=== PATIENT | female | born 1990 | race Caucasian/White ===

== ENCOUNTER 2021-10-22 13:54 | Outpatient (CLI) | payer BC, MEDICAID, SELFPAY ==
--- NOTE | 2021-10-22 14:00 | CRLHL7_ITS ---
For Patients: As a result of the Century Cures Act, medical imaging exams and procedure reports are released immediately into your electronic medical record. You may view this report before your referring provider. If you have questions, please contact your health care provider. INDICATION: Evaluate anatomy. COMPARISON: 08/02/2021 TECHNIQUE: Real time carrizales scale imaging of the fetus was performed as well as color Doppler analysis of the umbilical vessels. FINDINGS: Sonographic imaging demonstrates a single living intrauterine gestation. Fetus demonstrates a regular cardiac rate of 144 beats per minute. Fetus has a variable position. The placenta lies left sided extending to the anterior and posterior aspects without evidence of placenta previa. The edge of the placenta is located 5.5 cm from the internal cervical os. Amniotic fluid volume appears normal. Single deepest vertical pocket: 5.3 cm. The cervix is closed and measures 3.8 cm in length. The composite ultrasound gestational age is calculated at 20 weeks 5 days with an estimated sonographic due date of 03/06/2022. The estimated weight is 355 grams which lies at the 72nd %. The following biometric measurements were obtained: Biparietal diameter: 5.1 cm/21 weeks 3 days 95th% Head circumference: 18.6 cm/20 weeks 6 days 82nd% Abdominal circumference: 15.6 cm/20 weeks 5 days 69th% Femur length: 3.2 cm/19 weeks 6 days 40th% The HC/AC ratio measures: 1.20 range (1.06-1.25) On anatomic survey, there is a normal appearance of the cerebral ventricles, cavum septi pellucidi, cisterna magna and cerebellum. The nose, lips, and facial profile appear normal. The cervical, thoracic and lumbar spine are well visualized and appear normal. Incomplete visualization of the outflow tracts due to position. The diaphragm and stomach appear normal. The kidneys and bladder also appear normal. There is a normal three-vessel cord. The cord insert into the placenta 1.4 cm from the placental edge. Possible positional change regarding the left foot. Right foot appears normal. Normal hands. IMPRESSION: Incomplete visualization of the LVOT and RVOT due to position. Follow-up recommended. Possible left clubfoot versus positional change. Attention on short-term follow-up recommended. Marginal cord insertion 1.4 cm from the edge of the placenta. Sonographic gestational age 20 weeks 5 days and sonographic due date 03/06/2022. Sonographic age 5 days ahead of the clinical age. Estimated weight 72nd percentile. Abdominal circumference 69th percentile. Dictated by Rod Kamara MD @ 10/22/2021 3:32:36 PM (Electronically Signed)
== END 2021-10-22 13:55 | disposition home or self-care (01) ==
LOC: US 13:59
PROVIDERS: Visit Provider Advanced Practice Midwife
DX: Z34.92 Encounter for supervision of normal pregnancy, unspecified, second trimester (principal); Z3A.20 20 weeks gestation of pregnancy
CPT/HCPCS: 76805

== ENCOUNTER 2021-11-26 13:01 | Outpatient (CLI) | payer BC, MEDICAID, SELFPAY ==
[2021-11-26 08:47] LABS: Glucose Fasting Check 93 mg/dl (60-115)
[2021-11-26 14:52] LABS: Glucose 1 Hour Gest 199 mg/dl (70-180)
[2021-11-26 14:53] LABS: Glucose GTT-Gestational 3 Hr 106 mg/dl (70-140)
[2021-11-27 19:27] LABS: Rapid Plasma Reagin (RPR) Non Reactive (Non Reactive)
== END 2021-11-26 13:02 | disposition home or self-care (01) ==
PROVIDERS: Visit Provider Advanced Practice Midwife
DX: Z34.92 Encounter for supervision of normal pregnancy, unspecified, second trimester (principal)
CPT/HCPCS: 82951; 82952; 86592

== ENCOUNTER 2022-01-14 14:59 | Outpatient (CLI) | payer BC, MEDICAID, SELFPAY ==
--- NOTE | 2022-01-14 15:00 | CRLHL7_ITS ---
For Patients: As a result of the Century Cures Act, medical imaging exams and procedure reports are released immediately into your electronic medical record. You may view this report before your referring provider. If you have questions, please contact your health care provider. INDICATION: Third trimester scan, evaluate growth. Gestational diabetes. COMPARISON: 10/22/2021 TECHNIQUE: Real time carrizales scale imaging of the fetus was performed. FINDINGS: Sonographic imaging demonstrates a single living intrauterine gestation. Fetus demonstrates a regular cardiac rate of 154 beats per minute. Fetus has a breech position. The placenta lies left anterior/posterior. Amniotic fluid volume appears normal and there is a single deepest vertical pocket: 4.9 cm. The estimated weight is 2098gm which lies at the 72nd %. On the prior OB ultrasound exam dated 10/22/2021 the estimated weight was at the 72nd%. BPD 91st percentile. HC 80th percentile. AC 81st percentile. FL 33rd percentile. The HC/AC ratio measures 1.06 range (0.95-1.11). IMPRESSION: Sonographic gestational age 33 weeks 3 days and sonographic due date of 03/01/2022. Sonographic age 10 days ahead of the clinical age. Estimated 72nd percentile. Abdominal circumference 81st percentile. Dictated by Rod Kamara MD @ 01/14/2022 3:43:25 PM (Electronically Signed)
--- OUTSIDE RECORDS SUMMARY | 2022-01-14 15:01 | XMS_ITS | Encounter Summary ---
:1990 Author Organization [facility] Address [address] [place] [address] Care Team Providers Name Role Phone Unavailable Primary Care Provider Unavailable Encounter Details Date Type Department Care Team Description 07/21/2014 Hospital Encounter [facility] Kristy Junior M.D. [address] [place] [address] (Wo rk) Social History Tobacco Use Types Packs/Day Years Used Date Smoking Tobacco: Never Assessed Alcohol Habits Answer Date Recorded How often do you have a drink containing alcohol? 2-4 times a month 05/04/2021 How many drinks containing alcohol do you have on a 1 or 2 05/04/2021 typical day when you are drinking? How often do you have six or more drinks on one Less than mo nthly 05/04/2021 occasion? Comment: Not asked Social Isolation Answer Date Recorded In a typical week, how many times do you talk on Once a week 05/04/2021 the phone with family, friends, or neighbors? How often do you get together with friends or Never 05/04/2021 relatives? How often do you attend jehovah's witness or mormonism Never 05/04/2021 services? Do you belong to any clubs or organizations such as No 05/04/2021 jehovah's witness groups, unions, fraternal or athletic groups, or school groups? How often do you attend meetings of the clubs or Never 05/04/2021 organizations you belong to? Are you now , , , , Living wi th partner 05/04/2021 never or living with a partner? Physical Activity Answer Date Recorded On average, how many days per week do you engage in moderate to 0 days 05/04/2021 strenuous exercise (like walking fast, running, jogging, dancing, swimming, biking, or other activities that cause a light or heavy sweat)? On average, how many minutes do you engage in exercise at th is 0 min 05/04/2021 level? Stress Answer Date Recorded Do you feel stress - tense, restless, nervous, or To some ex tent 05/04/2021 anxious, or unable to sleep at night because your mind is troubled all the time - these days? Financial Resource Strain Answer Date Recorded How hard is it for you to pay for the very basics like Not v luis hard 05/04/2021 food, housing, medical care, and heating? Intimate Partner Violence Answer Date Recorded Within the last year, have you been afraid of your partner o r No 05/04/2021 ex-partner? Within the last year, have you been humiliated or emotionall y No 05/04/2021 abused in other ways by your partner or ex-partner? Within the last year, have you been kicked, hit, slapped, or No 05/04/2021 otherwise physically hurt by your partner or ex-partner? Within the last year, have you been raped or forced to have any No 05/04/2021 kind of sexual activity by your partner or ex-partner? Food Insecurity Answer Date Recorded Within the past 12 months, you worried that your food would Never true 05/04/2021 run out before you got money to buy more. Within the past 12 months, the food you bought just didn't N ever true 05/04/2021 last and you didn't have money to get more. Transportation Needs Answer Date Recorded In the past 12 months, has lack of transportation kept you f rom No 05/04/2021 medical appointments or from getting medications? In the past 12 months, has lack of transportation kept you f rom No 05/04/2021 meetings, work, or getting things needed for daily living? Housing Stability Answer Date Recorded In the last 12 months, was there a time when you were not ab le No 05/04/2021 to pay the mortgage or rent on time? In the last 12 months, how many places have you lived? 2 05/04/2021 In the last 12 months, was there a time when you did not hav e a No 05/04/[address] or slept in a long term (including now)? Sex Assigned at Date Recorded Not on file documented as of this encounter Last Filed Vital Signs Vital Sign Reading Time Taken Comments Blood Pressure 100/58 07/21/2014 1:27 PM CDT Pulse 76 07/21/2014 1:27 PM CDT Temperature - - Respiratory Rate 16 07/21/2014 1:27 PM CDT Oxygen Saturation - - Inhaled Oxygen Concentration - - Weight 53.3 kg (117 lb 8.1 oz) 07/21/2014 1:27 PM CDT Height 152 cm (4' 11.84) 07/21/2014 1:27 PM CDT Body Mass Index 23.07 07/21/2014 1:27 PM CDT documented in this encounter Progress Notes Elizabeth Junior M.D. - 07/21/2014 12:41 PM CDT [id number] CHIEF COMPLAINT/REASON FOR VISIT A 24-year-old female, 3-day history of itching and burning in the vaginal area. No other specific concerns or problems. She has not noticed any unusual discharges. She has had a history of bacterial vaginosis in the past. Says it feels pretty similar. VITAL SIGNS Per EMR physical. PHYSICAL EXAMINATION Conducted with nursing staff available to help with wet prep. Does show a little bit of whitish discharge, cheesy in nature in the vaginal area. This is sent down to the lab for wet prep. This did turnpositive for yeast, negative for clue cells or Trichomonas. IMPRESSION/REPORT/PLAN Yeast vaginitis. Diflucan prescription is sent. She could also consider using Monistat topically if she does not wish to do the pills. Follow up as needed if not improving or if other concerns or problems should arise. Elizabeth Junior M.D./wilda Electronically Signed By: ELIZABETH JUNIOR MD On: 07/24/2014 11:52 AM Source: [facility] MHSDOLBEYNONRADSYS Document Id: [id number] documented in this encounter Miscellaneous Notes Miscellaneous - Alex Schmidt L.P.NKendall - 07/21/2014 1:27 PM CDT Adult Lead Operator Intake/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 Lead Operator Intake/History Entered On: 07/21/2014 13:30 CDT Performed On: 07/21/2014 13:27 CDT by ALEX SCHMIDT Intake Chief Complaint : Pt has itching and burning in vaginal area Onset of Symptoms : x 3 days Temperature Oral : 36.9 DegC(Converted to: 98.4 DegF) Peripheral Pulse Rate : 76 /min Respiratory Rate : 16 /min Systolic Blood Pressure : 100 mmHg Diastolic Blood Pressure : 58 mmHg NIBP Mean : 72 mmHg BP Location : Right upper extremity Blood Pressure Cuff Size : Regular Height : 152 cm(Converted to: 5 ft 0 inch(es), 60 inch(es)) Actual Weight : 53.3 kg(Converted to: 117 lb 8 oz) Dosing Weight Clinic : 53.3 kg Clinic BSA : 1.5 Body Mass Index : 23.07 kg/m2 ALEX SCHMIDT - 07/21/2014 13:27 CDT General Info Information Given By : Patient Preferred Communication Mode : Verbal Languages : Amharic Is Patient Female and 13-50 no hysterectomy : Yes Status : Possible unconfirmed Are you ? : No ALEX SCHMIDT - 07/21/2014 13:27 CDT Subjective Pain Symptoms : Yes ALEX SCHMIDT - 07/21/2014 13:27 CDT Pain Scale Pain Scale Verbal 0-10 : Open ALEX SCHMIDT - 07/21/2014 13:27 CDT Pain Pain Assessment Grid Pain 1 Location : Vagina ALEX SCHMIDT - 07/21/2014 13:27 CDT Dependent Habits Tobacco Use/Currently Using : No Smoking Status : Former smoker ALEX SCHMIDT - 07/21/2014 13:27 CDT Tobacco Use Grid Type : Cigarettes ALEX SCHMIDT - 07/21/2014 13:27 CDT Caffeine Use Grid Caffeine Use : Current Type : Coffee Frequency : Occasionally ALEX SCHMIDT - 07/21/2014 13:27 CDT ID Screen Travel Within Last 21 Days : No Contact with someone with Ebola : No ALEX SCHMIDT - 07/21/2014 13:27 CDT Source: [facility] Document Id: [id number] CDT!46 documented in this encounter Plan of Treatment Not on filedocumented as of this encounter Procedures Procedure Name Priority Date/Time Associated Comments Diagnosis WET PREP EXAM, Routine 07/21/2014 2:07 PM Results for this UROGENITAL CDT procedure are i n the results section. documented in this encounter Results (ABNORMAL) Wet Prep Exam, Urogenital (07/21/2014 2:07 PM CDT) [facility] gist Method Time Signature HXWet Prep (POSITIVE) POWERCHART HXFinal Trichomonas: No POWERCHART Trichomonas seen HXFinal Clue Cells: No POWERCHART clue cells seen HXFinal Yeast: Many POWERCHART yeast (>25/hpf) HXFinal Sperm: Absent POWERCHART Specimen (Source) Anatomical Collection Method Collection Time Re ceived Time Location / / Volume Laterality Vagina 07/21/2014 2:07 PM CDT Elizabeth Junior M.D. LAB MICROBIOLOGY - GENERAL O RDERABLES Performing Organization Address City/State/ZIP Code Phon e Number POWERCHART documented in this encounter Visit Diagnoses Not on filedocumented in this encounter Additional Health Concerns Assessment Noted Time PHQ-9 Depression Total Score: 6 08/15/2013 3:15 PM CDT documented as of this encounter
--- OUTSIDE RECORDS SUMMARY | 2022-01-14 15:01 | XMS_ITS | Encounter Summary ---
:1990 Author Organization [facility] Address [address] [place] [address] Care Team Providers Name Role Phone Unavailable Primary Care Provider Unavailable Encounter Details Date Type Department Care Team Description 12/03/2008 Hospital Encounter [facility]X [facility] Provider, Álvaro perez Social History Tobacco Use Types Packs/Day Years [...] 05/04/2021 relatives? How often do you attend rastafarian or restoration Never 05/04/2021 services? Do you belong to any clubs or organizations such as No 05/04/2021 rastafarian groups, unions, fraternal or athletic groups, or [...] place to sleep or slept in a usp (including now)? Sex Assigned at Date Recorded Not on file documented as of this encounter Plan of Treatment Not on filedocumented as of this encounter Visit Diagnoses Not on filedocumented in this encounter
--- OUTSIDE RECORDS SUMMARY | 2022-01-14 15:01 | XMS_ITS | Encounter Summary ---
:1990 Author Organization [facility] Address [address] [place] [address] Care Team Providers Name Role Phone Unavailable Primary Care Provider Unavailable Encounter Details Date Type Department Care Team Description 09/20/2013 Hospital Encounter HX NO MAPPING Reece Smalls M.D. [address] [place] [address] (Wo rk) Social History Tobacco Use Types [...] 05/04/2021 relatives? How often do you attend sikh or nondenominational Never 05/04/2021 services? Do you belong to any clubs or organizations such as No 05/04/2021 sikh groups, unions, fraternal or athletic groups, or school groups? How often do you attend meetings of the clubs or Never 05/04/2021 organizations you belong to? Are you now , , , , Living wi partner 05/04/2021 never or living with a partner? Physical Activity Answer Date Recorded On average, how many days per week do you engage in moderate to 0 days 05/04/2021 strenuous exercise (like walking fast, running, jogging, dancing, swimming, biking, or other activities that cause a light or heavy sweat)? On average, how many minutes do you engage in exercise at is 0 min 05/04/2021 level? Stress Answer [...]
--- OUTSIDE RECORDS SUMMARY | 2022-01-14 15:01 | XMS_ITS | Encounter Summary ---
:1990 Author Organization [facility] Address [address] [place] [address] Care Team Providers Name Role Phone Unavailable Primary Care Provider Unavailable Encounter Details Date Type Department Care Team Description 04/08/2010 Hospital Encounter [facility] Nayely Pierre M.D. Social History Tobacco Use Types Packs/Day Years [...] 05/04/2021 relatives? How often do you attend sikhism or christian Never 05/04/2021 services? Do you belong to any clubs or organizations such as No 05/04/2021 sikhism groups, unions, fraternal or athletic groups, or [...] place to sleep or slept in a alf (including now)? Sex Assigned at Date Recorded Not on file documented as of this encounter Progress Notes Ramsey Banda M.D. - 04/08/2010 12:00 AM CST [id number] CHIEF COMPLAINT / REASON FOR VISIT Vaginal itching. HISTORY OF PRESENT ILLNESS This 20-year-old white female is in with about a 4-day history of vaginal itching. Really has not noted any increased vaginal discharge and really cannot think of anything new or different that she has come in contact with. PHYSICAL EXAM GENITALIA: External genitalia shows erythema and a little bit of swelling, white clumpy discharge. Her vaginal pH was 4.5. Wet prep is still pending. IMPRESSION / REPORT / PLAN 1) Yeast vaginitis clinically. PLAN: Diflucan 150 mg one time. Different intervention if her wet prep shows something different, but it really looks yeast clinically. Can repeat in 1 week if needed. Follow up if her wet prep is negative and her symptoms are persisting in spite of the current treatment plan. Ramsey Pierre M.D. gisel Electronically Signed By:RAMSEY PIERRE MD On 04/15/2010 02:16 PM Source: [facility] MHSDOLBEYNONRADSYS Document Id: [id number] TECHNICIAN documented in this encounter Miscellaneous Notes Miscellaneous - Ramsey Banda M.D. - 04/08/2010 5:47 PM RAIL TECHNICIAN Reminder Msg From: RAMSEY PIERRE MD To: LUCIANO MCLEOD Sent: 04/08/2010 17:47:55 RAIL TECHNICIAN ! Show up: 04/08/2010 17:47:00 RAIL TECHNICIAN Subject: Reminder Msg Actions: Notify patient of results Due Date/Time: 04/08/2010 17:47:00 RAIL TECHNICIAN Source: [facility] POWERCHART Document Id: [id number] Electronically signed by Violette [facility] Bicycle Inspector [id number] at 09/19/2016 4:54 AM CDT Miscellaneous - Ramsey Banda M.D. - 04/08/2010 8:23 AM RAIL TECHNICIAN Ambulatory Patient Summary [facility] [address] [place] [id number] Visit Information Name: DENISE ALEXANDER Current Date: 04/08/2010 08:23:02 Primary Care Provider: JOSR HUANG MD Your Medications Here is a list of your medications. It is important to take your medications as directed. Use a pillbox or chart to help remind you to take your medications. Please let your doctor or nurse know if you have problems taking your medications. 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 Here is a customized list of recommendations, based on information we have in your medical record. Your doctor may have additional recommendations for you, based on your personal medical history and risk factors. You can help us by calling us to make an appointment when you are due for your tests. Additional information regarding recommendations: Test/Treatment Last Done Next Due Additional Information Screening Chlamydia every 1 year Females Age 15-24 04/08/2010 Lipid Panel every 5 years Age 20-75 04/08/2010 Checks blood for good (HDL) and bad (LDL) cholesterol. Know your numbers, they are one indicator of your risk for heart attack and stroke. Vaccine: Tetanus every 10 years 08/06/2002 08/03/2012 Immunization to help prevent you from getting the serious disease Tetanus (Lockjaw). Your Upcoming Appointments Date Time Location Reason Provider No Appointments found Your Goals/Additional instructions: Source: [facility] POWERCHART Document Id: [id number] Electronically signed by Conversion, [facility] Bicycle Inspector [id number] at 09/19/2016 4:54 AM CDT Miscellaneous - Ramsey Banda M.D. - 04/08/2010 8:23 AM RAIL TECHNICIAN Ambulatory Depart Summary [address] [address] Visit Information Name: DENISE ALEXANDER Current Date: 04/08/2010 08:23:01 Primary Care Provider: JOSR HUANG MD DENISE ALEXANDER has been given the following list of medications: Your Medications It is important to take your medications as directed. Use a pill box or chart to help remind you to take your medications. Please let your doctor or nurse know if you have problems taking your medications. Medication/Strength Dose Route Frequency Indications/Special Instructions/Comments fluconazole (Diflucan 150 mg oral tablet) 150 mg Oral once yeast olopatadine ophthalmic (Patanol 0.1% ophthalmic solution) 1 to 2 drops Eyes(Both) two times a day asneeded for Itching loratadine (loratadine 10 mg oral tablet) 10 mg Oral once a day as needed for Allergy symptoms Additional Information: Yes - Current list of reconciled medications is provided and explained to the patient and/or family, guardian/caregiver. Source: [employer] Document Id: [id number] Electronically signed by Conversion, [facility] Bicycle Inspector [id number] at 09/19/2016 4:54 AM CDT Miscellaneous - Violette, Historical Provider Ser - 04/08/2010 7:57 AM RAIL TECHNICIAN Adult Blackjack Dealer Intake/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 Blackjack Dealer Intake/History Entered On: 04/08/2010 8:01 RAIL TECHNICIAN Performed On: 04/08/2010 7:57 RAIL TECHNICIAN by JULIA GONZALEZ Chief Complaint: vaginal itching no odor no discharge Onset of Symptoms: since last mon. LMP Date: 03-09-2010 Temperature Oral: 37.0C(Converted to: 98.6DegF) Peripheral Pulse Rate: 96/min Respiratory Rate: 20/min Systolic Blood Pressure: 92mmHg Diastolic Blood Pressure: 60mmHg NIBP Mean: 71mmHg BP Location: Right upper extremity Actual Weight: 48.900kg(Converted to: 107lb 13oz) Weight Source: Standing scale Dosing Weight Clinic: 48.90kg JULIA GONZALEZ 04/08/2010 7:57 RAIL TECHNICIAN Subjective Pain Symptoms: No JULIA GONZALEZ 04/08/2010 7:57 RAIL TECHNICIAN Dependent Habits Tobacco Use/Currently Using: Yes JULIA GONZALEZ 04/08/2010 7:57 RAIL TECHNICIAN Tobacco Use Grid Type: Cigarettes Comments (Comment: 1 cig day [JULIA GONZALEZ 04/08/2010 7:57 RAIL TECHNICIAN] ) JULIA GONZALEZ 04/08/2010 7:57 RAIL TECHNICIAN Alcohol Use: Yes JULIA GONZALEZ 04/08/2010 7:57 RAIL TECHNICIAN Caffeine Use Grid Caffeine Use: Current Type: Coffee Frequency: Occasionally JULIA GONZALEZ 04/08/2010 7:57 RAIL TECHNICIAN Allergies Allergies (Active) NKA Estimated Onset Date: Unspecified ; Created By: MEGHAN REMY; Reaction Status: Active ; Category: Drug ; Substance: NKA ; Type: Allergy ; Updated By: MEGHAN REMY; Reviewed Date: 02/20/2010 11:33CDT Source: [facility] POWERCHART Document Id: [id number] RAIL TECHNICIAN!28 documented in this encounter Plan of Treatment Not on filedocumented as of this encounter Visit Diagnoses Not on filedocumented in this encounter
--- OUTSIDE RECORDS SUMMARY | 2022-01-14 15:01 | XMS_ITS | Encounter Summary ---
:1990 Author Organization [facility] Address [address] [place] [address] Care Team Providers Name Role Phone None Reported, Pcp Primary Care Provider Unavailable Reason for Referral Outpatient (Routine) - Authorized Specialty Diagnoses / Procedures Referred By Contact Refer red To Contact Diagnoses Removal Of Intrauterine Contraceptive Device Laura Pierre M.D. [facility] Region Procedures IUD - removal [address] [place] [address] Referral ID Status Reason Start Date Expiration Date Visits V isits Requested Authorized [id number] Authorized 05/04/2021 05/04/2022 1 1 SERVICE SALES REPRESENTATIVES Reason for Visit Reason Comments Contraception IUD removal Appointment Request (Routine) - Closed Specialty Diagnoses / Procedures Referred By Contact Refer red To Contact Family Medicine Referral ID Status Reason Start Date Expiration Date Visits Requ ested Visits Authorized [id number] Closed 04/09/2021 04/09/2022 1 1 Encounter Details Date Type Department Care Team Description 05/04/2021 Office Visit Department of Laura Huynh Of Intrauterine MedicineJaya M.D. Contraceptive Device Clinic, [facility], [address] (Primary Dx) [place], [place] [address] [address] [place], [place] [phone] (Work) [phone] Social History Tobacco Use Types Packs/Day Years Used Date Smoking Tobacco: Former Smokeless Tobacco: Never Alcohol Habits Answer Date Recorded How often [...] 05/04/2021 relatives? How often do you attend yarsani or protestant Never 05/04/2021 services? Do you belong to any clubs or organizations such as No 05/04/2021 yarsani groups, unions, fraternal or athletic groups, or [...] place to sleep or slept in a penitentiary (including now)? Education Answer Date Recorded What is the highest level of school you have Some college, n o degree 05/04/2021 completed or the highest degree you have received? Sex Assigned at Date Recorded Not on file documented as of this encounter Last Filed Vital Signs Vital Sign Reading Time Taken Comments Blood Pressure 123/77 05/04/2021 2:45 PM FOOD SERVICE SALES REPRESENTATIVES Pulse 99 05/04/2021 2:45 PM FOOD SERVICE SALES REPRESENTATIVES Temperature 36.8 ??C (98.2 ??F) 05/04/2021 2:45 PM FOOD SERVICE SALES REPRESENTATIVES Respiratory Rate - - Oxygen Saturation - - Inhaled Oxygen Concentration - - Weight 55.7 kg (122 lb 12.7 oz) 05/04/2021 2:45 PM FOOD SERVICE SALES REPRESENTATIVES Height 152.5 cm (5' 0.04) 05/04/2021 2:45 PM FOOD SERVICE SALES REPRESENTATIVES Body Mass Index 23.95 05/04/2021 2:45 PM FOOD SERVICE SALES REPRESENTATIVES documented in this encounter Progress Notes Laura Pierre M.D. - 05/04/2021 2:45 PM CST SUBJECTIVE CHIEF COMPLAINT/REASON FOR VISIT IUD removed. HISTORY OF PRESENT ILLNESS Deniseselina Nagel is a 31 y.o. female who presents to the clinic today for IUD [facility]. [facility] They were unable to visualize strings and sore unable to remove it. She is here today to see if I could remove the IUD. REVIEW OF SYSTEMS Please see HPI for pertinent positives, otherwise rest of ROS negative. CURRENT MEDICATIONS No current outpatient medications on file. No current facility-administered medications for this visit. ALLERGIES/CONTRAINDICATIONS No Known Allergies Reviewed medical and surgical history OBJECTIVE VITAL SIGNS Vitals: 05/04/21 1445 BP: 123/77 Patient Position: Sitting Pulse: 99 Temp: 36.8 ??C Height: 152.5 cm Weight: 55.7 kg TempSrc: Temporal Body mass index is 23.95 kg/m??. PHYSICAL EXAMINATION General: Pleasant female in no distress. Pelvic: Normal female genitalia. Cervix was well-visualized. IUD strings were not seen. Straight forceps were inserted into the cervix. After 2 attempts IUD was removed. Please see procedure note for further detail Mental status: Normal mood and affect. Good eye contact. Answers questions appropriately. The following screenings were completed: PHQ-9 Total Score (max 27): 5 (05/04/21 1447) PHQ-2 Score: 2 ASSESSMENT / PLAN #1 Removal Of Intrauterine Contraceptive Device - IUD - removal Plan: She will follow-up as needed. Laura Pierre M.D. SERVICE SALES REPRESENTATIVES documented in this encounter Procedure Notes Laura Pierre M.D. - 05/04/2021 2:45 PM CSTAssociated Order(s): IUD - removal Post-Procedure Diagnose(s): Removal Of Intrauterine Contraceptive Device IUD - removal Date/Time: 05/04/2021 3:12 PM Performed by: Laura Pierre M.D. Authorized by: Laura Pierre M.D. PROCEDURE DETAILS Procedure: Removal Pelvic exam performed: no Strings visible: no IUD removed intact: yes IUD shown to patient prior to disposable: yes CONSENT Consent obtained: verbal The benefits, risks and alternatives to the procedure and the potential need for sedation or anesthesia as well as the names, roles, and responsibilities of healthcare team members performing significant interventional tasks were discussed with the patient and/or decision maker. UNIVERSAL PROTOCOL All relevant documentation and testing were reviewed and available. All required blood products, implants, devices and or special equipment were made available as applicable. Pre-procedure verificationwas conducted and the correct site was marked if required. A fire risk assessment was done as applicable. The procedural time-out was conducted prior to performing the procedure and confirmed in a procedural pause. PRE-PROCEDURE DETAILS Assessment - reasonably exclude based on: PREG criteria Indications: Desires Appropriate hand hygiene, gown, cap, mask, protective eyewear, sterile gloves, skin preparation, sterile drape, and strict aseptic technique were utilized as applicable for the procedure.: yes SEDATION / ANESTHESIA Anesthesia method: none POST-PROCEDURE DETAILS Procedure completed successfully: yes Complications: no apparent complications SERVICE SALES REPRESENTATIVES documented in this encounter Plan of Treatment Not on filedocumented as of this encounter Procedures Procedure Name Priority Date/Time Associated Diagnosis Comme nts MO REMOVAL OF Routine 05/04/2021 3:12 Removal Of Results for this INTRAUTERINE DEVICE PM FOOD SERVICE SALES REPRESENTATIVES Intrauterine procedur e are in Contraceptive Device the res ults section. documented in this encounter Results MO REMOVAL OF INTRAUTERINE DEVICE (05/04/2021 3:12 PM FOOD SERVICE SALES REPRESENTATIVES) Narrative MMODAL - 05/04/2021 3:12 PM FOOD SERVICE SALES REPRESENTATIVES Laura Pierre M.D. ? 05/04/2021 ??3:16 PM IUD - removal Date/Time: 05/04/2021 3:12 PM Performed by: Laura Pierre M.D. Authorized by: Laura Pierre M.D. PROCEDURE DETAILS ??Procedure: ??Removal ??Pelvic exam performed: no ?Strings visible: no ?IUD removed intact: yes ?IUD shown to patient prior to disposa ble: yes ?? CONSENT Consent obtained: verbal The benefits, risks and alternatives to the procedure and the potential need for sedation or anesthesia as well as the names, roles, and responsibilities of healthcare team memb ers performing significant interventional tasks were discussed with the patient and/or decision maker. UNIVERSAL PROTOCOL All relevant documentation and testing w ere reviewed and available. All required blood products, implants, devic es and or special equipment were made available as applicable. Pre-proced ure verification was conducted and the correct site was marked if required. A fire risk assessment was done as applicable. The procedural time-out w as conducted prior to performing the procedure and confirmed in a procedu ral pause. PRE-PROCEDURE DETAILS ?? Assessment - reas onably exclude based on: ??PREG criteria ??Indications: ??Desires ??Appropriate hand hygiene, gown, cap, mask, protective eyewear, sterile gloves, skin preparation, sterile drape, and strict aseptic technique were utilized as applicable for the procedure .: yes ?? SEDATION / ANESTHESIA Anesthesia method: none POST-PROCEDURE DETAILS ??Procedure completed successfully: yes ?Complications: no apparent complicati ons ?? Laura Pierre M.D. OB GYNE ORDERABLES Performing Organization Address City/State/ZIP Code Phon e Number MMODAL MMODAL NA documented in this encounter Visit Diagnoses Diagnosis Removal Of Intrauterine Contraceptive De vice - Primary documented in this encounter Additional Health Concerns Assessment Noted Time PHQ-9 Depression Total Score: 5 05/04/2021 2:47 PM FOOD SERVICE SALES REPRESENTATIVES documented as of this encounter Care Teams Database Tester Relationship Specialty Start Date End Date None Reported, Pcp PCP - General Family Medicine 05/04/21 documented as of this encounter
--- OUTSIDE RECORDS SUMMARY | 2022-01-14 15:01 | XMS_ITS | Encounter Summary ---
:1990 Author Organization [facility] Address [address] [place] [address] Care Team Providers Name Role Phone Unavailable Primary Care Provider Unavailable Encounter Details Date Type Department Care Team Description 04/12/2012 Hospital Encounter HX [facility] Nayely [...] 05/04/2021 relatives? How often do you attend congregation or orthodoxy Never 05/04/2021 services? Do you belong to any clubs or organizations such as No 05/04/2021 congregation groups, unions, fraternal or athletic groups, or [...] pay for the very basics like Not abdiaziz luis hard 05/04/2021 food, housing, medical care, [...] place to sleep or slept in a fci (including now)? Sex Assigned at Date Recorded Not on file documented as of this encounter Last Filed Vital Signs Vital Sign Reading Time Taken Comments Blood Pressure 102/54 04/12/2012 11:12 AM ACTING INSTRUCTOR Pulse 76 04/12/2012 11:12 AM ACTING INSTRUCTOR Temperature - - Respiratory Rate 16 04/12/2012 11:12 AM ACTING INSTRUCTOR Oxygen Saturation - - Inhaled Oxygen Concentration - - Weight 54 kg (119 lb 0.8 oz) 04/12/2012 11:12 AM ACTING INSTRUCTOR Height - - Body Mass Index 23.01 03/29/2012 2:28 PM ACTING INSTRUCTOR documented in this encounter Progress Notes Ramsey Banda M.D. - 04/12/2012 10:50 AM CST [id number] CHIEF COMPLAINT/REASON FOR VISIT Removal of genital molluscum HISTORY OF PRESENT ILLNESS Denise is a 22-year-old female presenting today for removal of genital molluscum. She states that she feels that some of the molluscum are resolving. She would like the remaining molluscum removed today as was discussed at her previous appointment. Second, Denise states that she has a rash on her inner legs and under her arms. She states that the rash was very itchy earlier this week, but less itchy now. She denies ever having a rash like this before. She denies any changes in soaps or fabric softener. She states that she is not aware of any allergies. CURRENT MEDICATIONS Reviewed and updated in the EMR dated 04/12/12 ALLERGIES Reviewed and updated in the EMR dated 04/12/12 VITAL SIGNS WEIGHT: 54.00 kg TEMP: 37 C PULSE: 76 /min RESP RATE: 16 /min SYSTOLIC: 102 mmHg DIASTOLIC: 54 mmHg PHYSICAL EXAM GENERAL: Well-developed female in no acute distress. EXTERNAL GENITALIA: Resolution of all the lesions of her inner thigh and buttocks area. She currently has a few lesions scattered lateral to the vaginal opening that appears to be more of a folliculitis in the area where she has shaved. Several are mildly tender. SKIN: She has scaly, thickened patches on her left anterior ankle, scattered patches on knees, and apatch on the inner right upper arm that appear to be eczema. ALISA scraping of her left leg was done. IMPRESSION/REPORT/PLAN 1. Folliculitis Plan: Discussed that the lesions now appear more consistent with folliculitis and are much improved.Discussed that at this point she should just watch to see if they continue to improve. She was givena prescription for doxycycline hyclate 100 mg b.i.d. for 10 days to be taken if the lesions do not continue to improve. Encouraged her to stop shaving the affected area to see if this helps improve, and when she begins shaving the area again she should use a clean razor and shaving cream each time. 2. Eczema Plan: ALISA scraping was done. She was given triamcinolone 0.1% topical cream to apply topically t.i.d. to the affected area. Encouraged her to keep her skin well moisturized. This document serves as a record of services personally performed by Dr. Ramsey Pierre. It was created on their behalf by Marleny Delgadillo, a trained medical or surgical instrument maker. The creation of this record is based on the scribe's personal observations and the provider's statements to them. This document has been checked and approved by the attending provider. Ramsey Pierre M.D./elisha Electronically Signed By: RAMSEY PIERRE MD On: 04/19/2012 09:41 PM Source: [facility] [id number] Document Id: [id number] NG INSTRUCTOR documented in this encounter Miscellaneous Notes Miscellaneous - Nikolas Menendez M.D. - 06/06/2012 9:41 AM CST Denise did not show up to todays appointment for colposcopy. Source: [facility] POWERCHART Document Id: [id number] NG INSTRUCTOR Miscellaneous - Conversion, Historical Provider Ser - 05/29/2012 5:01 PM ACTING INSTRUCTOR General Message From: MCKENNA PALMA (OLIVIER Mattson Nurse) Sent: 05/29/2012 17:01:00 ACTING INSTRUCTOR Subject: General Message Fay was notified of the importance of setting up an appointment with the DEHYDROGENATION SUPERVISOR dept. She was not able to schedule this today due to high call volume so she could not be transferrred. She was given the number of the clinic and said she will call 05-30-12. Source: [facility] POWERCHART Document Id: [id number] Miscellaneous - Ramsey Banad M.D. - 04/12/2012 12:10 PM ACTING INSTRUCTOR Ambulatory Patient Summary [facility] [address] [place] [address] Visit Information Name: DENISE ALEXANDER [facility] Number: [id number] Current Date: 04/12/2012 12:10:12 Physicians Attending Provider: RAMSEY PIERRE MD Primary Care Provider: RAMSEY PIERRE MD Your Medications Here is a list of your medications. It is important to take your medications as directed. Use a pillbox or chart to help remind you to take your medications. Please let your doctor or nurse know if you have problems taking your medications. Medication/Strength Dose Route Frequency Indications/Special Instructions/Comments doxycycline (doxycycline hyclate 100 mg oral tablet) 100 mg Oral two times a day for 10 Days for skin infection triamcinolone topical (triamcinolone 0.1% topical cream) 1 andre Topical three times a day (apply a thin film) to affected area fluoxetine (Prozac 20 mg oral capsule) 20 mg Oral once a day depression norgestimate-ethinyl estradiol (norgestimate-ethinyl estradiol triphasic (0.18 mg-0.215 mg-0.250 mg)-35 mcg oral tablet) 1 tab(s) Oral once a day Attention: If you have any medications at home that are not on this list, DO NOT take them until youcontact your provider for clarification. 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 - 04/12/2012 12:10 PM ACTING INSTRUCTOR Ambulatory Depart Summary [facility] [address] [place] [id number] Visit Information Name: DENISE ALEXANDER [facility] Number: [id number] Visit Date: 04/12/2012 12:10:11 Attending Provider: RAMSEY PIERRE MD Primary Care Provider: RAMSEY PIERRE MD DENISE ALEXANDER has been given the following list of medications: Your Medications It is important to take your medications as directed. Use a pill box or chart to help remind you to take your medications. Please let your doctor or nurse know if you have problems taking your medications. Medication/Strength Dose Route Frequency Indications/Special Instructions/Comments doxycycline (doxycycline hyclate 100 mg oral tablet) 100 mg Oral two times a day for 10 Days for skin infection triamcinolone topical (triamcinolone 0.1% topical cream) 1 andre Topical three times a day (apply a thin film) to affected area fluoxetine (Prozac 20 mg oral capsule) 20 mg Oral once a day depression norgestimate-ethinyl estradiol (norgestimate-ethinyl estradiol triphasic (0.18 mg-0.215 mg-0.250 mg)-35 mcg oral tablet) 1 tab(s) Oral once a day Attention: If you have any medications at home that are not on this list, DO NOT take them until youcontact your provider for clarification. Additional Information: Source: [facility] POWERCHART Document Id: [id number] NG INSTRUCTOR Miscellaneous - Conversion, Historical Provider Ser - 04/12/2012 11:12 AM ACTING INSTRUCTOR Adult Nurse Staff Intake/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 Nurse Staff Intake/History Entered On: 04/12/2012 11:15 ACTING INSTRUCTOR Performed On: 04/12/2012 11:12 ACTING INSTRUCTOR by ROYAL CLINTON Intake Chief Complaint : Molluscum treatment options/itchy skin Temperature Oral : 37C(Converted to: 98.6DegF) Peripheral Pulse Rate : 76/min Respiratory Rate : 16/min Heart Rhythm : Regular Systolic Blood Pressure : 102mmHg Diastolic Blood Pressure : 54mmHg NIBP Mean : 70mmHg BP Location : Right upper extremity Blood Pressure Cuff Size : Regular Oxygen Therapy : Room air Actual Weight : 54kg(Converted to: 119lb 1oz) Weight Source : Standing scale Dosing Weight Clinic : 54.00kg ROYAL CLINTON - 04/12/2012 11:12 ACTING INSTRUCTOR General Info Information Given By : Patient Preferred Communication Mode : Verbal Languages : Ghanaian ROYAL CLINTON - 04/12/2012 11:12 ACTING INSTRUCTOR Subjective Pain Symptoms : No ROYAL CLINTON 04/12/2012 11:12 ACTING INSTRUCTOR Dependent Habits Tobacco Use/Currently Using : Yes Exposure to Tobacco Smoke : Patient smokes Smoking Status : Current some day smoker ROYAL CLINTON - 04/12/2012 11:12 ACTING INSTRUCTOR Tobacco Use Grid Type : Cigarettes ROYAL CLINTON 04/12/2012 11:12 ACTING INSTRUCTOR Alcohol Use : Yes ROYAL CLINTON 04/12/2012 11:12 ACTING INSTRUCTOR Caffeine Use Grid Caffeine Use : Current Type : Coffee Frequency : Occasionally ROYAL CLINTON 04/12/2012 11:12 ACTING INSTRUCTOR Allergy Allergies (Active) NKA Estimated Onset Date: Unspecified ; Created By: MEGHAN REMY; Reaction Status: Active ; Category: Drug ; Substance: NKA ; Type: Allergy ; Updated By: MEGHAN REMY; Reviewed Date: 04/12/2012 11:11CST [facility] Document Id: [id number] documented in this encounter Plan of Treatment Not on filedocumented as of this encounter Visit Diagnoses Not on filedocumented in this encounter Additional Health Concerns Assessment Noted Time PHQ-9 Depression Total Score: 12 03/29/2012 5:44 PM CS T documented as of this encounter
--- OUTSIDE RECORDS SUMMARY | 2022-01-14 15:01 | XMS_ITS | Encounter Summary ---
:1990 Author Organization [facility] Address [address] [place] [address] Care Team Providers Name Role Phone Unavailable Primary Care Provider Unavailable Encounter Details Date Type Department Care Team Description 05/07/2013 Hospital Encounter HX NO MAPPING Reece Smalls M.D. [address] [place] [address] (Wo rk) Social History Tobacco Use Types [...] 05/04/2021 relatives? How often do you attend cheondoism or druze Never 05/04/2021 services? Do you belong to any clubs or organizations such as No 05/04/2021 cheondoism groups, unions, fraternal or athletic groups, or [...] place to sleep or slept in a long-term (including now)? Sex Assigned at Date Recorded Not on file documented as of this encounter Plan of Treatment Not on filedocumented as of this encounter Visit Diagnoses Not on filedocumented in this encounter Additional Health Concerns Assessment Noted Time PHQ-9 Depression Total Score: 12 03/29/2012 5:44 PM CS T documented as of this encounter
--- OUTSIDE RECORDS SUMMARY | 2022-01-14 15:01 | XMS_ITS | Clinical Summary ---
:1990 Author Organization [facility] Address [address] [place] [address] Care Team Providers Name Role Phone Elsewhere, Pcp Primary Care Provider Unavailable Source Comments Patient records contain information from all sites at [facility]. For routine questions regarding patient records, call [phone] during business hours, M-F 8:00 AM - 5:00 PM Central Time. Record requests for emergency care only can be directed to [phone] at any time.[facility] Allergies No known active allergies Medications No known medications Active Problems Problem Noted Date Depression Major Recurrent Moderate 03/29/2012 Overview: Moderate recurrent major depression Immunizations Name Administration Dates Next Due 4vHPV (discontinued) 10/03/2007, 06/04/2007, 03/05/2007 HepB, Unspecified 12/11/2002, 09/23/2002, 08/06/2002 Influenza (IM) Preservative Free 03/05/2007 MCV4 (Menactra) 03/05/2007 MCV4, Unspecified 03/05/2007 MMR 08/06/2002 Td Preservative Free (TENIVAC, DECAVAC) 08/06/2002 Tdap 11/01/2010 Social History Tobacco Use Types Packs/Day Years [...] 05/04/2021 relatives? How often do you attend congregational or yazidism Never 05/04/2021 services? Do you belong to any clubs or organizations such as No 05/04/2021 congregational groups, unions, fraternal or athletic groups, or [...] place to sleep or slept in a care home (including now)? Education Answer Date Recorded What is the highest level of school you have Some college, n o degree 05/04/2021 completed or the highest degree you have received? Sex Assigned at Date Recorded Not on file Last Filed Vital Signs Vital Sign Reading Time Taken Comments Blood Pressure 123/77 05/04/2021 2:45 PM SPECIAL FORCES MEDICAL SERGEANT Pulse 99 05/04/2021 2:45 PM SPECIAL FORCES MEDICAL SERGEANT Temperature 36.8 ??C (98.2 ??F) 05/04/2021 2:45 PM SPECIAL FORCES MEDICAL SERGEANT Respiratory Rate 16 07/21/2014 1:27 PM CDT Oxygen Saturation - - Inhaled Oxygen Concentration - - Weight 55.7 kg (122 lb 12.7 oz) 05/04/2021 2:45 PM SPECIAL FORCES MEDICAL SERGEANT Height 152.5 cm (5' 0.04) 05/04/2021 2:45 PM SPECIAL FORCES MEDICAL SERGEANT Body Mass Index 23.95 05/04/2021 2:45 PM SPECIAL FORCES MEDICAL SERGEANT Plan of Treatment Health Maintenance Due Date Last Done Comments HIV Screening 1990 Hepatitis C Screening 1990 COVID-19 Vaccine (#1) 1990 Cervical Cancer Screening 09/20/2016 09/20/2013, 03/29/2012 DTaP,Tdap,and Td Vaccines 11/01/2020 11/01/2010, 08/06/2002 , (3 - Td or Tdap) 08/06/2002 Depression Monitoring 09/01/2021 05/04/2021 (PHQ-9) Influenza Vaccine (#1) 2022 05/08/2018, 03/16/2016, 01/21/2015, Additional history exists Hepatitis B Vaccines Completed 12/11/2002, 12/11/2002, 09/23/2002, Additional history exists Pneumococcal vaccine (0-64 Aged Out No lo nger eligible years) based on patient 's age to complete this topic Care Teams Special Delivery Carrier Relationship Specialty Start Date End Date Elsewhere, Pcp PCP - General 08/08/21
--- OUTSIDE RECORDS SUMMARY | 2022-01-14 15:01 | XMS_ITS | Encounter Summary ---
:1990 Author Organization [facility] Address [address] [place] [address] Care Team Providers Name Role Phone Unavailable Primary Care Provider Unavailable Encounter Details Date Type Department Care Team Description 04/26/2010 Hospital Encounter [facility] Kristy Junior M.D. [address] [place] [address] (Wo rk) Social History Tobacco [...] 05/04/2021 relatives? How often do you attend jewish or yarsani Never 05/04/2021 services? Do you belong to any clubs or organizations such as No 05/04/2021 jewish groups, unions, fraternal or athletic groups, or [...] place to sleep or slept in a [place] [facility] (including now)? Sex Assigned at Date Recorded Not on file documented as of this encounter Progress Notes Elizabeth Junior M.D. - 04/26/2010 12:00 AM CST [id number] HISTORY OF PRESENT ILLNESS 20-year-old female who has had a 1-day history of frequency, a little bit of dysuria, not really burning just a little uncomfortable with urination. No other specific concerns or problems. Denies possibility of . She has not had any antibiotic failures in the past. VITAL SIGNS Fine per EMR. PHYSICAL EXAM GENERAL: The patient is awake, alert, no acute distress. SPINE: She does not have CVA tenderness on exam. IMPRESSION/REPORT/PLAN DIAGNOSTICS: Urinalysis shows gross evidence for UTI. 1) UTI (urinary tract infection). Plan: Cipro is provided. She did not wish to have anything for burning, really is not having that symptom. Follow up as needed if not improving or if other concerns or problems should arise. Elizabeth Junior M.D. bft Electronically Signed By:ELIZABETH JUNIOR MD On 04/29/2010 08:32 AM Source: [facility] [employer]OL[employer] Document Id: [id number] IDER documented in this encounter Miscellaneous Notes Miscellaneous - Chetna Rocha L.P.N. 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/History Entered On: 04/26/2010 18:09 CARBIDER Performed On: 04/26/2010 18:06 CARBIDER by CHETNA ROCHA Intake Chief Complaint: Frequency with urination Onset of Symptoms: 1 day Temperature Oral: 36.9C(Converted to: 98.4DegF) Peripheral Pulse Rate: 82/min Respiratory Rate: 18/min Systolic Blood Pressure: 100mmHg Diastolic Blood Pressure: 60mmHg NIBP Mean: 73mmHg Actual Weight: 47.700kg(Converted to: 105lb 3oz) Dosing Weight Clinic: 47.70kg CHETNA ROCHA - 04/26/2010 18:06 CARBIDER Subjective Pain Symptoms: No CHETNA ROCHA - 04/26/2010 18:06 CARBIDER Dependent Habits Tobacco Use/Currently Using: No CHETNA ROCHA - 04/26/2010 18:06 CARBIDER Tobacco Use Grid Type: Cigarettes CHETNA ROCHA - 04/26/2010 18:06 CARBIDER Caffeine Use Grid Caffeine Use: Current Type: Coffee Frequency: Occasionally CHETNA ROCHA - 04/26/2010 18:06 CARBIDER Allergies Allergies (Active) NKA Estimated Onset Date: Unspecified ; Created By: MEGHAN REMY; Reaction Status: Active ; Category: Drug ; Substance: NKA ; Type: Allergy ; Updated By: MEGHAN REMY; Reviewed Date: 04/26/2010 18:05CST [facility] Document Id: [id number] CARBIDER!24 IDER documented in this encounter Plan of Treatment Not on filedocumented as of this encounter Visit Diagnoses Not on filedocumented in this encounter
--- OUTSIDE RECORDS SUMMARY | 2022-01-14 15:01 | XMS_ITS | Encounter Summary ---
:1990 Author Organization [facility] Address [address] [place] [address] Care Team Providers Name Role Phone Unavailable Primary Care Provider Unavailable Encounter Details Date Type Department Care Team Description 02/20/2010 Hospital Encounter [facility]X [facility] Beni Liu P.A.-Janice., P.A. [address], [place] [address] (Wo rk) Social History Tobacco Use Types [...] 05/04/2021 relatives? How often do you attend methodist or faith Never 05/04/2021 services? Do you belong to any clubs or organizations such as No 05/04/2021 methodist groups, unions, fraternal or athletic groups, or [...] place to sleep or slept in a prison (including now)? Sex Assigned at Date Recorded Not on file documented as of this encounter Progress Notes Zeb Liu P.A.-C., P.A. - 02/20/2010 12:00 AM CDT [id number] CHIEF COMPLAINT / REASON FOR VISIT Congestion and itchy eyes. HISTORY OF PRESENT ILLNESS Patient is a 19-year-old who presents with a 2-day history of itchy, watery eyes. The right one has been a bit puffy. She has not really had much for drainage or discharge. She has had some nasal congestion and sneezing. No fever. No visual changes. She is not taking anything for symptoms. Primary care provider is Dr. Loretta Mclaughlin (Elaine). CURRENT MEDICATIONS None. ALLERGIES No known drug allergies. VITAL SIGNS TEMP: 36.8 degreesC PULSE: 76 RESP RATE: 14/min SYSTOLIC: 110 DIASTOLIC: 68 WEIGHT: 48 kg PHYSICAL EXAM GENERAL: Well-appearing in no acute distress. SKIN: Warm and dry without rashes. EYES: PERRLA. EOMs intact. Normal conjunctivae and lids. No obvious discharge, drainage or crusting. ENT: TMs are clear bilaterally. Nares with nonpurulent discharge. Oral mucosa is moist. Pharynx without erythema. Neck is supple without adenopathy. LUNGS: Clear throughout without wheezes, rubs or crackles. Normal respiratory rate and effort. HEART: Regular rate and rhythm with normal S1 and S2. No murmur. IMPRESSION/REPORT/PLAN 1) Allergic rhinitis/allergic conjunctivitis. PLAN: Loratadine 10 mg daily as needed. Patanol eyedrops 1-2 drops each eye twice daily as needed for allergy symptoms. Continue supportive measures and cares. Follow up with primary care provider if symptoms persist or further problems. 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 - 02/20/2010 11:43 AM CDT Ambulatory Patient Summary [facility] [address] [place] [address] Visit Information Name: DENISE ALEXANDER Current Date: 02/20/2010 11:43:34 Primary Care Provider: JOSR MCLAUGHLIN MD Your Medications Here is a list of your medications. It is important to take your medications as directed. Use a pillbox or chart to help remind you to take your medications. Please let your doctor or nurse know if you have problems taking your medications. Medication/Strength Dose Route Frequency Indications/Special Instructions/Comments olopatadine ophthalmic (Patanol 0.1% ophthalmic solution) 1 [...] Chlamydia every 1 year Females Age 15-24 02/20/2010 Vaccine: Tetanus every 10 years 08/06/2002 08/03/2012 Immunization to help prevent you from getting the serious disease Tetanus (Lockjaw). Your Upcoming Appointments Date Time Location Reason Provider No Appointments found Your Goals/Additional instructions: Source: [facility] [employer] Document Id: [id number] Electronically signed by Conversion, [facility] Instructional Aide [id number] at 09/19/2016 4:06 AM CDT Trisha - Zeb Liu P.A.-C., P.A. - 02/20/2010 11:43 AM CDT Ambulatory Depart Summary [address] [address] Visit Information Name: CATHERINEARYADENISE FLAVIA Current Date: 02/20/2010 11:43:34 Primary Care Provider: JOSR MCLAUGHLIN MD DENISE ALEXANDER has been given the following list of medications: Your Medications It is important to take your medications as directed. Use a pill box or chart to help remind you to take your medications. Please let your doctor or nurse know if you have problems taking your medications. Medication/Strength Dose Route Frequency Indications/Special Instructions/Comments olopatadine ophthalmic (Patanol 0.1% ophthalmic solution) 1 to 2 drops Eyes(Both) two times a day asneeded for Itching loratadine (loratadine 10 mg oral tablet) 10 mg Oral once a day as needed for Allergy symptoms Additional Information: Yes - Current list of reconciled medications is provided and explained to the patient and/or family, guardian/caregiver. 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 Temperature Oral: 36.8C(Converted to: 98.2DegF) Peripheral Pulse Rate: 76/min Respiratory Rate: 14/min Systolic Blood Pressure: 110mmHg Diastolic Blood Pressure: 68mmHg NIBP Mean: 82mmHg Heart Rhythm: Regular Actual Weight: 48.000kg(Converted to: 105lb 13oz) Dosing Weight Clinic: 48.00kg KAY REMY - 02/20/2010 11:31 CDT Subjective Pain Symptoms: No KAY REMY - 02/20/2010 11:31 CDT Dependent Habits Tobacco Use/Currently Using: No KAY REMY - 02/20/2010 11:31 CDT Allergies [facility] Document Id: [id number] CDT!16 documented in this encounter Plan of Treatment Not on filedocumented as of this encounter Visit Diagnoses Not on filedocumented in this encounter
--- OUTSIDE RECORDS SUMMARY | 2022-01-14 15:01 | XMS_ITS | Encounter Summary ---
:1990 Author Organization [facility] Address [address] [place] [address] Care Team Providers Name Role Phone Unavailable Primary Care Provider Unavailable Encounter Details Date Type Department Care Team Description 11/01/2010 Hospital Encounter [facility]X [facility] Nayely [...] 05/04/2021 relatives? How often do you attend adventism or hoahaoism Never 05/04/2021 services? Do you belong to any clubs or organizations such as No 05/04/2021 adventism groups, unions, fraternal or athletic groups, or [...] place to sleep or slept in a fpc (including now)? Sex Assigned at Date Recorded Not on file documented as of this encounter H&P Notes Ramsey Banda M.D. - 11/01/2010 12:00 AM CDT [id number] CHIEF COMPLAINT/REASON FOR VISIT Comprehensive evaluation and discuss contraception. HISTORY OF PRESENT ILLNESS This 20-year-old female is in for yearly evaluation and also to discuss contraception. She does need control. We reviewed the various forms. She has had difficulty in the past, remembering to take her control pills consistently, but she does feel she can do that now and after reviewing options, that is really what she feels is going to best meet her needs. Otherwise, she has an entirely negative review of systems. Please see her CVI. CURRENT MEDICATIONS None. ALLERGIES None. PAST MEDICAL/SURGICAL HISTORY 1) She is 1, para 1 with 1 vaginal delivery. 2) Contraception. SOCIAL HISTORY The patient is a high school graduate. She is currently employed at [employer]. She resides with her son and lives with her mother. HABITS: She quit smoking 3 months ago and prior to that really was just an occasional smoker. She denies any alcohol or drug use. She does wear her seatbelt consistently. FAMILY HISTORY Mother, maternal grandmother, and maternal aunt with diabetes. Maternal grandmother with hyperlipidemia. Mother and maternal grandmother with depression. No breast or colon cancer. No bleeding problems or adverse reactions to anesthesia. VITAL SIGNS HEIGHT: 154 cm WEIGHT: 74.3 kg BMI: 29.94 BLOOD PRESSURE: 108/60 PHYSICAL EXAM GENERAL: Exam shows a well-developed female in no acute distress. EYES: Conjunctivae were clear. Extraocular movements were full. ENT: Ears: Both TMs were clear. Her throat was clear. Teeth are in good repair. Neck was supple with no adenopathy. THYROID: Not palpable. HEART: Regular rate and rhythm with no murmur or extra heart sounds. LUNGS: Clear with easy respirations. ABDOMEN: Soft and nontender with no organomegaly or masses. SPINE: No CVA tenderness. JOINTS: Good range of motion. EXTREMITIES: Negative. NEURO: Exam was intact. MENTAL: Normal. IMPRESSION/REPORT/PLAN 1) Normal general exam. PLAN: I did recommend we check urine chlamydia. Recommended a multivitamin daily and discussed vitamin D3 at 1000 international units a day. We reviewed other age-appropriate healthy lifestyle choices and recommend followup in 1 year when she is due for Pap smear again. 2) Request for contraception. PLAN: As noted, we discussed varying forms available. Agreed upon Ortho TriCyclen 1 a day. Since she has been on it before, her blood pressure has been fine. She will just check her own blood pressure after she has been on it for a couple of months and follow up if it is elevated, otherwise, we will check again in 1 year. If she has difficulty remembering to take the pill, or problems, follow up for further evaluation. Ramsey Pierre M.D. klj Electronically Signed By: RAMSEY PIERRE MD On: 11/08/2010 09:27 PM Source: [facility] MHSDOLBEYNONRADSYS Document Id: [id number] documented in this encounter Miscellaneous Notes Miscellaneous - Ramsey Banda M.D. - 11/05/2010 5:11 PM CDT Results Notification Document Contains Addenda Addendum by LANNY MCLEAN on 08 November 2010 09:54:32 CDT pt informed of normal results Addendum by LANNY MCLEAN on 08 November 2010 08:18:54 CDT trc From: RAMSEY PIERRE MD To: LANNY MCLEAN Sent: 11/05/2010 17:11:46 CDT ! Show up: 11/05/2010 17:11:00 CDT Subject: Results Notification Actions: Notify patient of results Due Date/Time: 11/05/2010 17:11:00 CDT Source: [facility] [employer] Document Id: [id number] Miscellaneous - Lanny Rodriguez, R.N. 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 Intake/History Entered On: 11/01/2010 9:34 CDT Performed On: 11/01/2010 9:31 CDT by LANNY MCLEAN Intake Chief Complaint: physical, talk about control Temperature Oral: 36.7C(Converted to: 98.1DegF) Peripheral Pulse Rate: 80/min Respiratory Rate: 14/min Systolic Blood Pressure: 108mmHg Diastolic Blood Pressure: 60mmHg NIBP Mean: 76mmHg BP Location: Right upper extremity Height: 154.00cm(Converted to: 5ft 1in, 60.63in) Actual Weight: 47.300kg(Converted to: 104lb 4oz) Dosing Weight Clinic: 47.30kg Clinic BSA: 1.42 Body Mass Index: 19.94kg/m2 LANNY MCLEAN - 11/01/2010 9:31 CDT Subjective Pain Symptoms: No LANNY MCLEAN - 11/01/2010 9:31 CDT Dependent Habits Tobacco Use/Currently Using: No Exposure to Tobacco Smoke: Patient smokes LANNY MCLEAN - 11/01/2010 9:31 CDT Tobacco Use Grid Type: Cigarettes Comments (Comment: quit 3 months ago [LANNY MCLEAN - 11/01/2010 9:31 CDT] ) LANNY MCLEAN - 11/01/2010 9:31 CDT Caffeine Use Grid Caffeine Use: Current Type: Coffee Frequency: Occasionally LANNY MCLEAN - 11/01/2010 9:31 CDT Allergy Allergies (Active) NKA Estimated Onset Date: Unspecified ; Created By: MEGHAN REMY; Reaction Status: Active ; Category: Drug ; Substance: NKA ; Type: Allergy ; Updated By: MEGHAN REMY; Reviewed Date: 11/01/2010 9:31 CDT [facility] Document Id: [id number] CDT!28 Miscellaneous - Lanny Rodriguez RPj - 11/01/2010 9:31 AM CDT Health Assessment Health Assessment Entered On: 11/01/2010 9:34 CDT Performed On: 11/01/2010 9:31 CDT by LANNY MCLEAN Nutrition Nutrition Risk Factors by 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: None LANNY MCLEAN M - 11/01/2010 9:31 CDT Functional Current Daily Living Assistance: None MCLEANLNANY M - 11/01/2010 9:31 CDT Dependent Habits Tobacco Use/Currently Using: No Exposure to Tobacco Smoke: Patient smokes LANNY MCLEAN M - 11/01/2010 9:31 CDT Tobacco Use Grid Type: Cigarettes LANNY MCLEAN M - 11/01/2010 9:31 CDT Caffeine Use Grid Caffeine Use: Current Type: Coffee Frequency: Occasionally LANNY MCLEAN M - 11/01/2010 9:31 CDT Psychosocial Domestic Abuse Concerns: None LANNY MCLEAN M - 11/01/2010 9:31 CDT Advance Directive Advanced Directives: No LANNY MCLEAN M - 11/01/2010 9:31 CDT Educ Needs Learning Style Preference Adult Grid Patient: Verbal explanation Family: Verbal explanation LANNY MCLEAN M - 11/01/2010 9:31 CDT Source: [employer] Document Id: [id number] CDT!24 documented in this encounter Plan of Treatment Not on filedocumented as of this encounter Visit Diagnoses Not on filedocumented in this encounter
--- OUTSIDE RECORDS SUMMARY | 2022-01-14 15:01 | XMS_ITS | Encounter Summary ---
:1990 Author Organization [facility] Address [address] [place] [address] Care Team Providers Name Role Phone Unavailable Primary Care Provider Unavailable Encounter Details Date Type Department Care Team Description 08/15/2013 Hospital Encounter HX [facility] Nayely [...] How often do you attend adventism or confucianism Never 05/04/2021 services? Do you belong to [...] Sign Reading Time Taken Comments Blood Pressure 98/62 08/15/2013 3:12 PM CDT Pulse 80 08/15/2013 3:12 PM CDT Temperature - - Respiratory Rate 18 08/15/2013 3:12 PM CDT Oxygen Saturation - - Inhaled Oxygen Concentration - - Weight 57 kg (125 lb 10.6 oz) 08/15/2013 3:12 PM CDT Height 152 cm (4' 11.84) 08/15/2013 3:12 PM CDT Body Mass Index 24.67 08/15/2013 3:12 PM CDT documented in this encounter Progress Notes Irina Banda M.D. - 08/15/2013 2:57 PM CDT [id number] CHIEF COMPLAINT/REASON FOR VISIT Recheck depression and anxiety HISTORY OF PRESENT ILLNESS Denise is a 23-year-old female presenting today for a follow up on her depression and anxiety. Shewas started on Lexapro 6 weeks ago, starting with ?? tablet for 8 days then going to a full tablet. She was nauseous when she first started the medication, but that has improved and she is tolerating it well now. She denies any suicidal thoughts. She states she still feels sad at times, but she is definitely more patient and she doesnt get angry as much. MEDICATIONS Reviewed and updated in the EMR dated 08/15/13 ALLERGIES Reviewed and updated in the EMR dated 08/15/13 VITAL SIGNS HEIGHT: 152 cm WEIGHT: 57 kg BMI: 24.67 kg/m2 TEMP: 36.7 DegC PULSE: 80 /min RESP RATE: 18 /min SYSTOLIC: 98 mmHg DIASTOLIC: 62 mmHg PHYSICAL EXAMINATION GENERAL: Well-developed female in no acute distress. MENTAL STATUS: PHQ9 score of 6 stating things are somewhat difficult. Down from 18 on 07/04. IMPRESSION/REPORT/PLAN 1. Depression with anxiety Plan: Continue on Lexapro 10mg daily. She will follow up in 2 months, sooner if needed This document serves as a record of services personally performed by Dr. Irina Pierre. It was created on their behalf by Loren Briscoe, a trained medical office receptionist. The creation of this record is based on the scribe's personal observations and the provider's statements to them. This document has been checked and approved by the attending provider. Irina Pierre M.D./jose Electronically Signed By: IRINA PIERRE MD On: 08/30/2013 11:28 AM Source: [facility] Document Id: [id number] documented in this encounter Miscellaneous Notes Miscellaneous - Irina Banda M.D. - 08/15/2013 3:28 PM CDT Ambulatory Patient Summary [facility] [address] [facility] [place], [place] [id number] Visit Information Name: DENISE ALEXANDER [facility] Number: [id number] Current Date: 08/15/2013 15:28:26 Physicians Attending Provider: IRINA PIERRE MD Primary Care Provider: IRINA PIERRE MD KAROL ALEXANDERRhea ALEJANDRO has been given the following list of follow-up instructions, medicationlist, and patient education materials: Follow-up Instructions Your Medications Here is a list of your medications. It is important to take your medications as directed. Use a pillbox or chart to help remind you to take your medications. Please let your doctor or nurse know if you have problems taking your medications. Medication/Strength How to Take Indications/Special Instructions/Comments/Notes for Patient Medication Changes/Routing escitalopram (Lexapro 10 mg oral tablet) 1 Tablet(s), Oral, once a day depression/anxiety This is a CHANGE [facility] [address] [facility], [place] [id number] norgestimate-ethinyl estradiol (norgestimate-ethinyl estradiol triphasic (0.18 mg-0.215 mg-0.250 mg)-35 mcg oral tablet) 1 Tablet(s), Oral, once a day Stop Taking the Following Medications: Medication list as of 08-15-13 15:28 Attention: If you have any medications at home that are not on this list, DO NOT take them until youcontact your provider for clarification. Give a copy of your medication list to your primary care provider. Update your medication list any time medications or doses are changed and carry your medication list at all times in case of emergency. Electronically Signed By: IRINA PIERRE MD Signed On:15-AUG-2013 15:28:22 Your Allergies & Intolerances Substance Reaction Symptoms [...] 11/01/2010 Moderate recurrent major depression Active 03/29/2012 Disorder Anxiety Generalized Active Your Upcoming Appointments Date Time Location Reason Provider 09/20/2013 14:30 [facility] 3 mo pap after susy Smalls MD, Reece Johnston Attention: Contact your local Clinic if further appointment detail needed. Your Goals/Additional instructions: Source: [facility] Document Id: [id number] Miscellaneous - Irina Banda M.D. - 08/15/2013 3:28 PM CDT Ambulatory Discharge Medication List [place] [id number] [place] [phone] Visit Information Name: DENISE ALEXANDERELLE [facility] Number: [id number] Visit Date: 08/15/2013 15:28:25 Attending Provider: IRINA PIERRE MD Primary Care Provider: IRINA PIERRE MD DENISE ALEXANDERELLE has been given the following list of medications: Your Medications It is important to take your medications as directed. Use a pill box or chart to help remind you to take your medications. Please let your doctor or nurse know if you have problems taking your medications. Medication/Strength How to Take Indications/Special Instructions/Comments/Notes for Patient Medication Changes/Routing escitalopram (Lexapro 10 mg oral tablet) 1 Tablet(s), Oral, once a day depression/anxiety This is a CHANGE [facility]ed to [facility] [address] [place] [id number] norgestimate-ethinyl estradiol (norgestimate-ethinyl estradiol triphasic (0.18 mg-0.215 mg-0.250 mg)-35 mcg oral tablet) 1 Tablet(s), Oral, once a day Stop Taking the Following Medications: Medication list as of 08-15-13 15:28 Attention: If you have any medications at home that are not on this list, DO NOT take them until youcontact your provider for clarification. Give a copy of your medication list to your primary care provider. Update your medication list any time medications or doses are changed and carry your medication list at all times in case of emergency. Electronically Signed By: IRINA PIERRE MD Signed On:15-AUG-2013 15:28:22 Additional Information: Source: [employer] Document Id: [id number] Miscellaneous - Conversion, Historical Provider Ser - 08/15/2013 3:15 PM CDT PHQ-9 PHQ-9 Entered On: 08/15/2013 15:16 CDT Performed On: 08/15/2013 15:15 CDT by HUSEYIN DELGADILLO PHQ-9 Little interest or pleasure in doing things : Several days Feeling down, depressed, or hopeless : Several days Trouble falling or staying asleep, or sleeping too much : More than half the days Feeling tired or having little energy : Several days Poor appetite or overeating : Not at all Feeling bad about yourself or that you are a failure : Several days Trouble concentrating on things : Not at all Moving or speaking slowly; restless or fidgety : Not at all Thoughts that you would be better off /hurting self : Not at all PHQ-9 Calculated Score : 6 Problems make work, home, or dealing with others : Somewhat difficult HUSEYIN DELGADILLO - 08/15/2013 15:15 CDT Source: [employer] Document Id: [id number] CDT!13 Miscellaneous - Conversion, Historical Provider Ser - 08/15/2013 3:14 PM CDT Health Assessment Health Assessment Entered On: 08/15/2013 15:15 CDT Performed On: 08/15/2013 15:14 CDT by HUSEYIN DELGADILLO Health Assessment Complete Health Assessment Complete or Modified : Annual Health Assessment Annual Health Assessment Completed : Yes HUSEYIN DELGADILLO - 08/15/2013 15:14 CDT Nutrition Nutrition Risk Factors by 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 : None HUSEYIN DELGADILLO - 08/15/2013 15:14 CDT Functional Current Daily Living Assistance : None HUSEYIN DELGADILLO - 08/15/2013 15:14 CDT Dependent Habits Tobacco Use/Currently Using : No Smoking Status : Former smoker HUSEYIN DELGADILLO - 08/15/2013 15:14 CDT Caffeine Use Grid Caffeine Use : Current Type : Coffee Frequency : Occasionally HUSEYIN DELGADILLO - 08/15/2013 15:14 CDT Psychosocial Domestic Abuse Concerns : None HUSEYIN DELGADILLO - 08/15/2013 15:14 CDT Advance Directive Advanced Directives : No HUSEYIN DELGADILLO 08/15/2013 15:14 CDT Educ Needs Learning Style Preference Adult Grid Patient : Demonstration, Printed materials, Verbal explanation, Video/Educational TV Family : None HUSEYIN DELGADILLO 08/15/2013 15:14 CDT Source: 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 Entered On: 08/15/2013 15:14 CDT Performed On: 08/15/2013 15:12 CDT by HUSEYIN DELGADILLO Intake Chief Complaint : Recheck depression and anxiety Temperature Oral : 36.7 DegC(Converted to: 98.1 DegF) Peripheral Pulse Rate : 80 /min Respiratory Rate : 18 /min Heart Rhythm : Regular Systolic Blood Pressure : 98 mmHg Diastolic Blood Pressure : 62 mmHg NIBP Mean : 74 mmHg BP Location : Right upper extremity Blood Pressure Cuff Size : Regular Height : 152 cm(Converted to: 5 ft 0 inch(es), 60 inch(es)) Actual Weight : 57.0 kg(Converted to: 125 lb 11 oz) Weight Source : Standing scale Dosing Weight Clinic : 57 kg Clinic BSA : 1.55 Body Mass Index : 24.67 kg/m2 HUSEYIN DELGADILLO - 08/15/2013 15:12 CDT General Info Information Given By : Patient Languages : Bahraini HUSEYIN DELGADILLO 08/15/2013 15:12 CDT Subjective Pain Symptoms : No HUSEYIN DELGADILLO 08/15/2013 15:12 CDT Dependent Habits Tobacco Use/Currently Using : No Smoking Status : Former smoker HUSEYIN DELGADILLO 08/15/2013 15:12 CDT Caffeine Use Grid Caffeine Use : Current Type : Coffee Frequency : Occasionally HUSEYIN DELGADILLO 08/15/2013 15:12 CDT Source: [employer] Document Id: [id number] CDT!31 documented in this encounter Plan of Treatment Not on filedocumented as of this encounter Visit Diagnoses Not on filedocumented in this encounter Additional Health Concerns Assessment Noted Time PHQ-9 Depression Total Score: 6 08/15/2013 3:15 PM CDT documented as of this encounter
--- OUTSIDE RECORDS SUMMARY | 2022-01-14 15:01 | XMS_ITS | Encounter Summary ---
:1990 Author Organization [facility] Address [address] [place] [address] Care Team Providers Name Role Phone Unavailable Primary Care Provider Unavailable Encounter Details Date Type Department Care Team Description 05/07/2013 Hospital Encounter HX [facility] Segal M.D. [address] [place], [place] [address] (Wo rk) Social History Tobacco Use Types [...] 05/04/2021 relatives? How often do you attend hinduism or caodaism Never 05/04/2021 services? Do you belong to any clubs or organizations such as No 05/04/2021 hinduism groups, unions, fraternal or athletic groups, or [...] place to sleep or slept in a retirement (including now)? Sex Assigned at Date Recorded Not on file documented as of this encounter Progress Notes Anai Smalls M.D. - 05/07/2013 3:01 PM CST [id number] CHIEF COMPLAINT/REASON FOR VISIT Abnormal Pap smear 1 year ago in March which showed HGSIL. PHYSICAL EXAMINATION During this procedure the universal protocol was utilized. The patient's identity was confirmed by no less than two patient identifiers, correct procedure was verified, correct site was verified and marked as applicable and a final pause was completed. Speculum was inserted and she did have copious white discharge present. A wet prep and a GC was performed and sent to lab. After wiping out the discharge with cotton swabs, we prepped the cervix with 5% acetic acid and noted areas of mosaicism present with some atypical blood vessels, particularly in the 6 o'clock location with little islands of mosaic change, and also an acetowhite mosaic present atthe 1 o'clock location. The squamocolumnar junction did disappear within the endocervix. The patientwas not very tolerant of the exam. The biopsy sites were treated with silver nitrate and excellent hemostasis was noted. Speculum was then removed. The vulva and vagina appeared to be within normal limits as best we could see today. IMPRESSION/REPORT/PLAN 1. History of HGSIL (high-grade squamous epithelial lesion). Will inform her of biopsy results when available, but if moderate to severe dysplasia is identified would recommend a LEEP procedure probably under sedation given her tolerance to today's exam. 2. Discharge. Will inform her of the results of the GC as well as the wet prep, and treat accordingly. Patient verbalized understanding. At the completion of the procedure, she was in stable condition and was dismissed from the clinic stable. Anai Smalls M.D./tyrone Electronically Signed By: ANAI SMALLS MD On: 05/08/2013 11:11 AM Source: [facility] ESTEBANSDOLBEYNNEMESIO Document Id: [id number] UCT DEVELOPMENT CONSULTANT documented in this encounter Miscellaneous Notes Miscellaneous - Anai Smalls M.D. - 05/09/2013 10:09 AM CST Results Notification Document Contains Addenda Addendum by TRESSA HERNADEZ on 10 May 2013 14:42:17 PRODUCT DEVELOPMENT CONSULTANT Patient was given the information and transfered to schedule appointment. Addendum by GLORIA MALDONADO on 10 May 2013 13:05:05 PRODUCT DEVELOPMENT CONSULTANT Patient returned call to patient, please call her after 2:30, she is working right now. Addendum by SHERINE LOPEZ on 10 May 2013 12:56:24 PRODUCT DEVELOPMENT CONSULTANT left message to call back Addendum by SHERINE LOPEZ on 09 May 2013 16:06:55 PRODUCT DEVELOPMENT CONSULTANT left message to call back From: ANAI SMALLS MD To: OLIVIER Smalls Nurse; Sent: 05/09/2013 10:09:33 PRODUCT DEVELOPMENT CONSULTANT Show up: 05/09/2013 10:10:00 PRODUCT DEVELOPMENT CONSULTANT Subject: Results Notification Severe dysplasia confirmed, needs to set up a LEEP in 1-2 weeks. Results: Date Result Type Result Name 05/09/2013 8:54 Document - DOC Pathology-Surg Path Source: [facility] POWERCHART Document Id: [id number] Electronically signed by Violette, [facility] Patient Relations Director [id number] at 09/13/2016 6:58 AM CDT Miscellaneous - Anai Smalls M.D. - 05/08/2013 4:08 PM CST Results Notification Document Contains Addenda Addendum by TRESSA HERNADEZ on 10 May 2013 14:41:42 PRODUCT DEVELOPMENT CONSULTANT Patient was given the informtion Addendum by SHERINE LOPEZ on 10 May 2013 12:56:04 PRODUCT DEVELOPMENT CONSULTANT left messae to call back Addendum by SHERINE LOPEZ on 08 May 2013 16:25:39 PRODUCT DEVELOPMENT CONSULTANT left message to call back From: ANAI SMALLS MD To: OLIVIER Smalls Nurse; Sent: 05/08/2013 16:08:44 PRODUCT DEVELOPMENT CONSULTANT Show up: 05/08/2013 16:09:00 PRODUCT DEVELOPMENT CONSULTANT Subject: Results Notification Nees Rx for bacterial vaginosis Results: Date Result Type Ind Result Name MBO POS WET Prep WBC's Source: [facility] POWERCHART Document Id: [id number] Electronically signed by Conversion, [facility] Patient Relations Director [id number] at 09/13/2016 6:58 AM CDT Miscellaneous - Anai Smalls M.D. - 05/07/2013 3:55 PM CST Ambulatory Patient Summary [facility] [address] [place] [id number] Visit Information Name: DENISE ALEXANDER [facility] Number: [id number] Current Date: 05/07/2013 15:55:54 Physicians Attending Provider: ANAI SMALLS MD Primary Care Provider: RAMSEY BAÑUELOS MD DENISE ALEXANDER has been given the [...] Take Indications/Special Instructions/Comments/Notes for Patient Medication Changes/Routing norgestimate-ethinyl estradiol (norgestimate-ethinyl estradiol triphasic (0.18 mg-0.215 mg-0.250 mg)-35 mcg oral tablet) 1 Tablet(s), Oral, once a day Due for physical triamcinolone topical (triamcinolone 0.1% topical cream) 1 andre, Topical, three times a day (apply a thin film) to affected area Stop Taking the Following Medications: fluoxetine (Prozac 20 mg oral capsule) Medication list as of 05-07-13 15:55 Attention: If you have any medications at home that are not on this list, DO NOT take them until youcontact your provider for clarification. Give a copy of your medication list to your primary care provider. Update your medication list any time medications or doses are changed and carry your medication list at all times in case of emergency. Your Allergies & Intolerances Substance Reaction Symptoms [...] Time Location Reason Provider No Appointments found Attention: Contact your local Clinic if further appointment detail needed. Your Goals/Additional instructions: Source: [facility] POWERCHART Document Id: [id number] UCT DEVELOPMENT CONSULTANT Miscellaneous - Anai Smalls M.D. - 05/07/2013 3:55 PM CST Ambulatory Depart Summary [facility] [address] [place] [id number] Visit Information Name: DENISE ALEXANDER [facility] Number: [id number] Visit Date: 05/07/2013 15:55:52 Attending Provider: ANAI SMALLS MD Primary Care Provider: RAMSEY BAÑUELOS MD DENISE ALEXANDER has been given the following list of medications: Your Medications It is important to take your medications as directed. Use a pill box or chart to help remind you to take your medications. Please let your doctor or nurse know if you have problems taking your medications. Medication/Strength How to Take Indications/Special Instructions/Comments/Notes for Patient Medication Changes/Routing norgestimate-ethinyl estradiol (norgestimate-ethinyl estradiol triphasic (0.18 mg-0.215 mg-0.250 mg)-35 mcg oral tablet) 1 Tablet(s), Oral, once a day Due for physical triamcinolone topical (triamcinolone 0.1% topical cream) 1 andre, Topical, three times a day (apply a thin film) to affected area Stop Taking the Following Medications: fluoxetine (Prozac 20 mg oral capsule) Medication list as of 05-07-13 15:55 Attention: If you have any medications at home that are not on this list, DO NOT take them until youcontact your provider for clarification. Give a copy of your medication list to your primary care provider. Update your medication list any time medications or doses are changed and carry your medication list at all times in case of emergency. Additional Information: Source: [facility] [employer] Document Id: [id number] UCT DEVELOPMENT CONSULTANT Miscellaneous - Sherine Lopez, L.P.N. 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 Intake/History Entered On: 05/07/2013 15:17 PRODUCT DEVELOPMENT CONSULTANT Performed On: 05/07/2013 15:17 PRODUCT DEVELOPMENT CONSULTANT by SHERINE LOPEZ Intake Chief Complaint : coplo and vaginal pain SHERINE LOPEZ - 05/07/2013 15:17 PRODUCT DEVELOPMENT CONSULTANT General Info Languages : Comoran SHERINE LOPEZ - 05/07/2013 15:17 PRODUCT DEVELOPMENT CONSULTANT Subjective Pain Symptoms : Yes SHERINE LOPEZ - 05/07/2013 15:17 PRODUCT DEVELOPMENT CONSULTANT Pain Pain Assessment Grid Pain 1 Location : Vagina SHERINE LOPEZ - 05/07/2013 15:17 PRODUCT DEVELOPMENT CONSULTANT Dependent Habits Tobacco Use/Currently Using : No Exposure to Tobacco Smoke : Patient smokes Smoking Status : Former smoker SHERINE LOPEZ - 05/07/2013 15:17 PRODUCT DEVELOPMENT CONSULTANT Tobacco Use Grid Type : Cigarettes SHERINE LOPEZ - 05/07/2013 15:17 PRODUCT DEVELOPMENT CONSULTANT Caffeine Use Grid Caffeine Use : Current Type : Coffee Frequency : Occasionally SHERINE LOPEZ - 05/07/2013 15:17 PRODUCT DEVELOPMENT CONSULTANT Source: [facility] [employer] Document Id: [id number] PRODUCT DEVELOPMENT CONSULTANT!23 UCT DEVELOPMENT CONSULTANT documented in this encounter Plan of Treatment Not on filedocumented as of this encounter Procedures Procedure Name Priority Date/Time Associated Comments Diagnosis WET PREP EXAM, Routine 05/07/2013 4:37 PM Results for this UROGENITAL PRODUCT DEVELOPMENT CONSULTANT procedure are i n the results section. N GONOR AMP SRC Routine 05/07/2013 4:36 PM Result s for this PRODUCT DEVELOPMENT CONSULTANT procedure are i n the results section. N GONOR AMP DNA Routine 05/07/2013 4:36 PM Result s for this PRODUCT DEVELOPMENT CONSULTANT procedure are i n the results section. C TRACH AMP SRC Routine 05/07/2013 4:36 PM Result s for this PRODUCT DEVELOPMENT CONSULTANT procedure are i n the results section. C TRACH AMP RNA Routine 05/07/2013 4:36 PM Result s for this PRODUCT DEVELOPMENT CONSULTANT procedure are i n the results section. SURGICAL PATHOLOGY Routine 05/07/2013 11:20 AM Re sults for this PRODUCT DEVELOPMENT CONSULTANT procedure are i n the results section. documented in this encounter Results (ABNORMAL) Wet Prep Exam, Urogenital (05/07/2013 4:37 PM PRODUCT DEVELOPMENT CONSULTANT) [facility] Method Time Signature HXWet Prep (POSITIVE) POWERCHART HXFinal Trichomonas: No POWERCHART Trichomonas seen HXFinal Clue Cells: POWERCHART Moderate (10-25/hpf) HXFinal Yeast: Few POWERCHART yeast (5-10/hpf) HXFinal Sperm: Absent POWERCHART Specimen (Source) Anatomical Collection Method Collection Time Re ceived Time Location / / Volume Laterality Vagina 05/07/2013 4:37 PM PRODUCT DEVELOPMENT CONSULTANT Anai Smalls M.D. LAB MICROBIOLOGY - GENERAL O RDERABLES Performing Organization Address City/[facility]/ZIP Code Phon e Number POWERCHART HX-N gonor Amp DNA (05/07/2013 4:36 PM PRODUCT DEVELOPMENT CONSULTANT) athologist Signature HXN gonor Amp Negative POWERCHART DNA-[place] Specimen (Source) Anatomical Collection Method Collection Time Re ceived Time Location / / Volume Laterality 05/07/2013 4:36 PM PRODUCT DEVELOPMENT CONSULTANT Narrative POWERCHART - 05/08/2013 7:10 PM PRODUCT DEVELOPMENT CONSULTANT Test Performed by: [facility] [place] [address] Superintendent Of Schools: Xavier mon III, M.D. Anai Smalls M.D. LAB HISTORICAL ORDERS Performing Organization Address City/[facility] Code Phon e Number POWERCHART HX-N gonor Amp Src (05/07/2013 4:36 PM PRODUCT DEVELOPMENT CONSULTANT) athologist Signature HXN gonor Amp CERVIX POWERCHART Src-[place] Specimen (Source) Anatomical Collection Method Collection Time Re ceived Time Location / / Volume Laterality 05/07/2013 4:36 PM PRODUCT DEVELOPMENT CONSULTANT Anai Smalls M.D. LAB HISTORICAL ORDERS Performing Organization Address City/State/ZIP Code Phon e Number POWERCHART HX-C trach Amp RNA (05/07/2013 4:36 PM PRODUCT DEVELOPMENT CONSULTANT) Patholo gist Method Time Signature Chlamydia Negative POWERCHART trachomatis amplified RNA Specimen (Source) Anatomical Collection Method Collection Time Re ceived Time Location / / Volume Laterality 05/07/2013 4:36 PM PRODUCT DEVELOPMENT CONSULTANT Anai Smalls M.D. LAB HISTORICAL ORDERS Performing Organization Address City/State/ZIP Code Phon e Number POWERCHART HX-C trach Amp Src (05/07/2013 4:36 PM PRODUCT DEVELOPMENT CONSULTANT) P athologist Signature HXC trach Amp CERVIX POWERCHART Src-[place] Specimen (Source) Anatomical Collection Method Collection Time Re ceived Time Location / / Volume Laterality 05/07/2013 4:36 PM PRODUCT DEVELOPMENT CONSULTANT Anai Smalls M.D. LAB HISTORICAL ORDERS Performing Organization Address City/[facility]/ZIP Code Phon e Number POWERCHART Pathology Surgical Pathology (05/07/2013 11:20 AM PRODUCT DEVELOPMENT CONSULTANT) Specimen (Source) Anatomical Collection Method Collection Time Re ceived Time Location / / Volume Laterality 05/07/2013 11:20 AM PRODUCT DEVELOPMENT CONSULTANT Narrative [facility] - 05/09/2013 8:54 AM PRODUCT DEVELOPMENT CONSULTANT [facility] in [address] [place] [id number] Patient Name: DENISE ALEXANDER Patient ID #: [id number] Collected: 05/07/2013 Address: [facility]/Zip: [address] [place], [place] ??[id number] Received: Reported: 05/08/2013 05/09/2013 Soc. Sec. #: ?/Age/Sex 1990 (Age: 23) ??F Physician(s): FRANCA SMALLS MD Copy To: ? [facility] ??[id number] [address] [facility], ??[place] ??[address] SURGICAL PATHOLOGY REPORT FINAL DIAGNOSIS: A. CERVIX, 12 O'CLOCK BIOPSY: --- SEVERE SQUAMOUS DYSPLASIA (NIGEL III). B. ENDOCERVIX, CURETTAGE: --- SEVERE SQUAMOUS DYSPLASIA (NIGEL III) AND CHRONIC CERVICITIS. [facility]/05/09/2013 HANH ALCARAZ M.D. Report electronically released. Interpretation by HANH ALCARAZ M.D. SPECIMEN(S) RECEIVED: 1: A. 12 O'CLOCK CERVICAL BIOPSY 2: B. ECC CLINICAL HISTORY: ABNORMAL PAP SMEAR ??HIGH GRADE SQUAMOUS LESION / MODERATE AND SEVERE DYSPLASIA (NIGEL-II AND III) GROSS DESCRIPTION: A. Consists of mucosal fragments to a 3 mm diameter. ESB, A. B. Consists of scant debris filtering to a 0.1 cm diameter. ESB, B. ([id number], [id number]) DDG/EZEKIEL/05/08/2013 MICROSCOPIC DESCRIPTION: Reviewed by Hanh Alcaraz M.D.; Patholo [facility]/05/09/2013 Anai Smalls M.D. LAB SURG PATH ORDERABLES Performing Organization Address City/State/ZIP Code Phon e Number [facility] documented in this encounter Visit Diagnoses Not on filedocumented in this encounter Additional Health Concerns Assessment Noted Time PHQ-9 Depression Total Score: 12 03/29/2012 5:44 PM CS T documented as of this encounter
--- OUTSIDE RECORDS SUMMARY | 2022-01-14 15:01 | XMS_ITS | Encounter Summary ---
:1990 Author Organization [facility] Address [address] [place] [address] Care Team Providers Name Role Phone Unavailable Primary Care Provider Unavailable Encounter Details Date Type Department Care Team Description 07/04/2013 Hospital Encounter HX [facility] FAMILYPRA Nayely [...] 05/04/2021 relatives? How often do you attend hoahaoism or mosque Never 05/04/2021 services? Do you belong to any clubs or organizations such as No 05/04/2021 hoahaoism groups, unions, fraternal or athletic groups, or [...] or slept in a penitentiary (including now)? 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 - 07/04/2013 1:58 PM CDT [id number] CHIEF COMPLAINT/REASON FOR VISIT Depression and anxiety HISTORY OF PRESENT ILLNESS Denise is a 23-year-old female presenting today for depression and anxiety. She was on Prozac overa year ago, stating she was only on it for about a month but she thinks it made her symptoms worse and she never came back. Her symptoms are now starting to affect her work and family, with her mom thinking she may even have bipolar disorder, but Denise denies any manic episodes, stating she always has negative emotions, primarily sadness and anger. She has had some suicidal thoughts, but more in general that she wouldnt care if she , not necessarily that she would do it herself. She also mentions that she gets very anxious and shaky while on ladders at work. She would like to get in to talk to someone but doesnt know if she can afford it. She also twisted her left ankle last week, thinking it was getting better but it still continues to hurt. She could bear weight after she did it and the next day. She has been on it every day after because of work. She also needs a refill of her control pills. MEDICATIONS Reviewed and updated in the EMR dated 07/04/13 ALLERGIES Reviewed and updated in the EMR dated 07/04/13 VITAL SIGNS WEIGHT: 57.7 kg PULSE: 91 /min SYSTOLIC: 130 mmHg DIASTOLIC: 75 mmHg PHYSICAL EXAMINATION GENERAL: Well-developed female in no acute distress. EXTREMITIES: mild tenderness over the anterior talofibular ligament. No tenderness over the medial or lateral calcaneus. Full range of motion. MENTAL STATUS: PHQ9 score of 18 stating things are extremely difficult. Becks anxiety score of 26. IMPRESSION/REPORT/PLAN 1. Depression with anxiety Plan: After discussing the options, elected to start her on Lexapro 10mg daily, starting with ?? tablet for 8 days then going to a full tablet. We reviewed the risks and benefits of this, including theblack box warning. She will follow up in 6 weeks, sooner if needed and will contact someone if she feels she is at any risk of injuring herself. Discussed that I do think counseling is important, so she will also look around to see what is available for that. 2. Mild left ankle sprain Plan: Reassured her it may take up to 6-8 weeks for the discomfort to resolve. Recommended symptomatic treatment and continuing to monitor. She will follow up if her symptoms persist or worsen. 3. Contraception management Plan: Continue norgestimate-ethinyl estradiol triphasic oral tablet daily. She will follow up in 3 months. This document serves as a record of services personally performed by Dr. Irina Pierre. It was created on their behalf by Loren Briscoe, a trained bilingual medical receptionist. The creation of this record is based on the scribe's personal observations and the provider's statements to them. This document has been checked and approved by the attending provider. Irina Pierre M.D./jose Electronically Signed By: IRINA PIERRE MD On: 07/11/2013 09:42 PM Source: [facility] MHSDOLBEYNONRADSYS Document Id: [id number] documented in this encounter Miscellaneous Notes Miscellaneous - Irina Banda M.D. - 07/04/2013 3:01 PM CDT Ambulatory Patient Summary [facility] [address] [place], [place] [id number] Visit Information Name: DENISE ALEXANDER [facility] Number: [id number] Current Date: 07/04/2013 15:01:22 Physicians Attending Provider: IRINA PIERRE MD Primary Care Provider: IRINA PIERRE MD DENISE ALEXANDER has been given [...] Changes/Routing escitalopram (Lexapro 10 mg oral tablet) See Instructions 1/2 tab(s) PO qday x 8 days then 1 tab daily for anxiety/depression New Routed to [address] [address] norgestimate-ethinyl estradiol (norgestimate-ethinyl estradiol triphasic (0.18 mg-0.215 mg-0.250 mg)-35 mcg oral tablet) 1 Tablet(s), Oral, once a day Due for physical Stop Taking the Following Medications: Medication list as of 07-04-13 15:01 Attention: If you have any medications at [...] appointment detail needed. Your Goals/Additional instructions: Source: [facility] POWERCHART Document Id: [id number] Miscellaneous - Irina Banda M.D. - 07/04/2013 3:01 PM CDT Ambulatory Discharge Medication List [facility] [address] [place], [place] [id number] Visit Information Name: DENISE ALEXANDER [facility] Number: [id number] Visit Date: 07/04/2013 15:01:21 Attending Provider: IRINA PIERRE MD Primary Care Provider: IRINA PIERRE MD DENISE ALEXANDER has been given [...] Changes/Routing escitalopram (Lexapro 10 mg oral tablet) See Instructions 1/2 tab(s) PO qday x 8 days then 1 tab daily for anxiety/depression New Rout[facility] to [facility] [address] [place], [place] [id number] norgestimate-ethinyl estradiol (norgestimate-ethinyl estradiol triphasic (0.18 mg-0.215 mg-0.250 mg)-35 mcg oral tablet) 1 Tablet(s), Oral, once a day Due for physical Stop Taking the Following Medications: Medication list as of 07-04-13 15:01 Attention: If you have any medications at home that are not on this list, DO NOT take them until youcontact your provider for clarification. Give a copy of your medication list to your primary care provider. Update your medication list any time medications or doses are changed and carry your medication list at all times in case of emergency. Additional Information: Source: [facility] POWERCHART Document Id: [id number] Miscellaneous - Chel Cordero - 07/04/2013 2:11 PM CDT PHQ-9 PHQ-9 Entered On: 07/05/2013 8:12 CDT Performed On: 07/04/2013 14:11 CDT by CHEL CORDERO PHQ-9 Little interest or pleasure in doing things : Several days Feeling down, depressed, or hopeless : Nearly every day Trouble falling or staying asleep, or sleeping too much : Nearly every day Feeling tired or having little energy : More than half the days Poor appetite or overeating : Several days Feeling bad about yourself or that you are a failure : Nearly every day Trouble concentrating on things : Nearly every day Moving or speaking slowly; restless or fidgety : Several days Thoughts that you would be better off /hurting self : Several days PHQ-9 Calculated Score : 18 Problems make work, home, or dealing with others : Extremely difficult CHEL CORDERO - 07/05/2013 8:11 CDT Source: [employer] Document Id: [id number] CDT!13 Miscellaneous - Tanya Cristobal, LKendallPKendallNKendall - 07/04/2013 2:09 PM CDT 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 Intake/History Document Has Been Updated 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 Intake/History Entered On: 07/04/2013 14:11 CDT Performed On: 07/04/2013 14:09 CDT by TANYA CRISTOBAL Intake Chief Complaint : depression and anxiety, hurt left ankle last week after fall, still hurts TANYA CRISTOBAL - 07/04/2013 14:11 CDT Peripheral Pulse Rate : 91 /min Systolic Blood Pressure : 130 mmHg Diastolic Blood Pressure : 75 mmHg NIBP Mean : 93 mmHg BP Location : Right upper extremity Blood Pressure Cuff Size : Regular Actual Weight : 57.7 kg(Converted to: 127 lb 3 oz) Dosing Weight Clinic : 57.7 kg TANYA CRISTOBAL - 07/04/2013 14:09 CDT General Info Languages : Cape Verdean TANYA CRISTOBAL - 07/04/2013 14:09 CDT Subjective Pain Symptoms : No TANYA CRISTOBAL - 07/04/2013 14:09 CDT Dependent Habits Tobacco Use/Currently Using : No Smoking Status : Former smoker TANYA CRISTOBAL - 07/04/2013 14:09 CDT Tobacco Use Grid Type : Cigarettes TANYA CRISTOBAL - 07/04/2013 14:09 CDT Caffeine Use Grid Caffeine Use : Current Type : Coffee Frequency : Occasionally TANYA CRISTOBAL - 07/04/2013 14:09 CDT Source: [employer] Document Id: [id number] CDT!3 documented in this encounter Plan of Treatment Not on filedocumented as of this encounter Visit Diagnoses Not on filedocumented in this encounter Additional Health Concerns Assessment Noted Time PHQ-9 Depression Total Score: 18 07/04/2013 2:11 PM CD T documented as of this encounter
--- OUTSIDE RECORDS SUMMARY | 2022-01-14 15:01 | XMS_ITS | Encounter Summary ---
:1990 Author Organization [facility] Address [address] [place] [address] Care Team Providers Name Role Phone Unavailable Primary Care Provider Unavailable Encounter Details Date Type Department Care Team Description 03/29/2012 Hospital Encounter HX [facility] Nayely [...] 05/04/2021 relatives? How often do you attend christianity or adventist Never 05/04/2021 services? Do you belong to any clubs or organizations such as No 05/04/2021 christianity groups, unions, fraternal or athletic groups, or [...] Sign Reading Time Taken Comments Blood Pressure 110/62 03/29/2012 2:28 PM ASSEMBLER ARRANGER Pulse 78 03/29/2012 2:28 PM ASSEMBLER ARRANGER Temperature - - Respiratory Rate 18 03/29/2012 2:28 PM ASSEMBLER ARRANGER Oxygen Saturation - - Inhaled Oxygen Concentration - - Weight 53.9 kg (118 lb 13.3 oz) 03/29/2012 2:28 PM ASSEMBLER ARRANGER Height 153.2 cm (5' 0.32) 03/29/2012 2:28 PM ASSEMBLER ARRANGER Body Mass Index 22.97 03/29/2012 2:28 PM ASSEMBLER ARRANGER documented in this encounter H&P Notes Ramsey Banda M.D. - 03/29/2012 1:51 PM CST [id number] CHIEF COMPLAINT/REASON FOR VISIT Annual physical exam HISTORY OF PRESENT ILLNESS Denise is a 22-year-old female presenting today for her annual physical examination. Her first concern today is that a few weeks ago she noticed some bumps on her bottom that are starting to spread. She states that the bumps do not hurt or itch, but they do become slightly irritated when she walks alot. Denise states that she has had the same partner for approximately 5 months now, with no knownhistory of venereal warts. Second, Denise states that her period is late. She is not currently on control, and she states that she and her partner use condoms for protection. She states that she has taken 2 tests which were negative, with the most recent one being last . Her last menstrual period was the first week of February although she cannot give a specific date. She does note that she has been very stressed this past month, which she feels may be contributing to her late period. Third, Denise states that she has a history of depression and has been feeling somewhat down recently. She states that she has been on medications in the past, but was not good about taking them because she was 14 years old. She states that her mother has been recommending she go back on an anti-depressant. SYSTEMS REVIEW GENERAL: Negative for recent fever, weight loss, extreme fatigue. EYES: Negative for double vision, sudden loss of vision. ENT: Negative for sore throat, runny nose, ear pain, hearing loss. HEART: Negative for chest pain, pain in legs relieved with rest, irregular heartbeats. RESPIRATORY: Negative for cough, wheezing, shortness of breath, excessive snoring. GASTROINTESTINAL: Negative for nausea, vomiting, heartburn, abdominal pain, bloating, constipation, diarrhea, blood in stools. GENITOURINARY: Negative for frequent or painful urination, bloody urine. SKIN: Negative for rash, sore(s), excessive bruising, change of a mole. NEUROLOGICAL: Negative for headache, persistent weakness or numbness on one side of the body, falling. MUSCULOSKELETAL: Negative for joint pain, muscle weakness. MENTAL HEALTH: Negative for anxiety, suicidal thoughts. LYMPH: Negative for excessive thirst or urination, cold or heat intolerance, breast mass, swelling in legs, feet or hands. BLOOD: Negative for unusual bruising or bleeding, enlarged lymph nodes. CURRENT MEDICATIONS Multivitamin 1 tablet daily Ortho Tri-Cyclen 1 tablet daily ALLERGIES No known drug allergies PAST MEDICAL/SURGICAL HISTORY 1) She is 1, para 1 with 1 vaginal delivery. 2) Contraception. IMMUNIZATIONS: Tdap 11/01/10. She received her flu shot at work. SOCIAL HISTORY The patient is a high school graduate. She is currently employed at [employer]. She resides with her sonand lives with her mother. HABITS: She smokes 1 cigarette approximately every other day. She denies any alcohol or drug use. She does wear her seatbelt consistently. FAMILY HISTORY Mother, maternal grandmother, and maternal aunt with diabetes. Maternal grandmother with hyperlipidemia. Mother and maternal grandmother with depression. No breast or colon cancer. No bleeding problemsor adverse reactions to anesthesia. VITAL SIGNS HEIGHT: 153.2 cm WEIGHT: 53.90 kg BMI: 22.97 kg/m2 TEMP: 36.9 C PULSE: 78 /min RESP RATE: 18 /min SYSTOLIC: 110 mmHg DIASTOLIC: 62 mmHg PHYSICAL EXAM GENERAL: Well-developed female in no acute distress. EYES: Conjunctivae were clear. Extraocular movements are full. ENT: Both TMs were clear. Throat was clear. Teeth are in good repair. NECK: Supple with no adenopathy. THYROID: Not palpable. PERIPHERAL VESSELS: Palpable distal pulses. HEART: Regular rate and rhythm. No murmur or extra heart sounds. LUNGS: Clear with easy respirations. ABDOMEN: Soft and nontender. No organomegaly or masses. EXTERNAL GENITALIA: Many molluscum contagiosum present on external genitalia, perianal, and buttocksarea. A single lesion was scraped and was consistent with it being molluscum. Cervix clear. Moderateamount of white discharge present. Wet prep was done. Thin-based Pap was done. Uterus midposition, small, mobile, and nontender. No adnexal masses or tenderness. SPINE: No tenderness over the vertebral bodies. No CVA tenderness. EXTREMITIES: No edema. No calf tenderness. NEURO: Intact. MENTAL STATUS: PHQ9 score of 12 stating things are somewhat difficult. IMPRESSION/REPORT/PLAN 1. Healthcare maintenance Plan: Pap smear and Gen-Probe for gonorrhea and chlamydia were done today. She has already received her flu shot this fall. She is otherwise up to date on healthcare maintenance. Discussed other age appropriate healthy lifestyle choices. 2. Request for contraception Plan: Discussed various options and she states that she would like to go on control pills. Elected to prescribe Ortho Tri-Cyclen 1 tablet daily as this has worked well for her in the past. Discussed that she can start that this Monday if her test is negative. Reviewed that she should continue to use condoms. 3. Molluscum contagiosum Plan: Discussed various options for treatment and removal. She will return on another day to have them removed via scraping. Information on molluscum was given. 4. Moderate, recurrent depression Plan: Discussed various options and she agreed to Prozac 20 mg daily. Reviewed black box warning andcommon side effects. Return in 6-8 weeks for follow-up. 5. Vaginitis Plan: Wet prep pending and will treat if positive. 6. Amenorrhea Plan: Beta hCG was negative. Discussed that she can start her Ortho Tri-Cyclen as directed. This document serves as a record of services personally performed by Dr. Ramsey Pierre. It was created on their behalf by Marleny Delgadillo, a trained ophthalmic medical assistant. The creation of this record is based on the scribe's personal observations and the provider's statements to them. This document has been checked and approved by the attending provider. Ramsey Pierre M.D./elisha Electronically Signed By: RAMSEY PIERRE MD On: 03/29/2012 04:19 PM Source: [facility] MHSDOLBEYNONRADSYS Document Id: [id number] MBLER ARRANGER documented in this encounter Miscellaneous Notes Miscellaneous - Ramsey Banda M.D. - 04/02/2012 5:53 PM ASSEMBLER ARRANGER Results Notification Document Contains Addenda Addendum by RE BRO on 04 April 2012 11:49:07 ASSEMBLER ARRANGER Patient updated. Addendum by HUSEYIN DELGADILLO on 03 April 2012 13:07:37 ASSEMBLER ARRANGER LMTCB From: RAMSEY PIERRE MD To: HUSEYIN DEGLADILLO Sent: 04/02/2012 17:53:57 ASSEMBLER ARRANGER ! Show up: 04/02/2012 23:53:57 [facility] Subject: Results Notification Actions: Notify patient of results Source: [facility] POWERCHART Document Id: [id number] Electronically signed by Violette [employer] Mathematics Teacher [id number] at 09/18/2016 12:49 AM CDT Miscellaneous - Ramsey Banda M.D. - 04/02/2012 5:48 PM ASSEMBLER ARRANGER Results Notification Document Contains Addenda Addendum by RE BRO on 04 April 2012 11:49:31 ASSEMBLER ARRANGER Patient already knew. Addendum by HUSEYIN DELGADILLO on 03 April 2012 13:07:50 ASSEMBLER ARRANGER LMTCB From: RAMSEY PIERRE MD To: HUSEYIN DELGADILLO Sent: 04/02/2012 17:48:05 ASSEMBLER ARRANGER ! Show up: 04/02/2012 23:48:05 [facility] Subject: Results Notification Actions: Notify patient of results Source: [facility] POWERCHART Document Id: [id number] Electronically signed by Conversion, [employer] Mathematics Teacher [id number] at 09/18/2016 12:49 AM CDT Miscellaneous - Ramsey Banda M.D. - 03/29/2012 6:38 PM ASSEMBLER ARRANGER Results Notification Document Contains Addenda Addendum by RE BRO on 04 April 2012 11:49:39 ASSEMBLER ARRANGER Patient updated. Addendum by HUSEYIN DELGADILLO on 03 April 2012 13:08:18 ASSEMBLER ARRANGER LMTCB Addendum by HUSEYIN DELGADILLO on 30 March 2012 09:16:18 ASSEMBLER ARRANGER Will try back someone picked up phone then didnt talk From: RAMSEY PIERRE MD To: HUSEIYN DELGADILLO Sent: 03/29/2012 18:38:15 ASSEMBLER ARRANGER ! Show up: 03/30/2012 00:38:15 [facility] Subject: Results Notification Actions: Notify patient of results Source: [facility] POWERCHART Document Id: [id number] Electronically signed by Conversion, [employer] Mathematics Teacher [id number] at 09/18/2016 12:49 AM CDT Miscellaneous - Ramsey Banda M.D. - 03/29/2012 6:18 PM ASSEMBLER ARRANGER Results Notification Document Contains Addenda Addendum by RE BRO on 04 April 2012 11:49:18 ASSEMBLER ARRANGER Patient updated. Addendum by HUSEYIN DELGADILLO on 03 April 2012 13:07:58 ASSEMBLER ARRANGER LMTCB Addendum by HUSEYIN DELGADILLO on 30 March 2012 09:16:43 ASSEMBLER ARRANGER Will try back, someone picked up phone and then didnt talk From: RAMSEY PIERRE MD To: HUSEYIN DELGADILLO Sent: 03/29/2012 18:18:58 ASSEMBLER ARRANGER ! Show up: 03/30/2012 00:18:58 [facility] Subject: Results Notification Actions: Notify patient of results Source: [facility] 3D Data Document Id: [id number] Electronically signed by Conversion, [employer] Mathematics Teacher [id number] at 09/18/2016 12:49 AM CDT Miscellaneous - Conversion, Historical Provider Ser - 03/29/2012 5:44 PM ASSEMBLER ARRANGER PHQ-9 PHQ-9 Entered On: 03/29/2012 17:44 ASSEMBLER ARRANGER Performed On: 03/29/2012 17:44 ASSEMBLER ARRANGER by HUSEYIN DELGADILLO PHQ-9 Little interest or pleasure in doing things : Several days Feeling down, depressed, or hopeless : More than half the days Trouble falling or staying asleep, or sleeping too much : More than half the days Feeling tired or having little energy : More than half the days Poor appetite or overeating : More than half the days Feeling bad about yourself or that you are a failure : More than half the days Trouble concentrating on things : Several days Moving or speaking slowly; restless or fidgety : Not at all Thoughts that you would be better off /hurting self : Not at all PHQ-9 Calculated Score : 12 Problems make work, home, or dealing with others : Somewhat difficult HUSEYIN DELGADILLO - 03/29/2012 17:44 ASSEMBLER ARRANGER [facility] Document Id: [id number] Miscellaneous - Conversion, Historical Provider Ser - 03/29/2012 2:28 PM ASSEMBLER ARRANGER Adult Hot Tar Roofer Intake/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 Hot Tar Roofer Intake/History Entered On: 03/29/2012 14:29 ASSEMBLER ARRANGER Performed On: 03/29/2012 14:28 ASSEMBLER ARRANGER by HUSEYIN DELGADILLO Intake Chief Complaint : Annual Physical Temperature Oral : 36.9C(Converted to: 98.4DegF) Peripheral Pulse Rate : 78/min Respiratory Rate : 18/min Heart Rhythm : Regular Systolic Blood Pressure : 110mmHg Diastolic Blood Pressure : 62mmHg NIBP Mean : 78mmHg BP Location : Right upper extremity Blood Pressure Cuff Size : Regular Height : 153.2cm(Converted to: 5ft 0inch(es), 60.31inch(es)) Actual Weight : 53.9kg(Converted to: 118lb 13oz) Dosing Weight Clinic : 53.90kg Clinic BSA : 1.51 Body Mass Index : 22.97kg/m2 HUSEYIN DELGADILLO - 03/29/2012 14:28 ASSEMBLER ARRANGER General Info Information Given By : Patient HUSEYIN DELGADILLO 03/29/2012 14:28 ASSEMBLER ARRANGER Subjective Pain Symptoms : No HUSEYIN DELGADILLO 03/29/2012 14:28 ASSEMBLER ARRANGER Dependent Habits Tobacco Use/Currently Using : No Smoking Status : Former smoker HUSEYIN DELGADILLO 03/29/2012 14:28 ASSEMBLER ARRANGER Tobacco Use Grid Type : Cigarettes HUSEYIN DELGADILLO 03/29/2012 14:28 ASSEMBLER ARRANGER Caffeine Use Grid Caffeine Use : Current Type : Coffee Frequency : Occasionally HUSEYIN DELGADILLO 03/29/2012 14:28 ASSEMBLER ARRANGER Allergy Allergies (Active) NKA Estimated Onset Date: Unspecified ; Created By: MEGHAN REMY; Reaction Status: Active ; Category: Drug ; Substance: NKA ; Type: Allergy ; Updated By: MEGHAN REMY; Reviewed Date: 11/01/2010 9:31 CDT [facility] Document Id: [id number] Miscellaneous - Conversion, Historical Provider Ser - 03/29/2012 2:28 PM ASSEMBLER ARRANGER Health Assessment Health Assessment Entered On: 03/29/2012 14:29 ASSEMBLER ARRANGER Performed On: 03/29/2012 14:28 ASSEMBLER ARRANGER by HUSEYIN DELGADILLO Health Assessment Complete Health Assessment Complete or Modified : Annual Health Assessment Annual Health Assessment Completed : Yes HUSEYIN DELGADILLO 03/29/2012 14:28 ASSEMBLER ARRANGER Nutrition Nutrition Risk Factors by 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 : None HUSEYIN DELGADILLO - 03/29/2012 14:28 ASSEMBLER ARRANGER Functional Current Daily Living Assistance : None HUSEYIN DELGADILLO 03/29/2012 14:28 ASSEMBLER ARRANGER Dependent Habits Tobacco Use/Currently Using : No Smoking Status : Former smoker HUSEYIN DELGADILLO 03/29/2012 14:28 ASSEMBLER ARRANGER Tobacco Use Grid Type : Cigarettes HUSEYIN DELGADILLO 03/29/2012 14:28 ASSEMBLER ARRANGER Caffeine Use Grid Caffeine Use : Current Type : Coffee Frequency : Occasionally HUSEYIN DELGADILLO 03/29/2012 14:28 ASSEMBLER ARRANGER Psychosocial Domestic Abuse Concerns : None HUSEYIN DELGADILLO 03/29/2012 14:28 ASSEMBLER ARRANGER Advance Directive Advanced Directives : No HUSEYIN DELGADILLO 03/29/2012 14:28 ASSEMBLER ARRANGER Educ Needs Learning Style Preference Adult Grid Patient : Demonstration, Printed materials, Verbal explanation, Video/Educational TV Family : None HUSEYIN DELGADILLO 03/29/2012 14:28 ASSEMBLER ARRANGER Source: [facility] POWERCHART Document Id: [id number] documented in this encounter Plan of Treatment Not on filedocumented as of this encounter Procedures Procedure Name Priority Date/Time Associated Comments Diagnosis WET PREP EXAM, Routine 03/29/2012 5:32 PM Results for this UROGENITAL ASSEMBLER ARRANGER procedure are i n the results section. N GONOR AMP SRC Routine 03/29/2012 5:31 PM Result s for this ASSEMBLER ARRANGER procedure are i n the results section. N GONOR AMP DNA Routine 03/29/2012 5:31 PM Result s for this ASSEMBLER ARRANGER procedure are i n the results section. C TRACH AMP SRC Routine 03/29/2012 5:31 PM Result s for this ASSEMBLER ARRANGER procedure are i n the results section. C TRACH AMP RNA Routine 03/29/2012 5:31 PM Result s for this ASSEMBLER ARRANGER procedure are i n the results section. TEST, U Routine 03/29/2012 3:30 PM Resu lts for this ASSEMBLER ARRANGER procedure are i n the results section. PATHOLOGY DOCTOR OF OSTEOPATHY Routine 03/29/2012 12:00 AM Results for this CYTOLOGY ASSEMBLER ARRANGER procedure are i n the results section. documented in this encounter Results Wet Prep Exam, Urogenital (03/29/2012 5:32 PM ASSEMBLER ARRANGER) P athologist Signature HXWet Prep POWERCHART HXFinal No yeast, POWERCHART Trichomonas , clue cells, or sperm seen. Specimen (Source) Anatomical Collection Method Collection Time Re ceived Time Location / / Volume Laterality Vagina 03/29/2012 5:32 PM ASSEMBLER ARRANGER Ramsey Pierre M.D. LAB MICROBIOLOGY - GENERAL O RDERABLES Performing Organization Address City/State/ZIP Code Phon e Number POWERCHART HX-N gonor Amp DNA (03/29/2012 5:31 PM ASSEMBLER ARRANGER) athologist Signature HXN gonor Amp Negative POWERCHART DNA-[place] Specimen (Source) Anatomical Collection Method Collection Time Re ceived Time Location / / Volume Laterality 03/29/2012 5:31 PM ASSEMBLER ARRANGER Narrative POWERCHART - 03/30/2012 6:05 PM ASSEMBLER ARRANGER Test Performed by: [address] [address] Caterer Helper: Xavier mon III, M.D. Ramsey Pierre M.D. LAB HISTORICAL ORDERS Performing Organization Address City/State/ZIP Code Phon e Number POWERCHART HX-N gonor Amp Src (03/29/2012 5:31 PM ASSEMBLER ARRANGER) athologist Signature HXN gonor Amp CERVIX POWERCHART Src-[place] Specimen (Source) Anatomical Collection Method Collection Time Re ceived Time Location / / Volume Laterality 03/29/2012 5:31 PM ASSEMBLER ARRANGER Ramsey Pierre M.D. LAB HISTORICAL ORDERS Performing Organization Address City/State/ZIP Code Phon e Number POWERCHART HX-C trach Amp RNA (03/29/2012 5:31 PM ASSEMBLER ARRANGER) [facility] Method Time Signature Chlamydia Negative POWERCHART trachomatis amplified RNA Specimen (Source) Anatomical Collection Method Collection Time Re ceived Time Location / / Volume Laterality 03/29/2012 5:31 PM ASSEMBLER ARRANGER Ramsey Pierre M.D. LAB HISTORICAL ORDERS Performing Organization Address City/State/ZIP Code Phon e Number POWERCHART HX-C trach Amp Src (03/29/2012 5:31 PM ASSEMBLER ARRANGER) athologist Signature HXC trach Amp CERVIX POWERCHART Src-[place] Specimen (Source) Anatomical Collection Method Collection Time Re ceived Time Location / / Volume Laterality 03/29/2012 5:31 PM ASSEMBLER ARRANGER Ramsey Pierre M.D. LAB HISTORICAL ORDERS Performing Organization Address City/State/ZIP Code Phon e Number POWERCHART Test, Qualitative, Urine (03/29/2012 3:30 PM ASSEMBLER ARRANGER) [facility] gist Method Time Signature HXBeta-hCG Negative POWERCHART Qualitative Urine Specimen (Source) Anatomical Collection Method Collection Time Re ceived Time Location / / Volume Laterality Urine 03/29/2012 3:30 PM ASSEMBLER ARRANGER Ramsey Pierre M.D. LAB URINE ORDERABLES Performing Organization Address City/State/ZIP Code Phon e Number POWERCHART Pathology DOCTOR OF OSTEOPATHY Cytology (03/29/2012 12:00 AM ASSEMBLER ARRANGER) Specimen (Source) Anatomical Location Collection Method / Collectio n Time Received Time / Laterality Volume 03/29/2012 Narrative [facility] - 04/02/2012 3:04 PM ASSEMBLER ARRANGER [facility], [address] [id number] ? Patient Name: DENISE ALEXANDER Patient ID #: [id number] Collected: 03/29/2012 Address: [facility]/Zip: [facility] [place], [place] ??[id number] Received: Reported: 03/30/2012 04/02/2012 Soc. Sec. #: ?/Age/Sex 1990 (Age: 22) ??F Physician(s): REENA PIERRE MD Copy To: ? [facility] ?? [id number] [facility], ??[place] ??[address] CYTOPATHOLOGY DOCTOR OF OSTEOPATHY REPORT FINAL CYTOLOGIC DIAGNOSIS Pap Smear - ThinPrep: EPITHELIAL CELL ABNORMALITY HIGH GRADE SQUAMOUS INTRAEPITHELIAL LESI ON (INCLUDES NIGEL 2 AND NIGEL 3/MODERATE AND SEVERE DYSPLASIA/CIS). HISTORY OF ABNORMAL CYTOLOGY NOTED. ENDOCERVICAL CELLS/COMPONENT PRESENT. RECOMMEND COLPOSCOPY AND BIOPSY WITH END OCERVICAL SAMPLING IF CLINICALLY INDICATED. SATISFACTORY SPECIMEN FOR EVALUATION. ??This specimen required a physician interpretation under CLIA 1987 ?? Electronically Signed Out By ddg/04/02/2012 SAIRA VILA M.D. [facility]) The Pap test is a screening procedure an d, as such, is subject to both false positive and false negative results as evidenced by published data. ??It is not a diagnostic test and results should be inter preted in the context of the patient's h istory and other clinical findings. ??Obtaining per iodic Pap tests may help to minimize the consequences of any false negatives that may occur. SPECIMEN(S) RECEIVED: Pap Smear - ThinPrep CLINICAL HISTORY: Date of Last PAP: 2008 Date of Last Menstrual Period: UNKNOWN Other Clinical Conditions: HPV TYPING REQUESTED: IF ASCUS Ramsey Pierre M.D. LAB PAP COPATH ORDERABLES Performing Organization Address City/State/ZIP Code Phon e Number [facility] documented in this encounter Visit Diagnoses Not on filedocumented in this encounter Additional Health Concerns Assessment Noted Time PHQ-9 Depression Total Score: 03/29/2012 5:44 PM CS T documented as of this encounter
--- OUTSIDE RECORDS SUMMARY | 2022-01-14 15:01 | XMS_ITS | Encounter Summary ---
:1990 Author Organization [facility] Address [address] [place] [address] Care Team Providers Name Role Phone Unavailable Primary Care Provider Unavailable Encounter Details Date Type Department Care Team Description 12/03/2008 Hospital Encounter HX [facility] Vicente Mehta M.D. Social History Tobacco Use Types Packs/Day [...] 05/04/2021 relatives? How often do you attend pentecostal or orthodox Never 05/04/2021 services? Do you belong to any clubs or organizations such as No 05/04/2021 pentecostal groups, unions, fraternal or athletic groups, or [...] place to sleep or slept in a group home (including now)? Sex Assigned at Date Recorded Not on file documented as of this encounter Plan of Treatment Not on filedocumented as of this encounter Visit Diagnoses Not on filedocumented in this encounter
--- OUTSIDE RECORDS SUMMARY | 2022-01-14 15:01 | XMS_ITS | Encounter Summary ---
:1990 Author Organization [facility] Address [address] [place] [address] Care Team Providers Name Role Phone Unavailable Primary Care Provider Unavailable Encounter Details Date Type Department Care Team Description 06/20/2013 Hospital Encounter HX NO MAPPING Reece Smalls M.D. [address] [place] [address] (Wo rk) Social History Tobacco Use Types [...] How often do you attend adventism or gnosticist Never 05/04/2021 services? Do you belong to [...] place to sleep or slept in a chcf (including now)? Sex Assigned at Date Recorded Not on file documented as of this encounter Plan of Treatment Not on filedocumented as of this encounter Visit Diagnoses Not on filedocumented in this encounter Additional Health Concerns Assessment Noted Time PHQ-9 Depression Total Score: 12 03/29/2012 5:44 PM CS T documented as of this encounter
--- OUTSIDE RECORDS SUMMARY | 2022-01-14 15:01 | XMS_ITS | Encounter Summary ---
:1990 Author Organization [facility] Address [address] [place] [address] Care Team Providers Name Role Phone Unavailable Primary Care Provider Unavailable Encounter Details Date Type Department Care Team Description 09/20/2013 Hospital Encounter [facility] Segal M.D. [address] [place], [place] [phone] (Wo rk) Social History Tobacco Use Types [...] 05/04/2021 relatives? How often do you attend pentecostalism or oriental orthodox Never 05/04/2021 services? Do you belong to any clubs or organizations such as No 05/04/2021 pentecostalism groups, unions, fraternal or athletic groups, or [...] place to sleep or slept in a longterm (including now)? Sex Assigned at Date Recorded Not on file documented as of this encounter Last Filed Vital Signs Vital Sign Reading Time Taken Comments Blood Pressure 112/66 09/20/2013 2:39 PM CDT Pulse - - Temperature - - Respiratory Rate - - Oxygen Saturation - - Inhaled Oxygen Concentration - - Weight - - Height - - Body Mass Index - - documented in this encounter Progress Notes Anai Smalls M.D. - 09/20/2013 2:31 PM CDT [id number] CHIEF COMPLAINT/REASON FOR VISIT Followup Pap after a LEEP procedure. Patient had a LEEP procedure four months ago, and presents for followup Pap smear today PHYSICAL EXAMINATION Speculum was inserted. Cervix is visualized and appears well healed. Pap smear is obtained. Bimanualexam deferred. IMPRESSION/REPORT/PLAN Followup Pap following LEEP (loop electrosurgical excision procedure.) I will inform her of results when they are available. If they are within normal limits, recommend a follow up again in 6 months, and then subsequent to that if normal again then back to routine screening. Anai Smalls M.D./wilda Electronically Signed By: ANAI SMALLS MD On: 09/28/2013 01:39 PM Source: [facility] MHSDOLBEYNONRADSYS Document Id: [id number] documented in this encounter Miscellaneous Notes Miscellaneous - Anai Smalls M.D. - 10/01/2013 11:15 AM CDT Normal Results Letter 01 October 2013 DENISE ALEXANDER [address] [place] [id number] Dear DENISE ALEXANDER, I am pleased to report that your results from the following diagnostic test(s) are normal. Please follow up with us as we discussed during your visit or sooner if you have any concerns. If you have questions or concerns, please do not hesitate to call our office. CYTOPATHOLOGY MOBILE SALES ASSISTANT REPORT FINAL CYTOLOGIC DIAGNOSIS Pap Smear - ThinPrep: NEGATIVE FOR INTRAEPITHELIAL LESION OR MALIGNANCY ENDOCERVICAL CELLS/COMPONENT PRESENT. HISTORY OF ABNORMAL CYTOLOGY NOTED. SATISFACTORY SPECIMEN FOR EVALUATION. Result Name Current Result MOBILE SALES ASSISTANT Cytology 09/20/2013 Sincerely, ANAI SMALLS [address] [place] [id number] Electronic Signature Electronically Signed By: ANAI SMALLS MD On: 01 October 2013 This document has images extracted. Source: [facility] POWERCHART Document Id: [id number] Electronically signed by [facility] Care Coordination Manager [id number] at 09/13/2016 8:08 PM CDT Miscellaneous - Anai Smalls M.D. - 09/20/2013 5:49 PM CDT Ambulatory Patient Summary [facility] [address] [place] [id number] Visit Information Name: DENISE ALEXANDER [facility] Number: [id number] Current Date: 09/20/2013 17:49:29 Physicians Attending Provider: ANAI SMALLS MD Primary [...] 1 Tablet(s), Oral, once a day depression/anxiety norgestimate-ethinyl estradiol (norgestimate-ethinyl estradiol triphasic (0.18 mg-0.215 mg-0.250 mg)-35 mcg oral tablet) 1 Tablet(s), Oral, once a day Stop Taking the Following Medications: Medication list as of 09-20-13 17:49 Attention: If you have any medications at home that are not on this list, DO NOT take them until youcontact your provider for clarification. Give a copy of your medication list to your primary care provider. Update your medication list any time medications or doses are changed and carry your medication list at all times in case of emergency. Electronically Signed By: ANAI SMALLS MD Signed On:20-SEP-2013 17:49:25 Your Allergies & Intolerances Substance Reaction Symptoms [...] Upcoming Appointments Date Time Location Reason Provider 10/14/2013 15:45 [facility] f/u depression/anxiety Gabby VELARDE, Ramsey Ackerman Attention: Contact your local Clinic if further appointment detail needed. Your Goals/Additional instructions: Source: [facility] POWERCHART Document Id: [id number] Miscellaneous - Anai Smalls M.D. - 09/20/2013 5:49 PM CDT Ambulatory Discharge Medication List [address] [id number] Visit Information Name: DENISE ALEXANDERELLE [facility] Number: [id number] Visit Date: 09/20/2013 17:49:27 Attending Provider: ANAI SMALLS MD Primary Care [...] 1 Tablet(s), Oral, once a day depression/anxiety norgestimate-ethinyl estradiol (norgestimate-ethinyl estradiol triphasic (0.18 mg-0.215 mg-0.250 mg)-35 mcg oral tablet) 1 Tablet(s), Oral, once a day Stop Taking the Following Medications: Medication list as of 09-20-13 17:49 Attention: If you have any medications at home that are not on this list, DO NOT take them until youcontact your provider for clarification. Give a copy of your medication list to your primary care provider. Update your medication list any time medications or doses are changed and carry your medication list at all times in case of emergency. Electronically Signed By: ANAI SMALLS MD Signed On:20-SEP-2013 17:49:25 Additional Information: Source: [facility] Document Id: [id number] Miscellaneous - Sherine Lopez, L.P.N. - 09/20/2013 2:39 PM CDT Adult Cord Splicer Intake/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 Cord Splicer Intake/History Entered On: 09/20/2013 14:40 CDT Performed On: 09/20/2013 14:39 CDT by SHERINE LOPEZ Intake Chief Complaint : recheck pap smear LMP Date : 09-07-13 Systolic Blood Pressure : 112 mmHg Diastolic Blood Pressure : 66 mmHg NIBP Mean : 81 mmHg BP Location : Left upper extremity Blood Pressure Cuff Size : Large SHERINE LOPEZ - 09/20/2013 14:39 CDT General Info Languages : Cape Verdean SHERINE LOPEZ - 09/20/2013 14:39 CDT Subjective Pain Symptoms : No SHERINE LOPEZ - 09/20/2013 14:39 CDT Dependent Habits Tobacco Use/Currently Using : No Exposure to Tobacco Smoke : Patient smokes Smoking Status : Never smoker SHERINE LOPEZ - 09/20/2013 14:39 CDT Tobacco Use Grid Type : Cigarettes SHERINE LOPEZ - 09/20/2013 14:39 CDT Caffeine Use Grid Caffeine Use : Current Type : Coffee Frequency : Occasionally SHERINE LOPEZ - 09/20/2013 14:39 CDT Source: [facility] Document Id: [id number] CDT!25 documented in this encounter Plan of Treatment Not on filedocumented as of this encounter Procedures Procedure Name Priority Date/Time Associated Diagnosis Comme nts PATHOLOGY MOBILE SALES ASSISTANT Routine 09/20/2013 12:00 AM Results for this CYTOLOGY CDT procedure are i n the results section. documented in this encounter Results Pathology MOBILE SALES ASSISTANT Cytology (09/20/2013 12:00 AM CDT) Specimen (Source) Anatomical Location Collection Method / Collectio n Time Received Time / Laterality Volume 09/20/2013 Narrative [facility] - 10/01/2013 7:06 AM CDT [facility] in [address] ??[phone] Patient Name: DENISE ALEXANDER Patient ID #: [id number] Collected: 09/20/2013 Address: [facility]/State/Zip: [facility] ??[place], [place] ??[phone] Received: Reported: 09/23/2013 10/01/2013 Soc. Sec. #: ?/Age/Sex 1990 (Age: 23) ??F Physician(s): FRANCA SMALLS MD Copy To: ? [facility] ?? [id number] [address] [facility], ??[place] ??[address] CYTOPATHOLOGY MOBILE SALES ASSISTANT REPORT FINAL CYTOLOGIC DIAGNOSIS Pap Smear - ThinPrep: NEGATIVE FOR INTRAEPITHELIAL LESION OR MALIGNANCY ENDOCERVICAL CELLS/COMPONENT PRESENT. HISTORY OF ABNORMAL CYTOLOGY NOTED. SATISFACTORY SPECIMEN FOR EVALUATION. Electronically Signed Out By amb/10/01/[address](ASCP) The Pap test is a screening procedure [...] RECEIVED: Pap Smear - ThinPrep CLINICAL HISTORY: Previous Abnormal PAP: LCTyron Pathologists, EMELI (03/29/12) Date of Last PAP: 03/29/12 [facility] Date of Last Menstrual Period: 09-07-13 Treatment History: LEEP: 06-20-13 NIGEL III Other Clinical Conditions: HPV TYPING REQUESTED: IF ASCUS Anai Smalls M.D. LAB PAP COPATH ORDERABLES Performing Organization Address City/State/ZIP Code Phon e Number [facility] documented in this encounter Visit Diagnoses Not on filedocumented in this encounter Additional Health Concerns Assessment Noted Time PHQ-9 Depression Total Score: 6 08/15/2013 3:15 PM CDT documented as of this encounter
--- OUTSIDE RECORDS SUMMARY | 2022-01-14 15:01 | XMS_ITS | Encounter Summary ---
:1990 Author Organization [facility] Address [address] [place] [address] Care Team Providers Name Role Phone Unavailable Primary Care Provider Unavailable Encounter Details Date Type Department Care Team Description 07/22/2010 Hospital Encounter [facility]X [facility] Kristy Junior M.D. [address] [place] [address] (Wo rk) Social History Tobacco [...] How often do you attend christianity or protestant Never 05/04/2021 services? Do you [...] encounter Progress Notes Elizabeth Junior M.D. - 07/22/2010 12:00 AM CDT [id number] HISTORY OF PRESENT ILLNESS This is a 20-year-old female who has had a 2 to 3 day history of sore throat, left-sided earache and some redness, mattering, and itchiness in the left eye just starting over the last day. VITAL SIGNS TEMP: 37.1 degreesC Vitals are okay; per EMR. PHYSICAL EXAM GENERAL: The patient is awake and alert, in no acute distress. HEENT: Significant for left eye with some mild injection, both palpebral and scleral. The right eye looks fine. The left TM was somewhat erythematous with bulging and loss of landmarks. The right side is fine. Oropharynx was clear except for some minimal erythema posteriorly. NECK: Negative for masses or nodes of significance. LUNGS: Clear on exam. IMPRESSION/REPORT/PLAN DIAGNOSTIC: Quick strep test done today was negative. 1) Left eye with mild conjunctivitis. 2) Left-sided otitis media. PLAN: Amoxicillin and erythromycin ointment are prescribed. Follow up as needed. Conservative measures are reviewed. Eleazar Sykes Electronically Signed By: ELIZABETH JUNIOR MD On: 07/28/2010 08:21 Source: [facility] MHSDOLBEYNONRADSYS Document Id: [id number] documented in this encounter Procedure Notes Conversion, Historical Provider Ser - 07/22/2010 10:07 AM CDT Rapid Strep A Screen POC Rapid Strep A Screen POC Entered On: 07/22/2010 10:07 CDT Performed On: 07/22/2010 10:07 CDT by ALEJANDRO GONZALEZ Rapid Strep A Screen POC Rapid Strep A Screen POC: Negative Internal QC: Pass ALEJANDRO GONZALEZ - 07/22/2010 10:07 CDT Source: [facility] POWERCHART Document Id: [id number] CDT!4 documented in this encounter Miscellaneous Notes Miscellaneous - Conversion, Historical Provider Ser - 07/22/2010 9:57 AM CDT Adult Plastic Shaper Intake/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 Plastic Shaper Intake/History Entered On: 07/22/2010 9:59 CDT Performed On: 07/22/2010 9:57 CDT by ALEJANDRO GONZALEZ Intake Chief Complaint: S/T, left ear pain, fever, left eye is red and mattery Onset of Symptoms: Monday Temperature Oral: 37.1C(Converted to: 98.8DegF) Peripheral Pulse Rate: 94/min Respiratory Rate: 16/min Systolic Blood Pressure: 98mmHg Diastolic Blood Pressure: 72mmHg NIBP Mean: 81mmHg BP Location: Right upper extremity Actual Weight: 47.000kg(Converted to: 103lb 10oz) Weight Source: Standing scale Dosing Weight Clinic: 47.00kg ALEJANDRO GONZALEZ - 07/22/2010 9:57 CDT Subjective Pain Symptoms: No ALEJANDRO GONZALEZ - 07/22/2010 9:57 CDT Dependent Habits Tobacco Use/Currently Using: Yes Exposure to Tobacco Smoke: Patient smokes ALEJANDRO GONZALEZ - 07/22/2010 9:57 CDT Tobacco Use Grid Type: Cigarettes ALEJANDRO GONZALEZ - 07/22/2010 9:57 CDT Caffeine Use Grid Caffeine Use: Current Type: Coffee Frequency: Occasionally ALEJANDRO GONZALEZ 07/22/2010 9:57 CDT Allergies Allergies (Active) NKA Estimated Onset Date: Unspecified ; Created By: MEGHAN REMY; Reaction Status: Active ; Category: Drug ; Substance: NKA ; Type: Allergy ; Updated By: MEGHAN REMY; Reviewed Date: 07/22/2010 9:53 CDT Source: [employer] [facility] [employer] Document Id: [id number] CDT!27 documented in this encounter Plan of Treatment Not on filedocumented as of this encounter Visit Diagnoses Not on filedocumented in this encounter
--- OUTSIDE RECORDS SUMMARY | 2022-01-14 15:01 | XMS_ITS | Encounter Summary ---
:1990 Author Organization [facility] Address [address] [place] [address] Care Team Providers Name Role Phone Unavailable Primary Care Provider Unavailable Encounter Details Date Type Department Care Team Description 06/20/2013 Hospital Encounter [facility]X [facility] Segal M.D. [address] [place], [place] [phone] (Wo rk) Social History Tobacco Use Types [...] How often do you attend yarsani or adventism Never 05/04/2021 services? Do you belong to [...] place to sleep or slept in a assisted (including now)? Sex Assigned at Date Recorded Not on file documented as of this encounter Progress Notes Anai Smalls M.D. 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 During this procedure, the universal protocol was utilized. The patient's identity was confirmed by no less than two patient identifiers, correct procedure was verified, correct site was verified and marked as applicable and a final pause was completed. After consent had been obtained, the patient was positioned in the dorsal lithotomy and a plastic-coated speculum was inserted. She was anesthetized with 1% Xylocaine with epinephrine and after anesthesia was infiltrated, the cervix was prepped with Betadine to help identify the squamocolumnar junction. The entire transformation zone was then excised with two passes with a 10 x 12 mm Wolfgang loop. A ball electrode was then switched out for hemostasis at the biopsy bed and Monsel solution was applied for added assurance of hemostasis. The patient tolerated this well. The speculum was then removed and she was returned to the seated position in stable condition. IMPRESSION / REPORT / PLAN Loop electrosurgical excision procedure (LEEP). We will have her follow up for a repeat Pap in 3 months. We will inform her of the biopsy results when they are available and have her call with concerns. We discussed risks, especially associated with vaginal bleeding, especially in the next 72 hours. Anai Smalls M.D./enedelia Electronically Signed By: ANAI SMALLS MD On: 06/25/2013 08:46 AM Source: [facility] MHSDOLBEYNONRADSYS Document Id: [id number] documented in this encounter Miscellaneous Notes Miscellaneous - Anai Smalls M.D. - 06/20/2013 4:27 PM CST Ambulatory Patient Summary [facility] [address] [place] [id number] Visit Information Name: CATHERINE DENISEBETHANY ALEJANDRO [facility] Number: [id number] Current Date: 06/20/2013 16:27:00 Physicians Attending Provider: ANAI SMALLS MD Primary Care Provider: IRINA BAÑUELOS MD CATHERINE DENISE ALEJANDRO has been given the following list [...] affected area Stop Taking the Following Medications: Medication list as of 06-20-13 16:27 Attention: If you have any medications at [...] Upcoming Appointments Date Time Location Reason Provider 07/04/2013 14:00 [facility] anxiety/depression Gabby VELARDE, Irina Ackerman Attention: Contact your local Clinic if further appointment detail needed. Your Goals/Additional instructions: Source: [facility] POWERCHART Document Id: [id number] N BLEACHER Miscellaneous - Anai Smalls M.D. - 06/20/2013 4:26 PM CST Ambulatory Discharge Medication List [facility] [address] [place] [id number] Visit Information Name: DENISE ALEXANDER [facility] Number: [id number] Visit Date: 06/20/2013 16:26:59 Attending Provider: ANAI SMALLS MD Primary Care Provider: IRINA BAÑUELOS MD CATHERINE DENISE SCHWARTZELLE has been given the following list of [...] affected area Stop Taking the Following Medications: Medication list as of 06-20-13 16:26 Attention: If you have any medications at home that are not on this list, DO NOT take them until youcontact your provider for clarification. Give a copy of your medication list to your primary care provider. Update your medication list any time medications or doses are changed and carry your medication list at all times in case of emergency. Additional Information: Source: [facility] POWERCHART Document Id: [id number] N BLEACHER documented in this encounter Plan of Treatment Not on filedocumented as of this encounter Procedures Procedure Name Priority Date/Time Associated Diagnosis Comme nts SURGICAL PATHOLOGY Routine 06/20/2013 10:55 AM Re sults for this SKEIN BLEACHER procedure are i n the results section. documented in this encounter Results Pathology Surgical Pathology (06/20/2013 10:55 AM SKEIN BLEACHER) Specimen (Source) Anatomical Collection Method Collection Time Re ceived Time Location / / Volume Laterality 06/20/2013 10:55 AM SKEIN BLEACHER Narrative [facility] - 06/24/2013 9:21 AM CDT [facility] in [address] [place] [phone] Patient Name: DENISE ALEXANDER Patient ID #: [id number] Collected: 06/20/2013 Address: City/State/Zip: [facility] ??[place], [place] ??[phone] Received: Reported: 06/21/2013 06/24/2013 Soc. Sec. #: ?/Age/Sex 1990 (Age: 23) ??F Physician(s): FRANCA SMALLS MD Copy To: ? [facility] ??[phone] [facility], ??[place] ??[address] SURGICAL PATHOLOGY REPORT FINAL DIAGNOSIS: A. CERVIX, ANTERIOR CONE BIOPSY: --- SEVERE SQUAMOUS DYSPLASIA (NIGEL III), INVOLVING THE CAUTERIZED ENDOCERVICAL MARGIN. --- UNREMARKABLE ECTOCERVICAL MARGIN. B. CERVIX, POSTERIOR CONE BIOPSY: --- SEVERE SQUAMOUS DYSPLASIA (NIGEL III), INVOLVING THE CAUTERIZED ENDOCERVICAL MARGIN. --- UNREMARKABLE ECTOCERVICAL MARGIN. dms/06/24/2013 HANH ALCARAZ M.D. Report electronically released. Interpretation by HANH ALCARAZ M.D. SPECIMEN(S) RECEIVED: 1: A. ANTERIOR CERVIX 2: B. POSTERIOR CERVIX CLINICAL HISTORY: LEEP ??SEVERE DYSPLASIA ABNORMAL COLPOSCOPY GROSS DESCRIPTION: A. Consists of a portion of cone biopsy approximately 2 x 1.5 x 0.8 cm. Sectioned. ESB, A1-A2. B. Consists of irregular fragments of ti ssue to a loose 2 cm flat aggregate dimension. ESB, B1-B2. ([id number]) DDG/EZEKIEL/06/21/2013 MICROSCOPIC DESCRIPTION: Reviewed by Hanh Alcaraz M.D.; Patholo gist EZEKIEL/06/24/2013 Anai Smalls M.D. LAB SURG PATH ORDERABLES Performing Organization Address City/State/ZIP Code Phon e Number [facility] documented in this encounter Visit Diagnoses Not on filedocumented in this encounter Additional Health Concerns Assessment Noted Time PHQ-9 Depression Total Score: 12 03/29/2012 5:44 PM CS T documented as of this encounter
--- OUTSIDE RECORDS SUMMARY | 2022-01-14 15:02 | XMS_ITS | Encounter Summary ---
:1990 Author Organization [facility] Address [address] [place] [address] Care Team Providers Name Role Phone Unavailable Primary Care Provider Unavailable Encounter Details Date Type Department Care Team Description 07/08/2008 Hospital Encounter HX [facility] Vicente Mehta [...] 05/04/2021 relatives? How often do you attend moravian or buddhism Never 05/04/2021 services? Do you belong to any clubs or organizations such as No 05/04/2021 moravian groups, unions, fraternal or athletic groups, or [...] place to sleep or slept in a residential (including now)? Sex Assigned at Date Recorded Not on file documented as of this encounter Plan of Treatment Not on filedocumented as of this encounter Visit Diagnoses Not on filedocumented in this encounter
--- OUTSIDE RECORDS SUMMARY | 2022-01-14 15:02 | XMS_ITS | Encounter Summary ---
:1990 Author Organization [facility] Address [address] [place] [address] Care Team Providers Name Role Phone Unavailable Primary Care Provider Unavailable Encounter Details Date Type Department Care Team Description 05/01/2008 Hospital Encounter [facility] ED AmmondebbieJacqueline P.A.-C. [address] [place] [address] (Wo rk) Social History Tobacco [...] 05/04/2021 relatives? How often do you attend episcopal or druze Never 05/04/2021 services? Do you belong to any clubs or organizations such as No 05/04/2021 episcopal groups, unions, fraternal or athletic groups, or [...] place to sleep or slept in a correction (including now)? Sex Assigned at Date Recorded Not on file documented as of this encounter Plan of Treatment Not on filedocumented as of this encounter Visit Diagnoses Not on filedocumented in this encounter
--- OUTSIDE RECORDS SUMMARY | 2022-01-14 15:02 | XMS_ITS | Encounter Summary ---
:1990 Author Organization [facility] Address [address] [place] [address] Care Team Providers Name Role Phone Unavailable Primary Care Provider Unavailable Encounter Details Date Type Department Care Team Description 06/02/2008 Hospital Encounter HX [facility] ED Jacqueline Rdz P.A.-C. [address] [place] [address] (Wo rk) Social History Tobacco [...] 05/04/2021 relatives? How often do you attend yarsanism or protestant Never 05/04/2021 services? Do you belong to any clubs or organizations such as No 05/04/2021 yarsanism groups, unions, fraternal or athletic groups, or [...]
--- OUTSIDE RECORDS SUMMARY | 2022-01-14 15:02 | XMS_ITS | Encounter Summary ---
:1990 Author Organization [facility] Address [address] [place] [address] Care Team Providers Name Role Phone Unavailable Primary Care Provider Unavailable Encounter Details Date Type Department Care Team Description 06/04/2007 Hospital Encounter [facility] Torsten Mclaughlin M.D. [address] [place] [address] (Wo rk) Social History Tobacco Use Types [...] How often do you attend yarsani or taoist Never 05/04/2021 services? Do you belong to [...]
--- OUTSIDE RECORDS SUMMARY | 2022-01-14 15:02 | XMS_ITS | Encounter Summary ---
:1990 Author Organization [facility] Address [address] [place] [address] Care Team Providers Name Role Phone Unavailable Primary Care Provider Unavailable Encounter Details Date Type Department Care Team Description 03/20/2008 Hospital Encounter [facility]X [facility] Vicente Mehta [...] 05/04/2021 relatives? How often do you attend jain or baptism Never 05/04/2021 services? Do you belong to any clubs or organizations such as No 05/04/2021 jain groups, unions, fraternal or athletic groups, or [...] place to sleep or slept in a snf (including now)? Sex Assigned at Date Recorded Not on file documented as of this encounter Plan of Treatment Not on filedocumented as of this encounter Visit Diagnoses Not on filedocumented in this encounter
--- OUTSIDE RECORDS SUMMARY | 2022-01-14 15:02 | XMS_ITS | Encounter Summary ---
:1990 Author Organization [facility] Address [address] [place] [address] Care Team Providers Name Role Phone Unavailable Primary Care Provider Unavailable Encounter Details Date Type Department Care Team Description 10/03/2007 Hospital Encounter [facility]X [facility] Torsten Stevens M.D. [address] [place] [address] (Wo rk) Social History Tobacco Use Types [...] How often do you attend pentecostal or sabianist Never 05/04/2021 services? Do you belong to [...]
--- OUTSIDE RECORDS SUMMARY | 2022-01-14 15:02 | XMS_ITS | Encounter Summary ---
:1990 Author Organization [facility] Address [address] [place] [address] Care Team Providers Name Role Phone Unavailable Primary Care Provider Unavailable Encounter Details Date Type Department Care Team Description 05/05/2008 Hospital Encounter [facility]X [facility] FAMILY[facility] Em Coon, YASMIN, RKendallN. [address] [place] [address] (Wo rk) Social History Tobacco Use Types [...] 05/04/2021 relatives? How often do you attend protestant or nondenominational Never 05/04/2021 services? Do you belong to any clubs or organizations such as No 05/04/2021 protestant groups, unions, fraternal or athletic groups, or [...]
--- OUTSIDE RECORDS SUMMARY | 2022-01-14 15:02 | XMS_ITS | Encounter Summary ---
:1990 Author Organization [facility] Address [address] [place] [address] Care Team Providers Name Role Phone Unavailable Primary Care Provider Unavailable Encounter Details Date Type Department Care Team Description 02/21/2008 Hospital Encounter HX [facility] Vicente Mehta [...] 05/04/2021 relatives? How often do you attend hindu or baptism Never 05/04/2021 services? Do you belong to any clubs or organizations such as No 05/04/2021 hindu groups, unions, fraternal or athletic groups, or [...] place to sleep or slept in a skilled nursing (including now)? Sex Assigned at Date Recorded Not on file documented as of this encounter Plan of Treatment Not on filedocumented as of this encounter Visit Diagnoses Not on filedocumented in this encounter
--- OUTSIDE RECORDS SUMMARY | 2022-01-14 15:02 | XMS_ITS | Encounter Summary ---
:1990 Author Organization [facility] Address [address] [place] [address] Care Team Providers Name Role Phone Unavailable Primary Care Provider Unavailable Encounter Details Date Type Department Care Team Description 05/07/2008 Hospital Encounter HX [facility] Vicente Mehta [...] 05/04/2021 relatives? How often do you attend scientologist or congregation Never 05/04/2021 services? Do you belong to any clubs or organizations such as No 05/04/2021 scientologist groups, unions, fraternal or athletic groups, or [...] place to sleep or slept in a nursing home (including now)? Sex Assigned at Date Recorded Not on file documented as of this encounter Plan of Treatment Not on filedocumented as of this encounter Visit Diagnoses Not on filedocumented in this encounter
--- OUTSIDE RECORDS SUMMARY | 2022-01-14 15:02 | XMS_ITS | Encounter Summary ---
:1990 Author Organization [facility] Address [address] [place] [address] Care Team Providers Name Role Phone Unavailable Primary Care Provider Unavailable Encounter Details Date Type Department Care Team Description 11/29/2007 Hospital Encounter HX [facility] Vicente Mehta [...] often do you attend jehovah's witness or bahai Never 05/04/2021 services? Do you belong to [...] place to sleep or slept in a half-way (including now)? Sex Assigned at Date Recorded Not on file documented as of this encounter Plan of Treatment Not on filedocumented as of this encounter Visit Diagnoses Not on filedocumented in this encounter
--- OUTSIDE RECORDS SUMMARY | 2022-01-14 15:02 | XMS_ITS | Encounter Summary ---
:1990 Author Organization [facility] Address [address] [place] [address] Care Team Providers Name Role Phone Unavailable Primary Care Provider Unavailable Encounter Details Date Type Department Care Team Description 10/23/2008 Hospital Encounter HX [facility] Vicente Mehta [...] 05/04/2021 relatives? How often do you attend restoration or lutheran Never 05/04/2021 services? Do you belong to any clubs or organizations such as No 05/04/2021 restoration groups, unions, fraternal or athletic groups, or [...] place to sleep or slept in a senior care (including now)? Sex Assigned at Date Recorded Not on file documented as of this encounter Plan of Treatment Not on filedocumented as of this encounter Visit Diagnoses Not on filedocumented in this encounter
--- OUTSIDE RECORDS SUMMARY | 2022-01-14 15:02 | XMS_ITS | Encounter Summary ---
:1990 Author Organization [facility] Address [address] [place] [address] Care Team Providers Name Role Phone Unavailable Primary Care Provider Unavailable Encounter Details Date Type Department Care Team Description 06/24/2008 Hospital Encounter HX [facility] Vicente Mehta [...] 05/04/2021 relatives? How often do you attend worship or mormon Never 05/04/2021 services? Do you belong to any clubs or organizations such as No 05/04/2021 worship groups, unions, fraternal or athletic groups, or [...]
--- OUTSIDE RECORDS SUMMARY | 2022-01-14 15:02 | XMS_ITS | Encounter Summary ---
:1990 Author Organization [facility] Address [address] [place] [address] Care Team Providers Name Role Phone Unavailable Primary Care Provider Unavailable Encounter Details Date Type Department Care Team Description 11/23/2007 Hospital Encounter HX [facility] Vicente Mehta [...] How often do you attend methodist or anabaptist Never 05/04/2021 services? Do you belong to [...] place to sleep or slept in a jail (including now)? Sex Assigned at Date Recorded Not on file documented as of this encounter Plan of Treatment Not on filedocumented as of this encounter Visit Diagnoses Not on filedocumented in this encounter
--- OUTSIDE RECORDS SUMMARY | 2022-01-14 15:02 | XMS_ITS | Encounter Summary ---
:1990 Author Organization [facility] Address [address] [place] [address] Care Team Providers Name Role Phone Unavailable Primary Care Provider Unavailable Encounter Details Date Type Department Care Team Description 07/01/2008 Hospital Encounter HX [facility] Vicente Mehta [...] 05/04/2021 relatives? How often do you attend spiritism or congregation Never 05/04/2021 services? Do you belong to any clubs or organizations such as No 05/04/2021 spiritism groups, unions, fraternal or athletic groups, or [...]
--- OUTSIDE RECORDS SUMMARY | 2022-01-14 15:02 | XMS_ITS | Encounter Summary ---
:1990 Author Organization [facility] Address [address] [place] [address] Care Team Providers Name Role Phone Unavailable Primary Care Provider Unavailable Encounter Details Date Type Department Care Team Description 05/27/2008 Hospital Encounter HX [facility] Vicente Mehta [...] 05/04/2021 relatives? How often do you attend mosque or rastafari Never 05/04/2021 services? Do you belong to any clubs or organizations such as No 05/04/2021 mosque groups, unions, fraternal or athletic groups, or [...]
--- OUTSIDE RECORDS SUMMARY | 2022-01-14 15:02 | XMS_ITS | Encounter Summary ---
:1990 Author Organization [facility] Address [address] [place] [address] Care Team Providers Name Role Phone Unavailable Primary Care Provider Unavailable Encounter Details Date Type Department Care Team Description 04/01/2008 Hospital Encounter HX [facility] FAMILYPRA Nayely [...] How often do you attend hoahaoism or gnosticist Never 05/04/2021 services? Do you [...] place to sleep or slept in a custodial (including now)? Sex Assigned at Date Recorded Not on file documented as of this encounter Plan of Treatment Not on filedocumented as of this encounter Visit Diagnoses Not on filedocumented in this encounter
--- OUTSIDE RECORDS SUMMARY | 2022-01-14 15:02 | XMS_ITS | Encounter Summary ---
:1990 Author Organization [facility] Address [address] [place] [address] Care Team Providers Name Role Phone Unavailable Primary Care Provider Unavailable Encounter Details Date Type Department Care Team Description 11/29/2007 Hospital Encounter HX [facility] Sera Fuller, R.NKendall [address] [place] [address] (Wo rk) Social History Tobacco [...] 05/04/2021 relatives? How often do you attend uatsdin or caodaism Never 05/04/2021 services? Do you belong to any clubs or organizations such as No 05/04/2021 uatsdin groups, unions, fraternal or athletic groups, or [...] slept in a care home (including now)? Sex Assigned at Date Recorded Not on file documented as of this encounter Plan of Treatment Not on filedocumented as of this encounter Visit Diagnoses Not on filedocumented in this encounter
--- OUTSIDE RECORDS SUMMARY | 2022-01-14 15:02 | XMS_ITS | Encounter Summary ---
:1990 Author Organization [facility] Address [address] [place] [address] Care Team Providers Name Role Phone Unavailable Primary Care Provider Unavailable Encounter Details Date Type Department Care Team Description 01/24/2008 Hospital Encounter HX [facility] Vicente Mehta [...] How often do you attend episcopal or mormon Never 05/04/2021 services? Do you [...]
--- OUTSIDE RECORDS SUMMARY | 2022-01-14 15:02 | XMS_ITS | Encounter Summary ---
:1990 Author Organization [facility] Address [address] [place] [address] Care Team Providers Name Role Phone Unavailable Primary Care Provider Unavailable Encounter Details Date Type Department Care Team Description 08/07/2008 Hospital Encounter HX [facility] Vicente Mehta [...] 05/04/2021 relatives? How often do you attend yazdanism or yarsani Never 05/04/2021 services? Do you belong to any clubs or organizations such as No 05/04/2021 yazdanism groups, unions, fraternal or athletic groups, or [...] place to sleep or slept in a fdc (including now)? Sex Assigned at Date Recorded Not on file documented as of this encounter Plan of Treatment Not on filedocumented as of this encounter Visit Diagnoses Not on filedocumented in this encounter
--- OUTSIDE RECORDS SUMMARY | 2022-01-14 15:02 | XMS_ITS | Encounter Summary ---
:1990 Author Organization [facility] Address [address] [place] [address] Care Team Providers Name Role Phone Unavailable Primary Care Provider Unavailable Encounter Details Date Type Department Care Team Description 09/09/2008 Hospital Encounter HX [facility] Vicente Mehta [...] 05/04/2021 relatives? How often do you attend orthodox or mandaeism Never 05/04/2021 services? Do you belong to any clubs or organizations such as No 05/04/2021 orthodox groups, unions, fraternal or athletic groups, or [...]
--- OUTSIDE RECORDS SUMMARY | 2022-01-14 15:02 | XMS_ITS | Encounter Summary ---
:1990 Author Organization [facility] Address [address] [place] [address] Care Team Providers Name Role Phone Unavailable Primary Care Provider Unavailable Encounter Details Date Type Department Care Team Description 07/23/2008 Hospital Encounter HX [facility] Vicente Mehta [...] 05/04/2021 relatives? How often do you attend episcopalian or congregational Never 05/04/2021 services? Do you belong to any clubs or organizations such as No 05/04/2021 episcopalian groups, unions, fraternal or athletic groups, or [...]
--- OUTSIDE RECORDS SUMMARY | 2022-01-14 15:02 | XMS_ITS | Encounter Summary ---
:1990 Author Organization [facility] Address [address] [place] [address] Care Team Providers Name Role Phone Unavailable Primary Care Provider Unavailable Encounter Details Date Type Department Care Team Description 07/25/2008 Hospital Encounter HX [facility] Vicente Mehta [...] 05/04/2021 relatives? How often do you attend amish or druze Never 05/04/2021 services? Do you belong to any clubs or organizations such as No 05/04/2021 amish groups, unions, fraternal or athletic groups, or [...]
--- OUTSIDE RECORDS SUMMARY | 2022-01-14 15:02 | XMS_ITS | Encounter Summary ---
:1990 Author Organization [facility] Address [address] [place] [address] Care Team Providers Name Role Phone Unavailable Primary Care Provider Unavailable Encounter Details Date Type Department Care Team Description 03/23/2006 Hospital Encounter HX [facility] FAMILYPRA Nayely [...] 05/04/2021 relatives? How often do you attend lutheran or yarsanism Never 05/04/2021 services? Do you belong to any clubs or organizations such as No 05/04/2021 lutheran groups, unions, fraternal or athletic groups, or [...]
--- OUTSIDE RECORDS SUMMARY | 2022-01-14 15:02 | XMS_ITS | Encounter Summary ---
:1990 Author Organization [facility] Address [address] [place] [address] Care Team Providers Name Role Phone Unavailable Primary Care Provider Unavailable Encounter Details Date Type Department Care Team Description 04/25/2008 Hospital Encounter HX [facility] Vicente Mehta [...] 05/04/2021 relatives? How often do you attend nondenominational or restoration Never 05/04/2021 services? Do you belong to any clubs or organizations such as No 05/04/2021 nondenominational groups, unions, fraternal or athletic groups, or [...]
--- OUTSIDE RECORDS SUMMARY | 2022-01-14 15:02 | XMS_ITS | Encounter Summary ---
:1990 Author Organization [facility] Address [address] [place] [address] Care Team Providers Name Role Phone Unavailable Primary Care Provider Unavailable Encounter Details Date Type Department Care Team Description 04/11/2007 Hospital Encounter HX [facility] Vicente Mehta [...] How often do you attend congregational or shinto Never 05/04/2021 services? Do you belong to [...]
--- OUTSIDE RECORDS SUMMARY | 2022-01-14 15:02 | XMS_ITS | Encounter Summary ---
:1990 Author Organization [facility] Address [address] [place] [address] Care Team Providers Name Role Phone Unavailable Primary Care Provider Unavailable Encounter Details Date Type Department Care Team Description 10/13/2006 Hospital Encounter HX [facility] FAMILYPRA Torsten Mclaughlin M.D. [address] [place] [address] (Wo rk) Social History Tobacco Use Types [...] How often do you attend christianity or alevism Never 05/04/2021 services? Do you belong to [...]
--- OUTSIDE RECORDS SUMMARY | 2022-01-14 15:02 | XMS_ITS | Encounter Summary ---
:1990 Author Organization [facility] Address [address] [place] [address] Care Team Providers Name Role Phone Unavailable Primary Care Provider Unavailable Encounter Details Date Type Department Care Team Description 12/28/2007 Hospital Encounter HX [facility] Vicente Mehta [...] How often do you attend spiritism or adventist Never 05/04/2021 services? Do you [...]
--- OUTSIDE RECORDS SUMMARY | 2022-01-14 15:02 | XMS_ITS | Encounter Summary ---
:1990 Author Organization [facility] Address [address] [place] [address] Care Team Providers Name Role Phone Unavailable Primary Care Provider Unavailable Encounter Details Date Type Department Care Team Description 06/13/2006 Hospital Encounter HX [facility] FAMILYPRA Nayely [...] How often do you attend adventism or tenriism Never 05/04/2021 services? Do you belong to [...]
--- OUTSIDE RECORDS SUMMARY | 2022-01-14 15:02 | XMS_ITS | Encounter Summary ---
:1990 Author Organization [facility] Address [address] [place] [address] Care Team Providers Name Role Phone Unavailable Primary Care Provider Unavailable Encounter Details Date Type Department Care Team Description 04/21/2008 Hospital Encounter HX [facility] Vicente Mehta [...] 05/04/2021 relatives? How often do you attend religious or mormonism Never 05/04/2021 services? Do you belong to any clubs or organizations such as No 05/04/2021 religious groups, unions, fraternal or athletic groups, or [...]
--- OUTSIDE RECORDS SUMMARY | 2022-01-14 15:02 | XMS_ITS | Encounter Summary ---
:1990 Author Organization [facility] Address [address] [place] [address] Care Team Providers Name Role Phone Unavailable Primary Care Provider Unavailable Encounter Details Date Type Department Care Team Description 10/11/2007 Hospital Encounter HX [facility] Vicente Mehta [...] 05/04/2021 relatives? How often do you attend yazidi or caodaism Never 05/04/2021 services? Do you belong to any clubs or organizations such as No 05/04/2021 yazidi groups, unions, fraternal or athletic groups, or [...] place to sleep or slept in a [facility] (including now)? Sex Assigned at Date Recorded Not on file documented as of this encounter Plan of Treatment Not on filedocumented as of this encounter Visit Diagnoses Not on filedocumented in this encounter
--- OUTSIDE RECORDS SUMMARY | 2022-01-14 15:02 | XMS_ITS | Encounter Summary ---
:1990 Author Organization [facility] Address [address] [place] [address] Care Team Providers Name Role Phone Unavailable Primary Care Provider Unavailable Encounter Details Date Type Department Care Team Description 03/05/2007 Hospital Encounter HX [facility] FAMILYPRA Torsten Mclaughlin M.D. [address] [place] [address] (Wo rk) Social History Tobacco Use Types [...] 05/04/2021 relatives? How often do you attend taoism or congregation Never 05/04/2021 services? Do you belong to any clubs or organizations such as No 05/04/2021 taoism groups, unions, fraternal or athletic groups, or [...]
--- OUTSIDE RECORDS SUMMARY | 2022-01-14 15:02 | XMS_ITS | Encounter Summary ---
:1990 Author Organization [facility] Address [address] [place] [address] Care Team Providers Name Role Phone Unavailable Primary Care Provider Unavailable Encounter Details Date Type Department Care Team Description 07/15/2008 Hospital Encounter HX [facility] Vicente Mehta [...] 05/04/2021 relatives? How often do you attend latter day or jehovah's witness Never 05/04/2021 services? Do you belong to any clubs or organizations such as No 05/04/2021 latter day groups, unions, fraternal or athletic groups, or [...]
--- OUTSIDE RECORDS SUMMARY | 2022-01-14 15:02 | XMS_ITS | Encounter Summary ---
:1990 Author Organization [facility] Address [address] [place] [address] Care Team Providers Name Role Phone Unavailable Primary Care Provider Unavailable Encounter Details Date Type Department Care Team Description 06/17/2008 Hospital Encounter HX [facility] Vicente Mehta [...] 05/04/2021 relatives? How often do you attend jew or religion Never 05/04/2021 services? Do you belong to any clubs or organizations such as No 05/04/2021 jew groups, unions, fraternal or athletic groups, or [...]
--- OUTSIDE RECORDS SUMMARY | 2022-01-14 15:02 | XMS_ITS | Encounter Summary ---
:1990 Author Organization [facility] Address [address] [place] [address] Care Team Providers Name Role Phone Unavailable Primary Care Provider Unavailable Encounter Details Date Type Department Care Team Description 06/11/2008 Hospital Encounter HX [facility] Vicente Mehta [...] 05/04/2021 relatives? How often do you attend alevism or anabaptist Never 05/04/2021 services? Do you belong to any clubs or organizations such as No 05/04/2021 alevism groups, unions, fraternal or athletic groups, or [...]
--- OUTSIDE RECORDS SUMMARY | 2022-01-14 15:03 | XMS_ITS | Encounter Summary ---
:1990 Author Organization [facility] Address [address] [place] [address] Care Team Providers Name Role Phone Unavailable Primary Care Provider Unavailable Encounter Details Date Type Department Care Team Description 03/18/2006 Hospital Encounter HX [facility] Ebony Lopez, Lisa [address] [place] [address] (Wo rk) Social History Tobacco Use Types [...] 05/04/2021 relatives? How often do you attend buddhism or sabianist Never 05/04/2021 services? Do you belong to any clubs or organizations such as No 05/04/2021 buddhism groups, unions, fraternal or athletic groups, or [...] place to sleep or slept in a intermediate (including now)? Sex Assigned at Date Recorded Not on file documented as of this encounter Plan of Treatment Not on filedocumented as of this encounter Visit Diagnoses Not on filedocumented in this encounter
--- OUTSIDE RECORDS SUMMARY | 2022-01-14 15:03 | XMS_ITS | Encounter Summary ---
:1990 Author Organization [facility] Address [address] [place] [address] Care Team Providers Name Role Phone Unavailable Primary Care Provider Unavailable Encounter Details Date Type Department Care Team Description 12/11/2002 Hospital Encounter HX NO MAPPING Provider, Historical Social History Tobacco Use Types Packs/Day Years [...] 05/04/2021 relatives? How often do you attend judaism or buddhist Never 05/04/2021 services? Do you belong to any clubs or organizations such as No 05/04/2021 judaism groups, unions, fraternal or athletic groups, or [...]
--- OUTSIDE RECORDS SUMMARY | 2022-01-14 15:03 | XMS_ITS | Clinical Summary ---
:1990 Author Organization [facility] Address [facility] [place] [address] Care Team Providers Name Role Phone No Ref-Primary, Physician Primary Care Provider [phone] Allergies No known active allergies Medications Medication Sig Dispensed Refills Start Date End Date Status valACYclovir Take 1 tablet 20 tablet 0 10/03/2019 Ac tive (VALTREX) 1000 mg (1,000 mg) by mouth tabletIndications: 2 times daily for Genital herpes 10 days simplex, unspecified site levonorgestrel 1 each (20 mcg) by 0 Active (MIRENA) 20 MCG/24HR Intrauterine route IUDIndications: once Encounter for removal and reinsertion of intrauterine contraceptive device Active Problems Problem Noted Date HSV infection 05/08/2018 Adjustment disorder with depressed mood 11/10/2016 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 Social History Tobacco Use Types Packs/Day Years Used Date Never Smoker Smokeless Tobacco: Never Used Tobacco Cessation: Counseling Given: No Sex Assigned at Date Recorded Not on file Last Filed Vital Signs Vital Sign Reading Time Taken Comments Blood Pressure 124/84 03/20/2020 2:02 PM [facility] [employer] Pulse 78 10/02/2019 9:28 AM CDT Temperature 36.7 ??C (98 ??F) 10/02/2019 9:28 AM CDT Respiratory Rate 20 10/02/2019 9:28 AM CDT Oxygen Saturation 98% 10/02/2019 9:28 AM CDT Inhaled Oxygen Concentration - - Weight 57.6 kg (127 lb) 03/20/2020 2:02 PM [facility] [employer] Height - - Body Mass Index - - Plan of Treatment Health Maintenance Due Date Last Done Comments ADVANCE CARE PLANNING 1990 ANNUAL REVIEW OF HM ORDERS 1990 PREVENTIVE CARE VISIT 1990 COVID-19 Vaccine (#1) 1990 HIV SCREENING 2005 HEPATITIS C SCREENING 2008 PAP 2011 DTAP/TDAP/TD IMMUNIZATION 11/01/2020 11/01/2010, 08/06/2002 (3 - Td or Tdap) PHQ-2 (once per calendar 04/17/2021 year) INFLUENZA VACCINE (#1) 2021 05/08/2018, 03/16/2016, 01/21/2015, Additional history exists HEPATITIS B IMMUNIZATION Completed 12/11/2002, 09/23/2002, 08/06/2002, Additional history exists IPV IMMUNIZATION Aged Out No longer eligi ble based on patient 's age to complete this topic MENINGITIS IMMUNIZATION Aged Out No longe r eligible based on patient 's age to complete this topic Pneumococcal Vaccine: Aged Out No longer eligible Pediatrics (0 to 5 Years) based on patient's age and At-Risk Patients (6 to to co mplete this topic 64 Years) Care Teams Transition Mgr Relationship Specialty Start Date End Date No Ref-Primary, Physician PCP - General 06/11/19
--- OUTSIDE RECORDS SUMMARY | 2022-01-14 15:03 | XMS_ITS | Encounter Summary ---
:1990 Author Organization [facility] Address [address] [place] [address] Care Team Providers Name Role Phone Unavailable Primary Care Provider Unavailable Encounter Details Date Type Department Care Team Description 12/06/2005 Hospital Encounter HX [facility] OW[facility] FAMILYPRA Nayely [...] 05/04/2021 relatives? How often do you attend taoist or yazdanism Never 05/04/2021 services? Do you belong to any clubs or organizations such as No 05/04/2021 taoist groups, unions, fraternal or athletic groups, or [...]
--- OUTSIDE RECORDS SUMMARY | 2022-01-14 15:03 | XMS_ITS | Encounter Summary ---
:1990 Author Organization [facility] Address [address] [facility] [place] [address] Care Team Providers Name Role Phone No Ref-Primary, Physician Primary Care Provider [phone] Reason for Visit Reason Comments Urgent Care URI coughing with yellow phlegm, chest congestion, x 3 days. Pt says sometimes it hurts to take d eep breaths. Encounter Details Date Type Department Care Team Description 06/11/2019 Office Visit [facility] Kee Perea UR I with cough Urgent Care Michelle Gonsales MD (Primary Dx) [address] [place] [address] [address] [address] [place] [address] Social History Tobacco Use Types Packs/Day Years Used Date Never Smoker Smokeless Tobacco: Never Used Sex Assigned at Date Recorded Not on file documented as of this encounter Last Filed Vital Signs Vital Sign Reading Time Taken Comments Blood Pressure 98/70 06/11/2019 10:28 AM INSURANCE EXAMINING CLERK Pulse 102 06/11/2019 10:28 AM INSURANCE EXAMINING CLERK Temperature 36.5 ??C (97.7 ??F) 06/11/2019 10:28 AM INSURANCE EXAMINING CLERK Respiratory Rate 18 06/11/2019 10:28 AM INSURANCE EXAMINING CLERK Oxygen Saturation 99% 06/11/2019 10:28 AM INSURANCE EXAMINING CLERK Inhaled Oxygen Concentration - - Weight 57.2 kg (126 lb) 06/11/2019 10:28 AM INSURANCE EXAMINING CLERK Height - - Body Mass Index - - documented in this encounter Patient Instructions Patient InstructionsKee Perea MD - 06/11/2019 9:35 AM CST For cough (can take all of them together): - Dextromethorphan 'DM' (can be found in Robitussin/Delsym/generic cough meds) - Honey: lozenges/cough drops or mix honey in warm water - Tessalon/Benzonatate every 8 hours as needed Drink 60 ounces of water a day to stay hydrated If you develop new fevers days from now, or develop shortness of breath/pain with breathing or dizziness -- then return right away to be seen Expect improvement over next 5-7 days RANCE EXAMINING CLERK documented in this encounter Progress Notes Kee Perea MD - 06/11/2019 9:35 AM CST Subjective: Denise Nagel is a 29 year old female who presents for Chief Complaint Patient presents with ??? Urgent Care ??? URI coughing with yellow phlegm, chest congestion, x 3 days. Pt says sometimes it hurts to take deep breaths. Son also sick with a cold - she has been sick for a week, things worsened several days ago.Started with dry sore throat -- cough Monday was most distinct feature, that evening she developed fevers/chills. Without vomiting/diarrhea. Denies hx of asthma. Sore throat has gone away. Appetite is normal Temp of 100 on Monday night (2 days ago) Meds attempted: mucinex/ibuprofen No individuals at home immunocompromised. Her youngest is 10 years old. No hx of sinus infections - no pressure of her face. She did receive flu shot this season. She is a non-smoker. There are no active problems to display for this patient. Current Outpatient Medications Medication ??? benzonatate (TESSALON) 100 MG capsule ??? levonorgestrel (MIRENA) 20 MCG/24HR IUD No current facility-administered medications for this visit. ROS: As above per HPI Objective: BP 98/70 Pulse 102 Temp 97.7 ??F (36.5 ??C) (Tympanic) Resp 18 Wt 57.2 kg (126 lb) SpO2 99% , There is no height or weight on file to calculate BMI. Gen: NAD, well-nourished, sitting in chair comfortably HEENT: EOMI, sclera anicteric, Head normocephalic, ; nares patent; moist mucous membranes, tonsils 1+ no trismus Neck: trachea midline, no thyromegaly CV: Hemodynamically stable, RRR Pulm: no increased work of breathing , CTAB, no wheezes/rales/rhonchi Extrem: no cyanosis, edema or clubbing Skin: no obvious rashes or abnormalities Psych: Euthymic, linear thoughts, normal rate of speech No results found for any visits on 06/11/19. Assessment & Plan: Denise Nagel, 29 year old female who presents with: Viral URI with cough Vitals reassuring, lung exam was clear without wheezing/rales. Treat as viral URI with expectation that this improves over next week. Tessalon/DM/Honey recommended to treat cough. Continue good oral hydration. F/u as needed. - benzonatate (TESSALON) 100 MG capsule Dispense: 21 capsule; Refill: 1 Kee Perea MD [facility] The use of [employer] dictation services may have been used to construct the content in this note; any grammatical or spelling errors are non- intentional. Please contact the author of this note directly if you are in need of any clarification. RANCE EXAMINING CLERK documented in this encounter Plan of Treatment Not on filedocumented as of this encounter Visit Diagnoses Diagnosis Viral URI with cough - Primary Acute upper respiratory infections of un specified site documented in this encounter Care Teams Forge Press Operator Relationship Specialty Start Date End Date No Ref-Primary, Physician PCP - General 06/11/19 documented as of this encounter
--- OUTSIDE RECORDS SUMMARY | 2022-01-14 15:03 | XMS_ITS | Encounter Summary ---
:1990 Author Organization [facility] Address [address] [place] [address] Care Team Providers Name Role Phone Unavailable Primary Care Provider Unavailable Encounter Details Date Type Department Care Team Description 08/06/2002 Hospital Encounter [facility] Geraldo Hodges M.D. [address] [place], [place] [address] (Wo rk) Social History Tobacco Use Types [...] 05/04/2021 relatives? How often do you attend zoroastrian or faith Never 05/04/2021 services? Do you belong to any clubs or organizations such as No 05/04/2021 zoroastrian groups, unions, fraternal or athletic groups, or [...]
--- OUTSIDE RECORDS SUMMARY | 2022-01-14 15:03 | XMS_ITS | Encounter Summary ---
:1990 Author Organization [facility] Address [address] [place] [address] Care Team Providers Name Role Phone Unavailable Primary Care Provider Unavailable Encounter Details Date Type Department Care Team Description 09/23/2002 Hospital Encounter [facility] Gearldo Hodges M.D. [address] [place], [place] [address] (Wo rk) Social History [...] How often do you attend pentecostalism or restorationist Never 05/04/2021 services? Do you belong to [...]
--- OUTSIDE RECORDS SUMMARY | 2022-01-14 15:03 | XMS_ITS | Encounter Summary ---
:1990 Author Organization [facility] Address [address] [place] [address] Care Team Providers Name Role Phone No Ref-Primary, Physician Primary Care Provider [phone] Encounter Details Date Type Department Care Team Description 10/03/2019 Orders Only [facility], Genital he rpes simplex, Urgent Care Michelle Hines, MESHA unspecified site [address] (Primary Dx) [place], [place] [address] [address] [place] [address] Social History Tobacco Use Types Packs/Day Years Used Date Never Smoker Smokeless Tobacco: Never Used Sex Assigned at Date Recorded Not on file COVID-19 Exposure Response Date Recorded In the last month, have you been in contact with No / Unsure 10/02/2019 9:23 AM CDT someone who was confirmed or suspected to have Coronavirus / COVID-19? documented as of this encounter Plan of Treatment Not on filedocumented as of this encounter Visit Diagnoses Diagnosis Genital herpes simplex, unspecified site - Primary documented in this encounter Care Teams Bench Molder Apprentice Relationship Specialty Start Date End Date No Ref-Primary, Physician PCP - General 06/11/19 documented as of this encounter
--- OUTSIDE RECORDS SUMMARY | 2022-01-14 15:03 | XMS_ITS | Encounter Summary ---
:1990 Author Organization [facility] Address [address] [place] [address] Care Team Providers Name Role Phone Unavailable Primary Care Provider Unavailable Encounter Details Date Type Department Care Team Description 10/09/2001 Hospital Encounter [facility] Geraldo Hodges M.D. [address] [place], [place] [address] (Wo rk) Social History [...] How often do you attend nondenominational or islam Never 05/04/2021 services? Do you belong to [...]
--- OUTSIDE RECORDS SUMMARY | 2022-01-14 15:03 | XMS_ITS | Encounter Summary ---
:1990 Author Organization [facility] Address [address] [facility] [place] [address] Care Team Providers Name Role Phone No Ref-Primary, Physician Primary Care Provider [phone] Reason for Visit Reason Comments Urgent Care pt wants to talk to provider Encounter Details Date Type Department Care Team Description 10/02/2019 Office Visit [facility] Marilou Shipley BV (huy terial vaginosis) (Primary Dx); Urgent Care Michelle Ackerman NP Yeast infection of the vagina; [address] Vaginal discharge [place], [place] [address] [address] [place] [phone] Social History Tobacco Use Types Packs/Day Years Used Date Never Smoker Smokeless Tobacco: Never Used Sex Assigned at Date Recorded Not on file COVID-19 Exposure Response Date Recorded In the last month, have you been in contact with No / Unsure 10/02/2019 9:23 AM CDT someone who was confirmed or suspected to have Coronavirus / COVID-19? documented as of this encounter Last Filed Vital Signs Vital Sign Reading Time Taken Comments Blood Pressure 110/78 10/02/2019 9:28 AM CDT Pulse 78 10/02/2019 9:28 AM CDT Temperature 36.7 ??C (98 ??F) 10/02/2019 9:28 AM CDT Respiratory Rate 20 10/02/2019 9:28 AM CDT Oxygen Saturation 98% 10/02/2019 9:28 AM CDT Inhaled Oxygen Concentration - - Weight - - Height - - Body Mass Index - - documented in this encounter Patient Instructions Patient InstructionsMarilou Shipley NP - 10/02/2019 9:30 AM CDT Wet prep, chlamydia, gonorrhea, and herpes simplex 1 & 2 checked in clinic today Clue cells seen positive bacterial vaginosis - flagyl twice daily for 7 days, no alcohol while on this Results will be available in about 2 days, we always call for positives Negative results will be [facility] Recommend condoms and safe sex practices Dr. Vora's blue unscented soap [employer] urogenital probiotic Push fluids, cotton underwear, open to air at night documented in this encounter Progress Notes Marilou Shipley NP - 10/02/2019 9:30 AM CDT Chief Complaint Patient presents with ??? Urgent Care pt wants to talk to provider SUBJECTIVE: Denise Nagel is a 29 year old female who presents today for a possible vaginal infection. She has symptoms of white discharge, burning, itching, possible vaginal sores for 10 days. She was treated with 2 doses of diflucan which did not help. Symptoms started after sex with a new partner. She is declining a vaginal exam. Denies concern for urinary tract infection or HIV. History reviewed. No pertinent past medical history. Current Outpatient Medications Medication Sig Dispense Refill ??? metroNIDAZOLE (FLAGYL) 500 MG tablet Take 1 tablet (500 mg) by mouth 2 times daily for 7 days 14tablet 0 ??? benzonatate (TESSALON) 100 MG capsule Take 1 capsule (100 mg) by mouth 3 times daily as needed for cough (Patient not taking: Reported on 10/02/2019) 21 capsule 1 ??? levonorgestrel (MIRENA) 20 MCG/24HR IUD 1 Device by Intrauterine route Social History Tobacco Use ??? Smoking status: Never Smoker ??? Smokeless tobacco: Never Used Substance Use Topics ??? Alcohol use: Not on file No Known Allergies Review of Systems Constitutional: Negative for activity change, appetite change, chills, diaphoresis, fatigue and fever. Gastrointestinal: Negative for abdominal pain, nausea and vomiting. Genitourinary: Positive for genital sores (possibly, hard to tell after sex if it is just inflammation or sores), vaginal discharge (white thin) and vaginal pain (itch, burn). Negative for decreased urine volume, difficulty urinating, dysuria, flank pain, frequency, hematuria, menstrual problem, pelvic pain, urgency and vaginal bleeding. Musculoskeletal: Negative for myalgias. Skin: Negative for color change and rash. Neurological: Negative for syncope, weakness and light-headedness. Hematological: Negative for adenopathy. OBJECTIVE: BP 110/78 Pulse 78 Temp 98 ??F (36.7 ??C) (Tympanic) Resp 20 SpO2 98% Physical Exam Constitutional: General: She is not in acute distress. Appearance: She is well-developed. She is not ill-appearing, toxic-appearing or diaphoretic. Abdominal: General: Bowel sounds are normal. Palpations: Abdomen is soft. Tenderness: There is no abdominal tenderness. Genitourinary: Comments: Patient declined vaginal exam. Musculoskeletal: Normal range of motion. Skin: General: Skin is warm and dry. Capillary Refill: Capillary refill takes less than 2 seconds. Coloration: Skin is not pale. Neurological: Mental Status: She is alert and oriented to person, place, and time. Psychiatric: Behavior: Behavior normal. Results for orders placed or performed in visit on 10/02/19 Wet prep Status: Abnormal Specimen: Vagina Result Value Ref Range Specimen Description Vagina Wet Prep No Trichomonas seen Wet Prep Few Clue cells seen (A) Wet Prep No yeast seen Wet Prep Few WBC'S seen ASSESSMENT: ICD-10-CM 1. BV (bacterial vaginosis) N76.0 metroNIDAZOLE (FLAGYL) 500 MG tablet B96.89 2. Yeast infection of the vagina B37.3 Chlamydia trachomatis PCR Neisseria gonorrhoeae PCR Wet prep Herpes Simplex Virus 1 and 2 IgG 3. Vaginal discharge N89.8 PLAN: Patient Instructions Wet prep, chlamydia, gonorrhea, and herpes simplex 1 & 2 checked in clinic today Clue cells seen positive bacterial vaginosis - flagyl twice daily for 7 days, no alcohol while on this Results will be available in about 2 days, we always call for positives Negative results will be [facility] Recommend condoms and safe sex practices Dr. Vora's blue unscented soap [employer] [facility] urogenital probiotic Push fluids, cotton underwear, open to air at night Follow up with primary care provider with any problems, questions or concerns or if symptoms worsen or fail to improve. Patient agreed to plan and verbalized understanding. Marilou Shipley, [facility] documented in this encounter Plan of Treatment Not on filedocumented as of this encounter Procedures Procedure Name Priority Date/Time Associated Comments Diagnosis HERPES SIMPLEX VIRUS Routine 10/02/2019 9:51 AM Yeast infectio n of Results for this TYPE 1 AND 2 IGG CDT the vagina procedure a re in the results section. WET PREPARATION Routine 10/02/2019 9:51 AM Yeast infection of Results for this CDT the vagina procedure are i n the results section. NEISSERIA GONORRHOEAE Routine 10/02/2019 9:50 AM Yeast infecti on of Results for this PCR CDT the vagina procedure are i n the results section. CHLAMYDIA TRACHOMATIS Routine 10/02/2019 9:50 AM Yeast infecti on of Results for this PCR CDT the vagina procedure are i n the results section. documented in this encounter Results (ABNORMAL) Herpes Simplex Virus 1 and 2 IgG (10/02/2019 9:51 AM CDT) P athologist Signature Herpes Simplex 6.1 (H) 0.0 - 0.8 10/03/2019 INFECTIOUS Virus Type 1 AI 12:37 PM CDT DISEASES IgG DIAGNOSTIC LABOR[facility]ORY Comment: Positive. ??IgG antibody to HSV-1 detect ed. Antibody index (AI) values reflect quali tative changes in antibody concentration that cannot be directly as sociated with clinical condition or disease state. Herpes Simplex <0.2 0.0 - 0.8 AI 10/03/2019 12:37 PM IN FECTIOUS DISEASES Virus Type 2 IgG CDT DI[facility]NOSTIC [place] [facility] Comment: No HSV-2 IgG antibodies detected. Antibody index (AI) values reflect quali tative changes in antibody concentration that cannot be directly as sociated with clinical condition or disease state. Specimen Anatomical Collection Method Collection Time Receive d Time (Source) Location / / Volume Laterality Blood specimen 10/02/2019 9:51 AM 020 9:53 (specimen) CDT AM CDT Marilou Shipley NP LAB - BLOOD ORDERABLES Performing Organization Address City/State/ZIP Code Phon e Number INFECTIOUS DISEASES [address] [place] [address] DIAGNOSTIC LABORATORY, [facility] INFECTIOUS DISEASES [address] [place] [address], [place] DI[facility]NO[facility]IC LAB[facility]ATORY (ABNORMAL) Wet prep (10/02/2019 9:51 AM CDT) Patholo gist Method Time Signature Specimen Vagina [place] Description CLINICS [facility]HELLE Wet Prep No Trichomonas 10/02/2019 [facility] seen 10:04 AM CLINICS CDT MICHELLE Wet Prep Few 10/02/2019 [place] Clue cells seen 10:04 AM CLINICS (A) CDT MICHELLE Wet Prep No yeast seen 10/02/2019 [place] 10:04 AM CLINICS CDT MICHELLE Wet Prep Few 10/02/2019 [place] WBC'S seen 10:04 AM CLINICS CDT MICHELLE Specimen Anatomical Collection Method Collection Time Receive d Time (Source) Location / / Volume Laterality Specimen from 10/02/2019 9:51 AM 10/02/19 20 9:52 vagina CDT AM CDT (specimen) Marilou Shipley NP LAB - MICRO GENERAL ORDERABL ES Performing Organization Address City/[facility]/ZIP Code Phon e Number [address] [address] Neisseria gonorrhoeae PCR (10/02/2019 9:50 AM CDT) Analysis Performed At [facility] logist Time Signature Specimen Urine 10/02/2019 [place] Descrip 9:52 AM CDT [facility] MIC[facility]LE N Gonorrhea Negative NEG^Negati 10/03/2019 INFECTIOUS PCR ve 1:55 PM CDT DISEASES DIAGNOSTIC LABORATORY Comment: Negative for N. gonorrhoeae rRNA by herman scription mediated amplification. A negative result by cooler operator media dane amplification does not preclude the presence of N. gonorrhoeae infection because results are dependent on proper and adequate collection, absence of inhibitors, and sufficient rRNA to be detected. Specimen Anatomical Collection Method Collection Time Receive d Time (Source) Location / / Volume Laterality Urine specimen 10/02/2019 9:50 AM 020 9:51 (specimen) CDT AM CDT Marilou Shipley NP LAB - MICRO GENERAL ORDERABL ES Performing Organization Address City/[facility]/ZIP [facility] Phon e Number INFECTIOUS DISEASES [address] [place] [address] DIAGNOSTIC LABORATORY, [address] [place] [address] [phone] INFECTIOUS DISEASES [address] [place] [address], A DIAGNOSTIC LABORATORY Chlamydia trachomatis PCR (10/02/2019 9:50 AM CDT) [facility] Method Time Signature Specimen Urine 10/02/2019 [place] Description 9:52 AM CDT [facility] [address] Chlamydia Negative NEG^Negat 10/03/2019 INFECTIOUS Trachomatis PCR yanick 1:55 PM CDT DISEASES DIAGNOSTIC LABOR[facility]ORY Comment: Negative for C. trachomatis rRNA by herman scription mediated amplification. A negative result by cooler operator media dane amplification does not preclude the presence of C. trachomatis infection because results are dependent on proper and adequate collection, absence of inhibitors, and sufficient rRNA to be detected. Specimen Anatomical Collection Method Collection Time Receive d Time (Source) Location / / Volume Laterality Urine specimen 10/02/2019 9:50 AM 020 9:51 (specimen) CDT AM CDT Marilou Shipley NP LAB - MICRO GENERAL ORDERABL ES Performing Organization Address City/State/ZIP Code Phon e Number INFECTIOUS DISEASES [address] [place] [address] DIAGNOSTIC LABORATORY, [address] [address] [phone] INFECTIOUS DISEASES [address] [place] [address], A DIAGNOSTIC LABORATORY documented in this encounter Visit Diagnoses Diagnosis BV (bacterial vaginosis) - Primary Vaginitis and vulvovaginitis, unspecifie d Yeast infection of the vagina Candidiasis of vulva and vagina Vaginal discharge Leukorrhea, not specified as infective documented in this encounter Care Teams Machine I Coremaker Relationship Specialty Start Date End Date No Ref-Primary, Physician PCP - General 06/11/19 documented as of this encounter
--- OUTSIDE RECORDS SUMMARY | 2022-01-14 15:03 | XMS_ITS | Encounter Summary ---
:[address] [facility] Address [address] [place] [address] Care Team Providers Name Role Phone Unavailable Primary Care Provider Unavailable Encounter Details Date Type Department Care Team Description 08/30/2000 Hospital Encounter [facility] Geraldo Hodges M.D. [address] [place], [place] [address] (Wo rk) Social History [...] How often do you attend congregational or baptism Never 05/04/2021 services? Do you [...]
--- OUTSIDE RECORDS SUMMARY | 2022-01-14 15:03 | XMS_ITS | Encounter Summary ---
:1990 Author Organization [facility] Address [address] [place] [address] Care Team Providers Name Role Phone Unavailable Primary Care Provider Unavailable Encounter Details Date Type Department Care Team Description 02/20/2004 Hospital Encounter [facility] Nayely [...] How often do you attend episcopal or restorationist Never 05/04/2021 services? Do you [...] to sleep or slept in a senior living (including now)? Sex Assigned at Date Recorded Not on file documented as of this encounter Plan of Treatment Not on filedocumented as of this encounter Visit Diagnoses Not on filedocumented in this encounter
--- OUTSIDE RECORDS SUMMARY | 2022-01-14 15:03 | XMS_ITS | Encounter Summary ---
:1990 Author Organization [facility] Address [address] [place] [address] Care Team Providers Name Role Phone Unavailable Primary Care Provider Unavailable Encounter Details Date Type Department Care Team Description 10/14/2005 Hospital Encounter [facility] Nayely [...] 05/04/2021 relatives? How often do you attend druze or caodaism Never 05/04/2021 services? Do you belong to any clubs or organizations such as No 05/04/2021 druze groups, unions, fraternal or athletic groups, or [...]
--- OUTSIDE RECORDS SUMMARY | 2022-01-14 15:03 | XMS_ITS | Encounter Summary ---
:1990 Author Organization [place] Address [address] [facility] [place] [address] Care Team Providers Name Role Phone No Ref-Primary, Physician Primary Care Provider [phone] Reason for Visit Reason Comments Contraception Mirena IUD inserted on 02/19. Here for removal and insertion of new Mirena IUD. Patient repo rts that she uses the Mirena for both contraception and to control periods Encounter Details Date Type Department Care Team Description 03/20/2020 Office Visit [facility] Kiley Sorensen Encount er for removal and reinsertion of intrauterine contraceptive device (Primary Dx); Clinic Michelle ARREAGA Genital herpes simplex type 1 infection [address] [facility] [address] [place], [place] MARLEN Martinez [address] [phone] Social History Tobacco Use Types Packs/Day Years Used Date Never Smoker Smokeless Tobacco: Never Used Tobacco Cessation: Counseling Given: No Sex Assigned at Date Recorded Not on file COVID-19 Exposure Response Date Recorded In the last month, have you been in contact with No / Unsure 03/20/2020 1:57 PM GLOVE PRINTER someone who was confirmed or suspected to have Coronavirus / COVID-19? documented as of this encounter Last Filed Vital Signs Vital Sign Reading Time Taken Comments Blood Pressure 124/84 03/20/2020 2:02 PM GLOVE PRINTER Pulse - - Temperature - - Respiratory Rate - - Oxygen Saturation - - Inhaled Oxygen Concentration - - Weight 57.6 kg (127 lb) 03/20/2020 2:02 PM GLOVE PRINTER Height - - Body Mass Index - - documented in this encounter Patient Instructions Patient InstructionsKiley Sorensen CNM - 03/20/2020 2:00 PM CST Images from the original note were not included. IUD information: Benefits: The IUD can be 97-99% effective when carefully following directions regarding use. It can be more effective if used with additional contraception. IUD containing progestin may decrease menstrual flow and menstrual cramping. Risks/Side Effects: include but are not limited to spotting, bleeding, hemorrhage, or anemia: cramping or pain: partial or complete expulsion of device; lost IUD strings; uterine or cervical perforation; embedding of IUD in the uterine wall; increased risk of pelvic inflammatory disease. Women who beco me with an IUD in place are at a higher risk for ectopic should a occurwith an IUD in situ. There is a higher rate of miscarriage when occurs with IUD in place. Warning signs: Please call clinic if you have abnormal spotting or heavy bleeding, abdominal pain, dyspareunia, fever, chills, flu like symptoms, or unable to locate strings of IUD, or strings are longer or shorter than expected. You are encouraged to use condoms for prevention of STD. You may also need back up contraception for7 days with your IUD. You may use pain medications (ibuprofen) as needed for mild to moderate pain. Please follow-up in clinic in 4-6 weeks for IUD string check if unable to find strings or as directedby provider. Patient Education Genital Herpes Genital herpes is a common sexually transmitted infection (STI). It is caused by the herpes simplex virus (HSV). One out of 5 teens and adults carry the herpes virus. During an outbreak, it causes small blisters that break open, leaving small, painful sores in the genital area. Eventually, scabs form and the sores heal. In women, these show up most often on the skin just outside the vaginal opening. They can occur on the buttocks, anus, or cervix. In men, the sores are usually on the tip, sides, or base of the penis. They also occur on the scrotum, buttocks, or thighs. The first outbreak begins within 2 to 3 weeks after exposure to an infected sexual partner. It may last 1 to 3 weeks. It may cause headache, muscle ache, and fevers. The first outbreak is usually the worst. Because the virus remains in the body even after the sores heal, most people will have more outbreaks. The frequency of outbreaks is different for each person. Some people will never have another outbreak. Others will have several episodes a year. Later outbreaks are usually shorter, milder, and less painful. For many, the number of outbreaks tends to decrease over time. Various factors may trigger an outbreak. These include: ?? Emotional stress ?? Menstruation ?? Presence of another illness (cold, flu, or fever from any cause) ?? Overexertion and fatigue ?? Weak immune system Home care ?? It is very important that you do not have sexual relations until all the herpes sores have healedcompletely. ?? Wash the affected area gently with mild soap and water. Wash your hands after touching the affected area. ?? You may use [id number]-[id number] pain medicine unless another pain medicine was prescribed. If you have chronic liver or kidney disease or have ever had a stomach ulcer or gastrointestinal bleeding, talk with your healthcare provider before using these medicines. Also talk to your provider if you are taking medicine to prevent blood clots. Aspirin should never be given to anyone younger than 18 years of age who is ill with a viral infection or fever. It may cause severe liver or brain damage. ?? Your healthcare provider may prescribe antiviral medicine during the first outbreak. This will help the sores heal faster. Antiviral medicine may also be prescribed so that you have it ready to takeat the first sign of another outbreak. This will help the symptoms go away sooner. For people with frequent outbreaks, daily preventive therapy may be prescribed. This will help reduce the frequency ofattacks. Daily preventive therapy may also reduce risk of spread of herpes to your sexual partner. Discuss the risks and benefits of daily therapy with your healthcare provider. ?? If you are a woman who is now or may become in the future, let your healthcare provider know that you have had herpes. This may affect the way your baby is delivered. Preventing spread to others The virus is spread by sexual contact with someone who has the herpes virus. The risk of spread is highest when the sores are present. However, there is a chance of spreading the virus even when sores are not visible. Inform future sexual partners that you have herpes and that they may become infected. To reduce the risk of passing the virus to a partner who has never had herpes, avoid sexual relations at the first sign of an outbreak and until the sores are fully healed. Latex barriers, such as condoms, reduce the risk of spread between outbreaks if the infected site is covered, but they do not guarantee protection. Follow-up care Follow up with your healthcare provider, or as advised. People who have just learned that they have herpes may feel upset. Getting the facts about herpes can help you feel more in control. Follow up with your healthcare provider or the public health department for complete STI screening, including HIV testing. When to seek medical advice Call your healthcare provider right away if any of these occur: ?? Inability to urinate due to pain ?? Swelling or increasing redness in the genital area ?? Discharge from the vagina or penis ?? Increasing back or abdominal pain ?? Rash or joint pain Call 911 Call 911 or get immediate medical care if any of these occur: ?? Unusual drowsiness, weakness, or confusion ?? Worsening headache or stiff neck [employer] last reviewed this educational content on 09/15/2017 ?? [phone] [employer] [address] [place] [address]. All rights reserved. This information is not intended as a substitute for professional medical care. Always follow your healthcare professional's instructions. E PRINTER documented in this encounter Progress Notes Kiley Sorensen CNM - 03/20/2020 2:00 PM CST SUBJECTIVE: Is a test required: No. Was a consent obtained? Yes Pt states she had a genital outbreak that was confirmed to be HSV1 4 yrs ago. She states she has nothad an outbreak since. She did have a blood test confirming HSV1 IgG. She had questions about this. Subjective: Denise Nagel is a 30 year old No obstetric history on file. presents for IUD and desires Mirena type IUD. She requests removal of the IUD because the IUD effectiveness has Patient has been given the opportunity to ask questions about all forms of control, including all options appropriate for Denise Nagel. Discussed that no method of control, except abstinence is 100% effective against or sexually transmitted infection. Denise Nagel understands she may have the IUD removed at any time. IUD should be removed by [facility] [employer] [employer] care provider and the current IUD will be removed today. The entire removal and insertion procedure was reviewed with the patient, including care after placement. Today's PHQ-2 Score: No flowsheet data found. PROCEDURE: A speculum exam was performed and the cervix was visualized. The IUD string was visualized. Using ring forceps, the string was grasped and the IUD removed intact. Under sterile technique, cervix was visualized with speculum and prepped with Betadine solution swabx 3. Tenaculum was placed for stability. The uterus was gently straightened and sounded to 5.5 cm. IUD prepared for placement, and IUD inserted according to landcare facilitator's instructions without difficulty or significant ressitance, and deployed at the fundus. The strings were visualized and trimmed to 3 cm from the external os. Tenaculum was removed and hemostasis noted. Speculum removed. Patient tolerated procedure well. Lot # [id number] Exp: Apr 2022 EBL: minimal Complications: none POST PROCEDURE: Given landcare facilitator's handouts, including when to have IUD removed, list of danger s/sx, side effectsand follow up recommended. Encouraged condom use for prevention of STD. Advised to call for any fever, for prolonged or severe pain or bleeding, abnormal vaginal dischage, or unable to palpate strings.She was advised to use pain medications (ibuprofen) as needed for mild to moderate pain. Advised to follow-up in clinic in 4-6 weeks for IUD string check if unable to find strings or as directed by provider. Discussed HSV1, reviewed this virus strain tends to thrive in oral tissues, so recurrent genital outbreaks are not as common, but technically it could still be sexually transmitted. Encouraged condom use, avoiding intercourse with any outbreak or prodromal symptoms. If she desires suppressive therapy,she will call Kiley Sorensen CNM E PRINTER documented in this encounter Nursing Notes Stalin Hernandez MA - 03/20/2020 2:00 PM CST Chief Complaint Patient presents with ??? Contraception Mirena IUD inserted on 02/19/2015. Here for removal and insertion of new Mirena IUD. Patient reports that she uses the Mirena for both contraception and to control periods Initial BP 124/84 (BP Location: Right arm, Cuff Size: Adult Regular) Wt 57.6 kg (127 lb) LMP 03/13/2020 (Exact Date) No There is no height or weight on file to calculate BMI. BP completed using cuff size: regular Questioned patient about current smoking habits. Pt. has never smoked. No obstetric history on file. The following HM Due: NONE Stalin Hernandez MA E PRINTER documented in this encounter Plan of Treatment Not on filedocumented as of this encounter Procedures Procedure Name Priority Date/Time Associated Diagnosis Comme nts IN REMOVE INTRAUTERINE Routine 03/20/2020 2:10 PM Encounter fo r removal DEVICE GLOVE PRINTER and reinsertion of intrauterine contraceptive device IN INSERT INTRAUTERINE Routine 03/20/2020 2:10 PM Encounter fo r removal DEVICE GLOVE PRINTER and reinsertion of intrauterine contraceptive device documented in this encounter Visit Diagnoses Diagnosis Encounter for removal and reinsertion of intrauterine contraceptive device - Primary Genital herpes simplex type 1 infection documented in this encounter Administered Medications Inactive Administered Medications - up to 3 most recent administrations Medication Order MAR Action Action Date Dose Rate Site levonorgestrel (MIRENA) 20 Given 03/20/2020 1:59 PM GLOVE PRINTER 20 mcg MCG/24HR IUD 20 mcg Intrauterine, ONCE, On Mon03/20/20 at 1430, For 1 dose documented in this encounter Care Teams Box Toe Cutter Relationship Specialty Start Date End Date No Ref-Primary, Physician PCP - General 06/11/19 documented as of this encounter
--- OUTSIDE RECORDS SUMMARY | 2022-01-14 15:03 | XMS_ITS | Encounter Summary ---
:1990 Author Organization [place] Address [facility] [place] [address] Care Team Providers Name Role Phone No Ref-Primary, Physician Primary Care Provider [phone] Encounter Details Date Type Department Care Team Description 03/20/2020 Travel Social History Tobacco Use Types Packs/Day Years Used Date Never Smoker Smokeless Tobacco: Never Used Sex Assigned at Date Recorded Not on file COVID-19 Exposure Response Date Recorded In the last month, have you been in contact with No / Unsure 03/20/2020 1:57 PM BUS SYSTEM OPERATOR someone who was confirmed or suspected to have Coronavirus / COVID-19? documented as of this encounter Plan of Treatment Not on filedocumented as of this encounter Visit Diagnoses Not on filedocumented in this encounter Care Teams Java Golden Gate Developer Relationship Specialty Start Date End Date No Ref-Primary, Physician PCP - General 06/11/19 documented as of this encounter
--- OUTSIDE RECORDS SUMMARY | 2022-01-14 15:03 | XMS_ITS | Encounter Summary ---
:[address] [facility] Address [address] [place] [address] Care Team Providers Name Role Phone Unavailable Primary Care Provider Unavailable Encounter Details Date Type Department Care Team Description 09/23/2005 Hospital Encounter [facility]X [facility] Nayely [...] 05/04/2021 relatives? How often do you attend advent or adventist Never 05/04/2021 services? Do you belong to any clubs or organizations such as No 05/04/2021 advent groups, unions, fraternal or athletic groups, or [...]
--- OUTSIDE RECORDS SUMMARY | 2022-01-14 15:03 | XMS_ITS | Encounter Summary ---
:1990 Author Organization [facility] Address [address] [place] [address] Care Team Providers Name Role Phone Unavailable Primary Care Provider Unavailable Encounter Details Date Type Department Care Team Description 06/24/2003 Hospital Encounter HX [facility] Pascual Smith M.D. [address] [place], [place] [phone] (Wo rk) Social History Tobacco Use Types [...] How often do you attend advent or restoration Never 05/04/2021 services? Do you [...]
--- OUTSIDE RECORDS SUMMARY | 2022-01-14 15:03 | XMS_ITS | Encounter Summary ---
:1990 Author Organization [facility] Address [address] [place] [address] Care Team Providers Name Role Phone Unavailable Primary Care Provider Unavailable Encounter Details Date Type Department Care Team Description 11/28/2005 Hospital Encounter [facility]X [facility] Torsten Mclaughlin M.D. [address] [place] [address] (Wo rk) Social History Tobacco Use Types [...] 05/04/2021 relatives? How often do you attend baptist or religion Never 05/04/2021 services? Do you belong to any clubs or organizations such as No 05/04/2021 baptist groups, unions, fraternal or athletic groups, or [...]
--- OUTSIDE RECORDS SUMMARY | 2022-01-14 15:03 | XMS_ITS | Encounter Summary ---
:1990 Author Organization [place] Address [address] [facility] [place] [address] Care Team Providers Name Role Phone No Ref-Primary, Physician Primary Care Provider [phone] Encounter Details Date Type Department Care Team Description 10/02/2019 Travel Social History Tobacco Use Types Packs/Day [...] on filedocumented in this encounter Care Teams Absorber Operator Relationship Specialty Start Date End Date No Ref-Primary, Physician PCP - General 06/11/19 documented as of this encounter
--- OUTSIDE RECORDS SUMMARY | 2022-01-14 15:03 | XMS_ITS | Encounter Summary ---
:1990 Author Organization [place] Address [facility] [place] [address] Care Team Providers Name Role Phone No Ref-Primary, Physician Primary Care Provider [phone] Encounter Details Date Type Department Care Team Description 06/11/2019 Travel Social History Tobacco Use Types Packs/Day Years Used Date Never Smoker Smokeless Tobacco: Never Used Sex Assigned at Date Recorded Not on file documented as of this encounter Plan of Treatment Not on filedocumented as of this encounter Visit Diagnoses Not on filedocumented in this encounter Care Teams Scrub Nurse Relationship Specialty Start Date End Date No Ref-Primary, Physician PCP - General 06/11/19 documented as of this encounter
--- OUTSIDE RECORDS SUMMARY | 2022-01-14 15:03 | XMS_ITS | Encounter Summary ---
:1990 Author Organization [facility] Address [address] [place] [address] Care Team Providers Name Role Phone Unavailable Primary Care Provider Unavailable Encounter Details Date Type Department Care Team Description 12/29/2005 Hospital Encounter HX [facility] Torsten Mclaughlin M.D. [address] [place] [address] (Wo rk) Social History Tobacco Use Types [...] How often do you attend yarsani or presybeterian Never 05/04/2021 services? Do you belong to [...]
== END 2022-01-14 15:00 | disposition home or self-care (01) ==
LOC: US 15:00
PROVIDERS: Visit Provider Obstetrics & Gynecology
DX: O24.419 Gestational diabetes mellitus in pregnancy, unspecified control (principal); Z3A.33 33 weeks gestation of pregnancy
CPT/HCPCS: 76816

== ENCOUNTER 2022-02-11 14:56 | Outpatient (CLI) | payer BC, MEDICAID, SELFPAY ==
--- OUTSIDE RECORDS SUMMARY | 2022-02-11 14:58 | XMS_ITS | Encounter Summary ---
:1990 Author Organization [facility] Address [address] [place] [address] Care Team Providers Name Role Phone Unavailable [...] one Less than mo nthly 05/04/2021 occasion? Social Isolation Answer Date Recorded In a typical week, how many times do you talk on Once a week 05/04/2021 the phone with family, friends, or neighbors? How often do you get together with friends or Never 05/04/2021 relatives? How often do you attend synagogue or synagogue Never 05/04/2021 services? Do you belong to any clubs or organizations such as No 05/04/2021 synagogue groups, unions, fraternal or athletic groups, or [...] for the very basics like Not abdiaziz smith hard 05/04/2021 food, housing, medical care, and [...]
--- OUTSIDE RECORDS SUMMARY | 2022-02-11 14:58 | XMS_ITS | Encounter Summary ---
:1990 Author Organization [facility] Address [address] [place] [address] Care Team Providers Name Role Phone None Reported, Pcp Primary Care Provider Unavailable Reason for Referral Outpatient (Routine) - Authorized Specialty Diagnoses / Procedures Referred By Contact Refer red To Contact Diagnoses Removal Of Intrauterine Contraceptive Device Laura Pierre M.D. [facility] Region Procedures IUD - removal [address] [place] [address] Referral ID Status Reason Start Date Expiration Date Visits V isits Requested Authorized [id number] Authorized 05/04/2021 05/04/2022 1 1 ACE CHECKER Reason for Visit Reason Comments Contraception IUD removal Appointment Request (Routine) - Closed Specialty Diagnoses / Procedures Referred By Contact Refer red To Contact Family Medicine Referral ID Status Reason Start Date Expiration Date Visits Requ ested Visits Authorized [id number] Closed 04/09/2021 04/09/2022 1 1 Encounter Details Date Type Department Care Team Description 05/04/2021 Office Visit Department of [facility] Of Intrauterine Medicine, Jaya Cheatham M.D. Contraceptive Device Clinic, [facility], [address] (Primary Dx) [place], [place] [address] [address] [place], [place] [phone] [address] (Work) [phone] Social History Tobacco Use Types Packs/Day Years [...] 05/04/2021 relatives? How often do you attend temple or presybeterian Never 05/04/2021 services? Do you belong to any clubs or organizations such as No 05/04/2021 temple groups, unions, fraSocitive or athletic groups, or school groups? How [...] or slept in a longterm (including now)? Education Answer Date Recorded What is the highest level of school you have Some college, n o degree 05/04/2021 completed or the highest degree you have received? Sex Assigned at Date Recorded Not on file documented as of this encounter Last Filed Vital Signs Vital Sign Reading Time Taken Comments Blood Pressure 123/77 05/04/2021 2:45 PM FURNACE CHECKER Pulse 99 05/04/2021 2:45 PM FURNACE CHECKER Temperature 36.8 ??C (98.2 ??F) 05/04/2021 2:45 PM FURNACE CHECKER Respiratory Rate - - Oxygen Saturation - - Inhaled Oxygen Concentration - - Weight 55.7 kg (122 lb 12.7 oz) 05/04/2021 2:45 PM FURNACE CHECKER Height 152.5 cm (5' 0.04) 05/04/2021 2:45 PM FURNACE CHECKER Body Mass Index 23.95 05/04/2021 2:45 PM FURNACE CHECKER documented in this encounter Progress Notes Laura Pierre M.D. - 05/04/2021 2:45 PM CST SUBJECTIVE CHIEF COMPLAINT/REASON FOR VISIT IUD removed. HISTORY OF PRESENT ILLNESS Denise Nagel is a 31 y.o. female who [...] will follow-up as needed. Laura Pierre M.D. ACE CHECKER documented in this encounter Procedure Notes Laura [...] completed successfully: yes Complications: no apparent complications ACE CHECKER documented in this encounter Plan of Treatment Not on filedocumented as of this encounter Procedures Procedure Name Priority Date/Time Associated Diagnosis Comme nts NM REMOVAL OF Routine 05/04/2021 3:12 Removal Of Results for this INTRAUTERINE DEVICE PM FURNACE CHECKER Intrauterine procedur e are in Contraceptive Device the res ults section. documented in this encounter Results NM REMOVAL OF INTRAUTERINE DEVICE (05/04/2021 3:12 PM FURNACE CHECKER) Narrative [facility]ODAL - 05/04/2021 3:12 PM FURNACE CHECKER Laura Pierre M.D. ? 05/04/2021 ??3:16 PM [...] Depression Total Score: 5 05/04/2021 2:47 PM FURNACE CHECKER documented as of this encounter Care Teams Spot Cleaner Relationship Specialty Start Date End Date None Reported, Pcp PCP - General Family Medicine 05/04/21 documented as of this encounter
--- OUTSIDE RECORDS SUMMARY | 2022-02-11 14:58 | XMS_ITS | Encounter Summary ---
:[address] [facility] Address [address] [place] [address] Care Team Providers Name Role Phone Unavailable [...] How often do you attend hoahaoism or protestant Never 05/04/2021 services? Do you [...]
--- OUTSIDE RECORDS SUMMARY | 2022-02-11 14:58 | XMS_ITS | Encounter Summary ---
:1990 Author Organization [facility] Address [address] [place] [address] Care Team Providers Name Role Phone Unavailable [...] often do you attend jehovah's witness or voodoo Never 05/04/2021 services? Do you belong to [...]
--- OUTSIDE RECORDS SUMMARY | 2022-02-11 14:58 | XMS_ITS | Encounter Summary ---
:1990 Author Organization [facility] Address [address] [place] [address] Care Team Providers Name Role Phone Unavailable Primary Care Provider Unavailable Encounter Details Date Type Department Care Team Description 02/20/2010 Hospital Encounter HX [facility] Beni Liu, P.AKendall-CKendall [address] [place] [address] (Wo rk) Social History Tobacco Use Types [...] How often do you attend christianity or yarsanism Never 05/04/2021 services? Do you [...] this encounter Progress Notes Zeb Liu P.A.-C., Lisa - 02/20/2010 12:00 AM CDT [id number] CHIEF COMPLAINT / REASON FOR VISIT Congestion [...] By:ZEB LIU On 02/26/2010 12:51 PM Source: [facility] MHSDOLBEYNONRADSYS Document Id: [id number] IRON DIPPER documented in this encounter Miscellaneous Notes Miscellaneous - Zeb Liu P.A.-C., P.A. - 02/20/2010 11:43 AM CDT Ambulatory Patient Summary [facility] [address] [facility] [place] [address] Visit Information Name: DENISE ALEXANDER Current Date: [...] No Appointments found Your Goals/Additional instructions: Source: [facility] POWERCHART Document Id: [id number] Electronically signed by Conversion, [facility] Taxicab Coordinator [id number] at 09/19/2016 4:06 AM CDT Trisha - Zeb Liu P.A.-C., P.A. - 02/20/2010 11:43 AM CDT Ambulatory Depart Summary [address] [address] Visit Information Name: DENISE ALEXANDER Current Date: 02/20/2010 11:43:34 Primary Care Provider: JOSR MCLAUGHLIN MD DENISE ALEXANDER FLAVIA has been given the following list of [...] to the patient and/or family, guardian/caregiver. Source: [facility] ShopTextCHART Document Id: [id number] Electronically signed by Conversion, [facility] Taxicab Coordinator [id number] at 09/19/2016 4:06 AM CDT Trisha - Kay Remy - 02/20/2010 11:31 AM CDT Adult Classification Officer Intake/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 Classification Officer Intake/History Entered On: 02/20/2010 11:33 CDT Performed [...] REMY - 02/20/2010 11:31 CDT Allergies Source: [employer] Document Id: [id number] CDT!16 documented in this encounter Plan of Treatment Not on filedocumented as of this encounter Visit Diagnoses Not on filedocumented in this encounter
--- OUTSIDE RECORDS SUMMARY | 2022-02-11 14:58 | XMS_ITS | Encounter Summary ---
:1990 Author Organization [facility] Address [address] [place] [address] Care Team Providers Name Role Phone Unavailable Primary Care Provider Unavailable Encounter Details Date Type Department Care Team Description 06/20/2013 Hospital Encounter HX [facility] Segal M.D. [address] [place], [place] [address] (Wo rk) Social History Tobacco Use Types [...] 05/04/2021 relatives? How often do you attend gnosticist or judaism Never 05/04/2021 services? Do you belong to any clubs or organizations such as No 05/04/2021 gnosticist groups, unions, fraternal or athletic groups, or [...] Smalls M.D. - 06/20/2013 1:53 PM CST [id number] CHIEF COMPLAINT / REASON FOR VISIT High-grade [...] SMALLS MD On: 06/25/2013 08:46 AM Source: [facility] MHSDOLBEYNONRADSYS Document Id: [id number] documented in this encounter Miscellaneous Notes Miscellaneous - Anai Smalls M.D. - 06/20/2013 4:27 PM CST Ambulatory Patient Summary [address] [id number] Visit Information Name: ARYA ALEXANDERBETHANY ALEJANDRO [facility] Number: [id number] Current Date: 06/20/2013 16:27:00 Physicians Attending Provider: ANAI SMALLS MD Primary Care Provider: IRINA BAÑUELOS MD DENISE ALEXANDER has been given [...] Time Location Reason Provider 07/04/2013 14:[address] [facility]ression Gabby VELARDE, Irina Ackerman Attention: Contact your local Clinic if further appointment detail needed. Your Goals/Additional instructions: Source: [facility] POWERCHART Document Id: [id number] GER ESTATE Miscellaneous - Anai Smalls M.D. - 06/20/2013 4:26 PM CST Ambulatory Discharge Medication List [facility] [address] [place] [id number] Visit Information Name: DENISE ALEXANDER [facility] Number: [id number] Visit Date: 06/20/2013 16:26:59 Attending Provider: ANAI SMALLS MD Primary Care Provider: IRINA BAÑUELOS MD CATHERINEDENISEELLE has been given the following list of [...] in case of emergency. Additional Information: Source: [facility] POWERCHART Document Id: [id number] GER ESTATE documented in this encounter Plan of Treatment Not on filedocumented as of this encounter Procedures Procedure Name Priority Date/Time Associated Diagnosis Comme nts SURGICAL PATHOLOGY Routine 06/20/2013 10:55 AM Re sults for this MANAGER ESTATE procedure are i n the results section. documented in this encounter Results Pathology Surgical Pathology (06/20/2013 10:55 AM MANAGER ESTATE) Specimen (Source) Anatomical Collection Method Collection Time Re ceived Time Location / / Volume Laterality 06/20/2013 10:55 AM MANAGER ESTATE Narrative [facility] LAB - 06/24/2013 9:21 AM CDT [facility] in [address] [place] [id number] Patient Name: DENISE ALEXANDER Patient ID #: [id number] Collected: 06/20/2013 Address: City/State/Zip: [facility] [place], [place] ??[id number] Received: Reported: 06/21/2013 06/24/2013 Soc. Sec. #: ?/Age/Sex 1990 (Age: 23) ??F Physician(s): FRANCA SMALLS MD Copy To: ? [facility] ??[phone] [facility], ??[place] ??[address] SURGICAL PATHOLOGY REPORT FINAL DIAGNOSIS: A. CERVIX, ANTERIOR CONE BIOPSY: --- SEVERE SQUAMOUS DYSPLASIA (NIGEL III), INVOLVING THE CAUTERIZED ENDOCERVICAL MARGIN. --- UNREMARKABLE ECTOCERVICAL MARGIN. B. CERVIX, POSTERIOR CONE BIOPSY: --- SEVERE SQUAMOUS DYSPLASIA (NIGEL III), INVOLVING THE CAUTERIZED ENDOCERVICAL MARGIN. --- UNREMARKABLE ECTOCERVICAL MARGIN. dms/06/24/2013 HANH ALCARAZ M.D. Report electronically released. Interpretation by HAHN ALCARAZ M.D. SPECIMEN(S) RECEIVED: 1: A. ANTERIOR CERVIX 2: B. POSTERIOR CERVIX CLINICAL HISTORY: LEEP ??SEVERE DYSPLASIA ABNORMAL COLPOSCOPY GROSS DESCRIPTION: A. Consists of a portion of cone biopsy approximately 2 x 1.5 x 0.8 cm. Sectioned. ESB, A1-A2. B. Consists of irregular fragments of ti ssue to a loose 2 cm flat aggregate dimension. ESB, B1-B2. (40020) DDG/EZEKIEL/06/21/2013 MICROSCOPIC DESCRIPTION: Reviewed by Hanh Alcaraz [...]
--- OUTSIDE RECORDS SUMMARY | 2022-02-11 14:58 | XMS_ITS | Encounter Summary ---
:1990 Author Organization [facility] Address [address] [place] [address] Care Team Providers Name Role Phone Unavailable [...] 05/04/2021 relatives? How often do you attend voodoo or yazidism Never 05/04/2021 services? Do you belong to any clubs or organizations such as No 05/04/2021 voodoo groups, unions, fraternal or athletic groups, or [...]
--- OUTSIDE RECORDS SUMMARY | 2022-02-11 14:58 | XMS_ITS | Encounter Summary ---
:1990 Author Organization [facility] Address [address] [place] [address] Care Team Providers Name Role Phone Unavailable [...] 05/04/2021 relatives? How often do you attend mormonism or moravian Never 05/04/2021 services? Do you belong to any clubs or organizations such as No 05/04/2021 mormonism groups, unions, fraternal or athletic groups, or [...] CDT documented in this encounter Progress Notes Ramsey Banda M.D. - 08/15/2013 2:57 PM CDT [id number] CHIEF COMPLAINT/REASON FOR VISIT Recheck depression and [...] behalf by Loren Briscoe, a trained medical policy specialist. The creation of this record is based on the scribe's personal observations and the provider's statements to them. This document has been checked and approved by the attending provider. Ramsey Pierre M.D./jose Electronically Signed By: RAMSEY PIERRE MD On: 08/30/2013 11:28 AM Source: [facility] MHSDOLBEYNSYEDASYS Document Id: [id number] documented in this encounter Miscellaneous Notes Miscellaneous - Ramsey Banda M.D. - 08/15/2013 3:28 PM CDT Ambulatory Patient Summary [facility] [address] [facility] [place] [phone] Visit Information Name: DENISE ALEXANDER [facility] Number: [id number] Current Date: 08/15/2013 15:28:26 Physicians Attending Provider: RAMSEY PIERRE MD Primary Care Provider: RAMSEY PIERRE MD DENISE ALEXANDER FLAVIA has been given [...] This is a CHANGE Routed to [facility] [address] [facility], [place] [id number] norgestimate-ethinyl estradiol (norgestimate-ethinyl estradiol triphasic (0.18 mg-0.215 [...] in case of emergency. Electronically Signed By: RAMSEY PIERRE MD Signed On:15-AUG-2013 15:28:22 Your Allergies [...] Time Location Reason Provider 09/20/2013 14:30 [facility] GAS PUMPING STATION HELPER 3 mo pap after leep Slim VELARDE, Reece Johnston Attention: Contact your local Clinic if further appointment detail needed. Your Goals/Additional instructions: Source: [facility] POWERCHART Document Id: [id number] Miscellaneous - Ramsey Banda M.D. - 08/15/2013 3:28 PM CDT Ambulatory Discharge Medication List [address] [id number] Visit Information Name: DENISE ALEXANDERELLE [facility] Number: [id number] Visit Date: 08/15/2013 15:28:25 Attending Provider: RAMSEY PIERRE MD Primary Care Provider: RAMSEY PIERRE MD DENISE ALEXANDERELLE has been given [...] This is a CHANGE Routed to [facility] [address] [place] [address] norgestimate-ethinyl estradiol (norgestimate-ethinyl estradiol triphasic (0.18 [...] in case of emergency. Electronically Signed By: RAMSEY PIERRE MD Signed On:15-AUG-2013 15:28:22 Additional Information: Source: [employer] Document Id: [id number] Miscellaneous - Conversion, Historical Provider Ser - [...] HUSEYIN DELGADILLO - 08/15/2013 15:15 CDT Source: [employer] Document Id: [id number] CDT!13 Miscellaneous - Conversion, Historical Provider Ser [...] Status : Former smoker HUSEYIN DELGADILLO 08/15/2013 15:14 CDT Caffeine Use Grid Caffeine [...] None HUSEYIN DELGADILLO 08/15/2013 15:14 CDT Source: [facility] POWERCHART Document Id: [id number] CDT!24 Miscellaneous - Conversion, Historical Provider Ser - 08/15/2013 3:12 PM CDT 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/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/History Entered On: 08/15/2013 15:14 CDT Performed [...] Information Given By : Patient Languages : Divehi HUSEYIN DELGADILLO 08/15/2013 15:12 CDT Subjective Pain Symptoms : No HUSEYIN DELGADILLO 08/15/2013 15:12 CDT Dependent Habits Tobacco Use/Currently Using : No Smoking Status : Former smoker HUSEYIN DELGADILLO 08/15/2013 15:12 CDT Caffeine Use Grid Caffeine Use : Current Type : Coffee Frequency : Occasionally HUSEYIN DELGADILLO 08/15/2013 15:12 CDT Source: [employer] Document Id: [id number] CDT!31 documented in this encounter Plan of Treatment Not on filedocumented as of this encounter Visit Diagnoses Not on filedocumented in this encounter Additional Health Concerns Assessment Noted Time PHQ-9 Depression Total Score: 6 08/15/2013 3:15 PM CDT documented as of this encounter
--- OUTSIDE RECORDS SUMMARY | 2022-02-11 14:58 | XMS_ITS | Encounter Summary ---
:1990 Author Organization [facility] Address [address] [place] [address] Care Team Providers Name Role Phone Unavailable Primary Care Provider Unavailable Encounter Details Date Type Department Care Team Description 09/20/2013 Hospital Encounter HX [facility] Segal M.D. [address] [place], [place] [address] (Wo rk) Social History Tobacco Use Types [...] How often do you attend amish or mosque Never 05/04/2021 services? Do you [...] Smalls M.D. - 09/20/2013 2:31 PM CDT [id number] CHIEF COMPLAINT/REASON FOR VISIT Followup Pap after [...] SMALLS MD On: 09/28/2013 01:39 PM Source: [facility] MHSDOLBEYNONRADSYS Document Id: [id number] documented in this encounter Miscellaneous Notes Miscellaneous - Anai Smalls M.D. - 10/01/2013 11:15 AM CDT Normal Results Letter 01 October 2013 DENISE ALEXANDER [address] [place] [phone] Dear DENISE ALEXANDER, I am pleased to report that your results from the following diagnostic test(s) are normal. Please follow up with us as we discussed during your visit or sooner if you have any concerns. If you have questions or concerns, please do not hesitate to call our office. CYTOPATHOLOGY SERVER MANAGER REPORT FINAL CYTOLOGIC DIAGNOSIS Pap Smear - ThinPrep: NEGATIVE FOR INTRAEPITHELIAL LESION OR MALIGNANCY ENDOCERVICAL CELLS/COMPONENT PRESENT. HISTORY OF ABNORMAL CYTOLOGY NOTED. SATISFACTORY SPECIMEN FOR EVALUATION. Result Name Current Result SERVER MANAGER Cytology 09/20/2013 Sincerely, ANAI SMALLS [address] [place] [address] Electronic Signature Electronically Signed By: ANAI SMALLS MD On: 01 October 2013 This document has images extracted. Source: [facility] POWERCHART Document Id: [id number] Electronically signed by Violette [facility] Pipe Line Walker [id number] at 09/13/2016 8:08 PM CDT Miscellaneous - Anai Smalls M.D. - 09/20/2013 5:49 PM CDT Ambulatory Patient Summary [facility] [address] [place] [id number] Visit Information Name: DENISE ALEXANDER [facility] Number: [id number] Current Date: 09/20/2013 17:49:29 Physicians [...] appointment detail needed. Your Goals/Additional instructions: Source: [facility] POWERCHART Document Id: [id number] Miscellaneous - Anai Smalls M.D. - 09/20/2013 5:49 PM CDT Ambulatory Discharge Medication List [address] [id number] Visit Information Name: CATHERINE DENISE FLAVIA [facility] Number: [id number] Visit Date: 09/20/2013 17:49:27 Attending [...] MD Signed On:20-SEP-2013 17:49:25 Additional Information: Source: [employer] Document Id: [id number] Miscellaneous - Sherine Lopez, L.P.N. 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 Intake/History Entered On: 09/20/2013 14:40 CDT Performed [...] 09/20/2013 14:39 CDT General Info Languages : [place] Islander SHERINE LOPEZ - 09/20/2013 14:39 CDT Subjective Pain Symptoms : No SHERINE OLPEZ - 09/20/2013 14:39 CDT Dependent Habits Tobacco Use/Currently Using : No Exposure to Tobacco Smoke : Patient smokes Smoking Status : Never smoker SHERINE LOPEZ - 09/20/2013 14:39 CDT Tobacco Use Grid Type : Cigarettes SHERINE LOPEZ - 09/20/2013 14:39 CDT Caffeine Use Grid Caffeine Use : Current Type : Coffee Frequency : Occasionally SHERINE LOPEZ - 09/20/2013 14:39 CDT Source: [employer] Document Id: [id number] CDT!25 documented in this encounter Plan of Treatment Not on filedocumented as of this encounter Procedures Procedure Name Priority Date/Time Associated Diagnosis Comme nts PATHOLOGY SERVER MANAGER Routine 09/20/2013 12:00 AM Results for this CYTOLOGY CDT procedure are i n the results section. documented in this encounter Results Pathology SERVER MANAGER Cytology (09/20/2013 12:00 AM CDT) Specimen (Source) Anatomical Location Collection Method / Collectio n Time Received Time / Laterality Volume 09/20/2013 Narrative [facility] LAB - 10/01/2013 7:06 AM CDT [facility] in [address] ??[phone] Patient Name: DENISE ALEXANDER Patient ID #: [id number] Collected: 09/20/2013 Address: [facility]/State/Zip: [facility] [place], [place] ??[id number] Received: Reported: 09/23/2013 10/01/2013 Soc. Sec. #: ?/Age/Sex 1990 (Age: 23) ??F Physician(s): FRANCA SMALLS MD Copy To: ? [facility] ?? [phone] [facility], ??[place] ??[address] CYTOPATHOLOGY SERVER MANAGER REPORT FINAL CYTOLOGIC DIAGNOSIS Pap Smear - ThinPrep: NEGATIVE FOR INTRAEPITHELIAL LESION OR MALIGNANCY ENDOCERVICAL CELLS/COMPONENT PRESENT. HISTORY OF ABNORMAL CYTOLOGY NOTED. SATISFACTORY SPECIMEN FOR EVALUATION. Electronically Signed Out By amb/10/01/[address](ASCP) The Pap test is a screening [...] - ThinPrep CLINICAL HISTORY: Previous Abnormal PAP: MICHELLE Pathologists, EMELI (03/29/12) Date of Last PAP: 03/29/12 LC Date of Last Menstrual Period: 09-07-13 Treatment History: LEEP: 06-20-13 NIGEL III Other Clinical Conditions: HPV TYPING REQUESTED: IF ASCUS Anai Smalls M.D. LAB PAP COPATH ORDERABLES Performing Organization Address City/State/ZIP Code Phon e Number [facility] documented in this encounter Visit Diagnoses Not on filedocumented in this encounter Additional Health Concerns Assessment Noted Time PHQ-9 Depression Total Score: 6 08/15/2013 3:15 PM CDT documented as of this encounter
--- OUTSIDE RECORDS SUMMARY | 2022-02-11 14:58 | XMS_ITS | Encounter Summary ---
:1990 Author Organization [facility] Address [address] [place] [address] Care Team Providers Name Role Phone Unavailable [...] How often do you attend pentecostalism or zoroastrianism Never 05/04/2021 services? Do you belong to [...] Banda M.D. - 11/01/2010 12:00 AM CDT [id number] CHIEF COMPLAINT/REASON FOR VISIT Comprehensive evaluation and [...] PIERRE MD On: 11/08/2010 09:27 PM Source: [facility] MHSDOLBEYNONRADSYS Document Id: [id number] documented in this encounter Miscellaneous Notes Miscellaneous [...] results Due Date/Time: 11/05/2010 17:11:00 CDT Source: [facility] POWERCHART Document Id: [id number] Miscellaneous - Lanny Rodriguez, R.N. 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 Cabinetmaker Intake/History Entered On: 11/01/2010 9:34 CDT Performed [...] REMY; Reviewed Date: 11/01/2010 9:31 CDT Source: [facility] [employer] Document Id: [id number] CDT!28 Miscellaneous - Lanny Rodriguez RPj - 11/01/2010 9:31 AM CDT Health Assessment Health Assessment Entered On: 11/01/2010 9:34 CDT Performed On: 11/01/2010 9:31 CDT by LANNY MCLEAN Nutrition Nutrition Risk Factors by 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: None LANNY MCLEAN M - 11/01/2010 9:31 CDT Functional Current Daily Living Assistance: None LANNY MCLEAN M - 11/01/2010 9:31 CDT Dependent Habits Tobacco Use/Currently Using: No Exposure to Tobacco Smoke: Patient smokes LANNY MCLEAN M - 11/01/2010 9:31 CDT Tobacco Use Grid Type: Cigarettes LANNY MCLEAN M - 11/01/2010 9:31 CDT Caffeine Use Grid Caffeine Use: Current Type: Coffee Frequency: Occasionally LANNY MCLEAN - 11/01/2010 9:31 CDT Psychosocial Domestic Abuse Concerns: None LANNY MCLEAN M - 11/01/2010 9:31 CDT Advance Directive Advanced Directives: No LANNY MCLEAN M - 11/01/2010 9:31 CDT Educ Needs Learning Style Preference Adult Grid Patient: Verbal explanation Family: Verbal explanation LANNY MCLEAN M - 11/01/2010 9:31 CDT Source: [employer] Document Id: [id number] CDT!24 documented in this encounter Plan of Treatment Not on filedocumented as of this encounter Visit Diagnoses Not on filedocumented in this encounter
--- OUTSIDE RECORDS SUMMARY | 2022-02-11 14:58 | XMS_ITS | Encounter Summary ---
:1990 Author Organization [facility] Address [address] [place] [address] Care Team Providers Name Role Phone Unavailable [...] 05/04/2021 relatives? How often do you attend islam or jewish Never 05/04/2021 services? Do you belong to any clubs or organizations such as No 05/04/2021 islam groups, unions, fraternal or athletic groups, or [...] Comments Blood Pressure 102/54 04/12/2012 11:12 AM VIDEO PRODUCTION ASSISTANT Pulse 76 04/12/2012 11:12 AM VIDEO PRODUCTION ASSISTANT Temperature - - Respiratory Rate 16 04/12/2012 11:12 AM VIDEO PRODUCTION ASSISTANT Oxygen Saturation - - Inhaled Oxygen Concentration - - Weight 54 kg (119 lb 0.8 oz) 04/12/2012 11:12 AM VIDEO PRODUCTION ASSISTANT Height - - Body Mass Index 23.01 03/29/2012 2:28 PM VIDEO PRODUCTION ASSISTANT documented in this encounter Progress Notes Ramsey Banda M.D. - 04/12/2012 10:50 AM CST [id number] CHIEF COMPLAINT/REASON FOR VISIT Removal of genital [...] behalf by Marleny Delgadillo, a trained medical assistant prn. The creation of this record is based on the scribe's personal observations and the provider's statements to them. This document has been checked and approved by the attending provider. Ramsey Pierre M.D./elisha Electronically Signed By: RAMSEY PIERRE MD On: 04/19/2012 09:41 PM Source: [facility] MHSDOLBEYNONRADSYS Document Id: [id number] O PRODUCTION ASSISTANT documented in this encounter Miscellaneous Notes Miscellaneous - Nikolas Menendez M.D. - 06/06/2012 9:41 AM CST Denise did not show up to todays appointment for colposcopy. Source: [facility] POWERCHART Document Id: [id number] O PRODUCTION ASSISTANT Miscellaneous - Conversion, Historical Provider Ser - 05/29/2012 5:01 PM VIDEO PRODUCTION ASSISTANT General Message From: MCKENNA PALMA (OLIVIER Mattson Nurse) Sent: 05/29/2012 17:01:00 VIDEO PRODUCTION ASSISTANT Subject: General Message Fay was notified of the importance of setting up an appointment with the [facility] dept. She was not able to schedule this today due to high call volume so she could not be transferrred. She was given the number of the clinic and said she will call 05-30-12. Source: [facility] POWERCHART Document Id: [id number] Miscellaneous - Ramsey Banda M.D. - 04/12/2012 12:10 PM VIDEO PRODUCTION ASSISTANT Ambulatory Patient Summary [facility] [address] [place] [address] Visit Information Name: DENISE ALEXANDER [facility] Number: [id number] Current Date: 04/12/2012 12:10:12 Physicians [...] No Appointments found Your Goals/Additional instructions: Source: [facility] POWERCHART Document Id: [id number] O PRODUCTION ASSISTANT Miscellaneous - Ramsey Banda M.D. - 04/12/2012 12:10 PM VIDEO PRODUCTION ASSISTANT Ambulatory Depart Summary [facility] [address] [place] [address] Visit Information Name: DENISE ALEXANDER [facility] Number: [id number] Visit Date: 04/12/2012 12:10:11 Attending [...] your provider for clarification. Additional Information: Source: [facility] POWERCHART Document Id: [id number] O PRODUCTION ASSISTANT Miscellaneous - Conversion, Historical Provider Ser - 04/12/2012 11:12 AM VIDEO PRODUCTION ASSISTANT Adult Sales Associate Intake/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 Sales Associate Intake/History Entered On: 04/12/2012 11:15 VIDEO PRODUCTION ASSISTANT Performed On: 04/12/2012 11:12 VIDEO PRODUCTION ASSISTANT by ROYAL CLINTON Intake Chief Complaint : [...] : 54.00kg ROYAL CLINTON - 04/12/2012 11:12 VIDEO PRODUCTION ASSISTANT General Info Information Given By : Patient Preferred Communication Mode : Verbal Languages : Nauruan ROYAL CLINTON - 04/12/2012 11:12 VIDEO PRODUCTION ASSISTANT Subjective Pain Symptoms : No ROYAL CLINTON 04/12/2012 11:12 VIDEO PRODUCTION ASSISTANT Dependent Habits Tobacco Use/Currently Using : Yes Exposure to Tobacco Smoke : Patient smokes Smoking Status : Current some day smoker ROYAL CLINTON - 04/12/2012 11:12 VIDEO PRODUCTION ASSISTANT Tobacco Use Grid Type : Cigarettes ROYAL CLINTON 04/12/2012 11:12 VIDEO PRODUCTION ASSISTANT Alcohol Use : Yes ROYAL CLINTON 04/12/2012 11:12 VIDEO PRODUCTION ASSISTANT Caffeine Use Grid Caffeine Use : Current Type : Coffee Frequency : Occasionally ROYAL CLINTON 04/12/2012 11:12 VIDEO PRODUCTION ASSISTANT Allergy Allergies (Active) NKA Estimated Onset Date: Unspecified ; Created By: MEGHAN REMY; Reaction Status: Active ; Category: Drug ; Substance: NKA ; Type: Allergy ; Updated By: MEGHAN REMY; Reviewed Date: 04/12/2012 11:11CST Source: [facility] POWERCHART Document Id: [id number] documented in this encounter Plan of Treatment Not on filedocumented as of this encounter Visit Diagnoses Not on filedocumented in this encounter Additional Health Concerns Assessment Noted Time PHQ-9 Depression Total Score: 12 03/29/2012 5:44 PM CS T documented as of this encounter
--- OUTSIDE RECORDS SUMMARY | 2022-02-11 14:58 | XMS_ITS | Clinical Summary ---
:1990 Author Organization [facility] Address [address] [place] [address] Care Team Providers Name Role Phone Elsewhere, Pcp Primary Care Provider Unavailable Source Comments Patient records contain information from all sites at [facility]. For routine questions regarding patient records, call [phone] during business hours, M-F 8:00 AM - 5:00 PM Central Time. Record requests for emergency care only can be directed to [phone] at any time.[facility] Allergies No known active allergies Medications No [...] How often do you attend religious or anabaptism Never 05/04/2021 services? Do you belong to [...] or slept in a retirement (including now)? Education Answer Date Recorded What is the highest level of school you have Some college, n o degree 05/04/2021 completed or the highest degree you have received? Sex Assigned at Date Recorded Not on file Last Filed Vital Signs Vital Sign Reading Time Taken Comments Blood Pressure 123/77 05/04/2021 2:45 PM RACE ENGINE BUILDER Pulse 99 05/04/2021 2:45 PM RACE ENGINE BUILDER Temperature 36.8 ??C (98.2 ??F) 05/04/2021 2:45 PM RACE ENGINE BUILDER Respiratory Rate 16 07/21/2014 1:27 PM CDT Oxygen Saturation - - Inhaled Oxygen Concentration - - Weight 55.7 kg (122 lb 12.7 oz) 05/04/2021 2:45 PM RACE ENGINE BUILDER Height 152.5 cm (5' 0.04) 05/04/2021 2:45 PM RACE ENGINE BUILDER Body Mass Index 23.95 05/04/2021 2:45 PM RACE ENGINE BUILDER Plan of Treatment Health Maintenance Due Date Last Done Comments HIV Screening 1990 Hepatitis C Screening 1990 COVID-19 Vaccine (#1) 1990 Cervical Cancer Screening 09/20/2016 09/20/2013, 03/29/2012 Depression Monitoring 09/01/2021 05/04/2021 (PHQ-9) Influenza Vaccine (#1) 2022 05/08/2018, 03/16/2016, 01/21/2015, Additional history exists DTaP,Tdap,and Td Vaccines 01/15/2032 01/14/2022, 11/01/2010 , (4 - Td or Tdap) 08/06/2002, Additional history exists Hepatitis B Vaccines Completed 12/11/2002, 12/11/2002, 09/23/2002, Additional history exists Pneumococcal vaccine (0-64 Aged Out No lo nger eligible years) based on patient 's age to complete this topic Care Teams Diesel Mechanic Apprentice Relationship Specialty Start Date End Date Elsewhere, Pcp PCP - General 08/08/21
--- OUTSIDE RECORDS SUMMARY | 2022-02-11 14:58 | XMS_ITS | Encounter Summary ---
:1990 Author Organization [facility] Address [address] [place] [address] Care Team Providers Name Role Phone Unavailable Primary Care Provider Unavailable Encounter Details Date Type Department Care Team Description 09/20/2013 Hospital Encounter HX NO MAPPING Reece Smalls M.D. [address] [place], [place] [id number] (Wo rk) Social History Tobacco Use Types [...] How often do you attend orthodox or pentecostalism Never 05/04/2021 services? Do you belong to [...] Depression Total Score: 6 08/15/2013 3:15 PM CD T documented as of this encounter
--- OUTSIDE RECORDS SUMMARY | 2022-02-11 14:58 | XMS_ITS | Encounter Summary ---
:1990 Author Organization [facility] Address [address] [place] [address] Care Team Providers Name Role Phone Unavailable Primary Care Provider Unavailable Encounter Details Date Type Department Care Team Description 04/26/2010 Hospital Encounter HX [facility] Kristy Junior M.D. [address] [place] [address] (Wo rk) Social History Tobacco [...] 05/04/2021 relatives? How often do you attend christian or confucianism Never 05/04/2021 services? Do you belong to any clubs or organizations such as No 05/04/2021 christian groups, unions, fraternal or athletic groups, or [...] Junior M.D. - 04/26/2010 12:00 AM CST [id number] HISTORY OF PRESENT ILLNESS 20-year-old female who [...] JUNIOR MD On 04/29/2010 08:32 AM Source: [facility] MHSDOLBEYNONRADSYS Document Id: [id number] VAULT SUPERVISOR documented in this encounter Miscellaneous Notes Miscellaneous - Chetna Rocha L.P.N. 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 Adjunct Latin Professor Intake/History Entered On: 04/26/2010 18:09 FILM VAULT SUPERVISOR Performed On: 04/26/2010 18:06 FILM VAULT SUPERVISOR by CHETNA ROCHA Intake Chief Complaint: Frequency with urination Onset of Symptoms: 1 day Temperature Oral: 36.9C(Converted to: 98.4DegF) Peripheral Pulse Rate: 82/min Respiratory Rate: 18/min Systolic Blood Pressure: 100mmHg Diastolic Blood Pressure: 60mmHg NIBP Mean: 73mmHg Actual Weight: 47.700kg(Converted to: 105lb 3oz) Dosing Weight Clinic: 47.70kg CHETNA ROCHA - 04/26/2010 18:06 FILM VAULT SUPERVISOR Subjective Pain Symptoms: No CHETNA ROCHA - 04/26/2010 18:06 FILM VAULT SUPERVISOR Dependent Habits Tobacco Use/Currently Using: No CHETNA ROCHA - 04/26/2010 18:06 FILM VAULT SUPERVISOR Tobacco Use Grid Type: Cigarettes CHETNA ROCHA - 04/26/2010 18:06 FILM VAULT SUPERVISOR Caffeine Use Grid Caffeine Use: Current Type: Coffee Frequency: Occasionally CHETNA ROCHA - 04/26/2010 18:06 FILM VAULT SUPERVISOR Allergies Allergies (Active) NKA Estimated Onset Date: Unspecified ; Created By: MEGHAN REMY; Reaction Status: Active ; Category: Drug ; Substance: NKA ; Type: Allergy ; Updated By: MEGHAN REMY; Reviewed Date: 04/26/2010 18:05CST Source: [facility] Document Id: [id number] FILM VAULT SUPERVISOR!24 VAULT SUPERVISOR documented in this encounter Plan of Treatment Not on filedocumented as of this encounter Visit Diagnoses Not on filedocumented in this encounter
--- OUTSIDE RECORDS SUMMARY | 2022-02-11 14:58 | XMS_ITS | Encounter Summary ---
:1990 Author Organization [facility] Address [address] [place] [address] Care Team Providers Name Role Phone Unavailable [...] 05/04/2021 relatives? How often do you attend latter-day or pentecostal Never 05/04/2021 services? Do you belong to any clubs or organizations such as No 05/04/2021 latter-day groups, unions, fraternal or athletic groups, or [...]
--- OUTSIDE RECORDS SUMMARY | 2022-02-11 14:58 | XMS_ITS | Encounter Summary ---
:1990 Author Organization [facility] Address [address] [place] [address] Care Team Providers Name Role Phone Unavailable Primary Care Provider Unavailable Encounter Details Date Type Department Care Team Description 06/20/2013 Hospital Encounter HX NO MAPPING Reece Smalls M.D. [address] [place], [place] [address] (Wo rk) Social History Tobacco Use Types [...] 05/04/2021 relatives? How often do you attend confucianism or zoroastrianism Never 05/04/2021 services? Do you belong to any clubs or organizations such as No 05/04/2021 confucianism groups, unions, fraternal or athletic groups, or [...] place to sleep or slept in a detention (including now)? Sex Assigned at Date Recorded Not on file documented as of this encounter Plan of Treatment Not on filedocumented as of this encounter Visit Diagnoses Not on filedocumented in this encounter Additional Health Concerns Assessment Noted Time PHQ-9 Depression Total Score: 12 03/29/2012 5:44 PM CS T documented as of this encounter
--- OUTSIDE RECORDS SUMMARY | 2022-02-11 14:58 | XMS_ITS | Encounter Summary ---
:1990 Author Organization [facility] Address [address] [place] [address] Care Team Providers Name Role Phone Unavailable Primary Care Provider Unavailable Encounter Details Date Type Department Care Team Description 05/07/2013 Hospital Encounter HX NO MAPPING Reece Smalls M.D. [address] [place], [place] [address] (Wo rk) Social History Tobacco Use Types [...] How often do you attend congregational or synagogue Never 05/04/2021 services? Do you [...]
--- OUTSIDE RECORDS SUMMARY | 2022-02-11 14:58 | XMS_ITS | Encounter Summary ---
:1990 Author Organization [facility] Address [address] [place] [address] Care Team Providers Name Role Phone Unavailable [...] How often do you attend congregational or restoration Never 05/04/2021 services? Do you [...]
--- OUTSIDE RECORDS SUMMARY | 2022-02-11 14:58 | XMS_ITS | Encounter Summary ---
:1990 Author Organization [facility] Address [address] [place] [address] Care Team Providers Name Role Phone Unavailable [...] often do you attend jehovah's witness or yarsanism Never 05/04/2021 services? Do you [...] place to sleep or slept in a halfway (including now)? Sex Assigned at Date Recorded Not on file documented as of this encounter Plan of Treatment Not on filedocumented as of this encounter Visit Diagnoses Not on filedocumented in this encounter
--- OUTSIDE RECORDS SUMMARY | 2022-02-11 14:58 | XMS_ITS | Encounter Summary ---
:1990 Author Organization [facility] Address [address] [place] [address] Care Team Providers Name Role Phone Unavailable [...] How often do you attend gnosticist or adventism Never 05/04/2021 services? Do you [...] Body Mass Index 24.58 03/29/2012 2:28 PM MANAGER UNIVERSITY documented in this encounter Progress Notes Irina Banda M.D. - 07/04/2013 1:58 PM CDT [id number] CHIEF COMPLAINT/REASON FOR VISIT Depression and anxiety [...] PIERRE MD On: 07/11/2013 09:42 PM Source: [facility] MHSDOLBEYNONRADSYS Document Id: [id number] documented in this encounter Miscellaneous Notes Miscellaneous - Irina Banda M.D. - 07/04/2013 3:01 PM CDT Ambulatory Patient Summary [facility] [address] [place], [place] [id number] Visit Information Name: DENISE ALEXANDER [facility] Number: [id number] Current Date: 07/04/2013 15:01:22 [...] tab daily for anxiety/depression New Routed to [address] [address] norgestimate-ethinyl estradiol (norgestimate-ethinyl estradiol triphasic [...] appointment detail needed. Your Goals/Additional instructions: Source: [facility] POWERCHART Document Id: [id number] Miscellaneous - Irina Banda M.D. - 07/04/2013 3:01 PM CDT Ambulatory Discharge Medication List [facility] [address] [place], [place] [id number] Visit Information Name: DENISE ALEXANDER [facility] Number: [id number] Visit Date: 07/04/2013 15:01:21 [...] tab daily for anxiety/depression New Routed to [facility] [address] [facility], [place] [id number] norgestimate-ethinyl estradiol (norgestimate-ethinyl estradiol triphasic (0.18 mg-0.215 [...] in case of emergency. Additional Information: Source[facility] POWER[facility] Document Id: [id number] Miscellaneous - Chel Cordero - 07/04/2013 2:11 [...] CHEL CORDERO - 07/05/2013 8:11 CDT Source: [facility] Document Id: [id number] CDT!13 Miscellaneous - Tanya Cristobal L.PKendallNKendall - 07/04/2013 2:09 PM CDT Adult Coil Maker Intake/History Document Has Been Updated Adult Coil Maker Intake/History Entered On: 07/04/2013 14:11 CDT Performed [...] 07/04/2013 14:09 CDT General Info Languages : Malay TANYA CRISTOBAL - 07/04/2013 14:09 CDT Subjective [...] TANYA CRISTOBAL - 07/04/2013 14:09 CDT Source: [facility] Document Id: [id number] CDT!3 documented in this encounter Plan of Treatment Not on filedocumented as of this encounter Visit Diagnoses Not on filedocumented in this encounter Additional Health Concerns Assessment Noted Time PHQ-9 Depression Total Score: 18 07/04/2013 2:11 PM CD T documented as of this encounter
--- OUTSIDE RECORDS SUMMARY | 2022-02-11 14:58 | XMS_ITS | Encounter Summary ---
:1990 Author Organization [facility] Address [address] [place] [address] Care Team Providers Name Role Phone Unavailable [...] How often do you attend mormonism or latter-day Never 05/04/2021 services? Do you belong to [...]
--- OUTSIDE RECORDS SUMMARY | 2022-02-11 14:58 | XMS_ITS | Encounter Summary ---
:1990 Author Organization [facility] Address [address] [place] [address] Care Team Providers Name Role Phone Unavailable Primary Care Provider Unavailable Encounter Details Date Type Department Care Team Description 07/21/2014 Hospital Encounter HX [facility] Kristy Junior M.D. [address] [place] [address] (Wo rk) Social History Tobacco [...] How often do you attend episcopal or anabaptism Never 05/04/2021 services? Do you [...] Junior M.D. - 07/21/2014 12:41 PM CDT [id number] CHIEF COMPLAINT/REASON FOR VISIT A 24-year-old female, [...] JUNIOR MD On: 07/24/2014 11:52 AM Source: [facility] MHSDOLBEYNONRADSYS Document Id: [id number] documented in this encounter Miscellaneous Notes Miscellaneous - Alex Schmidt L.P.N. - 07/21/2014 1:27 PM CDT Adult Assistant Cook Intake/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 Assistant Cook Intake/History Entered On: 07/21/2014 13:30 CDT Performed [...] Preferred Communication Mode : Verbal Languages : Tristanian Is Patient Female and 13-50 no hysterectomy [...] Use Grid Type : Cigarettes ALEX SCHMIDT 07/21/2014 13:27 CDT Caffeine Use Grid Caffeine Use : Current Type : Coffee Frequency : Occasionally ALEX SCHMIDT - 07/21/2014 13:27 CDT ID Screen Travel Within Last 21 Days : No Contact with someone with Ebola : No ALEX SCHMIDT - 07/21/2014 13:27 CDT Source: [facility] Document Id: [id number] CDT!46 documented in this encounter Plan of Treatment Not on filedocumented as of this encounter Procedures Procedure Name Priority Date/Time Associated Comments Diagnosis WET PREP EXAM, Routine 07/21/2014 2:07 PM Results for this UROGENITAL CDT procedure are i n the results section. documented in this encounter Results (ABNORMAL) Wet Prep Exam, Urogenital (07/21/2014 2:07 PM CDT) [facility] gist Method Time Signature HXWet Prep (POSITIVE) [...]
--- OUTSIDE RECORDS SUMMARY | 2022-02-11 14:58 | XMS_ITS | Encounter Summary ---
:1990 Author Organization [facility] Address [address] [place] [address] Care Team Providers Name Role Phone Unavailable [...] How often do you attend buddhism or bahai Never 05/04/2021 services? Do you [...] place to sleep or slept in a [facility] (including now)? Sex Assigned at Date Recorded Not on file documented as of this encounter Plan of Treatment Not on filedocumented as of this encounter Visit Diagnoses Not on filedocumented in this encounter
--- OUTSIDE RECORDS SUMMARY | 2022-02-11 14:58 | XMS_ITS | Encounter Summary ---
:1990 Author Organization [facility] Address [address] [place] [address] Care Team Providers Name Role Phone Unavailable [...] How often do you attend cheondoism or hoahaoism Never 05/04/2021 services? Do you [...] Comments Blood Pressure 110/62 03/29/2012 2:28 PM IGNITER ASSEMBLER Pulse 78 03/29/2012 2:28 PM IGNITER ASSEMBLER Temperature - - Respiratory Rate 18 03/29/2012 2:28 PM IGNITER ASSEMBLER Oxygen Saturation - - Inhaled Oxygen Concentration - - Weight 53.9 kg (118 lb 13.3 oz) 03/29/2012 2:28 PM IGNITER ASSEMBLER Height 153.2 cm (5' 0.32) 03/29/2012 2:28 PM IGNITER ASSEMBLER Body Mass Index 22.97 03/29/2012 2:28 PM IGNITER ASSEMBLER documented in this encounter H&P Notes Ramsey Banda M.D. - 03/29/2012 1:51 PM CST [id number] CHIEF COMPLAINT/REASON FOR VISIT Annual physical exam [...] school graduate. She is currently employed at [email or web address]. She resides with her sonand lives with [...] by Marleny Delgadillo, a trained medical assistant per diem. The creation of this record is based on the scribe's personal observations and the provider's statements to them. This document has been checked and approved by the attending provider. Ramesy Pierre M.D./elisha Electronically Signed By: RAMSEY PIERRE MD On: 03/29/2012 04:19 PM Source: [facility] MHSDOLBEYNONRADSYS Document Id: [id number] TER ASSEMBLER documented in this encounter Miscellaneous Notes Miscellaneous - Ramsey Banda M.D. - 04/02/2012 5:53 PM IGNITER ASSEMBLER Results Notification Document Contains Addenda Addendum by RE BRO on 04 April 2012 11:49:07 IGNITER ASSEMBLER Patient updated. Addendum by HUSEIYN DELGADILLO on 03 April 2012 13:07:37 IGNITER ASSEMBLER LMTCB From: RAMSEY PIERRE MD To: HUSEYIN DELGADILLO Sent: 04/02/2012 17:53:57 IGNITER ASSEMBLER ! Show up: 04/02/2012 23:53:57 [facility] Subject: Results Notification Actions: Notify patient of results Source: [facility] POWERCHART Document Id: [id number] Electronically signed by Violette [facility] Heel Seat Pounder [id number] at 09/18/2016 12:49 AM CDT Miscellaneous - Ramsey Banda M.D. - 04/02/2012 5:48 PM IGNITER ASSEMBLER Results Notification Document Contains Addenda Addendum by RE BRO on 04 April 2012 11:49:31 IGNITER ASSEMBLER Patient already knew. Addendum by HUSEYIN DELGADILLO on 03 April 2012 13:07:50 IGNITER ASSEMBLER LMTCB From: RAMSEY PIERRE MD To: HUSEYIN DELGADILLO Sent: 04/02/2012 17:48:05 IGNITER ASSEMBLER ! Show up: 04/02/2012 23:48:05 [facility] Subject: Results Notification Actions: Notify patient of results Source: [facility] POWERCHART Document Id: [id number] Electronically signed by Conversion, [facility] Heel Seat Pounder [id number] at 09/18/2016 12:49 AM CDT Miscellaneous - Ramsey Banda M.D. - 03/29/2012 6:38 PM IGNITER ASSEMBLER Results Notification Document Contains Addenda Addendum by RE BRO on 04 April 2012 11:49:39 IGNITER ASSEMBLER Patient updated. Addendum by HUSEYIN DELGADILLO on 03 April 2012 13:08:18 IGNITER ASSEMBLER LMTCB Addendum by HUSEYIN DELGADILLO on 30 March 2012 09:16:18 IGNITER ASSEMBLER Will try back someone picked up phone then didnt talk From: RAMSEY PIERRE MD To: HUSEYIN DELGADILLO Sent: 03/29/2012 18:38:15 IGNITER ASSEMBLER ! Show up: 03/30/2012 00:38:15 [facility] Subject: Results Notification Actions: Notify patient of results Source: [facility] POWERCHART Document Id: [id number] Electronically signed by Conversion, [facility] Heel Seat Pounder [id number] at 09/18/2016 12:49 AM CDT Miscellaneous - Ramsey Banda M.D. - 03/29/2012 6:18 PM IGNITER ASSEMBLER Results Notification Document Contains Addenda Addendum by RE BRO on 04 April 2012 11:49:18 IGNITER ASSEMBLER Patient updated. Addendum by HUSEYIN DELGADILLO on 03 April 2012 13:07:58 IGNITER ASSEMBLER LMTCB Addendum by HUSEYIN DELGADILLO on 30 March 2012 09:16:43 IGNITER ASSEMBLER Will try back, someone picked up phone and then didnt talk From: RAMSEY PIERRE MD To: HUSEYIN DELGADILLO Sent: 03/29/2012 18:18:58 IGNITER ASSEMBLER ! Show up: 03/30/2012 00:18:58 [facility] Subject: Results Notification Actions: Notify patient of results Source: [facility] ONE Change Document Id: [id number] Electronically signed by Conversion, [facility] Heel Seat Pounder [id number] at 09/18/2016 12:49 AM CDT Miscellaneous - Conversion, Historical Provider Ser - 03/29/2012 5:44 PM IGNITER ASSEMBLER PHQ-9 PHQ-9 Entered On: 03/29/2012 17:44 IGNITER ASSEMBLER Performed On: 03/29/2012 17:44 IGNITER ASSEMBLER by HUSEYIN DELGADILLO PHQ-9 Little interest or [...] Somewhat difficult HUSEYIN DELGADILLO - 03/29/2012 17:44 IGNITER ASSEMBLER [facility] Document Id: [id number] Miscellaneous - Conversion, Historical Provider Ser - 03/29/2012 2:28 PM IGNITER ASSEMBLER Adult Environmental Health Technician Intake/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 Environmental Health Technician Intake/History Entered On: 03/29/2012 14:29 IGNITER ASSEMBLER Performed On: 03/29/2012 14:28 IGNITER ASSEMBLER by HUSEYIN DELGADILLO Intake Chief Complaint : [...] : 22.97kg/m2 HUSEYIN DELGADILLO - 03/29/2012 14:28 IGNITER ASSEMBLER General Info Information Given By : Patient HUSEYIN DELGADILLO 03/29/2012 14:28 IGNITER ASSEMBLER Subjective Pain Symptoms : No HUSEYIN DELGADILLO 03/29/2012 14:28 IGNITER ASSEMBLER Dependent Habits Tobacco Use/Currently Using : No Smoking Status : Former smoker HUSEYIN DELGADILLO 03/29/2012 14:28 IGNITER ASSEMBLER Tobacco Use Grid Type : Cigarettes HUSEYIN DELGADILLO - 03/29/2012 14:28 IGNITER ASSEMBLER Caffeine Use Grid Caffeine Use : Current Type : Coffee Frequency : Occasionally HUSEYIN DELGADILLO 03/29/2012 14:28 IGNITER ASSEMBLER Allergy Allergies (Active) NKA Estimated Onset Date: Unspecified ; Created By: MEGHAN REMY; Reaction Status: Active ; Category: Drug ; Substance: NKA ; Type: Allergy ; Updated By: MEGHAN REMY; Reviewed Date: 11/01/2010 9:31 CDT Source: [facility] Document Id: [id number] Miscellaneous - Conversion, Historical Provider Ser - 03/29/2012 2:28 PM IGNITER ASSEMBLER Health Assessment Health Assessment Entered On: 03/29/2012 14:29 IGNITER ASSEMBLER Performed On: 03/29/2012 14:28 IGNITER ASSEMBLER by HUSEYIN DELGADILLO Health Assessment Complete Health Assessment Complete or Modified : Annual Health Assessment Annual Health Assessment Completed : Yes HUSEYIN DELGADILLO - 03/29/2012 14:28 IGNITER ASSEMBLER Nutrition Nutrition Risk Factors by 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 : None HUSEYIN DELGADILLO - 03/29/2012 14:28 IGNITER ASSEMBLER Functional Current Daily Living Assistance : None HUSEYIN DELGADILLO - 03/29/2012 14:28 IGNITER ASSEMBLER Dependent Habits Tobacco Use/Currently Using : No Smoking Status : Former smoker HUSEYIN DELGADILLO - 03/29/2012 14:28 IGNITER ASSEMBLER Tobacco Use Grid Type : Cigarettes HUSEYIN DELGADILLO 03/29/2012 14:28 IGNITER ASSEMBLER Caffeine Use Grid Caffeine Use : Current Type : Coffee Frequency : Occasionally HUSEYIN DELGADILLO 03/29/2012 14:28 IGNITER ASSEMBLER Psychosocial Domestic Abuse Concerns : None HUSEYIN DELGADILLO 03/29/2012 14:28 IGNITER ASSEMBLER Advance Directive Advanced Directives : No HUSEYIN DELGADILLO 03/29/2012 14:28 IGNITER ASSEMBLER Educ Needs Learning Style Preference Adult Grid Patient : Demonstration, Printed materials, Verbal explanation, Video/Educational TV Family : None HUSEYIN DELGADILLO 03/29/2012 14:28 IGNITER ASSEMBLER Source: [facility] POWERCHART Document Id: [id number] documented in this encounter Plan of Treatment Not on filedocumented as of this encounter Procedures Procedure Name Priority Date/Time Associated Comments Diagnosis WET PREP EXAM, Routine 03/29/2012 5:32 PM Results for this UROGENITAL IGNITER ASSEMBLER procedure are i n the results section. N GONOR AMP SRC Routine 03/29/2012 5:31 PM Result s for this IGNITER ASSEMBLER procedure are i n the results section. N GONOR AMP DNA Routine 03/29/2012 5:31 PM Result s for this IGNITER ASSEMBLER procedure are i n the results section. C TRACH AMP SRC Routine 03/29/2012 5:31 PM Result s for this IGNITER ASSEMBLER procedure are i n the results section. C TRACH AMP RNA Routine 03/29/2012 5:31 PM Result s for this IGNITER ASSEMBLER procedure are i n the results section. TEST, U Routine 03/29/2012 3:30 PM Resu lts for this IGNITER ASSEMBLER procedure are i n the results section. PATHOLOGY TECHNOLOGY APPLICATIONS ENGINEER Routine 03/29/2012 12:00 AM Results for this CYTOLOGY IGNITER ASSEMBLER procedure are i n the results section. documented in this encounter Results Wet Prep Exam, Urogenital (03/29/2012 5:32 PM IGNITER ASSEMBLER) P athologist Signature HXWet Prep POWERCHART HXFinal No yeast, POWERCHART Trichomonas , clue cells, or sperm seen. Specimen (Source) Anatomical Collection Method Collection Time Re ceived Time Location / / Volume Laterality Vagina 03/29/2012 5:32 PM IGNITER ASSEMBLER Ramsey Pierre M.D. LAB MICROBIOLOGY - GENERAL O RDERABLES Performing Organization Address City/State/ZIP Code Phon e Number POWERCHART HX-N gonor Amp DNA (03/29/2012 5:31 PM IGNITER ASSEMBLER) athologist Signature HXN gonor Amp Negative POWERCHART DNA-[place] Specimen (Source) Anatomical Collection Method Collection Time Re ceived Time Location / / Volume Laterality 03/29/2012 5:31 PM IGNITER ASSEMBLER Narrative POWERCHART - 03/30/2012 6:05 PM IGNITER ASSEMBLER Test Performed by: [address] [address] Waste Minimization Technician: Xavier mon III, M.D. Ramsey Pierre M.D. LAB HISTORICAL ORDERS Performing Organization Address City/[facility]/ZIP Code Phon e Number POWERCHART HX-N gonor Amp Src (03/29/2012 5:31 PM IGNITER ASSEMBLER) athologist Signature HXN gonor Amp CERVIX POWERCHART Src-[place] Specimen (Source) Anatomical Collection Method Collection Time Re ceived Time Location / / Volume Laterality 03/29/2012 5:31 PM IGNITER ASSEMBLER Ramsey Pierre M.D. LAB HISTORICAL ORDERS Performing Organization Address City/State/ZIP Code Phon e Number POWERCHART HX-C trach Amp RNA (03/29/2012 5:31 PM IGNITER ASSEMBLER) [facility] Method Time Signature Chlamydia Negative POWERCHART trachomatis amplified RNA Specimen (Source) Anatomical Collection Method Collection Time Re ceived Time Location / / Volume Laterality 03/29/2012 5:31 PM IGNITER ASSEMBLER Ramsey Pierre M.D. LAB HISTORICAL ORDERS Performing Organization Address City/State/ZIP Code Phon e Number POWERCHART HX-C trach Amp Src (03/29/2012 5:31 PM IGNITER ASSEMBLER) athologist Signature HXC trach Amp CERVIX POWERCHART Src-[place] Specimen (Source) Anatomical Collection Method Collection Time Re ceived Time Location / / Volume Laterality 03/29/2012 5:31 PM IGNITER ASSEMBLER Ramsey Pierre M.D. LAB HISTORICAL ORDERS Performing Organization Address City/State/ZIP Code Phon e Number POWERCHART Test, Qualitative, Urine (03/29/2012 3:30 PM IGNITER ASSEMBLER) [facility]je[facility]erson health gist Method Time Signature HXBeta-hCG Negative POWERCHART Qualitative Urine Specimen (Source) Anatomical Collection Method Collection Time Re ceived Time Location / / Volume Laterality Urine 03/29/2012 3:30 PM IGNITER ASSEMBLER Ramsey Pierre M.D. LAB URINE ORDERABLES Performing Organization Address City/State/ZIP Code Phon e Number POWERCHART Pathology TECHNOLOGY APPLICATIONS ENGINEER Cytology (03/29/2012 12:00 AM IGNITER ASSEMBLER) Specimen (Source) Anatomical Location Collection Method / Collectio n Time Received Time / Laterality Volume 03/29/2012 Narrative [facility] LAB - 04/02/2012 3:04 PM IGNITER ASSEMBLER [facility], [address] [id number] ? Patient Name: DENISE ALEXANDER Patient ID #: [id number] Collected: 03/29/2012 Address: [facility]/Zip: [facility] ??[place], [place] ??[id number] Received: Reported: 03/30/2012 04/02/2012 Soc. Sec. #: ?/Age/Sex 1990 (Age: 22) ??F Physician(s): REENA PIERRE MD Copy To: ? [facility] ?? [id number], ??[place] ??[address] CYTOPATHOLOGY TECHNOLOGY APPLICATIONS ENGINEER REPORT FINAL CYTOLOGIC DIAGNOSIS Pap Smear - [...] Out By ddg/04/02/2012 SAIRA VILA M.D. [facility]) The Pap test is a screening procedure [...]
--- OUTSIDE RECORDS SUMMARY | 2022-02-11 14:58 | XMS_ITS | Encounter Summary ---
:1990 Author Organization [facility] Address [address] [place] [address] Care Team Providers Name Role Phone Unavailable [...] 05/04/2021 relatives? How often do you attend jainism or yarsanism Never 05/04/2021 services? Do you belong to any clubs or organizations such as No 05/04/2021 jainism groups, unions, fraternal or athletic groups, or [...] Banda M.D. - 04/08/2010 12:00 AM CST [id number] CHIEF COMPLAINT / REASON FOR VISIT Vaginal [...] PIERRE MD On 04/15/2010 02:16 PM Source: [facility] MHSDOLBEYNONRADSYS Document Id: [id number] OPERATOR documented in this encounter Miscellaneous Notes Miscellaneous - Ramsey Banda M.D. - 04/08/2010 5:47 PM TUBE OPERATOR Reminder Msg From: RAMSEY PIERRE MD To: LUCIANO MCLEOD Sent: 04/08/2010 17:47:55 TUBE OPERATOR ! Show up: 04/08/2010 17:47:00 TUBE OPERATOR Subject: Reminder Msg Actions: Notify patient of results Due Date/Time: 04/08/2010 17:47:00 TUBE OPERATOR Source: [facility] POWERCHART Document Id: [id number] Electronically signed by Violette [facility] Tuckpointer Cleaner Caulker [id number] at 09/19/2016 4:54 AM CDT Miscellaneous - Ramsey Banda M.D. - 04/08/2010 8:23 AM TUBE OPERATOR Ambulatory Patient Summary [facility] [address] [place] [id number] Visit Information Name: DENISE ALEXANDER Current Date: [...] No Appointments found Your Goals/Additional instructions: Source: [facility] [employer]CHART Document Id: [id number] Electronically signed by Conversion, [facility] Tuckpointer Cleaner Caulker [id number] at 09/19/2016 4:54 AM CDT Miscellaneous - Ramsey Banda M.D. - 04/08/2010 8:23 AM TUBE OPERATOR Ambulatory Depart Summary [address] [address] Visit Information Name: DENISE ALEXANDER Current Date: [...] to the patient and/or family, guardian/caregiver. Source: [employer] Document Id: [id number] Electronically signed by Conversion, [facility] Tuckpointer Cleaner Caulker [id number] at 09/19/2016 4:54 AM CDT Miscellaneous - Violette, Historical Provider Ser - 04/08/2010 7:57 AM TUBE OPERATOR Adult Drapery Sewer Hand Intake/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 Drapery Sewer Hand Intake/History Entered On: 04/08/2010 8:01 TUBE OPERATOR Performed On: 04/08/2010 7:57 TUBE OPERATOR by JULIA GONZALEZ Intake Chief Complaint: vaginal itching no odor no discharge Onset of Symptoms: since last mon. LMP Date: 03-09-2010 Temperature Oral: 37.0C(Converted to: 98.6DegF) Peripheral Pulse Rate: 96/min Respiratory Rate: 20/min Systolic Blood Pressure: 92mmHg Diastolic Blood Pressure: 60mmHg NIBP Mean: 71mmHg BP Location: Right upper extremity Actual Weight: 48.900kg(Converted to: 107lb 13oz) Weight Source: Standing scale Dosing Weight Clinic: 48.90kg JULIA GONZALEZ 04/08/2010 7:57 TUBE OPERATOR Subjective Pain Symptoms: No JULIA GONZALEZ 04/08/2010 7:57 TUBE OPERATOR Dependent Habits Tobacco Use/Currently Using: Yes JULIA GONZALEZ 04/08/2010 7:57 TUBE OPERATOR Tobacco Use Grid Type: Cigarettes Comments (Comment: 1 cig day [CARLOS JULIA 04/08/2010 7:57 TUBE OPERATOR] ) JULIA GONZALEZ 04/08/2010 7:57 TUBE OPERATOR Alcohol Use: Yes JULIA GONZALEZ 04/08/2010 7:57 TUBE OPERATOR Caffeine Use Grid Caffeine Use: Current Type: Coffee Frequency: Occasionally JULIA GONZALEZ 04/08/2010 7:57 TUBE OPERATOR Allergies Allergies (Active) NKA Estimated Onset Date: Unspecified ; Created By: MEGHAN REMY; Reaction Status: Active ; Category: Drug ; Substance: NKA ; Type: Allergy ; Updated By: MEGHAN REMY; Reviewed Date: 02/20/2010 11:33CDT Source: [facility] POWERCHART Document Id: [id number] documented in this encounter Plan of Treatment Not on filedocumented as of this encounter Visit Diagnoses Not on filedocumented in this encounter
--- OUTSIDE RECORDS SUMMARY | 2022-02-11 14:58 | XMS_ITS | Encounter Summary ---
:1990 Author Organization [facility] Address [address] [place] [address] Care Team Providers Name Role Phone Unavailable Primary Care Provider Unavailable Encounter Details Date Type Department Care Team Description 05/07/2013 Hospital Encounter HX [facility] Segal M.D. [address] [place], [place] [address] (Wo rk) Social History Tobacco Use Types [...] 05/04/2021 relatives? How often do you attend caodaism or sikhism Never 05/04/2021 services? Do you belong to any clubs or organizations such as No 05/04/2021 caodaism groups, unions, fraternal or athletic groups, or [...] Smalls M.D. - 05/07/2013 3:01 PM CST [id number] CHIEF COMPLAINT/REASON FOR VISIT Abnormal Pap smear [...] SMALLS MD On: 05/08/2013 11:11 AM Source: [facility] MHSDOLBEYNNEMESIO Document Id: [id number] ER MANAGEMENT PROFESSOR documented in this encounter Miscellaneous Notes Miscellaneous - Anai Smalls M.D. - 05/09/2013 10:09 AM CST Results Notification Document Contains Addenda Addendum by TRESSA HERNADEZ on 10 May 2013 14:42:17 TIMBER MANAGEMENT PROFESSOR Patient was given the information and transfered to schedule appointment. Addendum by GLORIA MALDONADO on 10 May 2013 13:05:05 TIMBER MANAGEMENT PROFESSOR Patient returned call to patient, please call her after 2:30, she is working right now. Addendum by SHERINE LOPEZ on 10 May 2013 12:56:24 TIMBER MANAGEMENT PROFESSOR left message to call back Addendum by SHERINE LOPEZ on 09 May 2013 16:06:55 TIMBER MANAGEMENT PROFESSOR left message to call back From: ANAI SMALLS MD To: OLIVIER Smalls Nurse; Sent: 05/09/2013 10:09:33 TIMBER MANAGEMENT PROFESSOR Show up: 05/09/2013 10:10:00 TIMBER MANAGEMENT PROFESSOR Subject: Results Notification Severe dysplasia confirmed, needs to set up a LEEP in 1-2 weeks. Results: Date Result Type Result Name 05/09/2013 8:54 Document - DOC Pathology-Surg Path Source: [facility] POWERCHART Document Id: [id number] Electronically signed by Violette [facility] Knurling Machine Operator [id number] at 09/13/2016 6:58 AM CDT Miscellaneous - Anai Smalls M.D. - 05/08/2013 4:08 PM CST Results Notification Document Contains Addenda Addendum by TRESSA HERNADEZ on 10 May 2013 14:41:42 TIMBER MANAGEMENT PROFESSOR Patient was given the informtion Addendum by SHERINE LOPEZ on 10 May 2013 12:56:04 TIMBER MANAGEMENT PROFESSOR left messae to call back Addendum by SHERINE LOPEZ on 08 May 2013 16:25:39 TIMBER MANAGEMENT PROFESSOR left message to call back From: ANAI SMALLS MD To: OLIVIER Smalls Nurse; Sent: 05/08/2013 16:08:44 TIMBER MANAGEMENT PROFESSOR Show up: 05/08/2013 16:09:00 TIMBER MANAGEMENT PROFESSOR Subject: Results Notification Nees Rx for bacterial vaginosis Results: Date Result Type Ind Result Name MBO POS WET Prep WBC's Source: [facility] POWERCHART Document Id: [id number] Electronically signed by Conversion, [facility] Knurling Machine Operator [id number] at 09/13/2016 6:58 AM CDT Miscellaneous - Anai Smalls M.D. - 05/07/2013 3:55 PM CST Ambulatory Patient Summary [facility] [address] [place] [phone] Visit Information Name: DENISE ALEXANDER [facility] Number: [id number] Current Date: 05/07/2013 15:55:54 [...] appointment detail needed. Your Goals/Additional instructions: Source: [facility] POWERCHART Document Id: [id number] ER MANAGEMENT PROFESSOR Miscellaneous - Anai Smalls M.D. - 05/07/2013 3:55 PM CST Ambulatory Depart Summary [facility] [address] [place] [id number] Visit Information Name: DENISE ALEXANDER [facility] Number: [id number] Visit Date: 05/07/2013 15:55:52 [...] in case of emergency. Additional Information: Source: [facility] teextee Document Id: [id number] ER MANAGEMENT PROFESSOR Miscellaneous - Sherine Lopez, L.P.N. - 05/07/2013 3:17 PM CST Adult Expansion Joint Builder Intake/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 Expansion Joint Builder Intake/History Entered On: 05/07/2013 15:17 TIMBER MANAGEMENT PROFESSOR Performed On: 05/07/2013 15:17 TIMBER MANAGEMENT PROFESSOR by SHERINE LOPEZ Intake Chief Complaint : coplo and vaginal pain SHERINE LOPEZ - 05/07/2013 15:17 TIMBER MANAGEMENT PROFESSOR General Info Languages : Latvian SHERINE LOPEZ - 05/07/2013 15:17 TIMBER MANAGEMENT PROFESSOR Subjective Pain Symptoms : Yes SHERINE LOPEZ - 05/07/2013 15:17 TIMBER MANAGEMENT PROFESSOR Pain Pain Assessment Grid Pain 1 Location : Vagina SHERINE LOPEZ - 05/07/2013 15:17 TIMBER MANAGEMENT PROFESSOR Dependent Habits Tobacco Use/Currently Using : No Exposure to Tobacco Smoke : Patient smokes Smoking Status : Former smoker SHERINE LOPEZ - 05/07/2013 15:17 TIMBER MANAGEMENT PROFESSOR Tobacco Use Grid Type : Cigarettes SHERINE LOPEZ - 05/07/2013 15:17 TIMBER MANAGEMENT PROFESSOR Caffeine Use Grid Caffeine Use : Current Type : Coffee Frequency : Occasionally SHERINE LOPEZ - 05/07/2013 15:17 TIMBER MANAGEMENT PROFESSOR Source: [facility] teextee Document Id: [id number] TIMBER MANAGEMENT PROFESSOR!23 ER MANAGEMENT PROFESSOR documented in this encounter Plan of Treatment Not on filedocumented as of this encounter Procedures Procedure Name Priority Date/Time Associated Comments Diagnosis WET PREP EXAM, Routine 05/07/2013 4:37 PM Results for this UROGENITAL TIMBER MANAGEMENT PROFESSOR procedure are i n the results section. N GONOR AMP SRC Routine 05/07/2013 4:36 PM Result s for this TIMBER MANAGEMENT PROFESSOR procedure are i n the results section. N GONOR AMP DNA Routine 05/07/2013 4:36 PM Result s for this TIMBER MANAGEMENT PROFESSOR procedure are i n the results section. C TRACH AMP SRC Routine 05/07/2013 4:36 PM Result s for this TIMBER MANAGEMENT PROFESSOR procedure are i n the results section. C TRACH AMP RNA Routine 05/07/2013 4:36 PM Result s for this TIMBER MANAGEMENT PROFESSOR procedure are i n the results section. SURGICAL PATHOLOGY Routine 05/07/2013 11:20 AM Re sults for this TIMBER MANAGEMENT PROFESSOR procedure are i n the results section. documented in this encounter Results (ABNORMAL) Wet Prep Exam, Urogenital (05/07/2013 4:37 PM TIMBER MANAGEMENT PROFESSOR) [facility] Method Time Signature HXWet Prep (POSITIVE) POWERCHART HXFinal Trichomonas: No POWERCHART Trichomonas seen HXFinal Clue Cells: POWERCHART Moderate (10-25/hpf) HXFinal Yeast: Few POWERCHART yeast (5-10/hpf) HXFinal Sperm: Absent POWERCHART Specimen (Source) Anatomical Collection Method Collection Time Re ceived Time Location / / Volume Laterality Vagina 05/07/2013 4:37 PM TIMBER MANAGEMENT PROFESSOR Anai Smalls M.D. LAB MICROBIOLOGY - GENERAL O RDERABLES Performing Organization Address City/[facility]/ZIP Code Phon e Number POWERCHART HX-N gonor Amp DNA (05/07/2013 4:36 PM TIMBER MANAGEMENT PROFESSOR) athologist Signature HXN gonor Amp Negative POWERCHART DNA-[place] Specimen (Source) Anatomical Collection Method Collection Time Re ceived Time Location / / Volume Laterality 05/07/2013 4:36 PM TIMBER MANAGEMENT PROFESSOR Narrative POWERCHART - 05/08/2013 7:10 PM TIMBER MANAGEMENT PROFESSOR Test Performed by: [place] [address] Tig Welder: Xavier mon III, M.D. Anai Smalls M.D. LAB HISTORICAL ORDERS Performing Organization Address City/[facility] Code Phon e Number POWERCHART HX-N gonor Amp Src (05/07/2013 4:36 PM TIMBER MANAGEMENT PROFESSOR) athologist Signature HXN gonor Amp CERVIX POWERCHART Src-[place] Specimen (Source) Anatomical Collection Method Collection Time Re ceived Time Location / / Volume Laterality 05/07/2013 4:36 PM TIMBER MANAGEMENT PROFESSOR Anai Smalls M.D. LAB HISTORICAL ORDERS Performing Organization Address City/State/ZIP Code Phon e Number POWERCHART HX-C trach Amp RNA (05/07/2013 4:36 PM TIMBER MANAGEMENT PROFESSOR) Patholo gist Method Time Signature Chlamydia Negative POWERCHART trachomatis amplified RNA Specimen (Source) Anatomical Collection Method Collection Time Re ceived Time Location / / Volume Laterality 05/07/2013 4:36 PM TIMBER MANAGEMENT PROFESSOR Anai Smalls M.D. LAB HISTORICAL ORDERS Performing Organization Address City/State/ZIP Code Phon e Number POWERCHART HX-C trach Amp Src (05/07/2013 4:36 PM TIMBER MANAGEMENT PROFESSOR) P athologist Signature HXC trach Amp CERVIX POWERCHART Src-[place] Specimen (Source) Anatomical Collection Method Collection Time Re ceived Time Location / / Volume Laterality 05/07/2013 4:36 PM TIMBER MANAGEMENT PROFESSOR Anai Smalls M.D. LAB HISTORICAL ORDERS Performing Organization Address City/[facility]/ZIP Code Phon e Number POWERCHART Pathology Surgical Pathology (05/07/2013 11:20 AM TIMBER MANAGEMENT PROFESSOR) Specimen (Source) Anatomical Collection Method Collection Time Re ceived Time Location / / Volume Laterality 05/07/2013 11:20 AM TIMBER MANAGEMENT PROFESSOR Narrative [facility] - 05/09/2013 8:54 AM TIMBER MANAGEMENT PROFESSOR [facility] in [address] [place] [phone] Patient Name: DENISE ALEXANDER Patient ID #: [id number] Collected: 05/07/2013 Address: [facility]/Zip: [address] [place], [place] ??[id number] Received: Reported: 05/08/2013 05/09/2013 Soc. Sec. #: ?/Age/Sex 1990 (Age: 23) ??F Physician(s): FRANCA SMALLS MD Copy To: ? [facility] ??[id number] [facility] [place], ??[place] ??[address] SURGICAL PATHOLOGY REPORT FINAL DIAGNOSIS: A. CERVIX, 12 O'CLOCK BIOPSY: --- SEVERE SQUAMOUS DYSPLASIA (NIGEL III). B. ENDOCERVIX, CURETTAGE: --- SEVERE SQUAMOUS DYSPLASIA (NIGEL III) AND CHRONIC CERVICITIS. [facility]/05/09/2013 HANH ALCARAZ M.D. Report electronically released. Interpretation [...] to a 0.1 cm diameter. ESB, B. ([id number], [id number]) DDG/EZEKIEL/05/08/2013 MICROSCOPIC DESCRIPTION: Reviewed by Hanh Alcaraz M.D.; Patholo [facility]/05/09/2013 Anai Smalls M.D. LAB SURG PATH ORDERABLES Performing Organization Address City/State/ZIP Code Phon e Number [facility] LAB documented in this encounter Visit Diagnoses Not on filedocumented in this encounter Additional Health Concerns Assessment Noted Time PHQ-9 Depression Total Score: 12 03/29/2012 5:44 PM CS T documented as of this encounter
--- OUTSIDE RECORDS SUMMARY | 2022-02-11 14:58 | XMS_ITS | Encounter Summary ---
:1990 Author Organization [facility] Address [address] [place] [address] Care Team Providers Name Role Phone Unavailable [...] How often do you attend confucianism or baptism Never 05/04/2021 services? Do you [...]
--- OUTSIDE RECORDS SUMMARY | 2022-02-11 14:58 | XMS_ITS | Encounter Summary ---
:1990 Author Organization [facility] Address [address] [place] [address] Care Team Providers Name Role Phone Unavailable Primary Care Provider Unavailable Encounter Details Date Type Department Care Team Description 07/22/2010 Hospital Encounter [facility]X [facility] Kristy Junior M.D. [address] [place] [address] (Wo rk) Social History Tobacco [...] 05/04/2021 relatives? How often do you attend zoroastrianism or buddhist Never 05/04/2021 services? Do you belong to any clubs or organizations such as No 05/04/2021 zoroastrianism groups, unions, fraternal or athletic groups, or [...] Junior M.D. - 07/22/2010 12:00 AM CDT [id number] HISTORY OF PRESENT ILLNESS This is a [...] ELIZABETH JUNIOR MD On: 07/28/2010 08:21 [facility] MHSDOLBEYNONRADSYS Document Id: [id number] documented in this encounter Procedure Notes Conversion, Historical Provider Ser - 07/22/2010 10:07 AM CDT Rapid Strep A Screen POC Rapid Strep A Screen POC Entered On: 07/22/2010 10:07 CDT Performed On: 07/22/2010 10:07 CDT by ALEJANDRO GONZALEZ Rapid Strep A Screen POC Rapid Strep A Screen POC: Negative Internal QC: Pass ALEJANDRO GONZALEZ - 07/22/2010 10:07 CDT Source: [facility] POWERCHART Document Id: [id number] CDT!4 documented in this encounter Miscellaneous Notes Miscellaneous - Conversion, Historical Provider Ser - 07/22/2010 9:57 AM CDT Adult Diesel Instructor Intake/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 Diesel Instructor Intake/History Entered On: 07/22/2010 9:59 CDT Performed [...] REMY; Reviewed Date: 07/22/2010 9:53 CDT [facility] Document Id: [id number] CDT!27 documented in this encounter Plan of Treatment Not on filedocumented as of this encounter Visit Diagnoses Not on filedocumented in this encounter
--- OUTSIDE RECORDS SUMMARY | 2022-02-11 14:59 | XMS_ITS | Encounter Summary ---
:1990 Author Organization [facility] Address [address] [place] [address] Care Team Providers Name Role Phone Unavailable [...] How often do you attend worship or congregation Never 05/04/2021 services? Do you [...]
--- OUTSIDE RECORDS SUMMARY | 2022-02-11 14:59 | XMS_ITS | Encounter Summary ---
:1990 Author Organization [facility] Address [address] [place] [address] Care Team Providers Name Role Phone Unavailable [...] 05/04/2021 relatives? How often do you attend muslim or christian Never 05/04/2021 services? Do you belong to any clubs or organizations such as No 05/04/2021 muslim groups, unions, fraternal or athletic groups, or [...]
--- OUTSIDE RECORDS SUMMARY | 2022-02-11 14:59 | XMS_ITS | Encounter Summary ---
:[address] [facility] Address [address] [place] [address] Care Team Providers Name Role Phone Unavailable [...] How often do you attend pentecostalism or yarsani Never 05/04/2021 services? Do you [...]
--- OUTSIDE RECORDS SUMMARY | 2022-02-11 14:59 | XMS_ITS | Encounter Summary ---
:1990 Author Organization [facility] Address [address] [place] [address] Care Team Providers Name Role Phone Unavailable Primary Care Provider Unavailable Encounter Details Date Type Department Care Team Description 05/01/2008 Hospital Encounter HX [facility] ED AmmondebbieJacqueline P.A.-C. [address] [place] [address] (Wo rk) Social History Tobacco [...] 05/04/2021 relatives? How often do you attend gnosticism or jehovah's witness Never 05/04/2021 services? Do you belong to any clubs or organizations such as No 05/04/2021 gnosticism groups, unions, fraternal or athletic groups, or [...]
--- OUTSIDE RECORDS SUMMARY | 2022-02-11 14:59 | XMS_ITS | Encounter Summary ---
:1990 Author Organization [facility] Address [address] [place] [address] Care Team Providers Name Role Phone Unavailable [...] How often do you attend taoist or uatsdin Never 05/04/2021 services? Do you belong to [...]
--- OUTSIDE RECORDS SUMMARY | 2022-02-11 14:59 | XMS_ITS | Encounter Summary ---
:[address] [facility] Address [address] [place] [address] Care Team Providers Name Role Phone Unavailable [...] How often do you attend nondenominational or latter-day Never 05/04/2021 services? Do you [...]
--- OUTSIDE RECORDS SUMMARY | 2022-02-11 14:59 | XMS_ITS | Encounter Summary ---
:1990 Author Organization [facility] Address [address] [place] [address] Care Team Providers Name Role Phone Unavailable [...] How often do you attend jainism or jainism Never 05/04/2021 services? Do you belong to [...]
--- OUTSIDE RECORDS SUMMARY | 2022-02-11 14:59 | XMS_ITS | Encounter Summary ---
:1990 Author Organization [facility] Address [address] [place] [address] Care Team Providers Name Role Phone Unavailable Primary Care Provider Unavailable Encounter Details Date Type Department Care Team Description 11/29/2007 Hospital Encounter HX [facility] ED Sera Fuller, R.NKendall [address] [place] [address] (Wo rk) Social History Tobacco [...] How often do you attend taoist or tenriism Never 05/04/2021 services? Do you [...]
--- OUTSIDE RECORDS SUMMARY | 2022-02-11 14:59 | XMS_ITS | Encounter Summary ---
:1990 Author Organization [facility] Address [address] [place] [address] Care Team Providers Name Role Phone Unavailable [...] How often do you attend congregational or anabaptism Never 05/04/2021 services? Do you [...]
--- OUTSIDE RECORDS SUMMARY | 2022-02-11 14:59 | XMS_ITS | Encounter Summary ---
:1990 Author Organization [facility] Address [address] [place] [address] Care Team Providers Name Role Phone Unavailable [...] How often do you attend methodist or jainism Never 05/04/2021 services? Do you [...]
--- OUTSIDE RECORDS SUMMARY | 2022-02-11 14:59 | XMS_ITS | Encounter Summary ---
:1990 Author Organization [facility] Address [address] [place] [address] Care Team Providers Name Role Phone Unavailable [...] How often do you attend taoism or jainism Never 05/04/2021 services? Do you [...]
--- OUTSIDE RECORDS SUMMARY | 2022-02-11 14:59 | XMS_ITS | Encounter Summary ---
:1990 Author Organization [facility] Address [address] [place] [address] Care Team Providers Name Role Phone Unavailable [...] How often do you attend yarsanism or scientologist Never 05/04/2021 services? Do you belong to [...]
--- OUTSIDE RECORDS SUMMARY | 2022-02-11 14:59 | XMS_ITS | Encounter Summary ---
:1990 Author Organization [facility] Address [address] [place] [address] Care Team Providers Name Role Phone Unavailable [...] How often do you attend baptist or mandaeism Never 05/04/2021 services? Do you [...]
--- OUTSIDE RECORDS SUMMARY | 2022-02-11 14:59 | XMS_ITS | Encounter Summary ---
:1990 Author Organization [facility] Address [address] [place] [address] Care Team Providers Name Role Phone Unavailable [...] How often do you attend christian or spiritism Never 05/04/2021 services? Do you belong to [...]
--- OUTSIDE RECORDS SUMMARY | 2022-02-11 14:59 | XMS_ITS | Encounter Summary ---
:1990 Author Organization [facility] Address [address] [place] [address] Care Team Providers Name Role Phone Unavailable Primary Care Provider Unavailable Encounter Details Date Type Department Care Team Description 06/02/2008 Hospital Encounter HX [facility] ED Jacqueline Rdz P.A.-C. [address] [place] [address] (Wo rk) Social History Tobacco [...] 05/04/2021 relatives? How often do you attend oriental orthodox or muslim Never 05/04/2021 services? Do you belong to any clubs or organizations such as No 05/04/2021 oriental orthodox groups, unions, fraternal or athletic groups, [...]
--- OUTSIDE RECORDS SUMMARY | 2022-02-11 14:59 | XMS_ITS | Encounter Summary ---
:[address] [facility] Address [address] [place] [address] Care Team Providers Name Role Phone Unavailable [...] How often do you attend rastafarian or confucianism Never 05/04/2021 services? Do you [...]
--- OUTSIDE RECORDS SUMMARY | 2022-02-11 14:59 | XMS_ITS | Encounter Summary ---
:1990 Author Organization [facility] [place] [facility] Address [address] [place] [address] Care Team Providers Name Role Phone Unavailable [...] How often do you attend taoist or druze Never 05/04/2021 services? Do you [...]
--- NOTE | 2022-02-11 15:00 | CRLHL7_ITS ---
For Patients: As a result of the Century Cures Act, medical imaging exams and procedure reports are released immediately into your electronic medical record. You may view this report before your referring provider. If you have questions, please contact your health care provider. INDICATION: Third trimester scan, evaluate growth. Gestational diabetes. COMPARISON: 01/14/2022 TECHNIQUE: Real time carrizales scale imaging of the fetus was performed. FINDINGS: Sonographic imaging demonstrates a single living intrauterine gestation. Fetus demonstrates a regular cardiac rate of 167 beats per minute. Fetus has a jimbo breech position. The placenta lies along the left wall anterior/posterior. Amniotic fluid volume appears normal and there is a single deepest vertical pocket: 6.1 cm. The estimated weight is 3100gm which lies at the 79th %. On the prior OB ultrasound exam dated 01/14/2010 the estimated weight was at the 72nd%. BPD 90th percentile. HC 93rd percentile. AC 88th percentile. FL 28th percentile. The HC/AC ratio measures 1.03 range (0.91-1.05). IMPRESSION: Sonographic gestational age 37 weeks 3 days and sonographic due date of 03/01/2022. Sonographic age 10 days ahead of the clinical age. Estimated weight 79th percentile. Abdominal circumference 88th percentile. Dictated by Rod Kamara MD @ 02/14/2022 9:10:23 AM (Electronically Signed)
--- OUTSIDE RECORDS SUMMARY | 2022-02-11 15:00 | XMS_ITS | Encounter Summary ---
:1990 Author Organization [facility] Address [address] [facility] [place] [address] Care Team Providers Name Role Phone No Ref-Primary, Physician Primary Care Provider Encounter Details Date Type Department Care Team Description 10/03/2019 Orders Only [facility], Genital he rpes simplex, Urgent Care Michelle Hines, TRACTION POWER ENGINEER unspecified site [address] (Primary Dx) [place], [place] [address] [address] [place] [address] Social History Tobacco Use Types Packs/Day Years Used Date Smoking Tobacco: Never Smokeless Tobacco: Never Sex Assigned at Date Recorded Not on [...] Primary documented in this encounter Care Teams Ironworker Foreman Relationship Specialty Start Date End Date No Ref-Primary, Physician PCP - General 06/11/19 documented as of this encounter
--- OUTSIDE RECORDS SUMMARY | 2022-02-11 15:00 | XMS_ITS | Encounter Summary ---
:1990 Author Organization [facility] Address [address] [place] [address] Care Team Providers Name Role Phone Unavailable [...] often do you attend jehovah's witness or christian Never 05/04/2021 services? Do you [...]
--- OUTSIDE RECORDS SUMMARY | 2022-02-11 15:00 | XMS_ITS | Encounter Summary ---
:1990 Author Organization [facility] Address [address] [facility] [place] [address] Care Team Providers Name Role Phone No Ref-Primary, Physician Primary Care Provider Reason for Visit Reason Comments Contraception Mirena IUD inserted on 02/19. Here for removal and insertion of new Mirena IUD. Patient repo rts that she uses the Mirena for both contraception and to control periods Encounter Details Date Type Department Care Team Description 03/20/2020 Office Visit [facility] Kiley Sorensen Encount er for removal and reinsertion of intrauterine contraceptive device (Primary Dx); Clinic Michelle ARREAGA Genital herpes simplex type 1 infection [address] [address] [address] [facility] [address] [place], [place] MARLEN Martinez [address] [phone] Social History Tobacco Use Types Packs/Day Years Used Date Smoking Tobacco: Never Smokeless Tobacco: Never Tobacco Cessation: Counseling Given: No Sex Assigned at Date Recorded Not on file COVID-19 Exposure Response Date Recorded In the last month, have you been in contact with No / Unsure 03/20/2020 1:57 PM CAREER TECHNICAL COUNSELOR someone who was confirmed or suspected to have Coronavirus / COVID-19? documented as of this encounter Last Filed Vital Signs Vital Sign Reading Time Taken Comments Blood Pressure 124/84 03/20/2020 2:02 PM CAREER TECHNICAL COUNSELOR Pulse - - Temperature - - Respiratory Rate - - Oxygen Saturation - - Inhaled Oxygen Concentration - - Weight 57.6 kg (127 lb) 03/20/2020 2:02 PM CAREER TECHNICAL COUNSELOR Height - - Body Mass Index - [...] the affected area. ?? You may use sfra-[id number] pain medicine unless another pain medicine was [...] confusion ?? Worsening headache or stiff neck [employer] last reviewed this educational content on 09/15/2017 ?? [id number] The [employer]. [address] [place] [address]. All rights reserved. This information is not intended as a substitute for professional medical care. Always follow your healthcare professional's instructions. ER TECHNICAL COUNSELOR documented in this encounter Progress Notes Kiley [...] control, including all options appropriate for Denise Esparza Robe. Discussed that no method of control, except abstinence is 100% effective against or sexually transmitted infection. Denise Nagel understands she may have the IUD removed at any time. IUD should be removed by [facility] care provider and the current IUD will [...] for placement, and IUD inserted according to logging equipment mechanic's instructions without difficulty or significant ressitance, and deployed at the fundus. The strings were visualized and trimmed to 3 cm from the external os. Tenaculum was removed and hemostasis noted. Speculum removed. Patient tolerated procedure well. Lot # [id number] Exp: Apr 2022 EBL: minimal Complications: none POST PROCEDURE: Given logging equipment mechanic's handouts, including when to have IUD removed, [...] suppressive therapy,she will call Kiley Sorensen CNM ER TECHNICAL COUNSELOR documented in this encounter Nursing Notes Stalin [...] following HM Due: NONE Stalin Hernandez MA ER TECHNICAL COUNSELOR documented in this encounter Plan of Treatment Not on filedocumented as of this encounter Procedures Procedure Name Priority Date/Time Associated Diagnosis Comme nts NH REMOVE INTRAUTERINE Routine 03/20/2020 2:10 PM Encounter fo r removal DEVICE CAREER TECHNICAL COUNSELOR and reinsertion of intrauterine contraceptive device NH INSERT INTRAUTERINE Routine 03/20/2020 2:10 PM Encounter fo r removal DEVICE CAREER TECHNICAL COUNSELOR and reinsertion of intrauterine contraceptive device documented in this encounter Visit Diagnoses Diagnosis Encounter for removal and reinsertion of intrauterine contraceptive device - Primary Genital herpes simplex type 1 infection documented in this encounter Administered Medications Inactive Administered Medications - up to 3 most recent administrations Medication Order MAR Action Action Date Dose Rate Site levonorgestrel (MIRENA) 20 Given 03/20/2020 1:59 PM CAREER TECHNICAL COUNSELOR 20 mcg MCG/24HR IUD 20 mcg Intrauterine, ONCE, On Mon03/20/20 at 1430, For 1 dose documented in this encounter Care Teams Grain Mixer Relationship Specialty Start Date End Date No Ref-Primary, Physician PCP - General 06/11/19 documented as of this encounter
--- OUTSIDE RECORDS SUMMARY | 2022-02-11 15:00 | XMS_ITS | Encounter Summary ---
:1990 Author Organization [facility] Address [address] [place] [address] Care Team Providers Name Role Phone Unavailable Primary Care Provider Unavailable Encounter Details Date Type Department Care Team Description 11/28/2005 Hospital Encounter [facility] Torsten Mclaughlin M.D. [address] [place] [address] (Wo rk) Social History Tobacco Use Types [...] How often do you attend druze or episcopal Never 05/04/2021 services? Do you belong to [...]
--- OUTSIDE RECORDS SUMMARY | 2022-02-11 15:00 | XMS_ITS | Encounter Summary ---
:1990 Author Organization [facility] Address [address] [place] [address] Care Team Providers Name Role Phone Unavailable Primary Care Provider Unavailable Encounter Details Date Type Department Care Team Description 12/29/2005 Hospital Encounter [facility] Torsten Mclaughlin M.D. [address] [place] [address] (Wo rk) Social History Tobacco Use Types [...] How often do you attend muslim or yazidism Never 05/04/2021 services? Do you [...]
--- OUTSIDE RECORDS SUMMARY | 2022-02-11 15:00 | XMS_ITS | Encounter Summary ---
:1990 Author Organization [facility] Address [address] [place] [address] Care Team Providers Name Role Phone Unavailable Primary Care Provider Unavailable Encounter Details Date Type Department Care Team Description 08/30/2000 Hospital Encounter [facility] Geraldo Hodges M.D. [address] [place], [place] [address] (Wo rk) Social History [...] How often do you attend temple or anabaptist Never 05/04/2021 services? Do you belong to any clubs or organizations such as No 05/04/2021 temple groups, unions, fraternal or athletic groups, or [...]
--- OUTSIDE RECORDS SUMMARY | 2022-02-11 15:00 | XMS_ITS | Encounter Summary ---
:1990 Author Organization [facility] Address [address] [place] [address] Care Team Providers Name Role Phone Unavailable Primary Care Provider Unavailable Encounter Details Date Type Department Care Team Description 10/13/2006 Hospital Encounter [facility] Torsten Mclaughlin M.D. [address] [place] [address] (Wo rk) Social History Tobacco Use Types [...] How often do you attend zoroastrianism or rastafarian Never 05/04/2021 services? Do you belong to [...]
--- OUTSIDE RECORDS SUMMARY | 2022-02-11 15:00 | XMS_ITS | Encounter Summary ---
:1990 Author Organization [facility] Address [address] [place] [address] Care Team Providers Name Role Phone Unavailable [...] 05/04/2021 relatives? How often do you attend baptism or taoism Never 05/04/2021 services? Do you belong to any clubs or organizations such as No 05/04/2021 baptism groups, unions, fraternal or athletic groups, or [...] for the very basics like Not abdiaziz simth hard 05/04/2021 food, housing, medical care, and [...]
--- OUTSIDE RECORDS SUMMARY | 2022-02-11 15:00 | XMS_ITS | Clinical Summary ---
:1990 Author Organization [facility] Address [address] [facility] [place] [address] Care Team Providers Name Role Phone No Ref-Primary, Physician Primary Care Provider [phone] Allergies No known active allergies Medications Medication [...] Comments Blood Pressure 124/84 03/20/2020 2:02 PM HEALTH SERVICE COORDINATOR Pulse 78 10/02/2019 9:28 AM CDT Temperature 36.7 ??C (98 ??F) 10/02/2019 9:28 AM CDT Respiratory Rate 20 10/02/2019 9:28 AM CDT Oxygen Saturation 98% 10/02/2019 9:28 AM CDT Inhaled Oxygen Concentration - - Weight 57.6 kg (127 lb) 03/20/2020 2:02 PM HEALTH SERVICE COORDINATOR Height - - Body Mass Index - - Plan of Treatment Health Maintenance Due Date Last Done Comments ADVANCE CARE PLANNING 1990 ANNUAL REVIEW OF HM ORDERS 1990 YEARLY PREVENTIVE VISIT 1990 COVID-19 Vaccine (#1) 1990 HIV SCREENING 2005 HEPATITIS C SCREENING 2008 PAP 2011 DTAP/TDAP/TD IMMUNIZATION 11/01/2020 11/01/2010, 08/06/2002 (3 - Td or Tdap) PHQ-2 (once per calendar 04/17/2021 year) INFLUENZA VACCINE (#1) 2021 05/08/2018, 03/16/2016, 01/21/2015, Additional history exists HEPATITIS B IMMUNIZATION Completed 12/11/2002, 09/23/2002, 08/06/2002, Additional history exists MENINGITIS IMMUNIZATION Completed 03/05/2007 IPV IMMUNIZATION Aged Out No longer eligi ble based on patient 's age to complete this topic Pneumococcal Vaccine: Aged Out No longer eligible Pediatrics (0 to 5 Years) based on patient's age and At-Risk Patients (6 to to co mplete this topic 64 Years) Care Teams Waterworks Operator Relationship Specialty Start Date End Date No Ref-Primary, Physician PCP - General 06/11/19
--- OUTSIDE RECORDS SUMMARY | 2022-02-11 15:00 | XMS_ITS | Encounter Summary ---
:1990 Author Organization [facility] Address [address] [place] [address] Care Team Providers Name Role Phone Unavailable Primary Care Provider Unavailable Encounter Details Date Type Department Care Team Description 03/18/2006 Hospital Encounter [facility] Ebony Lopez P.A. [address] [place] [address] (Wo rk) Social History Tobacco Use Types [...] 05/04/2021 relatives? How often do you attend anabaptist or restoration Never 05/04/2021 services? Do you belong to any clubs or organizations such as No 05/04/2021 anabaptist groups, unions, fraternal or athletic groups, or [...]
--- OUTSIDE RECORDS SUMMARY | 2022-02-11 15:00 | XMS_ITS | Encounter Summary ---
:1990 Author Organization [facility] Address [address] [place] [address] Care Team Providers Name Role Phone Unavailable Primary Care Provider Unavailable Encounter Details Date Type Department Care Team Description 08/06/2002 Hospital Encounter [facility] Geraldo Hodges M.D. [address] [place], [place] [address] (Wo rk) Social History [...] How often do you attend christianity or taoism Never 05/04/2021 services? Do you [...]
--- OUTSIDE RECORDS SUMMARY | 2022-02-11 15:00 | XMS_ITS | Encounter Summary ---
:1990 Author Organization [facility] Address [address] [place] [address] Care Team Providers Name Role Phone Unavailable [...] often do you attend oriental orthodox or pentecostal Never 05/04/2021 services? Do you [...]
--- OUTSIDE RECORDS SUMMARY | 2022-02-11 15:00 | XMS_ITS | Encounter Summary ---
:1990 Author Organization [facility] Address [address] [place] [address] Care Team Providers Name Role Phone Unavailable [...] How often do you attend hindu or worship Never 05/04/2021 services? Do you belong to [...]
--- OUTSIDE RECORDS SUMMARY | 2022-02-11 15:00 | XMS_ITS | Encounter Summary ---
:1990 Author Organization [facility] Address [address] [place] [address] Care Team Providers Name Role Phone Unavailable Primary Care Provider Unavailable Encounter Details Date Type Department Care Team Description 10/09/2001 Hospital Encounter [facility] Geraldo Hodges M.D. [address] [place], [place] [address] (Wo rk) Social History [...] How often do you attend moravian or yazidism Never 05/04/2021 services? Do you [...]
--- OUTSIDE RECORDS SUMMARY | 2022-02-11 15:00 | XMS_ITS | Encounter Summary ---
:1990 Author Organization [place] [facility] Address [facility] [place] [address] Care Team Providers Name Role Phone No Ref-Primary, Physician Primary Care Provider [phone] Encounter Details Date Type Department Care Team Description 03/20/2020 Travel Social History Tobacco Use Types Packs/Day Years Used Date Smoking Tobacco: Never Smokeless Tobacco: Never Sex Assigned at Date Recorded Not on file COVID-19 Exposure Response Date Recorded In the last month, have you been in contact with No / Unsure 03/20/2020 1:57 PM SECURITY CONTROL ROOM OFFICER someone who was confirmed or suspected to have Coronavirus / COVID-19? documented as of this encounter Plan of Treatment Not on filedocumented as of this encounter Visit Diagnoses Not on filedocumented in this encounter Care Teams Manager Compliance Relationship Specialty Start Date End Date No Ref-Primary, Physician PCP - General 06/11/19 documented as of this encounter
--- OUTSIDE RECORDS SUMMARY | 2022-02-11 15:00 | XMS_ITS | Encounter Summary ---
:1990 Author Organization [facility] Address [address] [place] [address] Care Team Providers Name Role Phone Unavailable [...] 05/04/2021 relatives? How often do you attend buddhist or mosque Never 05/04/2021 services? Do you belong to any clubs or organizations such as No 05/04/2021 buddhist groups, unions, fraternal or athletic groups, or [...]
--- OUTSIDE RECORDS SUMMARY | 2022-02-11 15:00 | XMS_ITS | Encounter Summary ---
:1990 Author Organization [facility] Address [address] [place] [address] Care Team Providers Name Role Phone Unavailable [...] 05/04/2021 relatives? How often do you attend orthodoxy or pentecostal Never 05/04/2021 services? Do you belong to any clubs or organizations such as No 05/04/2021 orthodoxy groups, unions, fraternal or athletic groups, or [...]
--- OUTSIDE RECORDS SUMMARY | 2022-02-11 15:00 | XMS_ITS | Encounter Summary ---
:1990 Author Organization [facility] Address [address] [place] [address] Care Team Providers Name Role Phone Unavailable [...] 05/04/2021 relatives? How often do you attend mandaeism or adventism Never 05/04/2021 services? Do you belong to any clubs or organizations such as No 05/04/2021 mandaeism groups, unions, fraternal or athletic groups, or [...]
--- OUTSIDE RECORDS SUMMARY | 2022-02-11 15:00 | XMS_ITS | Encounter Summary ---
:1990 Author Organization [facility] Address [address] [place] [address] Care Team Providers Name Role Phone Unavailable [...] How often do you attend religious or moravian Never 05/04/2021 services? Do you [...]
--- OUTSIDE RECORDS SUMMARY | 2022-02-11 15:00 | XMS_ITS | Encounter Summary ---
:1990 Author Organization [facility] Address [address] [place] [address] Care Team Providers Name Role Phone Unavailable Primary Care Provider Unavailable Encounter Details Date Type Department Care Team Description 10/03/2007 Hospital Encounter [facility] Torsten Stevens M.D. [address] [place] [address] (Wo rk) Social History Tobacco Use Types [...] 05/04/2021 relatives? How often do you attend restorationism or caodaism Never 05/04/2021 services? Do you belong to any clubs or organizations such as No 05/04/2021 restorationism groups, unions, fraternal or athletic groups, or [...]
--- OUTSIDE RECORDS SUMMARY | 2022-02-11 15:00 | XMS_ITS | Encounter Summary ---
:1990 Author Organization [facility] Address [address] [place] [address] Care Team Providers Name Role Phone Unavailable Primary Care Provider Unavailable Encounter Details Date Type Department Care Team Description 09/23/2002 Hospital Encounter [facility]X [facility] Geraldo Hodges M.D. [address] [place], [place] [address] (Wo rk) Social History [...] 05/04/2021 relatives? How often do you attend adventist or hindu Never 05/04/2021 services? Do you belong to any clubs or organizations such as No 05/04/2021 adventist groups, unions, fraternal or athletic groups, or [...]
--- OUTSIDE RECORDS SUMMARY | 2022-02-11 15:00 | XMS_ITS | Encounter Summary ---
:1990 Author Organization [facility] Address [address] [place] [address] Care Team Providers Name Role Phone Unavailable Primary Care Provider Unavailable Encounter Details Date Type Department Care Team Description 06/04/2007 Hospital Encounter [facility] Torsten Mclaughlin M.D. [address] [place] [address] (Wo rk) Social History Tobacco Use Types [...] How often do you attend caodaism or cheondoism Never 05/04/2021 services? Do you belong to [...]
--- OUTSIDE RECORDS SUMMARY | 2022-02-11 15:00 | XMS_ITS | Encounter Summary ---
:1990 Author Organization [facility] Address [address] [place] [address] Care Team Providers Name Role Phone Unavailable Primary Care Provider Unavailable Encounter Details Date Type Department Care Team Description 03/05/2007 Hospital Encounter [facility] Torsten Mclaughlin M.D. [address] [place] [address] (Wo rk) Social History Tobacco Use Types [...] 05/04/2021 relatives? How often do you attend tenriism or restorationism Never 05/04/2021 services? Do you belong to any clubs or organizations such as No 05/04/2021 tenriism groups, unions, fraternal or athletic groups, or [...]
--- OUTSIDE RECORDS SUMMARY | 2022-02-11 15:00 | XMS_ITS | Encounter Summary ---
:1990 Author Organization [facility] Address [address] [place] [address] Care Team Providers Name Role Phone Unavailable Primary Care Provider Unavailable Encounter Details Date Type Department Care Team Description 06/24/2003 Hospital Encounter [facility]X [facility]ual Kenney M.D. [address] [place], [place] [address] (Wo rk) Social History [...] How often do you attend moravian or scientology Never 05/04/2021 services? Do you belong to [...]
--- OUTSIDE RECORDS SUMMARY | 2022-02-11 15:01 | XMS_ITS | Encounter Summary ---
:1990 Author Organization [place] Address [address] [facility] [place] [address] Care Team Providers Name Role Phone No Ref-Primary, Physician Primary Care Provider [phone] Reason for Visit Reason Comments Urgent Care URI coughing with yellow phlegm, chest congestion, x 3 days. Pt says sometimes it hurts to take d eep breaths. Encounter Details Date Type Department Care Team Description 06/11/2019 Office Visit [facility] Kee Perea UR I with cough Urgent Care Michelle Gonsales MD (Primary Dx) [address] [address] [place] [address] Social History Tobacco Use Types Packs/Day Years Used Date Smoking Tobacco: Never Smokeless Tobacco: Never Sex Assigned at Date Recorded Not on file documented as of this encounter Last Filed Vital Signs Vital Sign Reading Time Taken Comments Blood Pressure 98/70 06/11/2019 10:28 AM DIPLOMATIC COURIER Pulse 102 06/11/2019 10:28 AM DIPLOMATIC COURIER Temperature 36.5 ??C (97.7 ??F) 06/11/2019 10:28 AM DIPLOMATIC COURIER Respiratory Rate 18 06/11/2019 10:28 AM DIPLOMATIC COURIER Oxygen Saturation 99% 06/11/2019 10:28 AM DIPLOMATIC COURIER Inhaled Oxygen Concentration - - Weight 57.2 kg (126 lb) 06/11/2019 10:28 AM DIPLOMATIC COURIER Height - - Body Mass Index - [...] seen Expect improvement over next 5-7 days OMATIC COURIER documented in this encounter Progress Notes Kee [...] 21 capsule; Refill: 1 Kee Perea MD [facility] The use of [employer] dictation services may have been used to construct the content in this note; any grammatical or spelling errors are non- intentional. Please contact the author of this note directly if you are in need of any clarification. OMATIC COURIER documented in this encounter Plan of Treatment Not on filedocumented as of this encounter Visit Diagnoses Diagnosis Viral URI with cough - Primary Acute upper respiratory infections of un specified site documented in this encounter Care Teams Fitting Room Associate Relationship Specialty Start Date End Date No Ref-Primary, Physician PCP - General 06/11/19 documented as of this encounter
--- OUTSIDE RECORDS SUMMARY | 2022-02-11 15:01 | XMS_ITS | Encounter Summary ---
:1990 Author Organization [place] Address [address] [facility] [place] [address] Care Team Providers Name Role Phone No Ref-Primary, Physician Primary Care Provider [phone] Reason for Visit Reason Comments Urgent Care pt wants to talk to provider Encounter Details Date Type Department Care Team Description 10/02/2019 Office Visit [facility] Marilou Shipley BV (huy terial vaginosis) (Primary Dx); Urgent Care Michelle Ackerman NP Yeast infection of the vagina; [address] Vaginal discharge [place], [place] [address] [address] [place] [phone] Social History Tobacco Use Types Packs/Day Years [...] positives Negative results will be released to [facility] Recommend condoms and safe sex practices Dr. [...] positives Negative results will be released to [facility] Recommend condoms and safe sex practices Dr. Vora's blue unscented soap [facility] urogenital probiotic Push fluids, cotton underwear, open to air at night Follow up with primary care provider with any problems, questions or concerns or if symptoms worsen or fail to improve. Patient agreed to plan and verbalized understanding. Marilou Shipley, [facility] documented in this encounter [...] Code Phon e Number INFECTIOUS DISEASES [address] [place] [address] DIAGNOSTIC LABORATORY, [facility] INFECTIOUS DISEASES [address] [place] [address], [place] DIAGNOSTIC LABORATORY (ABNORMAL) Wet prep (10/02/2019 9:51 AM CDT) [facility] Method Time Signature Specimen Vagina [place] Description CLINICS MICHELLE Wet Prep No Trichomonas 10/02/2019 [place] seen 10:04 AM CLINICS CDT MICHELLE Wet Prep Few 10/02/2019 [place] Clue cells seen 10:04 AM CLINICS (A) CDT MICHELLE Wet Prep No yeast seen 10/02/2019 [place] 10:04 AM CLINICS CDT MICHELLE Wet Prep Few 10/02/2019 [place] WBC'S seen 10:04 AM CLINICS CDT MICHELLE Specimen Anatomical Collection Method Collection Time Receive d Time (Source) Location / / Volume Laterality Specimen from 10/02/2019 9:51 AM 10/02/19 20 9:52 vagina CDT AM CDT (specimen) Marilou Shipley NP LAB - MICRO GENERAL ORDERABL ES Performing Organization Address City/State/ZIP Code Phon e Number [facility] [address] [place] [address] Neisseria gonorrhoeae PCR (10/02/2019 9:50 AM CDT) Analysis Performed At [facility] logist Time Signature Specimen Urine 10/02/2019 [place] Descrip 9:52 AM CDT [facility] N Gonorrhea Negative NEG^Negati 10/03/2019 INFECTIOUS PCR ve 1:55 PM CDT DISEASES DIAGNOSTIC LABORATORY Comment: Negative for N. gonorrhoeae rRNA by herman scription mediated amplification. A negative result by professional engineer media dane amplification does not preclude the [...] MICRO GENERAL ORDERABL ES Performing Organization Address City/[facility]/ZIP Code Phon e Number INFECTIOUS DISEASES [address] [place] [address] DIAGNOSTIC LABORATORY, [address] [address] [phone] INFECTIOUS DISEASES [address] [place] [address], A DIAGNOSTIC LABORATORY Chlamydia trachomatis PCR (10/02/2019 9:50 AM CDT) [facility] Method Time Signature Specimen Urine 10/02/2019 [place] Description 9:52 AM CDT [facility] Chlamydia Negative NEG^Negat 10/03/2019 INFECTIOUS Trachomatis PCR [place] 1:55 PM CDT DISEAS[facility] DIAGNOSTIC LABORATORY Comment: Negative for C. trachomatis rRNA by herman scription mediated amplification. A negative result by professional engineer media dane amplification does not preclude the [...] City/State/ZIP Code Phon e Number INFECTIOUS DISEASES [address] [place] [phone] DIAGNOSTIC LABORATORY, [address] [address] [phone] INFECTIOUS DISEASES [address] [place] [phone], A DIAGNOSTIC LABORATORY documented in this encounter Visit Diagnoses Diagnosis BV (bacterial vaginosis) - Primary Vaginitis and vulvovaginitis, unspecifie d Yeast infection of the vagina Candidiasis of vulva and vagina Vaginal discharge Leukorrhea, not specified as infective documented in this encounter Care Teams Brick Machine Operator Relationship Specialty Start Date End Date No Ref-Primary, Physician PCP - General 06/11/19 documented as of this encounter
--- OUTSIDE RECORDS SUMMARY | 2022-02-11 15:01 | XMS_ITS | Encounter Summary ---
:1990 Author Organization [place] Address [facility] [place] [address] Care Team Providers Name Role Phone No [...] on filedocumented in this encounter Care Teams Fretted Instrument Inspector Relationship Specialty Start Date End Date No Ref-Primary, Physician PCP - General 06/11/19 documented as of this encounter
--- OUTSIDE RECORDS SUMMARY | 2022-02-11 15:01 | XMS_ITS | Encounter Summary ---
:1990 Author Organization [place] Address [facility] [place] [address] Care Team Providers Name Role Phone No Ref-Primary, Physician Primary Care Provider [phone] Encounter Details Date Type Department Care Team Description 06/11/2019 Travel Social History Tobacco Use Types Packs/Day Years Used Date Smoking Tobacco: Never Smokeless Tobacco: Never Sex Assigned at Date Recorded Not on file documented as of this encounter Plan of Treatment Not on filedocumented as of this encounter Visit Diagnoses Not on filedocumented in this encounter Care Teams Risk Consultant Relationship Specialty Start Date End Date No Ref-Primary, Physician PCP - General 06/11/19 documented as of this encounter
== END 2022-02-11 14:57 | disposition home or self-care (01) ==
LOC: US 14:56
PROVIDERS: Visit Provider Registered Nurse
DX: O24.410 Gestational diabetes mellitus in pregnancy, diet controlled (principal); Z3A.37 37 weeks gestation of pregnancy
CPT/HCPCS: 76816; 87081; 87653

== ENCOUNTER 2022-03-04 07:33 | Inpatient (IN) | payer BC, MEDICAID, SELFPAY ==
[2022-03-04] VITALS (26 sets, daily range): BP systolic 106–148; BP diastolic 65–95; PULSE 58–97; RESP 16; TEMP 36.3–36.8; O2SAT 94–98
[2022-03-04] MEDS: LACTATED RINGERS 1000 ML 1,000 ML 999 ML IV (08:00)
[2022-03-04 08:35] LABS: SARS PCR* Negative SARS-CoV-2 (Negative)
[2022-03-04 08:37] LABS: Basophils Absolute Auto 0.02 K/uL (0.00-0.30); Basophils Percent Auto 0.3 % (0.0-3.0); Eosinophils Absolute Auto 0.04 K/uL (0.00-0.50); Eosinophils Percent Auto 0.6 % (0.0-7.0); Hematocrit 33.5 % (33.0-51.0); Hemoglobin* 10.7 gm/dL (12.0-16.0); Immature Granulocytes Abs Auto 0.02 K/uL (0.00-0.30); Immature Granulocytes Pct Auto 0.3 %; Lymphocytes Percent Auto 18.8 % (20-44); Mean Corpuscular HGB Conc 32 gm/dL (32-36); Mean Corpuscular Hemoglobin 26 pg (26-34); Mean Corpuscular Volume 82 fL (80-100); Monocytes Percent Auto 9.2 % (0.0-11.0); Neutrophils Absolute Auto 4.93 K/uL (1.7-7.0); Neutrophils Percent Auto 70.8 % (42.0-72.0); Platelet Count* 187 K/uL (140-440); RDW Coefficient of Variation % 15.1 % (11.5-15.5); Red Blood Count 4.11 m/uL (4.00-5.20); White Blood Count* 6.96 K/uL (4.50-11.00)
[2022-03-04 08:38] LABS: Slide Review Reflex No
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
[2022-03-04] MEDS: CEFAZOLIN 2 GM INJ IVP (09:55)
[2022-03-04] MEDS: KETOROLAC 15 MG/ML inj IVP (10:26)
--- NOTE | 2022-03-04 10:35 | SUR.OPER ---
Surgeon denied sending Placenta to Pathology.
--- NOTE | 2022-03-04 10:59 | W.ANESCHARGE ---
Anesthesia Charges Start Date/Time Anesthesia Start Date: 03/04/22 Anesthesia Start Time: 09:45 Stop Date/Time Anesthesia Stop Date: 03/04/22 Anesthesia Stop Time: 10:55 Summary Emergency: No
--- NOTE | 2022-03-04 11:32 | W.PM.NB ---
Nerve Block Nerve Block Time Seen by Provider: 10:45 Type of block requested by surgeon for post-operative analgesia: TAP Side: bilateral Time out performed: Yes Verification of patient name: Yes Verification of date of : Yes Site marking: site marked Name of person performing procedure: Brody Continuous monitoring Was continuous monitoring of O2 sat, B/P, launch steward, recorded every 15 minutes?: Yes Procedure Checklist: sterile prep, needles and gloves Ultrasound guided. Images saved: Yes Medications given in 5ml increments after negative aspiration: Marcaine %: 0.25 mL: 30 Needle gauge: 20 and Exparel mL: 10 Patient tolerated procedure well: Yes Additional comments: Needle noted adjacent to nerve Block Charges Block Charge (with Pro Fee): TAP Bilateral Use of Ultrasound Machine for Block: Yes- US Guidance/pain block
--- NOTE | 2022-03-04 11:32 | W.ANESCHARGE ---
Anesthesia Charges Start Date/Time Anesthesia Start Date: 03/04/22 Anesthesia Start Time: 09:45 Stop Date/Time Anesthesia Stop Date: 03/04/22 Anesthesia Stop Time: 10:55 Summary Emergency: No
--- NOTE | 2022-03-04 12:32 | PM.OBPRCCS ---
Procedure Pre-op/Post-op diagnoses: Pre-Op/Post-Op Diagnoses Operation Date: 03/04/22 09:15 <No data on this case meets the specified criteria> Procedure Done: Global Procedure Details: Procedures Operation Date: 03/04/22 09:15 Actual Procedure Side Surgeon p Primary Section Stephy Davis MD University Services Program Associate: Laurie Gaffney Narrative: DELIVERY BY SECTION Date of Service: 03/04/2022 at 1011 Summary: Admitted for scheduled primary section, Primary Lower uterine tranverse section, Pfannenstiel, Closed with sutures, QBL: 313 cc, No complications, Findings: Normal uterus, bilateral ovaries and tubes, 8, 9, weight 3600 g. Primary Indication: malpresentation at term - jimbo breech Declined ECV Procedures: Primary Lower uterine tranverse section Specimens Removed: Placenta Surgeon: Stephy Davis MD [employer] Services Program Associate: Laurie Gaffney RN Report: Prophylactic antibiotic, 2 g of Ancef was given before patient was taken to OR. After arrival to the operating room patient was placed in the supine position with left lateral tilt after administration of spinal anesthesia. Laparotomy A pfannenstiel incision was made through the anterior abdominal wall with #10 scalpel approximately 2 cm above the pubic symphysis. The incision was extended sharply with the #10 scalpel through the subcutaneous tissue to the level of fascia. The fascia was entered sharply with a #10 scalpel (Pfannenstiel) in the midline and extended in semi-elliptical fashion with bluntly using the Misgav- Ladach technique. The rectus muscles were in the midline bluntly with digits. The peritoneum was then entered bluntly. The peritoneal incision was then extended superiorly and inferiorly under direct visualization with care being taken to avoid bladder and bowel. No adhesions were noted. The peritoneal incision was enlarged bluntly by lateral traction from the surgeon's and public services assistant's hand. Eugene retractor was inserted into the abdomen. Delivery A bladder flap was not developed. Then sharp and blunt dissection with Metzenbaum scissor and fingers were performed. A low transverse hysterotomy was made then with #10 scalpel and extended laterally and cephalad with fingers in a low transverse fashion with Manu Wei technique with care being taken to avoid injury to the fetus. The amniotic cavity (membrane) was then entered with spontaneous rupture of membrane, and the amniotic fluid was noted to be clear, fetus was in breech presentation by grasping hips and bringing it to the hysterotomy. legs were delivered and a dry towel was placed over them to provide traction. Rotation of the body was implemented to sweep the left and right arm out of the hysterotomy. Finally, the Arley Jahkeron Contreras manuever was used to delivery head in safe fashion. With delivery of the baby, no extension was noted. Placenta was delivered spontaneously with steady traction on cord and manual separation of placenta from uterine wall. Closure Uterine cavity was cleaned after placental delivery with lap sponge x 2. The hysterotomy was closed in one layer with stitches using 0 vicryl with continuous locking stitches. Hemostasis was achieved as needed with electrocautery. The ovaries/tubes/urine surface were evaluated. They were found to be normal. Fascia was closed with running stitches using 2-0 vicryl. Hemostasis was checked for and found to be adequate. The subcutaneous layer was closed with running interrupted 2-0 vicryl sutures. The skin was closed with monocryl subcuticular sutures. The incision was cleaned and covered with a compression bandage and the procedure considered terminate at this time. Intraoperative Complications: None EBL: 313 cc Uterotonics: 20 u of pitocin Disposition: The patient tolerated the procedure well. She was recovered in Obstetric PACU for close monitoring in stable condition, with a contracted uterus and normal transvaginal bleeding. The infant was sent to mother?s bedside. The placenta was not sent to pathology.
[2022-03-04] MEDS: ONDANSETRON 2 MG/ML inj 4 MG IV (12:58)
[2022-03-04] MEDS: LACTATED RINGERS 1000 ML 1,000 ML 125 ML IV (16:22)
[2022-03-04] MEDS: KETOROLAC 30 MG/ML inj IVP ×2 (17:03→22:36)
[2022-03-04] MEDS: SODIUM CHLORIDE 0.9 % (FLUSH) 10 ML SYRINGE IVF (22:37)
[2022-03-05] VITALS (8 sets, daily range): BP systolic 96–115; BP diastolic 58–70; PULSE 69–92; RESP 16; TEMP 36.6–36.9; O2SAT 96–97
[2022-03-05] MEDS: KETOROLAC 30 MG/ML inj IVP ×3 (04:28→18:08)
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
[2022-03-05] MEDS: SODIUM CHLORIDE 0.9 % (FLUSH) 10 ML SYRINGE IVF ×2 (10:45→18:08)
[2022-03-05] MEDS: DOCUSATE SODIUM 100 MG CAPSULE PO (10:46)
[2022-03-06 01:00] VITALS: BP 121/80; PULSE 97; RESP 16; TEMP 36.8; O2SAT 97
[2022-03-06] MEDS: KETOROLAC 30 MG/ML inj IVP (01:15)
[2022-03-06] MEDS: ACETAMINOPHEN 500 MG TABLET 1000 MG PO (06:03)
[2022-03-06 08:15] VITALS: BP 117/72; PULSE 78; RESP 16; TEMP 37; O2SAT 96
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
[2022-03-06] MEDS: IBUPROFEN 600 MG TABLET PO (09:27)
[2022-03-06] MEDS: DOCUSATE SODIUM 100 MG CAPSULE PO (09:27)
== END 2022-03-06 12:00 | disposition home or self-care (01) | DRG 540 ==
PROVIDERS: Admitting Provider Obstetrics & Gynecology; Visit Provider Obstetrics & Gynecology
PROC: 10D00Z1 Extraction of Products of Conception, Low, Open Approach (ICD-10-PCS; CPT 59514; principal; 2022-03-04 09:00)
DX: O32.1XX0 Maternal care for breech presentation, not applicable or unspecified (principal); O24.420 Gestational diabetes mellitus in childbirth, diet controlled; O90.81 Anemia of the puerperium; D62 Acute posthemorrhagic anemia; Z62.810 Personal history of physical and sexual abuse in childhood; Z37.0 Single live birth; Z3A.39 39 weeks gestation of pregnancy
CPT/HCPCS: 1961; 36415; 64488; 76942; 82962; 85018; 85025; 86850; 86900; 86901; 87635; A9270; C9290; J0690; J1100; J1885; J2274; J2370; J2405; J2590; J3490; J7120

== ENCOUNTER 2022-03-14 13:03 | Outpatient (CLI) | payer BC, MEDICAID, SELFPAY ==
--- OUTSIDE RECORDS SUMMARY | 2022-03-14 13:18 | XMS_ITS | Encounter Summary ---
:1990 Author Organization [facility] Address [address] [place] [address] Care Team Providers Name Role Phone Unavailable Primary Care Provider Unavailable Encounter Details Date Type Department Care Team Description 04/26/2010 Hospital Encounter [facility]X [facility] Kristy Junior M.D. [address] [place] [address] (Wo rk) Social History Tobacco [...] How often do you attend methodist or religion Never 05/04/2021 services? Do you [...] Junior M.D. - 04/26/2010 12:00 AM CST [id number] HISTORY OF PRESENT ILLNESS 20-year-old female who [...] JUNIOR MD On 04/29/2010 08:32 AM Source: [facility] MHSDOLBEYNONRADSYS Document Id: [id number] Y PLAN DEMONSTRATOR documented in this encounter Miscellaneous Notes Miscellaneous - Chetna Rocha L.P.N. - 04/26/2010 6:06 PM CST Adult Zoning Technician Intake/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 Zoning Technician Intake/History Entered On: 04/26/2010 18:09 PARTY PLAN DEMONSTRATOR Performed On: 04/26/2010 18:06 PARTY PLAN DEMONSTRATOR by CHETNA ROCHA Intake Chief Complaint: Frequency with urination Onset of Symptoms: 1 day Temperature Oral: 36.9C(Converted to: 98.4DegF) Peripheral Pulse Rate: 82/min Respiratory Rate: 18/min Systolic Blood Pressure: 100mmHg Diastolic Blood Pressure: 60mmHg NIBP Mean: 73mmHg Actual Weight: 47.700kg(Converted to: 105lb 3oz) Dosing Weight Clinic: 47.70kg CHETNA ROCHA - 04/26/2010 18:06 PARTY PLAN DEMONSTRATOR Subjective Pain Symptoms: No CHETNA ROCHA - 04/26/2010 18:06 PARTY PLAN DEMONSTRATOR Dependent Habits Tobacco Use/Currently Using: No CHETNA ROCHA - 04/26/2010 18:06 PARTY PLAN DEMONSTRATOR Tobacco Use Grid Type: Cigarettes CHETNA ROCHA - 04/26/2010 18:06 PARTY PLAN DEMONSTRATOR Caffeine Use Grid Caffeine Use: Current Type: Coffee Frequency: Occasionally CHETNA ROCHA - 04/26/2010 18:06 PARTY PLAN DEMONSTRATOR Allergies Allergies (Active) NKA Estimated Onset Date: Unspecified ; Created By: MEGHAN REMY; Reaction Status: Active ; Category: Drug ; Substance: NKA ; Type: Allergy ; Updated By: MEGHAN REMY; Reviewed Date: 04/26/2010 18:05CST [facility] Document Id: [id number] PARTY PLAN DEMONSTRATOR!24 Y PLAN DEMONSTRATOR documented in this encounter Plan of Treatment Not on filedocumented as of this encounter Visit Diagnoses Not on filedocumented in this encounter
--- OUTSIDE RECORDS SUMMARY | 2022-03-14 13:18 | XMS_ITS | Encounter Summary ---
:1990 Author Organization [facility] Address [address] [place] [address] Care Team Providers Name Role Phone Unavailable Primary Care Provider Unavailable Encounter Details Date Type Department Care Team Description 09/20/2013 Hospital Encounter HX [facility] Segal M.D. [address] [place] [address] (Wo rk) Social History Tobacco Use Types [...] 05/04/2021 relatives? How often do you attend restorationist or baptist Never 05/04/2021 services? Do you belong to any clubs or organizations such as No 05/04/2021 restorationist groups, unions, fraternal or athletic groups, or [...] Smalls M.D. - 09/20/2013 2:31 PM CDT [id number] CHIEF COMPLAINT/REASON FOR VISIT Followup Pap after [...] SMALLS MD On: 09/28/2013 01:39 PM Source: [facility] MHSDOLBEYNONRADSYS Document Id: [id number] documented in this encounter Miscellaneous Notes Miscellaneous - Anai Smalls M.D. - 10/01/2013 11:15 AM CDT Normal Results Letter 01 October 2013 DENISE ALEXANDER [address] [place] [id number] Dear DENISE ALEXANDER, I am pleased to report that your results from the following diagnostic test(s) are normal. Please follow up with us as we discussed during your visit or sooner if you have any concerns. If you have questions or concerns, please do not hesitate to call our office. CYTOPATHOLOGY YARD HAND REPORT FINAL CYTOLOGIC DIAGNOSIS Pap Smear - ThinPrep: NEGATIVE FOR INTRAEPITHELIAL LESION OR MALIGNANCY ENDOCERVICAL CELLS/COMPONENT PRESENT. HISTORY OF ABNORMAL CYTOLOGY NOTED. SATISFACTORY SPECIMEN FOR EVALUATION. Result Name Current Result YARD HAND Cytology 09/20/2013 Sincerely, ANAI SMALLS [address] [place] [id number] Electronic Signature Electronically Signed By: ANAI SMALLS MD On: 01 October 2013 This document has images extracted. Source: [facility] POWERCHART Document Id: [id number] Electronically signed by Violette [facility] Garnishment Specialist [id number] at 09/13/2016 8:08 PM CDT Miscellaneous - Anai Smalls M.D. - 09/20/2013 5:49 PM CDT Ambulatory Patient Summary [facility] [address] [place] [id number] Visit Information Name: DENISE ALEXANDER [facility] Number: [id number] Current Date: 09/20/2013 17:49:29 Physicians [...] appointment detail needed. Your Goals/Additional instructions: Source: [facility] POWERCHART Document Id: [id number] Miscellaneous - Anai Smalls M.D. - 09/20/2013 5:49 PM CDT Ambulatory Discharge Medication List [address] [id number] Visit Information Name: DENISE ALEXANDERELLE [facility] Number: [id number] Visit Date: 09/20/2013 17:49:27 Attending Provider: ANAI SMALLS MD Primary Care Provider: RAMSEY BAÑUELOS MD DEINSE ALEXANDERELLE has been given the following list [...] MD Signed On:20-SEP-2013 17:49:25 Additional Information: Source: [employer] Document Id: [id number] Miscellaneous - Sherine Lopez, L.P.N. - 09/20/2013 2:39 PM CDT Adult Director Life 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/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 Director Life 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/History Entered On: 09/20/2013 14:40 CDT Performed [...] 09/20/2013 14:39 CDT General Info Languages : [place] Citizen SHERINE LOPEZ - 09/20/2013 14:39 CDT Subjective [...] SHERINE LOPEZ - 09/20/2013 14:39 CDT Source: [employer] Document Id: [id number] CDT!25 documented in this encounter Plan of Treatment Not on filedocumented as of this encounter Procedures Procedure Name Priority Date/Time Associated Diagnosis Comme nts PATHOLOGY YARD HAND Routine 09/20/2013 12:00 AM Results for this CYTOLOGY CDT procedure are i n the results section. documented in this encounter Results Pathology YARD HAND Cytology (09/20/2013 12:00 AM CDT) Specimen (Source) Anatomical Location Collection Method / Collectio n Time Received Time / Laterality Volume 09/20/2013 Narrative [facility] LAB - 10/01/2013 7:06 AM CDT [facility] in [address] ??[address] Patient Name: DENISE ALEXANDER Patient ID #: [id number] Collected: 09/20/2013 Address: [facility]/State/Zip: [facility] [place], [place] ??[id number] Received: Reported: 09/23/2013 10/01/2013 Soc. Sec. #: ?/Age/Sex 1990 (Age: 23) ??F Physician(s): FRANCA SMALLS MD Copy To: ? [facility] ?? [id number] [address] [facility], ??[place] ??[address] CYTOPATHOLOGY YARD HAND REPORT FINAL CYTOLOGIC DIAGNOSIS Pap Smear - ThinPrep: NEGATIVE FOR INTRAEPITHELIAL LESION OR MALIGNANCY ENDOCERVICAL CELLS/COMPONENT PRESENT. HISTORY OF ABNORMAL CYTOLOGY NOTED. SATISFACTORY SPECIMEN FOR EVALUATION. Electronically Signed Out By amb/10/01/2013 AM [facility](ASCP) The Pap test is a screening procedure [...] Organization Address City/State/ZIP Code Phon e Number LC LAB documented in this encounter Visit Diagnoses Not on filedocumented in this encounter Additional Health Concerns Assessment Noted Time PHQ-9 Depression Total Score: 6 08/15/2013 3:15 PM CDT documented as of this encounter
--- OUTSIDE RECORDS SUMMARY | 2022-03-14 13:18 | XMS_ITS | Encounter Summary ---
:1990 Author Organization [facility] Address [address] [place] [address] Care Team Providers Name Role Phone Unavailable [...] 05/04/2021 relatives? How often do you attend sabianism or church Never 05/04/2021 services? Do you belong to any clubs or organizations such as No 05/04/2021 sabianism groups, unions, fraternal or athletic groups, or [...] Comments Blood Pressure 102/54 04/12/2012 11:12 AM WORKERS' COMPENSATION COMMISSIONER Pulse 76 04/12/2012 11:12 AM WORKERS' COMPENSATION COMMISSIONER Temperature - - Respiratory Rate 16 04/12/2012 11:12 AM WORKERS' COMPENSATION COMMISSIONER Oxygen Saturation - - Inhaled Oxygen Concentration - - Weight 54 kg (119 lb 0.8 oz) 04/12/2012 11:12 AM WORKERS' COMPENSATION COMMISSIONER Height - - Body Mass Index 23.01 03/29/2012 2:28 PM WORKERS' COMPENSATION COMMISSIONER documented in this encounter Progress Notes Ramsey Banda M.D. - 04/12/2012 10:50 AM CST [id number] CHIEF COMPLAINT/REASON FOR VISIT Removal of genital [...] behalf by Marleny Delgadillo, a trained medical editor. The creation of this record is based on the scribe's personal observations and the provider's statements to them. This document has been checked and approved by the attending provider. Ramsey Pierre M.D./elisha Electronically Signed By: RAMSEY PIERRE MD On: 04/19/2012 09:41 PM Source: [facility] MHSDOLBEYNONRADSYS Document Id: [id number] ERS' COMPENSATION COMMISSIONER documented in this encounter Miscellaneous Notes Miscellaneous - Nikolas Menendez M.D. - 06/06/2012 9:41 AM CST Denise did not show up to todays appointment for colposcopy. Source: [facility] POWERCHART Document Id: [id number] ERS' COMPENSATION COMMISSIONER Miscellaneous - Conversion, Historical Provider Ser - 05/29/2012 5:01 PM WORKERS' COMPENSATION COMMISSIONER General Message From: MCKENNA PALMA (OLIVIER Mattson Nurse) Sent: 05/29/2012 17:01:00 WORKERS' COMPENSATION COMMISSIONER Subject: General Message Fay was notified of the importance of setting up an appointment with the [facility]ELOPER dept. She was not able to schedule this today due to high call volume so she could not be transferrred. She was given the number of the clinic and said she will call 05-30-12. Source: [facility] POWERCHART Document Id: [id number] Miscellaneous - Ramsey Banda M.D. - 04/12/2012 12:10 PM WORKERS' COMPENSATION COMMISSIONER Ambulatory Patient Summary [facility] [address] [place] [address] Visit Information Name: DENISE ALEXANDER [facility] Number: [id number] Current Date: 04/12/2012 [...] found Your Goals/Additional instructions: Source: [facility] POWERCHART Document Id: [id number] ERS' COMPENSATION COMMISSIONER Miscellaneous - Ramsey Banda M.D. - 04/12/2012 12:10 PM WORKERS' COMPENSATION COMMISSIONER Ambulatory Depart Summary [facility] [address] [place] [id number] Visit Information Name: DENISE ALEXANDER [facility] Number: [id number] Visit Date: 04/12/2012 [...] your provider for clarification. Additional Information: Source: [facility] POWERCHART Document Id: [id number] ERS' COMPENSATION COMMISSIONER Miscellaneous - Conversion, Historical Provider Ser - 04/12/2012 11:12 AM WORKERS' COMPENSATION COMMISSIONER Adult School Psychology Specialist Intake/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 School Psychology Specialist Intake/History Entered On: 04/12/2012 11:15 WORKERS' COMPENSATION COMMISSIONER Performed On: 04/12/2012 11:12 WORKERS' COMPENSATION COMMISSIONER by ROYAL CLINTON Intake Chief Complaint : [...] : 54.00kg ROYAL CLINTON - 04/12/2012 11:12 WORKERS' COMPENSATION COMMISSIONER General Info Information Given By : Patient Preferred Communication Mode : Verbal Languages : Kazakh ROYAL CLINTON - 04/12/2012 11:12 WORKERS' COMPENSATION COMMISSIONER Subjective Pain Symptoms : No ROYAL CLINTON 04/12/2012 11:12 WORKERS' COMPENSATION COMMISSIONER Dependent Habits Tobacco Use/Currently Using : Yes Exposure to Tobacco Smoke : Patient smokes Smoking Status : Current some day smoker ROYAL CLINTON - 04/12/2012 11:12 WORKERS' COMPENSATION COMMISSIONER Tobacco Use Grid Type : Cigarettes ROYAL CLINTON 04/12/2012 11:12 WORKERS' COMPENSATION COMMISSIONER Alcohol Use : Yes ROYAL CLINTON 04/12/2012 11:12 WORKERS' COMPENSATION COMMISSIONER Caffeine Use Grid Caffeine Use : Current Type : Coffee Frequency : Occasionally ROYAL CLINTON 04/12/2012 11:12 WORKERS' COMPENSATION COMMISSIONER Allergy Allergies (Active) NKA Estimated Onset Date: Unspecified ; Created By: MEHGAN REMY; Reaction Status: Active ; Category: Drug ; Substance: NKA ; Type: Allergy ; Updated By: MEGHAN REMY; Reviewed Date: 04/12/2012 11:11CST Source: [facility] POWERCHART Document Id: [id number] documented in this encounter Plan of Treatment Not on filedocumented as of this encounter Visit Diagnoses Not on filedocumented in this encounter Additional Health Concerns Assessment Noted Time PHQ-9 Depression Total Score: 12 03/29/2012 5:44 PM CS T documented as of this encounter
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
--- OUTSIDE RECORDS SUMMARY | 2022-03-14 13:18 | XMS_ITS | Encounter Summary ---
:1990 Author Organization [facility] Address [address] [place] [address] Care Team Providers Name Role Phone Unavailable [...] 05/04/2021 relatives? How often do you attend sabianist or latter day Never 05/04/2021 services? Do you belong to any clubs or organizations such as No 05/04/2021 sabianist groups, unions, fraternal or athletic groups, or [...]
--- OUTSIDE RECORDS SUMMARY | 2022-03-14 13:18 | XMS_ITS | Encounter Summary ---
:1990 Author Organization [facility] Address [address] [place] [address] Care Team Providers Name Role Phone Unavailable Primary Care Provider Unavailable Encounter Details Date Type Department Care Team Description 05/07/2013 Hospital Encounter HX NO MAPPING Reece Smalls M.D. [address] [place], [place] [address] (Wo rk) Social History Tobacco Use Types [...] How often do you attend sikh or mormonism Never 05/04/2021 services? Do you [...]
--- OUTSIDE RECORDS SUMMARY | 2022-03-14 13:18 | XMS_ITS | Clinical Summary ---
:1990 Author Organization [facility] Address [address] [place] [address] Care Team Providers Name Role Phone Elsewhere, Pcp Primary Care Provider Unavailable Source Comments Patient records contain information from all sites at [facility]. For routine questions regarding patient records, call [phone] during business hours, M-F 8:00 AM - 5:00 PM Central Time. Record requests for emergency care only can be directed to [phone] at any time.[facility] Allergies No known active allergies Medications No [...] 05/04/2021 relatives? How often do you attend shinto or gnosticism Never 05/04/2021 services? Do you belong to any clubs or organizations such as No 05/04/2021 shinto groups, unions, fraternal or athletic groups, or [...] Comments Blood Pressure 123/77 05/04/2021 2:45 PM COMMUNITY AFFAIRS MANAGER Pulse 99 05/04/2021 2:45 PM COMMUNITY AFFAIRS MANAGER Temperature 36.8 ??C (98.2 ??F) 05/04/2021 2:45 PM COMMUNITY AFFAIRS MANAGER Respiratory Rate 16 07/21/2014 1:27 PM CDT Oxygen Saturation - - Inhaled Oxygen Concentration - - Weight 55.7 kg (122 lb 12.7 oz) 05/04/2021 2:45 PM COMMUNITY AFFAIRS MANAGER Height 152.5 cm (5' 0.04) 05/04/2021 2:45 PM COMMUNITY AFFAIRS MANAGER Body Mass Index 23.95 05/04/2021 2:45 PM COMMUNITY AFFAIRS MANAGER Plan of Treatment Health Maintenance Due Date Last Done Comments HIV Screening 1990 Hepatitis C Screening 1990 COVID-19 Vaccine (#1) 1990 Cervical Cancer Screening 09/20/2016 09/20/2013, 03/29/2012 Depression Monitoring 09/01/2021 05/04/2021 (PHQ-9) DTaP,Tdap,and Td Vaccines 01/15/2032 01/14/2022, 11/01/2010 , (4 - Td or Tdap) 08/06/2002, Additional history exists Hepatitis B Vaccines Completed 12/11/2002, 12/11/2002, 09/23/2002, Additional history exists Influenza Vaccine Completed 02/25/2022, 05/08/2018, 03/16/2016, Additional history exists Pneumococcal vaccine (0-64 Aged Out No lo nger eligible years) based on patient 's age to complete this topic Care Teams High School Science Teacher Relationship Specialty Start Date End Date Elsewhere, Pcp PCP - General 08/08/21
--- OUTSIDE RECORDS SUMMARY | 2022-03-14 13:18 | XMS_ITS | Encounter Summary ---
:1990 Author Organization [facility] Address [address] [place] [address] Care Team Providers Name Role Phone Unavailable Primary Care Provider Unavailable Encounter Details Date Type Department Care Team Description 02/20/2010 Hospital Encounter HX [facility] Beni Liu, P.A.-CKendall [address] [place] [address] (Wo rk) Social History Tobacco Use Types [...] How often do you attend amish or holiness Never 05/04/2021 services? Do you belong to [...] P.A.-C., Lisa - 02/20/2010 12:00 AM CDT [id number] CHIEF COMPLAINT / REASON FOR VISIT Congestion [...] By:ZEB LIU On 02/26/2010 12:51 PM Source: [facility] MHSDOLBEYNONRADSYS Document Id: [id number] H CATCHER documented in this encounter Miscellaneous Notes Miscellaneous - Zeb Liu P.A.-C., P.A. - 02/20/2010 11:43 AM CDT Ambulatory Patient Summary [facility] [address] [place] [address] Visit Information Name: DENISE ALEXANDER Current Date: [...] No Appointments found Your Goals/Additional instructions: Source: [facility] POWERCHART Document Id: [id number] Electronically signed by Conversion, [facility] Java Lead Developer [id number] at 09/19/2016 4:06 AM CDT Trisha - Zeb Liu P.A.-C., P.A. - 02/20/2010 11:43 AM CDT Ambulatory Depart Summary [address] [address] Visit Information Name: DENISE ALEXANDER Current Date: [...] to the patient and/or family, guardian/caregiver. Source: [facility] DraftstreetCHART Document Id: [id number] Electronically signed by Conversion, [facility] Java Lead Developer [id number] at 09/19/2016 4:06 AM CDT Trisha - Kay Remy - 02/20/2010 11:31 AM CDT Adult Php Wordpress Developer Intake/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 Php Wordpress Developer Intake/History Entered On: 02/20/2010 11:33 CDT Performed [...] REMY - 02/20/2010 11:31 CDT Allergies [facility]: [facility] Document Id: [id number] CDT!16 documented in this encounter Plan of Treatment Not on filedocumented as of this encounter Visit Diagnoses Not on filedocumented in this encounter
--- OUTSIDE RECORDS SUMMARY | 2022-03-14 13:18 | XMS_ITS | Encounter Summary ---
:1990 Author Organization [facility] Address [address] [place] [address] Care Team Providers Name Role Phone None Reported, Pcp Primary Care Provider Unavailable Reason for Referral Outpatient (Routine) - Authorized Specialty Diagnoses / Procedures Referred By Contact Refer red To Contact Diagnoses Removal Of Intrauterine Contraceptive Device Laura Pierre M.D. [facility] Region Procedures IUD - removal [address] [place] [address] Referral ID Status Reason Start Date Expiration Date Visits V isits Requested Authorized [id number] Authorized 05/04/2021 05/04/2022 1 1 N RESOURCES MANAGER Reason for Visit Reason Comments Contraception IUD removal Appointment Request (Routine) - Closed Specialty Diagnoses / Procedures Referred By Contact Refer red To Contact Family Medicine Referral ID Status Reason Start Date Expiration Date Visits Requ ested Visits Authorized [id number] Closed 04/09/2021 04/09/2022 1 1 Encounter Details Date Type Department Care Team Description 05/04/2021 Office Visit Department of Laura Huynh Of Intrauterine Medicine, Jaya Cheatham M.D. Contraceptive Device Clinic, [facility], [address] (Primary Dx) [place], [place] [address] [address] [place], [place] [phone] [address] (Work) [phone] Social History Tobacco Use Types Packs/Day Years [...] How often do you attend sikhism or shinto Never 05/04/2021 services? Do you [...] Comments Blood Pressure 123/77 05/04/2021 2:45 PM HUMAN RESOURCES MANAGER Pulse 99 05/04/2021 2:45 PM HUMAN RESOURCES MANAGER Temperature 36.8 ??C (98.2 ??F) 05/04/2021 2:45 PM HUMAN RESOURCES MANAGER Respiratory Rate - - Oxygen Saturation - - Inhaled Oxygen Concentration - - Weight 55.7 kg (122 lb 12.7 oz) 05/04/2021 2:45 PM HUMAN RESOURCES MANAGER Height 152.5 cm (5' 0.04) 05/04/2021 2:45 PM HUMAN RESOURCES MANAGER Body Mass Index 23.95 05/04/2021 2:45 PM HUMAN RESOURCES MANAGER documented in this encounter Progress Notes Laura [...] will follow-up as needed. Laura Pierre M.D. N RESOURCES MANAGER documented in this encounter Procedure Notes Laura [...] completed successfully: yes Complications: no apparent complications N RESOURCES MANAGER documented in this encounter Plan of Treatment Not on filedocumented as of this encounter Procedures Procedure Name Priority Date/Time Associated Diagnosis Comme nts NE REMOVAL OF Routine 05/04/2021 3:12 Removal Of Results for this INTRAUTERINE DEVICE PM HUMAN RESOURCES MANAGER Intrauterine procedur e are in Contraceptive Device the res ults section. documented in this encounter Results NE REMOVAL OF INTRAUTERINE DEVICE (05/04/2021 3:12 PM HUMAN RESOURCES MANAGER) Narrative MMODAL - 05/04/2021 3:12 PM HUMAN RESOURCES MANAGER Laura Pierre M.D. ? 05/04/2021 ??3:16 PM [...] Depression Total Score: 5 05/04/2021 2:47 PM HUMAN RESOURCES MANAGER documented as of this encounter Care Teams Flight Coordinator Relationship Specialty Start Date End Date None Reported, Pcp PCP - General Family Medicine 05/04/21 documented as of this encounter
--- OUTSIDE RECORDS SUMMARY | 2022-03-14 13:18 | XMS_ITS | Encounter Summary ---
:1990 Author Organization [facility] Address [address] [place] [address] Care Team Providers Name Role Phone Unavailable Primary Care Provider Unavailable Encounter Details Date Type Department Care Team Description 05/07/2013 Hospital Encounter HX [facility] Segal M.D. [address] [place] [address] (Wo rk) Social History Tobacco [...] 05/04/2021 relatives? How often do you attend evangelical or sabianist Never 05/04/2021 services? Do you belong to any clubs or organizations such as No 05/04/2021 evangelical groups, unions, fraternal or athletic groups, or [...] Smalls M.D. - 05/07/2013 3:01 PM CST [id number] CHIEF COMPLAINT/REASON FOR VISIT Abnormal Pap smear [...] MD On: 05/08/2013 11:11 AM Source: [facility] ESTEBANSDOLBEYNNEMESIO Document Id: [id number] INE WELT BUTTER documented in this encounter Miscellaneous Notes Miscellaneous - Anai Smalls M.D. - 05/09/2013 10:09 AM CST Results Notification Document Contains Addenda Addendum by TRESSA HERNADEZ on 10 May 2013 14:42:17 MACHINE WELT BUTTER Patient was given the information and transfered to schedule appointment. Addendum by GLORIA MALDONADO on 10 May 2013 13:05:05 MACHINE WELT BUTTER Patient returned call to patient, please call her after 2:30, she is working right now. Addendum by SHERINE LOPEZ on 10 May 2013 12:56:24 MACHINE WELT BUTTER left message to call back Addendum by SHERINE LOPEZ on 09 May 2013 16:06:55 MACHINE WELT BUTTER left message to call back From: ANAI SMALLS MD To: OLIVIER Smalls Nurse; Sent: 05/09/2013 10:09:33 MACHINE WELT BUTTER Show up: 05/09/2013 10:10:00 MACHINE WELT BUTTER Subject: Results Notification Severe dysplasia confirmed, needs to set up a LEEP in 1-2 weeks. Results: Date Result Type Result Name 05/09/2013 8:54 Document - DOC Pathology-Surg Path Source: [facility] POWERCHART Document Id: [id number] Electronically signed by Violette, [facility] Slip Cover Sewer [id number] at 09/13/2016 6:58 AM CDT Miscellaneous - Anai Smalls M.D. - 05/08/2013 4:08 PM CST Results Notification Document Contains Addenda Addendum by TRESSA HERNADEZ on 10 May 2013 14:41:42 MACHINE WELT BUTTER Patient was given the informtion Addendum by SHERINE LOPEZ on 10 May 2013 12:56:04 MACHINE WELT BUTTER left messae to call back Addendum by SHERINE LOPEZ on 08 May 2013 16:25:39 MACHINE WELT BUTTER left message to call back From: ANAI SMALLS MD To: OLIVIER Smalls Nurse; Sent: 05/08/2013 16:08:44 MACHINE WELT BUTTER Show up: 05/08/2013 16:09:00 MACHINE WELT BUTTER Subject: Results Notification Nees Rx for bacterial vaginosis Results: Date Result Type Ind Result Name MBO POS WET Prep WBC's Source: [facility] POWERCHART Document Id: [id number] Electronically signed by Conversion, [facility] Slip Cover Sewer [id number] at 09/13/2016 6:58 AM CDT Miscellaneous - Anai Smalls M.D. - 05/07/2013 3:55 PM CST Ambulatory Patient Summary [facility] [address] [place] [address] Visit Information Name: DENISE ALEXANDER [facility] Number: [id number] Current Date: 05/07/2013 15:55:54 [...] detail needed. Your Goals/Additional instructions: Source: [facility] POWERCHART Document Id: [id number] INE WELT BUTTER Miscellaneous - Anai Smalls M.D. - 05/07/2013 3:55 PM CST Ambulatory Depart Summary [facility] [address] [place] [address] Visit Information Name: DENISE ALEXANDER [facility] Number: [id number] Visit Date: 05/07/2013 15:55:52 [...] case of emergency. Additional Information: Source: [facility] [employer] Document Id: [id number] INE WELT BUTTER Miscellaneous - Sherine Lopez, L.P.N. - 05/07/2013 3:17 PM CST Adult Senior Procurement Specialist Intake/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 Senior Procurement Specialist Intake/History Entered On: 05/07/2013 15:17 MACHINE WELT BUTTER Performed On: 05/07/2013 15:17 MACHINE WELT BUTTER by SHERINE LOPEZ Intake Chief Complaint : coplo and vaginal pain SHERINE LOPEZ - 05/07/2013 15:17 MACHINE WELT BUTTER General Info Languages : Khmer SHERINE LOPEZ - 05/07/2013 15:17 MACHINE WELT BUTTER Subjective Pain Symptoms : Yes SHERINE LOPEZ - 05/07/2013 15:17 MACHINE WELT BUTTER Pain Pain Assessment Grid Pain 1 Location : Vagina SHERINE LOPEZ - 05/07/2013 15:17 MACHINE WELT BUTTER Dependent Habits Tobacco Use/Currently Using : No Exposure to Tobacco Smoke : Patient smokes Smoking Status : Former smoker SHERINE LOPEZ - 05/07/2013 15:17 MACHINE WELT BUTTER Tobacco Use Grid Type : Cigarettes SHERINE LOPEZ - 05/07/2013 15:17 MACHINE WELT BUTTER Caffeine Use Grid Caffeine Use : Current Type : Coffee Frequency : Occasionally SHERINE LOPEZ - 05/07/2013 15:17 MACHINE WELT BUTTER [facility] Document Id: [id number] MACHINE WELT BUTTER!23 INE WELT BUTTER documented in this encounter Plan of Treatment Not on filedocumented as of this encounter Procedures Procedure Name Priority Date/Time Associated Comments Diagnosis WET PREP EXAM, Routine 05/07/2013 4:37 PM Results for this UROGENITAL MACHINE WELT BUTTER procedure are i n the results section. N GONOR AMP SRC Routine 05/07/2013 4:36 PM Result s for this MACHINE WELT BUTTER procedure are i n the results section. N GONOR AMP DNA Routine 05/07/2013 4:36 PM Result s for this MACHINE WELT BUTTER procedure are i n the results section. C TRACH AMP SRC Routine 05/07/2013 4:36 PM Result s for this MACHINE WELT BUTTER procedure are i n the results section. C TRACH AMP RNA Routine 05/07/2013 4:36 PM Result s for this MACHINE WELT BUTTER procedure are i n the results section. SURGICAL PATHOLOGY Routine 05/07/2013 11:20 AM Re sults for this MACHINE WELT BUTTER procedure are i n the results section. documented in this encounter Results (ABNORMAL) Wet Prep Exam, Urogenital (05/07/2013 4:37 PM MACHINE WELT BUTTER) [facility] gist Method Time Signature HXWet Prep (POSITIVE) POWERCHART HXFinal Trichomonas: No POWERCHART Trichomonas seen HXFinal Clue Cells: POWERCHART Moderate (10-25/hpf) HXFinal Yeast: Few POWERCHART yeast (5-10/hpf) HXFinal Sperm: Absent POWERCHART Specimen (Source) Anatomical Collection Method Collection Time Re ceived Time Location / / Volume Laterality Vagina 05/07/2013 4:37 PM MACHINE WELT BUTTER Anai Smalls M.D. LAB MICROBIOLOGY - GENERAL O RDERABLES Performing Organization Address City/[facility]/ZIP Code Phon e Number POWERCHART HX-N gonor Amp DNA (05/07/2013 4:36 PM MACHINE WELT BUTTER) athologist Signature HXN gonor Amp Negative POWERCHART DNA-[place] Specimen (Source) Anatomical Collection Method Collection Time Re ceived Time Location / / Volume Laterality 05/07/2013 4:36 PM MACHINE WELT BUTTER Narrative POWERCHART - 05/08/2013 7:10 PM MACHINE WELT BUTTER Test Performed by: [facility] [place] [address] Stereotype Finisher: Xavier mon III, M.D. Anai Smalls M.D. LAB HISTORICAL ORDERS Performing Organization Address [facility] Code Phon e Number POWERCHART HX-N gonor Amp Src (05/07/2013 4:36 PM MACHINE WELT BUTTER) athologist Signature HXN gonor Amp CERVIX POWERCHART Src-[place] Specimen (Source) Anatomical Collection Method Collection Time Re ceived Time Location / / Volume Laterality 05/07/2013 4:36 PM MACHINE WELT BUTTER Anai Smalls M.D. LAB HISTORICAL ORDERS Performing Organization Address City/State/ZIP Code Phon e Number POWERCHART HX-C trach Amp RNA (05/07/2013 4:36 PM MACHINE WELT BUTTER) Patholo gist Method Time Signature Chlamydia Negative POWERCHART trachomatis amplified RNA Specimen (Source) Anatomical Collection Method Collection Time Re ceived Time Location / / Volume Laterality 05/07/2013 4:36 PM MACHINE WELT BUTTER Anai Smalls M.D. LAB HISTORICAL ORDERS Performing Organization Address City/State/ZIP Code Phon e Number POWERCHART HX-C trach Amp Src (05/07/2013 4:36 PM MACHINE WELT BUTTER) P athologist Signature HXC trach Amp CERVIX POWERCHART Src-[place] Specimen (Source) Anatomical Collection Method Collection Time Re ceived Time Location / / Volume Laterality 05/07/2013 4:36 PM MACHINE WELT BUTTER Anai Smalls M.D. LAB HISTORICAL ORDERS Performing Organization Address [facility]/ZIP Code Phon e Number POWERCHART Pathology Surgical Pathology (05/07/2013 11:20 AM MACHINE WELT BUTTER) Specimen (Source) Anatomical Collection Method Collection Time Re ceived Time Location / / Volume Laterality 05/07/2013 11:20 AM MACHINE WELT BUTTER Narrative [facility] - 05/09/2013 8:54 AM MACHINE WELT BUTTER [facility] in [address] [place] [address] Patient Name: DENISE ALEXANDER Patient ID #: [id number] Collected: 05/07/2013 Address: [facility]/Zip: [address] [place], [place] ??[id number] Received: Reported: 05/08/2013 05/09/2013 Soc. Sec. #: ?/Age/Sex 1990 (Age: 23) ??F Physician(s): FRANCA SMALLS MD Copy To: ? [facility] ??[id number] [address] [facility], ??[place] ??[address] SURGICAL PATHOLOGY REPORT FINAL DIAGNOSIS: A. CERVIX, 12 O'CLOCK BIOPSY: --- SEVERE SQUAMOUS DYSPLASIA (NIGEL III). B. ENDOCERVIX, CURETTAGE: --- SEVERE SQUAMOUS DYSPLASIA (NIGEL III) AND CHRONIC CERVICITIS. [facility]/05/09/2013 HANH ALCARAZ M.D. Report electronically released. [...] to a 0.1 cm diameter. ESB, B. ([id number], [id number]) DDG/EZEKIEL/05/08/2013 MICROSCOPIC DESCRIPTION: Reviewed by Hanh Alcaraz M.D.; Patholo [facility]/05/09/2013 Anai Smalls M.D. LAB SURG PATH ORDERABLES Performing Organization Address City/State/ZIP Code Phon e Number [facility] documented in this encounter Visit Diagnoses Not on filedocumented in this encounter Additional Health Concerns Assessment Noted Time PHQ-9 Depression Total Score: 12 03/29/2012 5:44 PM CS T documented as of this encounter
--- OUTSIDE RECORDS SUMMARY | 2022-03-14 13:18 | XMS_ITS | Encounter Summary ---
:1990 Author Organization [facility] Address [address] [place] [address] Care Team Providers Name Role Phone Unavailable [...] How often do you attend taoist or baptist Never 05/04/2021 services? Do you [...] Body Mass Index 24.58 03/29/2012 2:28 PM GAS PLANT DISPATCHER documented in this encounter Progress Notes Irina Banda M.D. - 07/04/2013 1:58 PM CDT [id number] CHIEF COMPLAINT/REASON FOR VISIT Depression and anxiety [...] behalf by Loren Briscoe, a trained medical coding auditor. The creation of this record is based on the scribe's personal observations and the provider's statements to them. This document has been checked and approved by the attending provider. Irina Pierre M.D./jose Electronically Signed By: IRINA PIERRE MD On: 07/11/2013 09:42 PM Source: [facility] MHSDOLBEYNONRADSYS Document Id: [id number] documented in this encounter Miscellaneous Notes Miscellaneous - Irina Banda M.D. - 07/04/2013 3:01 PM CDT Ambulatory Patient Summary [facility] [address] [place], [place] [id number] Visit Information Name: DENISE ALEXANDER [facility] Number: [id number] Current Date: 07/04/2013 15:01:22 [...] tab daily for anxiety/depression New Routed to [place] [address] [place] [address] norgestimate-ethinyl estradiol (norgestimate-ethinyl estradiol triphasic (0.18 [...] detail needed. Your Goals/Additional instructions: Source: [facility] POWERCHART Document Id: [id number] Miscellaneous - Irina Banda M.D. - 07/04/2013 3:01 PM CDT Ambulatory Discharge Medication List [facility] [address] [place], [place] [phone] Visit Information Name: DENISE ALEXANDER [facility] Number: [id number] Visit Date: 07/04/2013 15:01:21 [...] tab daily for anxiety/depression New Routed to [facility] [address] [place] [employer], [place] [id number] norgestimate-ethinyl estradiol (norgestimate-ethinyl estradiol triphasic (0.18 mg-0.215 [...] in case of emergency. Additional Information: Source: [facility] POWERCHART Document Id: [id number] Miscellaneous - Chel Cordero - 07/04/2013 2:11 [...] CHEL CORDERO - 07/05/2013 8:11 CDT Source: [employer] Document Id: [id number] CDT!13 Miscellaneous - Tanya Cristobal L.PKendallNKendall - 07/04/2013 2:09 PM CDT Adult Retail Leasing Agent Intake/History Document Has Been Updated Adult Retail Leasing Agent Intake/History Entered On: 07/04/2013 14:11 CDT Performed [...] 07/04/2013 14:09 CDT General Info Languages : Italian TANYA CRISTOBAL - 07/04/2013 14:09 CDT Subjective [...] TANYA CRISTOBAL - 07/04/2013 14:09 CDT Source: [employer] Document Id: [id number] CDT!3 documented in this encounter Plan of Treatment Not on filedocumented as of this encounter Visit Diagnoses Not on filedocumented in this encounter Additional Health Concerns Assessment Noted Time PHQ-9 Depression Total Score: 18 07/04/2013 2:11 PM CD T documented as of this encounter
--- OUTSIDE RECORDS SUMMARY | 2022-03-14 13:18 | XMS_ITS | Encounter Summary ---
:1990 Author Organization [facility] Address [address] [place] [address] Care Team Providers Name Role Phone Unavailable [...] How often do you attend jew or restorationism Never 05/04/2021 services? Do you [...]
--- OUTSIDE RECORDS SUMMARY | 2022-03-14 13:18 | XMS_ITS | Encounter Summary ---
:1990 Author Organization [facility] Address [address] [place] [address] Care Team Providers Name Role Phone Unavailable Primary Care Provider Unavailable Encounter Details Date Type Department Care Team Description 06/20/2013 Hospital Encounter HX NO MAPPING Reece Smalls M.D. [address] [place], [place] [address] (Wo rk) Social History Tobacco Use Types [...] How often do you attend confucianism or confucianist Never 05/04/2021 services? Do you belong to [...]
--- OUTSIDE RECORDS SUMMARY | 2022-03-14 13:18 | XMS_ITS | Encounter Summary ---
:1990 Author Organization [facility] Address [address] [place] [address] Care Team Providers Name Role Phone Unavailable Primary Care Provider Unavailable Encounter Details Date Type Department Care Team Description 07/22/2010 Hospital Encounter HX [facility] Kristy Junior M.D. [address] [place] [address] (Wo rk) Social History Tobacco [...] How often do you attend restoration or scientologist Never 05/04/2021 services? Do you [...] Junior M.D. - 07/22/2010 12:00 AM CDT [id number] HISTORY OF PRESENT ILLNESS This is a [...] ELIZABETH JUNIOR MD On: 07/28/2010 08:21 Source: [facility] MHSDOLBEYNONRADSYS Document Id: [id number] documented in this encounter Procedure Notes Conversion, Historical Provider Ser - 07/22/2010 10:07 AM CDT Rapid Strep A Screen POC Rapid Strep A Screen POC Entered On: 07/22/2010 10:07 CDT Performed On: 07/22/2010 10:07 CDT by ALEJANDRO GONZALEZ Rapid Strep A Screen POC Rapid Strep A Screen POC: Negative Internal QC: Pass ALEJANDRO GONZALEZ - 07/22/2010 10:07 CDT Source: [facility] POWERCHART Document Id: [id number] CDT!4 documented in this encounter Miscellaneous Notes Miscellaneous - Conversion, Historical Provider Ser - 07/22/2010 9:57 AM CDT Adult Curtain Supervisor Intake/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 Curtain Supervisor Intake/History Entered On: 07/22/2010 9:59 CDT Performed [...] REMY; Reviewed Date: 07/22/2010 9:53 CDT Source: [employer] Document Id: [id number] CDT!27 documented in this encounter Plan of Treatment Not on filedocumented as of this encounter Visit Diagnoses Not on filedocumented in this encounter
--- OUTSIDE RECORDS SUMMARY | 2022-03-14 13:18 | XMS_ITS | Encounter Summary ---
:1990 Author Organization [facility] Address [address] [place] [address] Care Team Providers Name Role Phone Unavailable Primary Care Provider Unavailable Encounter Details Date Type Department Care Team Description 06/20/2013 Hospital Encounter HX [facility] Sgeal M.D. [address] [place] [address] (Wo rk) Social History Tobacco [...] How often do you attend episcopalian or church Never 05/04/2021 services? Do you [...] Smalls M.D. - 06/20/2013 1:53 PM CST [id number] CHIEF COMPLAINT / REASON FOR VISIT High-grade [...] SMALLS MD On: 06/25/2013 08:46 AM Source: [facility] MHSDOLBEYNONRADSYS Document Id: [id number] documented in this encounter Miscellaneous Notes Miscellaneous - Anai Smalls M.D. - 06/20/2013 4:27 PM CST Ambulatory Patient Summary [address] [phone] Visit Information Name: CATHERINEDENISE [facility] Number: [id number] Current Date: 06/20/2013 16:27:00 Physicians Attending Provider: ANAI SMALLS MD Primary Care Provider: RAMSEY PIERRE MD [...] Date Time Location Reason Provider [facility] Ramsey Pierre MD Attention: Contact your local Clinic if further appointment detail needed. Your Goals/Additional instructions: Source: [facility] POWERCHART Document Id: [id number] ISH TRANSLATOR Miscellaneous - Anai Smalls M.D. - 06/20/2013 4:26 PM CST Ambulatory Discharge Medication List [facility] [address] [place] [id number] Visit Information Name: DENISE ALEXANDER [facility] Number: [id number] Visit Date: 06/20/2013 16:26:59 Attending Provider: ANAI SMALLS MD Primary Care Provider: RAMSEY PIERRE MD CATHERINEDENISEELLE has been given the following [...] in case of emergency. Additional Information: Source: [facility] POWERCHART Document Id: [id number] ISH TRANSLATOR documented in this encounter Plan of Treatment Not on filedocumented as of this encounter Procedures Procedure Name Priority Date/Time Associated Diagnosis Comme [facility] SURGICAL PATHOLOGY Routine 06/20/2013 10:55 AM Re sults for this SPANISH TRANSLATOR procedure are i n the results section. documented in this encounter Results Pathology Surgical Pathology (06/20/2013 10:55 AM SPANISH TRANSLATOR) Specimen (Source) Anatomical Collection Method Collection Time Re ceived Time Location / / Volume Laterality 06/20/2013 10:55 AM SPANISH TRANSLATOR Narrative [facility] - 06/24/2013 9:21 AM CDT [facility] in [address] [place] [id number] Patient Name: DENISE ALEXANDER Patient ID #: [id number] Collected: 06/20/2013 Address: City/State/Zip: [facility] [address], [place] ??[id number] Received: Reported: 06/21/2013 06/24/2013 Soc. Sec. #: ?/Age/Sex 1990 (Age: 23) ??F Physician(s): FRANCA SMALLS MD Copy To: ? [facility] ??[id number] [address] [facility], ??[place] ??[address] SURGICAL PATHOLOGY REPORT FINAL DIAGNOSIS: A. CERVIX, [...] 2 cm flat aggregate dimension. ESB, B1-B2. (93607) DDG/EZEKIEL/06/21/2013 MICROSCOPIC DESCRIPTION: Reviewed by Hanh Alcaraz [...]
--- OUTSIDE RECORDS SUMMARY | 2022-03-14 13:18 | XMS_ITS | Encounter Summary ---
:1990 Author Organization [facility] Address [address] [place] [address] Care Team Providers Name Role Phone Unavailable Primary Care Provider Unavailable Encounter Details Date Type Department Care Team Description 09/20/2013 Hospital Encounter HX NO MAPPING Reece Smalls M.D. [address] [place], [place] [address] (Wo rk) Social History Tobacco Use Types [...] How often do you attend alevism or mosque Never 05/04/2021 services? Do you [...]
--- OUTSIDE RECORDS SUMMARY | 2022-03-14 13:18 | XMS_ITS | Encounter Summary ---
:1990 Author Organization [facility] Address [address] [place] [address] Care Team Providers Name Role Phone Unavailable [...] 05/04/2021 relatives? How often do you attend faith or cheondoism Never 05/04/2021 services? Do you belong to any clubs or organizations such as No 05/04/2021 faith groups, unions, fraternal or athletic groups, or [...] Comments Blood Pressure 110/62 03/29/2012 2:28 PM GREEN CHAIN OPERATOR Pulse 78 03/29/2012 2:28 PM GREEN CHAIN OPERATOR Temperature - - Respiratory Rate 18 03/29/2012 2:28 PM GREEN CHAIN OPERATOR Oxygen Saturation - - Inhaled Oxygen Concentration - - Weight 53.9 kg (118 lb 13.3 oz) 03/29/2012 2:28 PM GREEN CHAIN OPERATOR Height 153.2 cm (5' 0.32) 03/29/2012 2:28 PM GREEN CHAIN OPERATOR Body Mass Index 22.97 03/29/2012 2:28 PM GREEN CHAIN OPERATOR documented in this encounter H&P Notes Ramsey Banda M.D. - 03/29/2012 1:51 PM CST [id number] CHIEF COMPLAINT/REASON FOR VISIT Annual physical exam [...] school graduate. She is currently employed at [employer]. She resides with her sonand lives with [...] behalf by Marleny Delgadillo, a trained medical voucher clerk. The creation of this record is based on the scribe's personal observations and the provider's statements to them. This document has been checked and approved by the attending provider. Ramsey Pierre M.D./elisha Electronically Signed By: RAMSEY PIERRE MD On: 03/29/2012 04:19 PM Source: [facility] MHSDOLBEYNONRADSYS Document Id: [id number] N CHAIN OPERATOR documented in this encounter Miscellaneous Notes Miscellaneous - Ramsey Banda M.D. - 04/02/2012 5:53 PM GREEN CHAIN OPERATOR Results Notification Document Contains Addenda Addendum by RE BRO on 04 April 2012 11:49:07 GREEN CHAIN OPERATOR Patient updated. Addendum by HUSEYIN DELGADILLO on 03 April 2012 13:07:37 GREEN CHAIN OPERATOR LMTCB From: RAMSEY PIERRE MD To: HUSEYIN DELGADILLO Sent: 04/02/2012 17:53:57 GREEN CHAIN OPERATOR ! Show up: 04/02/2012 23:53:57 [facility] Subject: Results Notification Actions: Notify patient of results Source: [facility] POWERCHART Document Id: [id number] Electronically signed by Violette [facility] [employer] [id number] at 09/18/2016 12:49 AM CDT Miscellaneous - Ramsey Banda M.D. - 04/02/2012 5:48 PM GREEN CHAIN OPERATOR Results Notification Document Contains Addenda Addendum by RE BRO on 04 April 2012 11:49:31 GREEN CHAIN OPERATOR Patient already knew. Addendum by HUSEYIN DELGADILLO on 03 April 2012 13:07:50 GREEN CHAIN OPERATOR LMTCB From: RAMSEY PIERRE MD To: HUSEYIN DELGADILLO Sent: 04/02/2012 17:48:05 GREEN CHAIN OPERATOR ! Show up: 04/02/2012 23:48:05 [facility] Subject: Results Notification Actions: Notify patient of results Source: [facility] POWERCHART Document Id: [id number] Electronically signed by Conversion, [facility] [employer] [id number] at 09/18/2016 12:49 AM CDT Miscellaneous - Ramsey Banda M.D. - 03/29/2012 6:38 PM GREEN CHAIN OPERATOR Results Notification Document Contains Addenda Addendum by RE BRO on 04 April 2012 11:49:39 GREEN CHAIN OPERATOR Patient updated. Addendum by HUSEYIN DELGADILLO on 03 April 2012 13:08:18 GREEN CHAIN OPERATOR LMTCB Addendum by HUSEYIN DELGADILLO on 30 March 2012 09:16:18 GREEN CHAIN OPERATOR Will try back someone picked up phone then didnt talk From: RAMSEY PIERRE MD To: HUSEYIN DELGADILLO Sent: 03/29/2012 18:38:15 GREEN CHAIN OPERATOR ! Show up: 03/30/2012 00:38:15 [facility] Subject: Results Notification Actions: Notify patient of results Source: [facility] POWERCHART Document Id: [id number] Electronically signed by Conversion, [facility] [employer] [id number] at 09/18/2016 12:49 AM CDT Miscellaneous - Ramsey Banda M.D. - 03/29/2012 6:18 PM GREEN CHAIN OPERATOR Results Notification Document Contains Addenda Addendum by RE BRO on 04 April 2012 11:49:18 GREEN CHAIN OPERATOR Patient updated. Addendum by HUSEYIN DELGADILLO on 03 April 2012 13:07:58 GREEN CHAIN OPERATOR LMTCB Addendum by HUSEYIN DELGADILLO on 30 March 2012 09:16:43 GREEN CHAIN OPERATOR Will try back, someone picked up phone and then didnt talk From: RAMSEY PIERRE MD To: HUSEYIN DELGADILLO Sent: 03/29/2012 18:18:58 GREEN CHAIN OPERATOR ! Show up: 03/30/2012 00:18:58 [facility] Subject: Results Notification Actions: Notify patient of results Source: [facility] Samplesaint Document Id: [id number] Electronically signed by Conversion, [facility] [employer] [id number] at 09/18/2016 12:49 AM CDT Miscellaneous - Conversion, Historical Provider Ser - 03/29/2012 5:44 PM GREEN CHAIN OPERATOR PHQ-9 PHQ-9 Entered On: 03/29/2012 17:44 GREEN CHAIN OPERATOR Performed On: 03/29/2012 17:44 GREEN CHAIN OPERATOR by HUSEYIN DELGADILLO PHQ-9 Little interest or [...] Somewhat difficult HUSEYIN DELGADILLO - 03/29/2012 17:44 GREEN CHAIN OPERATOR [facility] Document Id: [id number] Miscellaneous - Conversion, Historical Provider Ser - 03/29/2012 2:28 PM GREEN CHAIN OPERATOR Adult Dry Can Tender Intake/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 Dry Can Tender Intake/History Entered On: 03/29/2012 14:29 GREEN CHAIN OPERATOR Performed On: 03/29/2012 14:28 GREEN CHAIN OPERATOR by HUSEYIN DELGADILLO Intake Chief Complaint : [...] : 22.97kg/m2 HUSEYIN DELGADILLO - 03/29/2012 14:28 GREEN CHAIN OPERATOR General Info Information Given By : Patient HUSEYIN DELGADILLO - 03/29/2012 14:28 GREEN CHAIN OPERATOR Subjective Pain Symptoms : No HUSEYIN DELGADILLO 03/29/2012 14:28 GREEN CHAIN OPERATOR Dependent Habits Tobacco Use/Currently Using : No Smoking Status : Former smoker HUSEYIN DELGADILLO 03/29/2012 14:28 GREEN CHAIN OPERATOR Tobacco Use Grid Type : Cigarettes HUSEYIN DELGADILLO - 03/29/2012 14:28 GREEN CHAIN OPERATOR Caffeine Use Grid Caffeine Use : Current Type : Coffee Frequency : Occasionally HUSEYIN DELGADILLO - 03/29/2012 14:28 GREEN CHAIN OPERATOR Allergy Allergies (Active) NKA Estimated Onset Date: Unspecified ; Created By: MEGHAN REMY; Reaction Status: Active ; Category: Drug ; Substance: NKA ; Type: Allergy ; Updated By: MEGHAN REMY; Reviewed Date: 11/01/2010 9:31 CDT Source: [employer] Document Id: [id number] Miscellaneous - Conversion, Historical Provider Ser - 03/29/2012 2:28 PM GREEN CHAIN OPERATOR Health Assessment Health Assessment Entered On: 03/29/2012 14:29 GREEN CHAIN OPERATOR Performed On: 03/29/2012 14:28 GREEN CHAIN OPERATOR by HUSEYIN DELGADILLO Health Assessment Complete Health Assessment Complete or Modified : Annual Health Assessment Annual Health Assessment Completed : Yes HUSEYIN DELGADILLO 03/29/2012 14:28 GREEN CHAIN OPERATOR Nutrition Nutrition Risk Factors by 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 : None HUSEYIN DELGADILLO - 03/29/2012 14:28 GREEN CHAIN OPERATOR Functional Current Daily Living Assistance : None HUSEYIN DELGADILLO 03/29/2012 14:28 GREEN CHAIN OPERATOR Dependent Habits Tobacco Use/Currently Using : No Smoking Status : Former smoker HUSEYIN DELGADILLO 03/29/2012 14:28 GREEN CHAIN OPERATOR Tobacco Use Grid Type : Cigarettes HUSEYIN DELGADILLO 03/29/2012 14:28 GREEN CHAIN OPERATOR Caffeine Use Grid Caffeine Use : Current Type : Coffee Frequency : Occasionally HUSEYIN DELGADILLO 03/29/2012 14:28 GREEN CHAIN OPERATOR Psychosocial Domestic Abuse Concerns : None HUSEYIN DELGADILLO 03/29/2012 14:28 GREEN CHAIN OPERATOR Advance Directive Advanced Directives : No HUSEYIN DELGADILLO 03/29/2012 14:28 GREEN CHAIN OPERATOR Educ Needs Learning Style Preference Adult Grid Patient : Demonstration, Printed materials, Verbal explanation, Video/Educational TV Family : None HUSEYIN DELGADILLO 03/29/2012 14:28 GREEN CHAIN OPERATOR Source: [facility] POWERCHART Document Id: [id number] documented in this encounter Plan of Treatment Not on filedocumented as of this encounter Procedures Procedure Name Priority Date/Time Associated Comments Diagnosis WET PREP EXAM, Routine 03/29/2012 5:32 PM Results for this UROGENITAL GREEN CHAIN OPERATOR procedure are i n the results section. N GONOR AMP SRC Routine 03/29/2012 5:31 PM Result s for this GREEN CHAIN OPERATOR procedure are i n the results section. N GONOR AMP DNA Routine 03/29/2012 5:31 PM Result s for this GREEN CHAIN OPERATOR procedure are i n the results section. C TRACH AMP SRC Routine 03/29/2012 5:31 PM Result s for this GREEN CHAIN OPERATOR procedure are i n the results section. C TRACH AMP RNA Routine 03/29/2012 5:31 PM Result s for this GREEN CHAIN OPERATOR procedure are i n the results section. TEST, U Routine 03/29/2012 3:30 PM Resu lts for this GREEN CHAIN OPERATOR procedure are i n the results section. PATHOLOGY [employer] Routine 03/29/2012 12:00 AM Results for this CYTOLOGY GREEN CHAIN OPERATOR procedure are i n the results section. documented in this encounter Results Wet Prep Exam, Urogenital (03/29/2012 5:32 PM GREEN CHAIN OPERATOR) P athologist Signature HXWet Prep POWERCHART HXFinal No yeast, POWERCHART Trichomonas , clue cells, or sperm seen. Specimen (Source) Anatomical Collection Method Collection Time Re ceived Time Location / / Volume Laterality Vagina 03/29/2012 5:32 PM GREEN CHAIN OPERATOR Ramsey Pierre M.D. LAB MICROBIOLOGY - GENERAL O RDERABLES Performing Organization Address City/State/ZIP Code Phon e Number POWERCHART HX-N gonor Amp DNA (03/29/2012 5:31 PM GREEN CHAIN OPERATOR) athologist Signature HXN gonor Amp Negative POWERCHART DNA-[place] Specimen (Source) Anatomical Collection Method Collection Time Re ceived Time Location / / Volume Laterality 03/29/2012 5:31 PM GREEN CHAIN OPERATOR Narrative POWERCHART - 03/30/2012 6:05 PM GREEN CHAIN OPERATOR Test Performed by: [address] [address] [employer] Supervisor: Xavier mon III, M.D. Ramsey Pierre M.D. LAB HISTORICAL ORDERS Performing Organization Address City/State/ZIP Code Phon e Number POWERCHART HX-N gonor Amp Src (03/29/2012 5:31 PM GREEN CHAIN OPERATOR) athologist Signature HXN gonor Amp CERVIX POWERCHART Src[place] Specimen (Source) Anatomical Collection Method Collection Time Re ceived Time Location / / Volume Laterality 03/29/2012 5:31 PM GREEN CHAIN OPERATOR Ramsey Pierre M.D. LAB HISTORICAL ORDERS Performing Organization Address City/State/ZIP Code Phon e Number POWERCHART HX-C trach Amp RNA (03/29/2012 5:31 PM GREEN CHAIN OPERATOR) [facility] Method Time Signature Chlamydia Negative POWERCHART trachomatis amplified RNA Specimen (Source) Anatomical Collection Method Collection Time Re ceived Time Location / / Volume Laterality 03/29/2012 5:31 PM GREEN CHAIN OPERATOR Ramsey Pierre M.D. LAB HISTORICAL ORDERS Performing Organization Address City/State/ZIP Code Phon e Number POWERCHART HX-C trach Amp Src (03/29/2012 5:31 PM GREEN CHAIN OPERATOR) athologist Signature HXC trach Amp CERVIX POWERCHART Src[place] Specimen (Source) Anatomical Collection Method Collection Time Re ceived Time Location / / Volume Laterality 03/29/2012 5:31 PM GREEN CHAIN OPERATOR Ramsey Pierre M.D. LAB HISTORICAL ORDERS Performing Organization Address City/State/ZIP Code Phon e Number POWERCHART Test, Qualitative, Urine (03/29/2012 3:30 PM GREEN CHAIN OPERATOR) [facility] gist Method Time Signature HXBeta-hCG Negative POWERCHART Qualitative Urine Specimen (Source) Anatomical Collection Method Collection Time Re ceived Time Location / / Volume Laterality Urine 03/29/2012 3:30 PM GREEN CHAIN OPERATOR Ramsey Pierre M.D. LAB URINE ORDERABLES Performing Organization Address City/State/ZIP Code Phon e Number POWERCHART Pathology [employer] Cytology (03/29/2012 12:00 AM GREEN CHAIN OPERATOR) Specimen (Source) Anatomical Location Collection Method / Collectio n Time Received Time / Laterality Volume 03/29/2012 Narrative [facility] - 04/02/2012 3:04 PM GREEN CHAIN OPERATOR [facility], [address] [id number] ? Patient Name: DENISE ALEXANDER Patient ID #: [id number] Collected: 03/29/2012 Address: [facility]/Zip: [facility] ??[place], [place] ??[phone] Received: Reported: 03/30/2012 04/02/2012 Soc. Sec. #: ?/Age/Sex 1990 (Age: 22) ??F Physician(s): REENA PIERRE MD Copy To: ? [facility] ?? [phone] [facility], ??[place] ??[address] CYTOPATHOLOGY [employer] REPORT FINAL CYTOLOGIC DIAGNOSIS Pap Smear - [...] Out By ddg/04/02/2012 SAIRA VILA M.D. [facility]) The Pap test is a screening procedure [...]
--- OUTSIDE RECORDS SUMMARY | 2022-03-14 13:18 | XMS_ITS | Encounter Summary ---
:1990 Author Organization [facility] Address [address] [place] [address] Care Team Providers Name Role Phone Unavailable [...] How often do you attend mandaeism or cheondoism Never 05/04/2021 services? Do you [...]
--- OUTSIDE RECORDS SUMMARY | 2022-03-14 13:18 | XMS_ITS | Encounter Summary ---
:1990 Author Organization [facility] Address [address] [place] [address] Care Team Providers Name Role Phone Unavailable [...] How often do you attend judaism or episcopalian Never 05/04/2021 services? Do you belong to [...] Banda M.D. - 04/08/2010 12:00 AM CST [id number] CHIEF COMPLAINT / REASON FOR VISIT Vaginal [...] PIERRE MD On 04/15/2010 02:16 PM Source: [facility] MHSDOLBEYNONRADSYS Document Id: [id number] ECTION ENGINEER documented in this encounter Miscellaneous Notes Miscellaneous - Ramsey Banda M.D. - 04/08/2010 5:47 PM PROJECTION ENGINEER Reminder Msg From: RAMSEY PIERRE MD To: LUCIANO MCLEOD Sent: 04/08/2010 17:47:55 PROJECTION ENGINEER ! Show up: 04/08/2010 17:47:00 PROJECTION ENGINEER Subject: Reminder Msg Actions: Notify patient of results Due Date/Time: 04/08/2010 17:47:00 PROJECTION ENGINEER Source: [facility] POWERCHART Document Id: [id number] Miscellaneous - Ramsey Banda M.D. - 04/08/2010 8:23 AM PROJECTION ENGINEER Ambulatory Patient Summary [facility] [address] [place] [address] Visit Information Name: DENISE ALEXANDER Current Date: [...] you from getting the serious disease Tetanus (Susanjaw). Your Upcoming Appointments Date Time Location Reason Provider No Appointments found Your Goals/Additional instructions: Source: [facility] Sand SignCHART Document Id: [id number] Miscellaneous - Ramsey Banda M.D. - 04/08/2010 8:23 AM PROJECTION ENGINEER Ambulatory Depart Summary [address] [address] Visit Information Name: DENISE ALEXANDER Current Date: [...] to the patient and/or family, guardian/caregiver. Source: [employer] Document Id: [id number] Miscellaneous - Conversion, Historical Provider Ser - 04/08/2010 7:57 AM PROJECTION ENGINEER Adult Marshmallow Maker Intake/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 Marshmallow Maker Intake/History Entered On: 04/08/2010 8:01 PROJECTION ENGINEER Performed On: 04/08/2010 7:57 PROJECTION ENGINEER by JULIA GONZALEZ Chief Complaint: vaginal itching [...] Weight Clinic: 48.90kg JULIA GONZALEZ 04/08/2010 7:57 PROJECTION ENGINEER Subjective Pain Symptoms: No JULIA GONZALEZ 04/08/2010 7:57 PROJECTION ENGINEER Dependent Habits Tobacco Use/Currently Using: Yes JULIA GONZALEZ 04/08/2010 7:57 PROJECTION ENGINEER Tobacco Use Grid Type: Cigarettes Comments (Comment: 1 cig day [JULIA GONZALEZ 04/08/2010 7:57 PROJECTION ENGINEER] ) JULIA GONZALEZ 04/08/2010 7:57 PROJECTION ENGINEER Alcohol Use: Yes JULIA GONZALEZ 04/08/2010 7:57 PROJECTION ENGINEER Caffeine Use Grid Caffeine Use: Current Type: Coffee Frequency: Occasionally JULIA GONZALEZ 04/08/2010 7:57 PROJECTION ENGINEER Allergies Allergies (Active) NKA Estimated Onset Date: Unspecified ; Created By: MEGHAN REMY; Reaction Status: Active ; Category: Drug ; Substance: NKA ; Type: Allergy ; Updated By: MEGHAN REMY; Reviewed Date: 02/20/2010 11:33CDT Source: [facility] POWERCHART Document Id: [id number] PROJECTION ENGINEER!28 documented in this encounter Plan of Treatment Not on filedocumented as of this encounter Visit Diagnoses Not on filedocumented in this encounter
--- OUTSIDE RECORDS SUMMARY | 2022-03-14 13:18 | XMS_ITS | Encounter Summary ---
:1990 Author Organization [facility] Address [address] [place] [address] Care Team Providers Name Role Phone Unavailable Primary Care Provider Unavailable Encounter Details Date Type Department Care Team Description 07/21/2014 Hospital Encounter [facility]X [facility] Kristy Junior M.D. [address] [place] [address] (Wo rk) Social History Tobacco [...] How often do you attend hoahaoism or tenriism Never 05/04/2021 services? Do you [...] Junior M.D. - 07/21/2014 12:41 PM CDT [id number] CHIEF COMPLAINT/REASON FOR VISIT A 24-year-old female, [...] JUNIOR MD On: 07/24/2014 11:52 AM Source: [facility] MHSDOLBEYNONRADSYS Document Id: [id number] documented in this encounter Miscellaneous Notes Miscellaneous - Alex Schmidt L.P.N. - 07/21/2014 1:27 PM CDT Adult Huller Operator Intake/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 Huller Operator Intake/History Entered On: 07/21/2014 13:30 CDT [...] Preferred Communication Mode : Verbal Languages : [place] Is Patient Female and 13-50 no hysterectomy [...] ALEX SCHMIDT - 07/21/2014 13:27 CDT Source: [employer] Document Id: [id number]!46 documented in this encounter Plan of Treatment Not on filedocumented as of this encounter Procedures Procedure Name Priority Date/Time Associated Comments Diagnosis WET PREP EXAM, Routine 07/21/2014 2:07 PM Results for this UROGENITAL CDT procedure are i n the results section. documented in this encounter Results (ABNORMAL) Wet Prep Exam, Urogenital (07/21/2014 2:07 PM CDT) [facility] gist Method Time Signature HXWet Prep [...]
--- OUTSIDE RECORDS SUMMARY | 2022-03-14 13:18 | XMS_ITS | Encounter Summary ---
:1990 Author Organization [facility] Address [address] [place] [address] Care Team Providers Name Role Phone Unavailable [...] How often do you attend protestant or baptist Never 05/04/2021 services? Do you [...] Banda M.D. - 08/15/2013 2:57 PM CDT [id number] CHIEF COMPLAINT/REASON FOR VISIT Recheck depression and [...] behalf by Loren Briscoe, a trained medical transcription editor. The creation of this record is based on the scribe's personal observations and the provider's statements to them. This document has been checked and approved by the attending provider. Ramsey Pierre M.D./jose Electronically Signed By: RAMSEY PIERRE MD On: 08/30/2013 11:28 AM Source: [facility] MHSDOLBEYNSYEDASYS Document Id: [id number] documented in this encounter Miscellaneous Notes Miscellaneous - Ramsey Banda M.D. - 08/15/2013 3:28 PM CDT Ambulatory Patient Summary [facility] [address] [place] [id number] Visit Information Name: DENISE ALEXANDERELLE [facility] Number: [id number] Current Date: 08/15/2013 15:28:26 Physicians Attending Provider: RAMSEY PIERRE MD Primary Care Provider: RAMSEY PIERRE MD CATHERINEDENISE FLAVIA has been given the following list [...] This is a CHANGE Routed to [facility] [address] [place] [address] [place] [address] norgestimate-ethinyl estradiol (norgestimate-ethinyl estradiol triphasic (0.18 [...] Time Location Reason Provider 09/20/2013 14:30 [facility] COMPENSATION AGENT 3 mo pap after susy Smalls MD, Reece Johnston Attention: Contact your local Clinic if further appointment detail needed. Your Goals/Additional instructions: Source: [facility] POWERCHART Document Id: [id number] Miscellaneous - Ramsey Banda M.D. - 08/15/2013 3:28 PM CDT Ambulatory Discharge Medication List [address] [id number] Visit Information Name: DENISE ALEXANDER [facility] Number: [id number] Visit Date: 08/15/2013 15:28:25 Attending [...] This is a CHANGE Routed to [facility] [address] [place] [address] norgestimate-ethinyl estradiol (norgestimate-ethinyl estradiol triphasic (0.18 [...] MD Signed On:15-AUG-2013 15:28:22 Additional Information: Source: [employer] Document Id: [id number] Miscellaneous - Conversion, Historical Provider Ser - [...] HUSEYIN DELGADILLO - 08/15/2013 15:15 CDT Source: [employer] Document Id: [id number] CDT!13 Miscellaneous - Conversion, Historical Provider Ser [...] Video/Educational TV Family : None HUSEYIN DELGADILLO - 08/15/2013 15:14 CDT Source: [facility] POWERCHART Document Id: [id number] CDT!24 Miscellaneous - Conversion, Historical Provider Ser - 08/15/2013 3:12 PM CDT Adult Journal Clerk Intake/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 Journal Clerk Intake/History Entered On: 08/15/2013 15:14 CDT Performed [...] Information Given By : Patient Languages : Maori HUSEYIN DELGADILLO 08/15/2013 15:12 CDT Subjective Pain Symptoms : No HUSEYIN DELGADILLO 08/15/2013 15:12 CDT Dependent Habits Tobacco Use/Currently Using : No Smoking Status : Former smoker HUSEYIN DELGADILLO 08/15/2013 15:12 CDT Caffeine Use Grid Caffeine Use : Current Type : Coffee Frequency : Occasionally HUSEYIN DELGADILLO 08/15/2013 15:12 CDT Source: [employer] Document Id: [id number] CDT!31 documented in this encounter Plan of Treatment Not on filedocumented as of this encounter Visit Diagnoses Not on filedocumented in this encounter Additional Health Concerns Assessment Noted Time PHQ-9 Depression Total Score: 6 08/15/2013 3:15 PM CDT documented as of this encounter
--- OUTSIDE RECORDS SUMMARY | 2022-03-14 13:19 | XMS_ITS | Encounter Summary ---
:1990 Author Organization [facility] Address [address] [place] [address] Care Team Providers Name Role Phone Unavailable Primary Care Provider Unavailable Encounter Details Date Type Department Care Team Description 06/02/2008 Hospital Encounter [facility] AmmondebbieJacqueline P.A.-C. [address] [place] [address] (Wo rk) Social History Tobacco [...] How often do you attend anabaptist or sabianist Never 05/04/2021 services? Do you [...]
--- OUTSIDE RECORDS SUMMARY | 2022-03-14 13:19 | XMS_ITS | Encounter Summary ---
:1990 Author Organization [facility] Address [address] [place] [address] Care Team Providers Name Role Phone Unavailable [...] How often do you attend buddhism or judaism Never 05/04/2021 services? Do you [...]
--- OUTSIDE RECORDS SUMMARY | 2022-03-14 13:19 | XMS_ITS | Encounter Summary ---
:1990 Author Organization [facility] Address [address] [place] [address] Care Team Providers Name Role Phone Unavailable [...] How often do you attend adventist or buddhist Never 05/04/2021 services? Do you [...]
--- OUTSIDE RECORDS SUMMARY | 2022-03-14 13:19 | XMS_ITS | Encounter Summary ---
:1990 Author Organization [facility] Address [address] [place] [address] Care Team Providers Name Role Phone Unavailable [...] How often do you attend mormonism or roman catholic Never 05/04/2021 services? Do you belong to [...]
--- OUTSIDE RECORDS SUMMARY | 2022-03-14 13:19 | XMS_ITS | Encounter Summary ---
:1990 Author Organization [facility] Address [address] [place] [address] Care Team Providers Name Role Phone Unavailable [...] How often do you attend temple or druze Never 05/04/2021 services? Do you [...]
--- OUTSIDE RECORDS SUMMARY | 2022-03-14 13:19 | XMS_ITS | Encounter Summary ---
:1990 Author Organization [facility] Address [address] [place] [address] Care Team Providers Name Role Phone Unavailable Primary Care Provider Unavailable Encounter Details Date Type Department Care Team Description 05/01/2008 Hospital Encounter [facility]X [facility] ED Ammondebbie Jacqueline Tsai P.A.-C. [address] [place] [address] (Wo rk) Social History Tobacco [...] How often do you attend worship or rastafarian Never 05/04/2021 services? Do you [...]
--- OUTSIDE RECORDS SUMMARY | 2022-03-14 13:19 | XMS_ITS | Encounter Summary ---
:1990 Author Organization [facility] Address [address] [place] [address] Care Team Providers Name Role Phone Unavailable [...] How often do you attend moravian or shinto Never 05/04/2021 services? Do you [...]
--- OUTSIDE RECORDS SUMMARY | 2022-03-14 13:19 | XMS_ITS | Encounter Summary ---
:1990 Author Organization [facility] Address [address] [place] [address] Care Team Providers Name Role Phone Unavailable [...] often do you attend latter day or yazdanism Never 05/04/2021 services? Do you [...]
--- OUTSIDE RECORDS SUMMARY | 2022-03-14 13:19 | XMS_ITS | Encounter Summary ---
:1990 Author Organization [facility] Address [address] [place] [address] Care Team Providers Name Role Phone Unavailable Primary Care Provider Unavailable Encounter Details Date Type Department Care Team Description 05/05/2008 Hospital Encounter HX [facility] Em Coon, HEALTH INFORMATION MANAGER, C.N.P. [address] [place] [phone] (Wo rk) Social History Tobacco Use Types [...] How often do you attend evangelical or anglican Never 05/04/2021 services? Do you belong to [...]
--- OUTSIDE RECORDS SUMMARY | 2022-03-14 13:19 | XMS_ITS | Encounter Summary ---
:1990 Author Organization [facility] Address [address] [place] [address] Care Team Providers Name Role Phone Unavailable [...] How often do you attend zoroastrianism or samaritan Never 05/04/2021 services? Do you belong to [...]
--- OUTSIDE RECORDS SUMMARY | 2022-03-14 13:19 | XMS_ITS | Encounter Summary ---
:1990 Author Organization [facility] Address [address] [place] [address] Care Team Providers Name Role Phone Unavailable [...] How often do you attend voodoo or yarsani Never 05/04/2021 services? Do you [...]
--- OUTSIDE RECORDS SUMMARY | 2022-03-14 13:19 | XMS_ITS | Encounter Summary ---
:1990 Author Organization [facility] Address [address] [place] [address] Care Team Providers Name Role Phone Unavailable [...] How often do you attend hindu or oriental orthodox Never 05/04/2021 services? Do [...]
--- OUTSIDE RECORDS SUMMARY | 2022-03-14 13:19 | XMS_ITS | Encounter Summary ---
:1990 Author Organization [facility] Address [address] [place] [address] Care Team Providers Name Role Phone Unavailable [...] How often do you attend gnosticism or adventism Never 05/04/2021 services? Do you [...]
--- OUTSIDE RECORDS SUMMARY | 2022-03-14 13:19 | XMS_ITS | Encounter Summary ---
:1990 Author Organization [facility] Address [address] [place] [address] Care Team Providers Name Role Phone Unavailable [...] How often do you attend pentecostalism or anglican Never 05/04/2021 services? Do you [...]
--- OUTSIDE RECORDS SUMMARY | 2022-03-14 13:19 | XMS_ITS | Encounter Summary ---
:1990 Author Organization [facility] Address [address] [place] [address] Care Team Providers Name Role Phone Unavailable [...] 05/04/2021 relatives? How often do you attend catholic or faith Never 05/04/2021 services? Do you belong to any clubs or organizations such as No 05/04/2021 catholic groups, unions, fraternal or athletic groups, or [...]
--- OUTSIDE RECORDS SUMMARY | 2022-03-14 13:19 | XMS_ITS | Encounter Summary ---
:1990 Author Organization [facility] Address [address] [place] [address] Care Team Providers Name Role Phone Unavailable [...] How often do you attend faith or jainism Never 05/04/2021 services? Do you [...]
--- OUTSIDE RECORDS SUMMARY | 2022-03-14 13:19 | XMS_ITS | Encounter Summary ---
:1990 Author Organization [facility] Address [address] [place] [address] Care Team Providers Name Role Phone Unavailable [...] How often do you attend uatsdin or samaritan Never 05/04/2021 services? Do you [...]
--- OUTSIDE RECORDS SUMMARY | 2022-03-14 13:19 | XMS_ITS | Encounter Summary ---
:1990 Author Organization [facility] Address [address] [place] [address] Care Team Providers Name Role Phone Unavailable [...] How often do you attend catholic or holiness Never 05/04/2021 services? Do you [...]
--- OUTSIDE RECORDS SUMMARY | 2022-03-14 13:19 | XMS_ITS | Encounter Summary ---
:1990 Author Organization [facility] Address [address] [place] [address] Care Team Providers Name Role Phone Unavailable [...] How often do you attend hindu or sikh Never 05/04/2021 services? Do you belong to [...]
--- OUTSIDE RECORDS SUMMARY | 2022-03-14 13:19 | XMS_ITS | Encounter Summary ---
:1990 Author Organization [facility] Address [address] [place] [address] Care Team Providers Name Role Phone Unavailable [...] How often do you attend christian or jainism Never 05/04/2021 services? Do you [...]
--- OUTSIDE RECORDS SUMMARY | 2022-03-14 13:20 | XMS_ITS | Encounter Summary ---
:1990 Author Organization [facility] Address [address] [place] [address] Care Team Providers Name Role Phone Unavailable Primary Care Provider Unavailable Encounter Details Date Type Department Care Team Description 10/13/2006 Hospital Encounter HX [facility] Torsten Mclaughlin M.D. [address] [place] [address] (Wo rk) Social History Tobacco Use Types [...] How often do you attend advent or baptism Never 05/04/2021 services? Do you [...]
--- OUTSIDE RECORDS SUMMARY | 2022-03-14 13:20 | XMS_ITS | Encounter Summary ---
:1990 Author Organization [facility] Address [address] [place] [address] Care Team Providers Name Role Phone Unavailable [...] How often do you attend mandaeism or church Never 05/04/2021 services? Do you [...]
--- OUTSIDE RECORDS SUMMARY | 2022-03-14 13:20 | XMS_ITS | Encounter Summary ---
:1990 Author Organization [facility] Address [address] [place] [address] Care Team Providers Name Role Phone Unavailable [...] How often do you attend congregation or sikh Never 05/04/2021 services? Do you [...]
--- OUTSIDE RECORDS SUMMARY | 2022-03-14 13:20 | XMS_ITS | Encounter Summary ---
:1990 Author Organization [facility] Address [address] [place] [address] Care Team Providers Name Role Phone Unavailable [...] How often do you attend restoration or episcopal Never 05/04/2021 services? Do you [...]
--- OUTSIDE RECORDS SUMMARY | 2022-03-14 13:20 | XMS_ITS | Encounter Summary ---
:1990 Author Organization [facility] Address [address] [place] [address] Care Team Providers Name Role Phone Unavailable Primary Care Provider Unavailable Encounter Details Date Type Department Care Team Description 11/28/2005 Hospital Encounter [facility]X [facility] Torsten Mclaughlin M.D. [address] [place] [address] (Wo rk) Social History Tobacco Use Types [...] How often do you attend gnosticism or orthodoxy Never 05/04/2021 services? Do you [...]
--- OUTSIDE RECORDS SUMMARY | 2022-03-14 13:20 | XMS_ITS | Encounter Summary ---
:1990 Author Organization [facility] Address [address] [place] [address] Care Team Providers Name Role Phone Unavailable Primary Care Provider Unavailable Encounter Details Date Type Department Care Team Description 12/29/2005 Hospital Encounter HX [facility] Torsten Mclaughlin M.D. [address] [place] [address] (Wo rk) Social History Tobacco Use Types [...] 05/04/2021 relatives? How often do you attend presybeterian or bahai Never 05/04/2021 services? Do you belong to any clubs or organizations such as No 05/04/2021 presybeterian groups, unions, fraternal or athletic groups, or [...]
--- OUTSIDE RECORDS SUMMARY | 2022-03-14 13:20 | XMS_ITS | Encounter Summary ---
:1990 Author Organization [facility] Address [address] [place] [address] Care Team Providers Name Role Phone Unavailable [...] How often do you attend restorationist or restorationism Never 05/04/2021 services? Do you [...]
--- OUTSIDE RECORDS SUMMARY | 2022-03-14 13:20 | XMS_ITS | Encounter Summary ---
:1990 Author Organization [facility] Address [address] [place] [address] Care Team Providers Name Role Phone Unavailable [...] How often do you attend methodist or uatsdin Never 05/04/2021 services? Do you [...]
--- OUTSIDE RECORDS SUMMARY | 2022-03-14 13:20 | XMS_ITS | Encounter Summary ---
:1990 Author Organization [facility] Address [address] [place] [address] Care Team Providers Name Role Phone Unavailable [...] How often do you attend anabaptist or sikhism Never 05/04/2021 services? Do you [...]
--- OUTSIDE RECORDS SUMMARY | 2022-03-14 13:20 | XMS_ITS | Encounter Summary ---
:1990 Author Organization [facility] Address [address] [place] [address] Care Team Providers Name Role Phone Unavailable Primary Care Provider Unavailable Encounter Details Date Type Department Care Team Description 03/18/2006 Hospital Encounter [facility]X [facility] Ebony Lopez, Lisa [address] [place] [address] (Wo rk) Social History Tobacco Use Types [...] 05/04/2021 relatives? How often do you attend anglican or catholic Never 05/04/2021 services? Do you belong to any clubs or organizations such as No 05/04/2021 anglican groups, unions, fraternal or athletic groups, or [...]
--- OUTSIDE RECORDS SUMMARY | 2022-03-14 13:20 | XMS_ITS | Encounter Summary ---
:1990 Author Organization [facility] Address [address] [place] [address] Care Team Providers Name Role Phone Unavailable [...] How often do you attend congregational or mosque Never 05/04/2021 services? Do you [...]
--- OUTSIDE RECORDS SUMMARY | 2022-03-14 13:20 | XMS_ITS | Encounter Summary ---
:1990 Author Organization [facility] Address [address] [place] [address] Care Team Providers Name Role Phone Unavailable [...] How often do you attend baptism or yazidism Never 05/04/2021 services? Do you [...]
--- OUTSIDE RECORDS SUMMARY | 2022-03-14 13:20 | XMS_ITS | Encounter Summary ---
:1990 Author Organization [facility] Address [address] [place] [address] Care Team Providers Name Role Phone Unavailable [...]
--- OUTSIDE RECORDS SUMMARY | 2022-03-14 13:20 | XMS_ITS | Encounter Summary ---
:1990 Author Organization [facility] Address [address] [place] [address] Care Team Providers Name Role Phone Unavailable [...] How often do you attend cheondoism or hindu Never 05/04/2021 services? Do you [...]
--- OUTSIDE RECORDS SUMMARY | 2022-03-14 13:20 | XMS_ITS | Encounter Summary ---
:1990 Author Organization [facility] Address [address] [place] [address] Care Team Providers Name Role Phone Unavailable Primary Care Provider Unavailable Encounter Details Date Type Department Care Team Description 03/05/2007 Hospital Encounter HX [facility] Torsten Mclaughlin M.D. [address] [place] [address] (Wo rk) Social History Tobacco Use Types [...] How often do you attend evangelical or confucianism Never 05/04/2021 services? Do you [...]
--- OUTSIDE RECORDS SUMMARY | 2022-03-14 13:20 | XMS_ITS | Encounter Summary ---
:1990 Author Organization [facility] Address [address] [place] [address] Care Team Providers Name Role Phone Unavailable [...] How often do you attend mosque or jain Never 05/04/2021 services? Do you belong to [...]
--- OUTSIDE RECORDS SUMMARY | 2022-03-14 13:20 | XMS_ITS | Encounter Summary ---
:1990 Author Organization [facility] Address [address] [place] [address] Care Team Providers Name Role Phone Unavailable Primary Care Provider Unavailable Encounter Details Date Type Department Care Team Description 11/29/[address] [facility] ED Sera Fuller, R.NKendall [address] [place] [address] (Wo rk) Social History Tobacco [...] How often do you attend restorationism or mandaen Never 05/04/2021 services? Do you belong to [...]
--- OUTSIDE RECORDS SUMMARY | 2022-03-14 13:20 | XMS_ITS | Encounter Summary ---
:1990 Author Organization [facility] Address [address] [place] [address] Care Team Providers Name Role Phone Unavailable [...] often do you attend jehovah's witness or amish Never 05/04/2021 services? Do you belong to [...]
--- OUTSIDE RECORDS SUMMARY | 2022-03-14 13:20 | XMS_ITS | Encounter Summary ---
:1990 Author Organization [facility] Address [address] [place] [address] Care Team Providers Name Role Phone Unavailable Primary Care Provider Unavailable Encounter Details Date Type Department Care Team Description 10/03/2007 Hospital Encounter [facility]X [facility] Torsten Stevens M.D. [address] [place] [address] (Wo rk) Social History Tobacco Use Types [...] How often do you attend hinduism or pentecostal Never 05/04/2021 services? Do you [...]
--- OUTSIDE RECORDS SUMMARY | 2022-03-14 13:20 | XMS_ITS | Encounter Summary ---
:1990 Author Organization [facility] Address [address] [place] [address] Care Team Providers Name Role Phone Unavailable Primary Care Provider Unavailable Encounter Details Date Type Department Care Team Description 06/04/2007 Hospital Encounter HX [facility] FAMILY[facility] Torsten Mclaughlin M.D. [address] [place] [address] (Wo rk) Social History Tobacco Use Types [...] 05/04/2021 relatives? How often do you attend confucianist or protestant Never 05/04/2021 services? Do you belong to any clubs or organizations such as No 05/04/2021 confucianist groups, unions, fraternal or athletic groups, or [...]
--- OUTSIDE RECORDS SUMMARY | 2022-03-14 13:21 | XMS_ITS | Encounter Summary ---
:1990 Author Organization [facility] Address [address] [place] [address] Care Team Providers Name Role Phone No Ref-Primary, Physician Primary Care Provider [phone] Reason for Visit Reason Comments Urgent Care pt wants to talk to provider Encounter Details Date Type Department Care Team Description 10/02/2019 Office Visit [facility] Marilou Shipley BV (huy terial vaginosis) (Primary Dx); Urgent Care Michelle Ackerman NP Yeast infection of the vagina; [address] Vaginal discharge [place], [place] [address] [address] [place] [phone] Social History Tobacco Use Types Packs/Day Years [...] positives Negative results will be released to [facility] Recommend condoms and safe sex practices Dr. [...] positives Negative results will be released to [facility] Recommend condoms and safe sex practices Dr. Vora's blue unscented soap [employer] [facility] urogenital probiotic Push fluids, cotton underwear, open to air at night Follow up with primary care provider with any problems, questions or concerns or if symptoms worsen or fail to improve. Patient agreed to plan and verbalized understanding. Marilou Shipley, [facility] MIC[facility]LE documented in this [...] Code Phon e Number INFECTIOUS DISEASES [address] [place] [address] DIAGNOSTIC LABORATORY, [facility] INFECTIOUS DISEASES [address] [place] [address], [place] DIAGNOSTIC LABORATORY (ABNORMAL) Wet prep (10/02/2019 9:51 AM CDT) [facility] Signature Specimen Vagina [facility] Description CLINICS MICHELLE Wet Prep No Trichomonas 10/02/2019 [facility] seen 10:04 AM CLINICS CDT MICHELLE Wet Prep Few 10/02/2019 [facility] Clue cells seen 10:04 AM CLINICS (A) CDT MICHELLE Wet Prep No yeast seen 10/02/2019 [facility] 10:04 AM CLINICS CDT MICHELLE Wet Prep Few 10/02/2019 [facility] WBC'S seen 10:04 AM CLINICS CDT MICHELLE Specimen Anatomical Collection Method Collection Time Receive d Time (Source) Location / / Volume Laterality Specimen from 10/02/2019 9:51 AM 10/02/19 20 9:52 vagina CDT AM CDT (specimen) Marilou Shipley NP LAB - MICRO GENERAL ORDERABL ES Performing Organization Address City/State/ZIP Code Phon e Number [facility] [address] [place] [address] Neisseria gonorrhoeae PCR (10/02/2019 9:50 AM CDT) Analysis Performed At [facility] logist Time Signature Specimen Urine 10/02/2019 [place] Descrip 9:52 AM CDT [facility] N Gonorrhea Negative NEG^Negati 10/03/2019 INFECTIOUS PCR ve 1:55 PM CDT [facility] DIAGNOSTIC LABORATORY Comment: Negative for N. gonorrhoeae rRNA by herman scription mediated amplification. A negative result by flight operations dispatch clerk media dane amplification does not preclude the [...] MICRO GENERAL ORDERABL ES Performing Organization Address City/[facility]/ZIP Code Phon e Number INFECTIOUS DISEASES [address] [place] [address] DIAGNOSTIC LABORATORY, [address] [address] [phone] INFECTIOUS DISEASES [address] [place] [address], A DIAGNOSTIC LABORATORY Chlamydia trachomatis PCR (10/02/2019 9:50 AM CDT) [facility] Method Time Signature Specimen Urine 10/02/2019 [place] Description 9:52 AM CDT [facility] Chlamydia Negative NEG^Negat 10/03/2019 INFECTIOUS Trachomatis PCR yanick 1:55 PM CDT [facility] Comment: Negative for C. trachomatis rRNA by herman scription mediated amplification. A negative result by flight operations dispatch clerk media dane amplification does not preclude the [...] City/State/ZIP Code Phon e Number INFECTIOUS DISEASES [address] [place] [address] DIAGNOSTIC LABORATORY, [address] [address] [phone] INFECTIOUS DISEASES [address] [place] [address], A DIAGNOSTIC LABORATORY documented in this encounter Visit Diagnoses Diagnosis BV (bacterial vaginosis) - Primary Vaginitis and vulvovaginitis, unspecifie d Yeast infection of the vagina Candidiasis of vulva and vagina Vaginal discharge Leukorrhea, not specified as infective documented in this encounter Care Teams Public Health Service Officer Relationship Specialty Start Date End Date No Ref-Primary, Physician PCP - General 06/11/19 documented as of this encounter
--- OUTSIDE RECORDS SUMMARY | 2022-03-14 13:21 | XMS_ITS | Encounter Summary ---
:1990 Author Organization [facility] Address [address] [place] [address] Care Team Providers Name Role Phone Unavailable Primary Care Provider Unavailable Encounter Details Date Type Department Care Team Description 10/09/2001 Hospital Encounter [facility]X [facility] Geraldo Hodges M.D. [address] [place], [place] [address] (Wo rk) Social History [...] How often do you attend faith or gnosticist Never 05/04/2021 services? Do you [...]
--- OUTSIDE RECORDS SUMMARY | 2022-03-14 13:21 | XMS_ITS | Encounter Summary ---
:1990 Author Organization [facility] Address [address] [place] [address] Care Team Providers Name Role Phone Unavailable Primary Care Provider Unavailable Encounter Details Date Type Department Care Team Description 08/06/2002 Hospital Encounter HX [facility] Geraldo Hodges M.D. [address] [place], [place] [address] (Wo rk) Social History [...] How often do you attend hindu or rastafarian Never 05/04/2021 services? Do you [...]
--- OUTSIDE RECORDS SUMMARY | 2022-03-14 13:21 | XMS_ITS | Encounter Summary ---
:1990 Author Organization [place] Address [facility] [place] [address] Care Team Providers Name Role Phone No Ref-Primary, Physician Primary Care Provider [phone] Encounter Details Date Type Department Care [...] on filedocumented in this encounter Care Teams Mud Engineer Relationship Specialty Start Date End Date No Ref-Primary, Physician PCP - General 06/11/19 documented as of this encounter
--- OUTSIDE RECORDS SUMMARY | 2022-03-14 13:21 | XMS_ITS | Encounter Summary ---
:1990 Author Organization [facility] Address [address] [place] [address] Care Team Providers Name Role Phone Unavailable Primary Care Provider Unavailable Encounter Details Date Type Department Care Team Description 06/24/2003 Hospital Encounter HX [facility] Pascual Smith M.D. [address] [place], [place] [address] (Wo rk) Social History [...] How often do you attend baptism or uatsdin Never 05/04/2021 services? Do you [...]
--- OUTSIDE RECORDS SUMMARY | 2022-03-14 13:21 | XMS_ITS | Encounter Summary ---
:1990 Author Organization [facility] Address [address] [place] [address] Care Team Providers Name Role Phone Unavailable Primary Care Provider Unavailable Encounter Details Date Type Department Care Team Description 09/23/2002 Hospital Encounter HX [facility] Geraldo Hodges M.D. [address] [place], [place] [address] (Wo rk) Social History [...] How often do you attend pentecostal or buddhist Never 05/04/2021 services? Do you [...]
--- OUTSIDE RECORDS SUMMARY | 2022-03-14 13:21 | XMS_ITS | Encounter Summary ---
:1990 Author Organization [place] Address [facility] [place] [address] Care Team Providers Name Role Phone No Ref-Primary, Physician Primary Care Provider [phone] Encounter Details Date Type Department Care Team Description 06/11/2019 Travel Social History Tobacco Use Types Packs/Day Years Used Date Smoking Tobacco: Never Smokeless Tobacco: Never Sex Assigned at Date Recorded Not on file documented as of this encounter Plan of Treatment Not on filedocumented as of this encounter Visit Diagnoses Not on filedocumented in this encounter Care Teams Hand Brush Filler Relationship Specialty Start Date End Date No Ref-Primary, Physician PCP - General 06/11/19 documented as of this encounter
--- OUTSIDE RECORDS SUMMARY | 2022-03-14 13:21 | XMS_ITS | Encounter Summary ---
:1990 Author Organization [place] Address [address] [facility] [place] [address] Care Team Providers Name Role Phone No Ref-Primary, Physician Primary Care Provider [phone] Encounter Details Date Type Department Care Team Description 10/03/2019 Orders Only [facility] Flaskerud, Genital he rpes simplex, Urgent Care Michelle Hines, TRUST AND ESTATES ATTORNEY unspecified site [address] [place] [address] (Primary Dx) [place], [place] [address] [address] [place] [address] Social History Tobacco Use [...] Primary documented in this encounter Care Teams Pattern Perforating Machine Operator Relationship Specialty Start Date End Date No Ref-Primary, Physician PCP - General 06/11/19 documented as of this encounter
--- OUTSIDE RECORDS SUMMARY | 2022-03-14 13:21 | XMS_ITS | Encounter Summary ---
:1990 Author Organization [facility] Address [address] [place] [address] Care Team Providers Name Role Phone Unavailable Primary Care Provider Unavailable Encounter Details Date Type Department Care Team Description 08/30/2000 Hospital Encounter HX [facility] Geraldo Hodges M.D. [address] [place], [place] [address] (Wo rk) Social History [...] How often do you attend religious or yazidism Never 05/04/2021 services? Do you [...]
--- OUTSIDE RECORDS SUMMARY | 2022-03-14 13:21 | XMS_ITS | Clinical Summary ---
:1990 Author Organization [place] Address [address] [facility] [place] [address] Care Team Providers Name Role Phone No Ref-Primary, Physician Primary Care Provider [phone] Allergies No known active allergies Medications Medication [...] Comments Blood Pressure 124/84 03/20/2020 2:02 PM PATROL AGENT Pulse 78 10/02/2019 9:28 AM CDT Temperature 36.7 ??C (98 ??F) 10/02/2019 9:28 AM CDT Respiratory Rate 20 10/02/2019 9:28 AM CDT Oxygen Saturation 98% 10/02/2019 9:28 AM CDT Inhaled Oxygen Concentration - - Weight 57.6 kg (127 lb) 03/20/2020 2:02 PM PATROL AGENT Height - - Body Mass Index - [...] mplete this topic 64 Years) Care Teams Sewing Supervisor Relationship Specialty Start Date End Date No Ref-Primary, Physician PCP - General 06/11/19
--- OUTSIDE RECORDS SUMMARY | 2022-03-14 13:21 | XMS_ITS | Encounter Summary ---
:1990 Author Organization [facility] Address [address] [place] [address] Care Team Providers Name Role Phone Unavailable [...] How often do you attend jain or judaism Never 05/04/2021 services? Do you [...]
--- OUTSIDE RECORDS SUMMARY | 2022-03-14 13:21 | XMS_ITS | Encounter Summary ---
:1990 Author Organization [place] Address [address] [facility] [place] [address] Care Team Providers Name Role Phone No Ref-Primary, Physician Primary Care Provider [phone] Reason for Visit Reason Comments Contraception Mirena IUD inserted on 02/19. Here for removal and insertion of new Mirena IUD. Patient repo rts that she uses the Mirena for both contraception and to control periods Encounter Details Date Type Department Care Team Description 03/20/2020 Office Visit [facility] Kiley Sorensen Encount er for removal and reinsertion of intrauterine contraceptive device (Primary Dx); Clinic Michelle ARREAGA Genital herpes simplex type 1 infection [address] [address] [address] [facility] [address] [place], [place] [address] [phone] Social History Tobacco Use Types Packs/Day Years Used Date Smoking Tobacco: Never Smokeless Tobacco: Never Tobacco Cessation: Counseling Given: No Sex Assigned at Date Recorded Not on file COVID-19 Exposure Response Date Recorded In the last month, have you been in contact with No / Unsure 03/20/2020 1:57 PM POSTAL SUPERVISOR someone who was confirmed or suspected to have Coronavirus / COVID-19? documented as of this encounter Last Filed Vital Signs Vital Sign Reading Time Taken Comments Blood Pressure 124/84 03/20/2020 2:02 PM POSTAL SUPERVISOR Pulse - - Temperature - - Respiratory Rate - - Oxygen Saturation - - Inhaled Oxygen Concentration - - Weight 57.6 kg (127 lb) 03/20/2020 2:02 PM POSTAL SUPERVISOR Height - - Body Mass Index - [...] the affected area. ?? You may use [id number] pain medicine unless another pain medicine was [...] confusion ?? Worsening headache or stiff neck [employer] last reviewed this educational content on 09/15/2017 ?? [id number] [employer] [place] [address]. All rights reserved. This information is not intended as a substitute for professional medical care. Always follow your healthcare professional's instructions. AL SUPERVISOR documented in this encounter Progress Notes Kiley [...] any time. IUD should be removed by [facility] care provider and the current IUD [...] for placement, and IUD inserted according to gin inspector's instructions without difficulty or significant ressitance, and deployed at the fundus. The strings were visualized and trimmed to 3 cm from the external os. Tenaculum was removed and hemostasis noted. Speculum removed. Patient tolerated procedure well. Lot # [id number] Exp: Apr 2022 EBL: minimal Complications: none POST PROCEDURE: Given gin inspector's handouts, including when to have IUD removed, [...] suppressive therapy,she will call Kiley Sorensen CNM AL SUPERVISOR documented in this encounter Nursing Notes Stalin [...] following HM Due: NONE Stalin Hernandez MA AL SUPERVISOR documented in this encounter Plan of Treatment Not on filedocumented as of this encounter Procedures Procedure Name Priority Date/Time Associated Diagnosis Comme nts [place] REMOVE INTRAUTERINE Routine 03/20/2020 2:10 PM Encounter fo r removal DEVICE POSTAL SUPERVISOR and reinsertion of intrauterine contraceptive device [place] INSERT INTRAUTERINE Routine 03/20/2020 2:10 PM Encounter fo r removal DEVICE POSTAL SUPERVISOR and reinsertion of intrauterine contraceptive device documented in this encounter Visit Diagnoses Diagnosis Encounter for removal and reinsertion of intrauterine contraceptive device - Primary Genital herpes simplex type 1 infection documented in this encounter Administered Medications Inactive Administered Medications - up to 3 most recent administrations Medication Order MAR Action Action Date Dose Rate Site levonorgestrel (MIRENA) 20 Given 03/20/2020 1:59 PM POSTAL SUPERVISOR 20 mcg MCG/24HR IUD 20 mcg Intrauterine, ONCE, On Mon03/20/20 at 1430, For 1 dose documented in this encounter Care Teams Public Relations Director Relationship Specialty Start Date End Date No Ref-Primary, Physician PCP - General 06/11/19 documented as of this encounter
--- OUTSIDE RECORDS SUMMARY | 2022-03-14 13:21 | XMS_ITS | Encounter Summary ---
:1990 Author Organization [place] Address [address] [facility] [place] [address] Care Team Providers Name Role Phone No Ref-Primary, Physician Primary Care Provider [phone] Reason for Visit Reason Comments Urgent Care URI coughing with yellow phlegm, chest congestion, x 3 days. Pt says sometimes it hurts to take d eep breaths. Encounter Details Date Type Department Care Team Description 06/11/2019 Office Visit [facility] Kee Perea UR I with cough Urgent Care Michelle Gonsales MD (Primary Dx) [address] [address] [place] [address] Social History Tobacco Use Types Packs/Day Years Used Date Smoking Tobacco: Never Smokeless Tobacco: Never Sex Assigned at Date Recorded Not on file documented as of this encounter Last Filed Vital Signs Vital Sign Reading Time Taken Comments Blood Pressure 98/70 06/11/2019 10:28 AM SALES HOST Pulse 102 06/11/2019 10:28 AM SALES HOST Temperature 36.5 ??C (97.7 ??F) 06/11/2019 10:28 AM SALES HOST Respiratory Rate 18 06/11/2019 10:28 AM SALES HOST Oxygen Saturation 99% 06/11/2019 10:28 AM SALES HOST Inhaled Oxygen Concentration - - Weight 57.2 kg (126 lb) 06/11/2019 10:28 AM SALES HOST Height - - Body Mass Index - [...] seen Expect improvement over next 5-7 days S HOST documented in this encounter Progress Notes Kee [...] 21 capsule; Refill: 1 Kee Perea MD [facility] The use of [employer] dictation services may have been used to construct the content in this note; any grammatical or spelling errors are non- intentional. Please contact the author of this note directly if you are in need of any clarification. S HOST documented in this encounter Plan of Treatment Not on filedocumented as of this encounter Visit Diagnoses Diagnosis Viral URI with cough - Primary Acute upper respiratory infections of un specified site documented in this encounter Care Teams Party Plan Sales Agent Relationship Specialty Start Date End Date No Ref-Primary, Physician PCP - General 06/11/19 documented as of this encounter
--- OUTSIDE RECORDS SUMMARY | 2022-03-14 13:21 | XMS_ITS | Encounter Summary ---
:1990 Author Organization [place] Address [facility] [place] [address] Care Team Providers Name Role Phone No Ref-Primary, Physician Primary Care Provider [phone] Encounter Details Date Type Department Care Team Description 03/20/2020 Travel Social History Tobacco Use Types Packs/Day Years Used Date Smoking Tobacco: Never Smokeless Tobacco: Never Sex Assigned at Date Recorded Not on file COVID-19 Exposure Response Date Recorded In the last month, have you been in contact with No / Unsure 03/20/2020 1:57 PM SALES AND MARKETING COORDINATOR someone who was confirmed or suspected to have Coronavirus / COVID-19? documented as of this encounter Plan of Treatment Not on filedocumented as of this encounter Visit Diagnoses Not on filedocumented in this encounter Care Teams Military Analyst Relationship Specialty Start Date End Date No Ref-Primary, Physician PCP - General 06/11/19 documented as of this encounter
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
== END 2022-03-14 13:04 | disposition home or self-care (01) ==
PROVIDERS: Visit Provider Obstetrics & Gynecology
DX: Z39.1 Encounter for care and examination of lactating mother (principal)
CPT/HCPCS: 99211

== ENCOUNTER 2022-04-21 08:58 | Outpatient (CLI) | payer BC, MEDICAID, SELFPAY ==
[2022-04-21 09:05] LABS: Glucose Fasting Check 77 mg/dl (60-115)
[2022-04-21 12:27] LABS: Glucose 2 Hour 99 mg/dl (70-95)
[2022-04-21 12:27] LABS: Glucose Fasting 86 mg/dl (70-95)
== END 2022-04-21 08:59 | disposition home or self-care (01) ==
PROVIDERS: Visit Provider Physician Assistant
DX: Z39.2 Encounter for routine postpartum follow-up (principal)
CPT/HCPCS: 82947; 82950

== ENCOUNTER 2022-12-27 14:03 | Outpatient (CLI) | payer MEDICAID, SELFPAY ==
[2022-12-30 01:26] LABS: Bacterial Vaginosis by TMA Negative; Candida glabrata by TMA Negative; Candida species by TMA Positive; Trichomonas vaginalis by TMA Negative
== END 2022-12-27 14:04 | disposition home or self-care (01) ==
LOC: NFLDREF 14:03
PROVIDERS: Visit Provider Physician Assistant
DX: N89.8 Other specified noninflammatory disorders of vagina (principal)
CPT/HCPCS: 81513; 87481; 87661

== ENCOUNTER 2023-06-02 10:44 | Outpatient (CLI) | payer MEDICAID, SELFPAY ==
--- OUTSIDE RECORDS SUMMARY | 2023-06-02 10:47 | XMS_ITS | Referral Summary ---
Author Name Unknown Organization [place] Address [facility] [place] [address] Care Team Providers Care Forging Roll Operator Name Role Phone No Ref-Primary, Physician Primary Care Provider Allergies No known active allergies Medications Medication Sig Dispensed Refills Start Date End Date Status valACYclovir (VALTREX) 1000 mg tabletIndications:Ge nital herpes simplex, unspecified site Take 1 tablet (1,000 mg) by mouth 2 times daily for 10 days 20 tablet 0 10/03/2019 Active levonorgestrel (MIRENA) 20 MCG/24HR IUDIndications:Encou nter for removal and reinsertion of intrauterine contraceptive device 1 each (20 mcg) by Intrauterine route once 0 Active Active Problems Problem Noted Date Diagnosed Date HSV infection 05/08/2018 Adjustment disorder with depressed mood 11/11/19 17 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 Social History Tobacco Use Types Packs/Day Years Used Date Smoking Tobacco: Never Smokeless Tobacco: Never Tobacco Cessation:Counseling Given: No Adolescent Education Answer Date Record ed Getting School Help Needed Not on file 01/06 Sex and Gender Information Value Date Recorded Sex Assigned at Not on file Gender Identity Not on file Sexual Orientation Not on file Last Filed Vital Signs Vital Sign Reading Time Taken Comments Blood Pressure 124/84 03/20/2020 2:02 PM DATA CENTER TECHNICIAN Pulse 78 10/02/2019 9:28 AM CDT Temperature 36.7 ??C (98 ??F) 10/02/2019 9:28 AM CDT Respiratory Rate 20 10/02/2019 9:28 AM CDT Oxygen Saturation 98% 10/02/2019 9:28 AM CDT Inhaled Oxygen Concentration - - Weight 57.6 kg (127 lb) 03/20/2020 2:02 PM DATA CENTER TECHNICIAN Height - - Body Mass Index - - Plan of Treatment Not on file Care Teams Forging Roll Operator Relationship Specialty Start Date End Date No Ref-Primary, Physician PCP - General 06/11/19
--- OUTSIDE RECORDS SUMMARY | 2023-06-02 10:47 | XMS_ITS | Clinical Summary ---
Author Name Unknown Organization [place] Address [facility] [place] [address] Care Team Providers Care Rugby Union Footballer Name Role Phone No Ref-Primary, Physician Primary [...] Comments Blood Pressure 124/84 03/20/2020 2:02 PM RADIATION TECHNICIAN Pulse 78 10/02/2019 9:28 AM CDT Temperature 36.7 ??C (98 ??F) 10/02/2019 9:28 AM CDT Respiratory Rate 20 10/02/2019 9:28 AM CDT Oxygen Saturation 98% 10/02/2019 9:28 AM CDT Inhaled Oxygen Concentration - - Weight 57.6 kg (127 lb) 03/20/2020 2:02 PM RADIATION TECHNICIAN Height - - Body Mass Index - - Plan of Treatment Health Maintenance Due Date Last Done Comments ADVANCE CARE PLANNING 1990 ANNUAL REVIEW OF HM ORDERS 1990 YEARLY PREVENTIVE VISIT 1990 COVID-19 Vaccine (#1) 1990 HIV SCREENING 2005 HEPATITIS C SCREENING 2008 PAP 2011 DTAP/TDAP/TD IMMUNIZATION (3 - Td or Tdap) 11/01/2020 11/01/2010, 08/06/2002 INFLUENZA VACCINE (#1) 2022 9, 03/16/2016, 01/21/2015, Additional history exists PHQ-2 (once per calendar year) 2023 HEPATITIS B IMMUNIZATION Completed 003, 09/23/2002, 08/06/2002, Additional history exists MENINGITIS IMMUNIZATION Completed 03/05/2007 HPV IMMUNIZATION Completed 10/03/2007, , 03/05/2007 IPV IMMUNIZATION Aged Out No longer e ligible based on patient's age to complete this topic Pneumococcal Vaccine: Pediatrics (0 to 5 Years) and At-Risk Patients (6 to 64 Years) Aged Out No longer eligible based on patient's age to complete this topic RSV MONOCLONAL ANTIBODY Aged Out No l onger eligible based on patient's age to complete this topic Care Teams Rugby Union Footballer Relationship Specialty Start Date End Date No Ref-Primary, Physician PCP - General 06/11/19
--- OUTSIDE RECORDS SUMMARY | 2023-06-02 10:47 | XMS_ITS | Encounter Summary ---
Author Name Unknown Organization [place] Address [address] [facility] [place] [address] Care Team Providers Care Event Sales Representative Name Role Phone No Ref-Primary, Physician Primary Care Provider Kiley Sorensen CNM Unavailable [phone] Encounter Details Date Type Department Care Team (Late st Contact Info) Description 06/22/2020 [facility] Medical Advice [facility] [address] [place] [address] Kiley Sorensen CNM [address] [place] [address] Chlamydia contact (Primary Dx) Social History Tobacco Use Types Packs/Day Years Used Date Smoking Tobacco: Never Smokeless Tobacco: Never Sex and Gender Information Value Date Recorded Sex Assigned at Not on file Gender Identity Not on file Sexual Orientation Not on file documented as of this encounter Miscellaneous Notes * Telephone Encounter - Kiley Sorensen CNM - 06/22/2020 11:22 AM CST Called pt to discuss. She reports exposure to chlamydia about 2 wks ago. Denies any symptoms. She desires to treat presumptively and declines testing. Will send rx for azithromycin 1G PO to be taken once. Avoid intercourse x7 days after all partners treated. She states understanding of the plan of care and has no further questions. Discussed DANA is optional, but she declines at this point. Kiley Sorensen APRN, CNM ER PLATE OPERATOR * Telephone Encounter - Svetlana Navarro RN - 06/22/2020 8:05 AM CST Please address the my chart message. Lori Navarro RN ER PLATE OPERATOR documented in this encounter Plan of Treatment Not on file documented as of this encounter Visit Diagnoses Diagnosis Chlamydia contact- Primary Contact with or exposure to venereal diseases documented in this encounter Care Teams Event Sales Representative Relationship Specialty Start Date End Date No Ref-Primary, Physician PCP - General 06/11/19 Kiley Sorensen CNM [address] [place] [address] Assigned OBGYN Provider 03/22/20 2 documented as of this encounter
== END 2023-06-02 10:45 | disposition home or self-care (01) ==
LOC: NFLDREF 10:44
PROVIDERS: Visit Provider Physician Assistant
DX: N89.8 Other specified noninflammatory disorders of vagina (principal)
CPT/HCPCS: 80061; 87102

== ENCOUNTER 2023-08-16 13:08 | Outpatient (CLI) | payer MEDICAID, SELFPAY ==
--- OUTSIDE RECORDS SUMMARY | 2023-08-18 10:53 | XMS_ITS | Referral Summary ---
Author Name Unknown Organization [place] Address [facility] [place] [address] Care Team Providers Care Manager Financial Planning Name Role Phone No Ref-Primary, Physician Primary Care Provider Allergies No known active allergies Medications Medication Sig Dispensed Refills Start Date End Date Status valACYclovir (VALTREX) 1000 mg tabletIndications:Ge nital herpes simplex, unspecified site Take 1 tablet (1,000 mg) by mouth 2 times daily for 10 days 20 tablet 10/03/2019 Active levonorgestrel (MIRENA) 20 MCG/24HR IUDIndications:Encou nter for removal and reinsertion of intrauterine contraceptive device 1 each (20 mcg) by Intrauterine route once Active Active Problems Problem Noted Date Diagnosed [...] Comments Blood Pressure 124/84 03/20/2020 2:02 PM REMOTE PILOT OPERATOR Pulse 78 10/02/2019 9:28 AM CDT Temperature 36.7 ??C (98 ??F) 10/02/2019 9:28 AM CDT Respiratory Rate 20 10/02/2019 9:28 AM CDT Oxygen Saturation 98% 10/02/2019 9:28 AM CDT Inhaled Oxygen Concentration - - Weight 57.6 kg (127 lb) 03/20/2020 2:02 PM REMOTE PILOT OPERATOR Height - - Body Mass Index - - Plan of Treatment Not on file Care Teams Manager Financial Planning Relationship Specialty Start Date End Date No Ref-Primary, Physician PCP - General 06/11/19
--- OUTSIDE RECORDS SUMMARY | 2023-08-18 10:53 | XMS_ITS | Encounter Summary ---
Author Name Unknown Organization [place] Address [address] [facility] [place] [address] Care Team Providers Care Estimator Name Role Phone No Ref-Primary, Physician Primary Care Provider Kiley Sorensen CNM Unavailable [phone] Encounter Details Date Type Department Care Team (Late st Contact Info) Description 06/22/2020 [facility] Medical Advice [facility] [address] [place] [address] Kiley Sorensen CNM [address] [place] [address] Chlamydia contact (Primary Dx) Social [...] at this point. Kiley Sorensen APRN, CNM AL EQUIPMENT MECHANIC * Telephone Encounter - Svetlana Navarro RN - 06/22/2020 8:05 AM CST Please address the my chart message. Lori Navarro RN AL EQUIPMENT MECHANIC documented in this encounter Plan of Treatment Not on file documented as of this encounter Visit Diagnoses Diagnosis Chlamydia contact- Primary Contact with or exposure to venereal diseases documented in this encounter Care Teams Estimator Relationship Specialty Start Date End Date No Ref-Primary, Physician PCP - General 06/11/19 Kiley Sorensen CNM [address] [place] [address] Assigned OBGYN Provider 03/22/20 2 documented as of this encounter
--- OUTSIDE RECORDS SUMMARY | 2023-08-18 10:53 | XMS_ITS | Clinical Summary ---
Author Name Unknown Organization [place] Address [facility]0 [facility] [address] Care Team Providers Care Filter Screen Cleaner Name Role Phone No Ref-Primary, Physician Primary [...] Comments Blood Pressure 124/84 03/20/2020 2:02 PM AUTO GARAGE MECHANIC Pulse 78 10/02/2019 9:28 AM CDT Temperature 36.7 ??C (98 ??F) 10/02/2019 9:28 AM CDT Respiratory Rate 20 10/02/2019 9:28 AM CDT Oxygen Saturation 98% 10/02/2019 9:28 AM CDT Inhaled Oxygen Concentration - - Weight 57.6 kg (127 lb) 03/20/2020 2:02 PM AUTO GARAGE MECHANIC Height - - Body Mass Index - - Plan of Treatment Not on file Care Teams Filter Screen Cleaner Relationship Specialty Start Date End Date No Ref-Primary, Physician PCP - General 06/11/19
== END 2023-08-16 13:09 | disposition home or self-care (01) ==
LOC: NFLDREF 08-18 10:52
PROVIDERS: Visit Provider Obstetrics & Gynecology
DX: N39.0 Urinary tract infection, site not specified (principal); B95.7 Other staphylococcus as the cause of diseases classified elsewhere
CPT/HCPCS: 87086; 87186

== ENCOUNTER 2024-03-18 15:23 | Outpatient (CLI) | payer BC, MEDICAID, SELFPAY ==
--- OUTSIDE RECORDS SUMMARY | 2024-03-18 15:39 | XMS_ITS | Encounter Summary ---
Author Organization [place] Address [facility] [place] [address] Care Team Providers Care Seed Service Advisor Name Role Phone No Ref-Primary, Physician Primary Care Provider Kiley Sorensen CNM Unavailable [phone] Encounter Details Date Type Department Care Team (Late st Contact Info) Description 06/22/2020 [facility] Medical Advice [facility] [address] [place] [address] Kiley Sorensen CNM [address] [place] [address] Chlamydia contact (Primary Dx) Social History Tobacco Use Types Packs/Day Years Used Date Smoking Tobacco: Never Smokeless Tobacco: Never Comments No Sex and Gender Information Value Date Recorded Sex Assigned at Not on file Legal Sex Female 3:43 PM MOTORMAN/WOMAN Gender Identity Not on file Sexual Orientation [...] at this point. Kiley Sorensen APRN, CNM RMAN/WOMAN * Telephone Encounter - Svetlana Navarro RN - 06/22/2020 8:05 AM CST Please address the my chart message. Lori Navarro RN RMAN/WOMAN documented in this encounter Plan of Treatment Not on file documented as of this encounter Visit Diagnoses Diagnosis Chlamydia contact- Primary Contact with or exposure to venereal diseases documented in this encounter Care Teams Seed Service Advisor Relationship Specialty Start Date End Date No Ref-Primary, Physician PCP - General 06/11/19 Kiley Sorensen CNM [address] [place] [address] Assigned OBGYN Provider 03/22/20 2 documented as of this encounter
--- OUTSIDE RECORDS SUMMARY | 2024-03-18 15:39 | XMS_ITS | Referral Summary ---
Author Organization [place] Address [facility]0 [facility] [place] [address] Care Team Providers Care Boiler House Operator Name Role Phone No Ref-Primary, Physician Primary Care Provider Allergies No known active allergies Medications valACYclovir (VALTREX) 1000 mg tabletIndications :Genital herpes simplex, unspecified site Take 1 tablet (1,000 mg) by mouth 2 times daily for 10 days 20 tablet 10/03/19 20 Active levonorgestrel (MIRENA) 20 MCG/24HR IUDIndications:En counter for removal and reinsertion of intrauterine contraceptive device 1 each (20 mcg) by Intrauterine route once Active Active Problems Problem Noted Date Diagnosed Date HSV infection 05/08/2018 Adjustment disorder with depressed mood 11/11/19 17 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 Gender Identity Not on file Sexual Orientation Not on file Last Filed Vital Signs Vital Sign Reading Time Taken Comments Blood Pressure 124/84 03/20/2020 2:02 PM FEATHEREDGE MACHINE OPERATOR Pulse 78 10/02/2019 9:28 AM CDT Temperature 36.7 C (98 F) 10/02/2019 9:28 AM CDT Respiratory Rate 20 10/02/2019 9:28 AM CDT Oxygen Saturation 98% 10/02/2019 9:28 AM CDT Inhaled Oxygen Concentration - - Weight 57.6 kg (127 lb) 03/20/2020 2:02 PM FEATHEREDGE MACHINE OPERATOR Height - - Body Mass Index - - Plan of Treatment Not on file Care Teams Boiler House Operator Relationship Specialty Start Date End Date No Ref-Primary, Physician PCP - General 06/11/19
--- OUTSIDE RECORDS SUMMARY | 2024-03-18 15:39 | XMS_ITS | Clinical Summary ---
Author Organization [place] Address [facility] 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 Gender Identity Not on file Sexual Orientation Not on file Last Filed Vital Signs Vital Sign Reading Time Taken Comments Blood Pressure 124/84 03/20/2020 2:02 PM FELLMONGERING MACHINE OPERATOR Pulse 78 10/02/2019 9:28 AM CDT Temperature 36.7 C (98 F) 10/02/2019 9:28 AM CDT Respiratory Rate 20 10/02/2019 9:28 AM CDT Oxygen Saturation 98% 10/02/2019 9:28 AM CDT Inhaled Oxygen Concentration - - Weight 57.6 kg (127 lb) 03/20/2020 2:02 PM FELLMONGERING MACHINE OPERATOR Height - - Body Mass Index - - Plan of Treatment Not on file Care Teams Tissue Packer Relationship Specialty Start Date End Date No Ref-Primary, Physician PCP - General 06/11/19
== END 2024-03-18 15:24 | disposition home or self-care (01) ==
PROVIDERS: Visit Provider Registered Nurse
DX: R53.83 Other fatigue (principal); E55.9 Vitamin D deficiency, unspecified; F32.A Depression, unspecified
CPT/HCPCS: 80053; 82306; 82728; 83970; 84443

== ENCOUNTER 2024-04-05 15:02 | Outpatient (CLI) | payer BC, MEDICAID, SELFPAY ==
[2024-04-09 18:25] LABS: HPV Source Cervix; HPV, High Risk by TMA Not Detected
== END 2024-04-05 15:03 | disposition home or self-care (01) ==
PROVIDERS: PCP Registered Nurse; Visit Provider Obstetrics & Gynecology
DX: R10.2 Pelvic and perineal pain (principal); N93.9 Abnormal uterine and vaginal bleeding, unspecified; N89.8 Other specified noninflammatory disorders of vagina; Z12.4 Encounter for screening for malignant neoplasm of cervix
CPT/HCPCS: 87624; 87625; 88141; 88142

== ENCOUNTER 2024-05-13 15:42 | Outpatient (CLI) | payer BC, SELFPAY ==
--- NOTE | 2024-05-13 16:00 | CRLHL7_ITS ---
For Patients: As a result of the Century Cures Act, medical imaging exams and procedure reports are released immediately into your electronic medical record. You may view this report before your referring provider. If you have questions, please contact your health care provider. INDICATION: Pelvic and perineal pain COMPARISON: none TECHNIQUE: 2D carrizales scale and color Doppler images were acquired of the pelvis using a transabdominal and transvaginal approach. FINDINGS: Sonographic images demonstrate a normal size and smooth outer contour of the uterus. Uterus measures 8.6 cm in length by 3.8 cm in AP diameter by 5.0 cm in transverse dimension. The myometrium has a normal uniform echotexture. The endometrial lining measures 1 mm in composite thickness. Intrauterine device is present within the lower uterine segment. The right ovary measures 4.8 x 1.8 x 2.5 cm in size and the left ovary measures 4.4 x 2.0 x 2.4 cm. The ovaries demonstrate normal arterial and venous blood flow on color Doppler analysis. Trace physiologic free fluid. IMPRESSION: IUD in the lower uterine segment. Remainder unremarkable. Dictated by Rod Kamara MD @ 05/13/2024 6:39:25 PM (Electronically Signed)
== END 2024-05-13 15:43 | disposition home or self-care (01) ==
PROVIDERS: PCP Registered Nurse; Visit Provider Obstetrics & Gynecology
DX: R10.2 Pelvic and perineal pain (principal); N93.9 Abnormal uterine and vaginal bleeding, unspecified
CPT/HCPCS: 76830; 76856

== ENCOUNTER 2024-06-20 07:31 | Day surgery (SDC) | payer BC, SELFPAY ==
[2024-06-20 07:55] VITALS: BMI 29.0
[2024-06-20 08:03] LABS: Ur HCG Qualitative* Negative (Negative)
[2024-06-20] MEDS: 0.9 % SODIUM CHLORIDE 500 ML 500 ML 100 ML IV ×2 (08:10→09:38)
[2024-06-20] MEDS: SODIUM CHLORIDE 0.9 % (FLUSH) 10 ML SYRINGE IVF (08:10)
[2024-06-20 08:14] VITALS: BP 109/75; PULSE 92; RESP 16; TEMP 36.8; O2SAT 97
[2024-06-20 08:15] LABS: Hemoglobin* 13.1 gm/dL (12.0-16.0)
--- NOTE | 2024-06-20 09:17 | W.PM.H&PU ---
History & Physical Update History & Physical Update H&P Reviewed and patient assessed: No changes noted
--- NOTE | 2024-06-20 10:02 | SUR.OPER ---
400ml DEFICIT PER BASEBALL SCOUT.
--- NOTE | 2024-06-20 10:03 | W.PM.GYNPROC ---
Procedure Note Time Seen by Provider: 10:03 Date of procedure: 06/20/24 Will [facility] bill your pro fee for this procedure?: Yes Pre-op diagnosis: 1. Loss Mirena IUD strings Post-op diagnosis: 1. Loss Mirena IUD strings 2. Cervical stenosis Procedure: 1. Exam under anesthesia 2. Dilation 3. Hysteroscopic IUD removal Anesthesia: MAC Complications: None Surgeon: Stephy Davis MD Urine Output (mL): 50 Pathology: none sent Condition: stable Disposition: same day Findings: Pelvic exam: Mons normal, clitoris normal, urethral meatus normal. Labia minora and majora normal in appearance bilaterally. Perineum and anus normal appearance. Vaginal introitus normal appearance. Vaginal pink and well rugated with scant white discharge. Cervix pink and without lesion. Very stenotic during dilation. Bimanual exam reveals uterus to be soft, nontender, mobile, retroverted, of normal size and texture. No palpable adnexal masses or tenderness. Hysteroscope: IUD stem at internal os and IUD in lower utertine segment. Mirena IUD removed intact. It was noted that strings were entirely missing and the prairie band that the strings were tied to had been cut in half (likely from her last LEEP). Procedure Description: Preoperative diagnosis: 34 year-old with Lost Mirena IUD strings and US showing Mirena at the lower uterine segment. She is here for exam under anesthesia and hysteroscopic IUD removal. Estimated blood loss: 5 mL Procedure: Fay was taken to the operating where conscious sedation was found to be adequate. She was placed in the dorsal lithotomy position. An exam under anesthesia was performed with findings stated above. She was then prepped and draped in normal sterile manner. A bivalve metal speculum was placed in the vaginal canal. The cervix and vaginal canal appear normal. The anterior lip of the cervix was then grasped with a long Allis. Uterus sounded to 8 cm. The cervix was dilated Hegar size 4 and a long curved forceps was used to see if the IUD stem can be grasped blindly. Two sweeps of the Kevorkian curette was used in an attempt to sweep the IUD out and it was unsuccessful. Cervix was dilated to Hegar 6. This was done with difficulty due to stenosis from her last LEEP. Decision was made to use hysteroscopic guidance instead. IUD noted at the lower uterine segment. Normal saline was used as the insufflation medium. Hysteroscopic grasper was used to grasp the stem of the Mirena IUD and gentle traction was used to remove the Mirena IUD from the lower uterine segment. Fluid deficit at the end of the procedure 400 mL. The hysteroscope and Allis clamp were removed from the uterus and cervix. Excellent hemostasis noted. Nothing was used for hemostasis. The patient tolerated the procedure well. Sponge, lap and instruments counts were correct at the end of the procedure. The patient was awakened from anesthesia and taken to the recovery area in stable condition. Surgical debrief and specimen reviewed performed at the end of the procedure.
[2024-06-20 10:04] VITALS: BP 83/43; PULSE 78; RESP 16; TEMP 36.2; O2SAT 97
--- NOTE | 2024-06-20 10:09 | P.ANES_ITS ---
Anesthesia Charges Start Date/Time Anesthesia Start Date: 06/20/24 Anesthesia Start Time: 09:23 Stop Date/Time Anesthesia Stop Date: 06/20/24 Anesthesia Stop Time: 10:07 Coding CPT Codes CPT Codes: ANESTH HYSTEROSCOPE/GRAPH - 77594 ([id number]) P1 - NORMAL HEALTHY PATIENT, QK - MIDDLE SCHOOL VOLLEYBALL COACH 2-4 CNCRNT ANES PROC, QX - TEST ENGINEER SVC W/ MED DIRECTION
--- NOTE | 2024-06-20 10:09 | W.ANESCHARGE ---
Anesthesia Charges Start Date/Time Anesthesia Start Date: 06/20/24 Anesthesia Start Time: 09:23 Stop Date/Time Anesthesia Stop Date: 06/20/24 Anesthesia Stop Time: 10:07 Coding CPT Codes CPT Codes: ANESTH HYSTEROSCOPE/GRAPH - 39701 ([id number]) P1 - NORMAL HEALTHY PATIENT, QK - CINNAMON GRINDER 2-4 CNCRNT ANES PROC, QX - SALESPERSON MEN'S FURNISHINGS SVC W/ MED DIRECTION
[2024-06-20 10:15] VITALS: BP 90/63; PULSE 81; RESP 16; O2SAT 98
--- NOTE | 2024-06-20 10:27 | P.ANES_ITS ---
Anesthesia Charges Start Date/Time Anesthesia Start Date: 06/20/24 Anesthesia Start Time: 09:23 Stop Date/Time Anesthesia Stop Date: 06/20/24 Anesthesia Stop Time: 10:07 Coding CPT Codes CPT Codes: ANESTH HYSTEROSCOPE/GRAPH - 22181 ([id number]) QK - VP OF MARKETING 2-4 CNCRNT ANES PROC, QX - CAPACITY PLANNING ENGINEER SVC W/ MD MED DIRECTION, P1 - NORMAL HEALTHY PATIENT
--- NOTE | 2024-06-20 10:27 | W.ANESCHARGE ---
Anesthesia Charges Start Date/Time Anesthesia Start Date: 06/20/24 Anesthesia Start Time: 09:23 Stop Date/Time Anesthesia Stop Date: 06/20/24 Anesthesia Stop Time: 10:07 Coding CPT Codes CPT Codes: ANESTH HYSTEROSCOPE/GRAPH - 04554 ([id number]) QK - DATA COLLECTION TECHNICIAN 2-4 CNCRNT ANES PROC, QX - TECHNICAL BUSINESS SYSTEMS ANALYST SVC W/ MD MED DIRECTION, P1 - NORMAL HEALTHY PATIENT
[2024-06-20 10:30] VITALS: BP 94/77; PULSE 89; RESP 16; O2SAT 99
[2024-06-20 10:45] VITALS: BP 100/71; PULSE 81; RESP 16; O2SAT 100
[2024-06-20 11:00] VITALS: BP 101/58; PULSE 82; RESP 16; O2SAT 100
[2024-06-20] MEDS: ACETAMINOPHEN 500 MG TABLET 1000 MG PO (11:00)
== END 2024-06-20 11:35 | disposition home or self-care (01) ==
PROVIDERS: PCP Registered Nurse; Visit Provider Obstetrics & Gynecology
PROC: 0UDB8ZZ Extraction of Endometrium, Via Natural or Artificial Opening Endoscopic (ICD-10-PCS; CPT 58558; principal; 2024-06-20 09:00)
DX: T83.32XA Displacement of intrauterine contraceptive device, initial encounter (principal); N88.2 Stricture and stenosis of cervix uteri
CPT/HCPCS: 58562; 00952; 36415; 81025; 85018; 86850; 86900; 86901; A9270; J1100; J1885; J2250; J2405; J2704; J3010; J7030

== ENCOUNTER 2025-01-10 11:35 | Outpatient (CLI) | payer BC, SELFPAY ==
[2025-01-10 17:59] LABS: Bacterial Vaginosis* POSITIVE (Negative); Candida glab/krus NOT DETECTED (No Detected)
== END 2025-01-10 11:36 | disposition home or self-care (01) ==
PROVIDERS: Visit Provider Advanced Practice Midwife
DX: O20.9 Hemorrhage in early pregnancy, unspecified (principal); N76.0 Acute vaginitis; B96.89 Other specified bacterial agents as the cause of diseases classified elsewhere
CPT/HCPCS: 81513; 84702; 87086; 87481; 87661

== ENCOUNTER 2025-01-13 11:02 | Outpatient (CLI) | payer BC, SELFPAY | END 2025-01-13 11:03 | disposition home or self-care (01) | LOC: NFLDREF 01-14 18:07 | PROVIDERS: Visit Provider Advanced Practice Midwife | DX: O20.9 Hemorrhage in early pregnancy, unspecified (principal) | CPT/HCPCS: 84702 ==